=== PATIENT | female | born 1970 | race Two or more races ===

== ENCOUNTER → 2020-06-22 08:11 | Outpatient (BNVA) | payer MEDICAID, SELFPAY | PROVIDERS: PCP Internal Medicine; Referring Provider Internal Medicine; Visit Provider Physician Assistant | DX: K57.30 Diverticulosis of large intestine without perforation or abscess without bleeding (principal); K64.8 Other hemorrhoids; D12.6 Benign neoplasm of colon, unspecified; K29.50 Unspecified chronic gastritis without bleeding; K21.9 Gastro-esophageal reflux disease without esophagitis; F40.218 Other animal type phobia; Z79.899 Other long term (current) drug therapy; Z98.890 Other specified postprocedural states | CPT/HCPCS: 99214 ==

== ENCOUNTER 2020-08-18 12:43 | Outpatient (REF) | payer MEDICAID, SELFPAY ==
--- NOTE | 2020-08-18 | XR_ITS ---
EXAMINATION: BILATERAL HANDS CLINICAL INFORMATION: Finger pain COMPARISON: August 28, 2014 TECHNIQUE: 3 views of each hand FINDINGS: 3 views of the left hand do not demonstrate any evidence of acute fracture or dislocation. Joint spaces are maintained. No periarticular osteopenia. No erosive changes are evident. No radiopaque foreign body. 3 views of the right hand do not demonstrate any evidence of acute fracture or dislocation. No significant soft tissue swelling is seen. Joint spaces maintained. No erosive changes. No radiopaque foreign bodies. XR/XR hand RT min 3V IMPRESSION: No bony abnormality of the right or left hand identified.
--- NOTE | 2020-08-18 12:52 | XR_ITS ---
EXAMINATION: BILATERAL HANDS CLINICAL INFORMATION: Finger pain COMPARISON: August 28, 2014 TECHNIQUE: 3 views of each hand FINDINGS: 3 views of the left hand do not demonstrate any evidence of acute fracture or dislocation. Joint spaces are maintained. No periarticular osteopenia. No erosive changes are evident. No radiopaque foreign body. 3 views of the right hand do not demonstrate any evidence of acute fracture or dislocation. No significant soft tissue swelling is seen. Joint spaces maintained. No erosive changes. No radiopaque foreign bodies. XR/XR hand LT min 3V IMPRESSION: No bony abnormality of the right or left hand identified.
== END 2020-08-18 12:44 | disposition home or self-care (01) ==
LOC: HO.XRAY 12:43
PROVIDERS: PCP Internal Medicine; Visit Provider Internal Medicine
DX: M79.645 Pain in left finger(s) (principal); M79.644 Pain in right finger(s)
CPT/HCPCS: 73130

== ENCOUNTER 2020-09-11 08:44 | Outpatient (REF) | payer MEDICAID, SELFPAY ==
--- NOTE | 2020-09-11 08:47 | CT_ITS ---
EXAMINATION: CT HEAD WITHOUT CONTRAST CLINICAL INFORMATION: Headache. COMPARISON: None TECHNIQUE: Contiguous axial imaging was performed from the skull base to vertex without intravenous administration of contrast. This CT examination was performed using dose optimization techniques as appropriate, variously including the following: *Automated exposure control *Adjustment of mA and/or kV according to patient size (this includes techniques or standardized protocols for targeted exams where dose is matched to indication/reason for exam; i.e. extremities or head) *Use of iterative reconstruction technique DLP: 666 mGy-cm FINDINGS: There is no evidence of acute intracranial hemorrhage or territorial infarction. No abnormal mass effect or midline shift is seen. Aguayo to white matter differentiation is well preserved. No extra-axial fluid collections are identified. The ventricles are normal in size. There is no abnormal attenuation within the brain parenchyma. The osseous structures and soft tissues are normal. Mild mucoperiosteal thickening left posterior ethmoid, right anterior ethmoid and right maxillary sinuses. The mastoid air cells are well-aerated. CT/CT head/brain wo con IMPRESSION: No acute intracranial process seen. Right anterior and left posterior ethmoid and right maxillary sinus chronic inflammatory changes.
== END 2020-09-11 08:45 | disposition home or self-care (01) ==
LOC: HO.CT 08:44
PROVIDERS: PCP Internal Medicine; Visit Provider Internal Medicine
DX: R51.9 Headache, unspecified (principal)
CPT/HCPCS: 70450

== ENCOUNTER 2020-09-28 09:29 | Outpatient (REF) | payer MEDICAID, SELFPAY ==
[2020-09-28 11:25] LABS: Leukocytes Stool Qualitative NEGATIVE (NEGATIVE)
== END 2020-09-28 09:30 | disposition home or self-care (01) ==
LOC: HO.LNP 09:29
PROVIDERS: Visit Provider Physician Assistant
DX: R19.5 Other fecal abnormalities (principal)
CPT/HCPCS: 87177; 87209; 87329; 89055

== ENCOUNTER 2020-10-31 15:58 | Outpatient (REF) | payer MEDICAID, SELFPAY ==
--- NOTE | ~2020-10-31 | XR_ITS ---
EXAMINATION: XR RIGHT WRIST AND RIGHT KNEE CLINICAL INFORMATION: Pain. COMPARISON: Hand study of 08/18/2020. TECHNIQUE: 4 views right wrist and 4 views right knee. FINDINGS: 4 views of the right wrist do not demonstrate any evidence of acute fracture or dislocation. No significant degenerative changes seen. No erosive changes are noted. There is mild negative ulnar variation. No significant soft tissue swelling. 4 views of the right knee do not demonstrate any evidence of acute fracture or dislocation. No effusion is noted. Joint spaces are maintained. Patella spur is seen at site of insertion of the quadriceps tendon. XR/XR wrist RT min 3V IMPRESSION: No significant bony abnormality of the right wrist or right knee identified.
--- NOTE | ~2020-10-31 | XR_ITS ---
EXAMINATION: XR RIGHT WRIST AND RIGHT KNEE CLINICAL INFORMATION: Pain. COMPARISON: Hand study of 08/18/2020. TECHNIQUE: 4 views right wrist and 4 views right knee. FINDINGS: 4 views of the right wrist do not demonstrate any evidence of acute fracture or dislocation. No significant degenerative changes seen. No erosive changes are noted. There is mild negative ulnar variation. No significant soft tissue swelling. 4 views of the right knee do not demonstrate any evidence of acute fracture or dislocation. No effusion is noted. Joint spaces are maintained. Patella spur is seen at site of insertion of the quadriceps tendon. XR/XR knee RT 4V IMPRESSION: No significant bony abnormality of the right wrist or right knee identified.
== END 2020-10-31 15:59 | disposition home or self-care (01) ==
LOC: HO.XRAY 15:58
PROVIDERS: Visit Provider Registered Nurse Community Health
DX: M25.561 Pain in right knee (principal); M25.531 Pain in right wrist
CPT/HCPCS: 73110; 73564

== ENCOUNTER → 2020-11-29 07:48 | Outpatient (BNVA) | payer MEDICAID, SELFPAY | PROVIDERS: PCP Internal Medicine; Visit Provider Physician Assistant ==

== ENCOUNTER → 2021-01-17 10:59 | Outpatient (BNVA) | payer MEDICAID, SELFPAY | PROVIDERS: PCP Internal Medicine; Visit Provider Orthopaedic Surgery | DX: M65.311 Trigger thumb, right thumb (principal); R20.0 Anesthesia of skin; R20.2 Paresthesia of skin | CPT/HCPCS: 99202 ==

== ENCOUNTER 2021-01-18 07:58 | Outpatient (REF) | payer MEDICAID, SELFPAY ==
--- NOTE | ~2021-01-18 | XR_ITS ---
EXAMINATION: XR ELBOW, RIGHT CLINICAL INFORMATION: Right elbow pain COMPARISON: Left elbow 11/09/2014, TECHNIQUE: AP, lateral, and oblique views of the right elbow. FINDINGS: There is no visible acute fracture, dislocation or subluxation. There is mild posterior olecranon process and anterior coronoid process proximal ulnar enthesophytes. There are no loose bodies. No soft tissue swelling or joint effusion.. XR/XR elbow RT 2V IMPRESSION: Enthesophytes along the proximal ulna as described above. The enthesophytes are slightly enlarged since 11/09/2014 exam. No acute fracture, dislocation or joint effusion.
== END 2021-01-18 07:59 | disposition home or self-care (01) ==
LOC: HO.HOSX 07:58
PROVIDERS: Visit Provider Orthopaedic Surgery
DX: M77.01 Medial epicondylitis, right elbow (principal); M77.02 Medial epicondylitis, left elbow; M25.521 Pain in right elbow; R20.0 Anesthesia of skin; R20.2 Paresthesia of skin; Z88.2 Allergy status to sulfonamides; Z88.8 Allergy status to other drugs, medicaments and biological substances; Z87.891 Personal history of nicotine dependence
CPT/HCPCS: 20550; 20605; 73070; 99212; J1100

== ENCOUNTER 2021-02-03 16:38 | Emergency (ER) | payer MEDICAID, SELFPAY ==
[2021-02-03 16:40] VITALS: BP 149/86; PULSE 91; RESP 20; TEMP 36.6; O2SAT 100; BMI 28.1
--- NOTE | 2021-02-03 17:51 | ED.FEMALEGU ---
HPI - Female Genitourinary General Chief complaint: Urogenital-Female Stated complaint: Flank pain Time Seen by Provider: 02/03/21 16:53 Source: patient Mode of arrival: ambulatory Limitations: no limitations Related Data Home Medications Medication Instructions Recorded Confirmed albuterol sulfate 90 mcg/actuation 2 puff INHALATION Q6H PRN 06/17/20 11/29/20 aerosol inhaler fluticasone prop.50 mcg spray INTRANASAL .once daily ea 06/17/20 11/29/20 spray,suspen-sod.chloride 0.9% nasal spray kit fluticasone propionate 250 1 inh INHALATION BID 06/17/20 11/29/20 mcg/actuation blister powder for inhalation loratadine 10 mg capsule 10 mg PO DAILY 06/17/20 11/29/20 pantoprazole 20 mg tablet,delayed 20 mg PO DAILY 06/17/20 11/29/20 release cetirizine 10 mg capsule 10 mg PO DAILY 06/22/20 11/29/20 famotidine 20 mg tablet 20 mg PO BID 06/22/20 11/29/20 potassium chloride 10 mEq 10 meq PO BID 06/22/20 11/29/20 capsule,extended release gabapentin 400 mg capsule 400 mg PO DAILY 11/29/20 11/29/20 Previous Rx's Medication Instructions Recorded amlodipine 10 mg tablet 10 mg PO DAILY #30 tab 07/19/20 Allergies Allergy/AdvReac Type Severity Reaction Status Date / Time droperidol [From Inapsine] Allergy Unknown UNKNOWN, Verified 02/03/21 16:42 rash Sulfa (Sulfonamide Allergy Unknown hives Verified 02/03/21 16:42 Antibiotics) sulfamethoxazole Allergy Unknown HIVES Verified 02/03/21 16:42 [From BACTRIM] trimethoprim [From BACTRIM] Allergy Unknown HIVES Verified 02/03/21 16:42 From COPAXONE Allergy Unknown HIVES Uncoded 01/17/21 11:13 PMFSH Past Medical History Medical History (Updated 01/18/21 @ 09:09 by Sergio Almazan MD) Acid reflux Anxiety Medial epicondylitis of both elbows Pain of both elbows Surgical History H/O nasal polypectomy History of carpal tunnel release History of cholecystectomy Hx of colonoscopy Hx of endoscopy Hx of tonsillectomy S/P sinus surgery Family History Family History Father Hypertension PTSD (post-traumatic stress disorder) Mother Manic depression Hyperlipemia Heart disease Asthma Anxiety Son Asthma Daughter Asthma Paternal Grandfather Asthma Paternal Grandfather Asthma Alzheimer disease Maternal Grandmother Asthma Brother No problems noted. Sister No problems noted. Social History Social History Household Members: Children Alcohol intake: current Alcohol intake frequency: holidays/special occasions only Smoking Status: Former smoker Substance Use Type: Marijuana Advance Directives: No Advance Directives Information Provided: Yes Current occupational status: unemployed Current occupation: right handed Physical Exam Vital Signs: Vital Signs: Last Vital Signs Temp 98 F 02/03/21 16:40 Pulse 91 02/03/21 16:40 Resp 20 02/03/21 16:40 BP 149/86 H 02/03/21 16:40 Pulse Ox 100 02/03/21 16:40 Body Mass Index 28.1 Discharge Plan Discharge Prescriptions: No Action amlodipine 10 mg tablet 10 mg PO DAILY Qty: 30 RF: 3 loratadine 10 mg capsule 10 mg PO DAILY RF: 0 pantoprazole 20 mg tablet,delayed release (DR/EC) 20 mg PO DAILY RF: 0 albuterol sulfate [ProAir HFA] 90 mcg/actuation HFA aerosol inhaler 2 puff inhalation Q6H PRNRF: 0 Flovent Diskus 250 mcg/actuation blister with device 1 inh inhalation BID RF: 0 fluticasone prp-sod.chl,bicarb 50 mcg- 0.9 % kit,spray suspension and spray intranasal .once daily RF: 0 famotidine [Acid Knitting Machine Operator (famotidine)] 20 mg tablet 20 mg PO BID RF: 0 All Day Allergy (cetirizine) 10 mg capsule 10 mg PO DAILY RF: 0 potassium chloride 10 mEq capsule, extended release 10 meq PO BID RF: 0 gabapentin 400 mg capsule 400 mg PO DAILY RF: 0
== END 2021-02-03 17:54 | disposition left against medical advice (07) ==
LOC: HO.ED 17:50
PROVIDERS: Emergency Provider Emergency Medicine; PCP Internal Medicine
DX: R10.9 Unspecified abdominal pain (principal)
CPT/HCPCS: 99281; 99282

== ENCOUNTER 2021-04-04 10:04 | Outpatient (REF) | payer MEDICAID, SELFPAY ==
--- NOTE | 2021-04-04 10:07 | EMG_ITS ---
This is a 50-year-old woman with history of right carpal tunnel release many years ago, who has had some mild recurrence of symptoms in the last 3 months and is waking up with lot of pain and numbness in the left hand. She is on no medications. PHYSICAL EXAMINATION: NEUROLOGICAL EXAMINATION: Normal with no Tinel or Phalen sign. IMPRESSION: Nerve conduction EMG study: Mild carpal tunnel syndrome on the left. Normal EMG of the left C5-T1 innervated muscles. MD LIDYA Shaffer/[facility] / [id number]
== END 2021-04-04 10:05 | disposition home or self-care (01) ==
LOC: HO.NEURO 10:04
PROVIDERS: Visit Provider Orthopaedic Surgery
DX: R00.0 Tachycardia, unspecified (principal); R20.2 Paresthesia of skin
CPT/HCPCS: 95885; 95913

== ENCOUNTER → 2021-04-17 13:14 | Outpatient (BNVA) | payer MEDICAID, SELFPAY | PROVIDERS: PCP Internal Medicine; Referring Provider Internal Medicine; Visit Provider Urology | DX: N20.0 Calculus of kidney (principal) | CPT/HCPCS: 99202 ==

== ENCOUNTER 2021-04-20 14:59 | Outpatient (REF) | payer OTHER, SELFPAY ==
--- NOTE | ~2021-04-20 | US_ITS ---
EXAMINATION: US VENOUS WITH DOPPLER UPPER EXTREMITY, LEFT CLINICAL INFORMATION: Pain COMPARISON: Previous exam March 2019 TECHNIQUE: Ultrasound of the upper extremity is performed using compression sonography and color and pulse Doppler flow with assessment of augmentation of flow. There is also imaging and Doppler assessment of the jugular and subclavian veins. Spectral analysis with color-flow imaging is performed. FINDINGS: Left internal jugular, subclavian, axial, brachial and basilic veins are patent. The radial ulnar veins in the forearm are patent. The cephalic vein is not seen. US/US venous duplex UE LT IMPRESSION: No DVT demonstrated in the left upper extremity.
== END 2021-04-20 15:00 | disposition home or self-care (01) ==
LOC: HO.US 14:59
PROVIDERS: Visit Provider Emergency Medicine
DX: M79.602 Pain in left arm (principal)
CPT/HCPCS: 93971

== ENCOUNTER 2021-05-28 07:33 | Day surgery (SDC) | payer MEDICAID, SELFPAY ==
[2021-05-23 14:44] VITALS: BMI 28.1
--- NOTE | 2021-05-25 12:57 | HO.ANESPROP2 ---
HPI - Anesthesia Eval Consult details Narrative: 50yo F for Right Cystoscopy, Ureteroroscopy, Retro, Laser PMFSH Active Problems Active Problems: All Active Problems (Updated 05/23/21 @ 14:25 by Alona Marcum RN) Fear of parasites (Acute) Adenomatous colon polyp (Acute) IBS (irritable bowel syndrome) (Acute) Trigger finger of right thumb (Acute) Numbness and tingling in both hands (Acute) Nephrolithiasis (Acute) Medial epicondylitis of both elbows (Acute) Pain of both elbows (Acute) Anxiety (Acute) Acid reflux (Acute) Past Medical History Medical History (Updated 05/23/21 @ 14:25 by Alona Marcum RN) Acid reflux Anxiety HTN (hypertension) Medial epicondylitis of both elbows Pain of both elbows Family History Family History Father Hypertension PTSD (post-traumatic stress disorder) Mother Manic depression Hyperlipemia Heart disease Asthma Anxiety Son Asthma Daughter Asthma Paternal Grandfather Asthma Paternal Grandfather Asthma Alzheimer disease Maternal Grandmother Asthma Brother No problems noted. Sister No problems noted. Surgical History Surgical History (Updated 05/23/21 @ 14:23 by Alona Marcum RN) H/O nasal polypectomy History of carpal tunnel release History of cholecystectomy Hx of colonoscopy Hx of endoscopy Hx of tonsillectomy Social History Social History Household Members: Children Alcohol intake: current Alcohol intake frequency: holidays/special occasions only Patient Tobacco Use Status: Tobacco use Unknown Substance Use Type: Marijuana Current occupational status: unemployed Current occupation: right handed Meds Allergies Allergy/AdvReac Type Severity Reaction Status Date / Time tramadol Allergy Severe Seizure Verified 05/29/21 08:55 droperidol [From Inapsine] Allergy Intermediate Rash Verified 05/28/21 07:42 Sulfa (Sulfonamide Allergy Intermediate hives Verified 05/28/21 07:42 Antibiotics) sulfamethoxazole Allergy Intermediate HIVES Verified 05/28/21 07:42 [From BACTRIM] trimethoprim [From BACTRIM] Allergy Intermediate HIVES Verified 05/28/21 07:42 From COPAXONE Allergy Mild HIVES Uncoded 05/23/21 14:31 Home Medications Medication Instructions Recorded Confirmed Last Taken Type albuterol sulfate 90 mcg/actuation 2 puff INHALATION Q6H PRN 06/17/20 05/23/21 05/28/21 06:30 History aerosol inhaler (ProAir HFA) fluticasone prop.50 mcg 1 spray INTRANASAL .once daily ea 06/17/20 05/23/21 Unknown History spray,suspen-sod.chloride 0.9% nasal spray kit fluticasone propionate 250 1 inh INHALATION BID 06/17/20 05/23/21 05/28/21 06:30 History mcg/actuation blister powder for inhalation (Flovent Diskus) loratadine 10 mg capsule 10 mg PO DAILY 06/17/20 11/29/20 Unknown History pantoprazole 20 mg tablet,delayed 20 mg PO DAILY 06/17/20 05/23/21 Unknown History release cetirizine 10 mg capsule (All Day 10 mg PO DAILY 06/22/20 11/29/20 Unknown History Allergy (cetirizine)) potassium chloride 10 mEq 10 meq PO BID 06/22/20 05/23/21 Unknown History capsule,extended release gabapentin 400 mg capsule 400 mg PO DAILY 11/29/20 05/23/21 Unknown History hydrochlorothiazide 25 mg tablet 25 mg PO DAILY 05/23/21 05/23/21 Unknown History lisinopril 20 mg tablet 20 mg PO DAILY 05/23/21 05/23/21 Unknown History Exam Exam Date and Time: May 25, 2021 1257 Height,Weight and Vital Signs: Height 5 ft 2 in Weight 69.853 kg Assessment and Plan Assessment Anesthesia Assessment: Chart Reviewed
[2021-05-28] VITALS (10 sets, daily range): BP systolic 118–136; BP diastolic 69–84; PULSE 68–83; RESP 16–20; TEMP 36.1–36.8; O2SAT 92–100
[2021-05-28] MEDS: Lactated Ringers 1,000 ML 100 ML IVCONT (08:18)
--- NOTE | 2021-05-28 09:23 | MHC.SHP ---
Pre-Procedural Eval Section A Date of Service: 05/28/21 Section B Chief Complaint: kidney stone Details of Present Illness: Distal right ureteric stone had presented through emergency room and has persistent symptoms Relevant Social History: None Present Medications: see Short Stay Collaborative assessment Medical History: No relevant PMH History of Previous Operations: No relevant previous surgery Allergies: Allergies Allergy/AdvReac Type Severity Reaction Status Date / Time droperidol [From Inapsine] Allergy Intermediate Rash Verified 05/28/21 07:42 Sulfa (Sulfonamide Allergy Intermediate hives Verified 05/28/21 07:42 Antibiotics) sulfamethoxazole Allergy Intermediate HIVES Verified 05/28/21 07:42 [From BACTRIM] trimethoprim [From BACTRIM] Allergy Intermediate HIVES Verified 05/28/21 07:42 From COPAXONE Allergy Mild HIVES Uncoded 05/23/21 14:31 Review of Systems Sugical H&P ROS: Negative: Constitution, Cardiovascular, Respiratory, Neurological, Psychiatric, Hem-Onc, Allergic/Immunologic, Gastrointestinal, Genitourinary, Musculoskeletal, Integumentary, Endocrine and Eyes/Ears/Nose/Throat Exam Surgical H&P Exam: Normal: HEENT, Normal: Heart, Normal: Lungs, Normal: Extremities, Normal: Abdomen, Normal: Skin and Normal: Neurological Plan Diagnosis/Plan: Unchanged (Right retrograde, ureteroscopy, laser lithotripsy, stent placement) I have reviewed the history and physical and performed a pertinent physical examination on my patient. No changes have occurred unless specified.
[2021-05-28] MEDS: levoFLOXacin 500 MG TABLET PO (09:25)
--- NOTE | 2021-05-28 09:57 | W.PM.OPN ---
Operative Note Operative Note Date of Service: 05/28/21 Narrative: PreOperative Diagnosis: Distal right ureteric stone Post Operative Diagnosis: Distal right ureteric annular stricture Procedure: - rightcystoscopy, retrograde - right dilatation of ureteric orifice under fluoroscopy - ureteroscopy - stent placement Surgeon: Dr Dipak Farrar Anesthesia: General Indications for procedure: This is a 50-year-old female. Presented to the emergency room with a distal right ureteric stone. Persistent pain which was not resolving. Recommendation for ureteroscopy with laser lithotripsy and stent placement based on the persistent pain spasm she is having in feels as though there is something on the right side of her urethra. Procedure: After informed consent was verified patient was brought to the operating placed in supine position. Anesthesia was administered per protocol. Patient was placed in modified dorsal lithotomy position and prepped and draped in a sterile fashion. Safety pause time-out and side of surgery confirmed. Antibiotics confirmed. Twenty-two Niuean cystoscope inserted per urethra. Mild inflammation noted of right ureteric opening. Retrograde examination was performed. No definitive filling defects seen. Sensor guidewire placed to the level renal pelvis. Outlet dilated with open-ended catheter. Rigid ureteroscopy performed over the wire. There was annular narrowing at the UVJ. This was dilated with the scope. Rigid ureteroscopy was performed up to the proximal ureter no stone was seen. Decision was made to leave a stent to allow full healing. Six Niuean by 22 cm double-J stent placed without difficulty with good coil seen within the renal pelvis and the bladder. Patient tolerated procedure well was extubated in the operating room and transferred in stable condition to the recovery area Pathology: None Drains: 6 Niuean by 22 cm right double-J
[2021-05-28] MEDS: Acetaminophen 325 MG TABLET 650 MG PO ×2 (10:15→10:16)
[2021-05-28] MEDS: Phenazopyridine HCL 100 MG TABLET PO (10:17)
[2021-05-28] MEDS: oxyCODONE HCl Immed Release 5 MG TABLET PO (10:41)
[2021-05-28] MEDS: fentaNYL citrate/PF 100 MCG/2 ML VIAL 50 MCG IVPUSH (10:42)
== END 2021-05-28 11:58 | disposition home or self-care (01) ==
PROVIDERS: PCP Internal Medicine; Visit Provider Urology
PROC: (CPT 52345; principal; 2021-05-28 09:30)
DX: N13.5 Crossing vessel and stricture of ureter without hydronephrosis (principal); K21.9 Gastro-esophageal reflux disease without esophagitis; F41.9 Anxiety disorder, unspecified; Z88.2 Allergy status to sulfonamides; Z88.8 Allergy status to other drugs, medicaments and biological substances; F12.90 Cannabis use, unspecified, uncomplicated
CPT/HCPCS: 52345; 52332; C1769; C2617; J1100; J2250; J2405; J3010; Q9967

== ENCOUNTER 2021-06-01 08:18 | Outpatient (REF) | payer MEDICAID, SELFPAY ==
--- NOTE | ~2021-06-01 | XR_ITS ---
EXAMINATION: XR CLAVICLE, LEFT XR SHOULDER, LEFT XR WRIST, LEFT CLINICAL INFORMATION: Pain. COMPARISON: None. TECHNIQUE: AP, Grashey, scapular Y, and axillary views of the left shoulder. AP view the left clavicle. AP, oblique, and lateral views of the left wrist. FINDINGS: Left Clavicle: No acute fracture or dislocation. No joint space narrowing or marginal osteophytes. No abnormal soft tissue calcification. No osseous erosion. Left Shoulder: No acute fracture or dislocation. No joint space narrowing or marginal osteophytes. No osseous erosion. No abnormal soft tissue calcification. Left Wrist: No acute fracture or dislocation. Normal carpal alignment. No joint space narrowing or marginal osteophytes. No osseous erosion. No abnormal soft tissue calcification. XR/XR shoulder LT min 2V IMPRESSION: No acute osseous abnormality.
--- NOTE | ~2021-06-01 | XR_ITS ---
EXAMINATION: XR CLAVICLE, LEFT XR SHOULDER, LEFT XR WRIST, LEFT CLINICAL INFORMATION: Pain. COMPARISON: None. TECHNIQUE: AP, Grashey, scapular Y, and axillary views of the left shoulder. AP view the left clavicle. AP, oblique, and lateral views of the left wrist. FINDINGS: Left Clavicle: No acute fracture or dislocation. No joint space narrowing or marginal osteophytes. No abnormal soft tissue calcification. No osseous erosion. Left Shoulder: No acute fracture or dislocation. No joint space narrowing or marginal osteophytes. No osseous erosion. No abnormal soft tissue calcification. Left Wrist: No acute fracture or dislocation. Normal carpal alignment. No joint space narrowing or marginal osteophytes. No osseous erosion. No abnormal soft tissue calcification. XR/XR wrist LT min 3V IMPRESSION: No acute osseous abnormality.
--- NOTE | ~2021-06-01 | XR_ITS ---
EXAMINATION: XR CLAVICLE, LEFT XR SHOULDER, LEFT XR WRIST, LEFT CLINICAL INFORMATION: Pain. COMPARISON: None. TECHNIQUE: AP, Grashey, scapular Y, and axillary views of the left shoulder. AP view the left clavicle. AP, oblique, and lateral views of the left wrist. FINDINGS: Left Clavicle: No acute fracture or dislocation. No joint space narrowing or marginal osteophytes. No abnormal soft tissue calcification. No osseous erosion. Left Shoulder: No acute fracture or dislocation. No joint space narrowing or marginal osteophytes. No osseous erosion. No abnormal soft tissue calcification. Left Wrist: No acute fracture or dislocation. Normal carpal alignment. No joint space narrowing or marginal osteophytes. No osseous erosion. No abnormal soft tissue calcification. XR/XR clavicle LT IMPRESSION: No acute osseous abnormality.
== END 2021-06-01 08:19 | disposition home or self-care (01) ==
LOC: HO.XRAY 08:18
PROVIDERS: PCP Internal Medicine; Visit Provider Internal Medicine
DX: M25.512 Pain in left shoulder (principal); M25.532 Pain in left wrist; M89.8X1 Other specified disorders of bone, shoulder
CPT/HCPCS: 73000; 73030; 73110

== ENCOUNTER 2021-06-07 10:50 | Outpatient (REF) | payer OTHER, MEDICAID, SELFPAY ==
--- NOTE | ~2021-06-07 | CT_ITS ---
EXAMINATION: CT HEAD WITHOUT CONTRAST CLINICAL INFORMATION: Posttraumatic headaches COMPARISON: None TECHNIQUE: Contiguous axial imaging was performed from the skull base to vertex without intravenous administration of contrast. This CT examination was performed using dose optimization techniques as appropriate, variously including the following: *Automated exposure control *Adjustment of mA and/or kV according to patient size (this includes techniques or standardized protocols for targeted exams where dose is matched to indication/reason for exam; i.e. extremities or head) *Use of iterative reconstruction technique DLP: 671 mGy-cm FINDINGS: There is no evidence of acute intracranial hemorrhage or territorial infarction. No abnormal mass effect or midline shift is seen. Aguayo to white matter differentiation is well preserved. No extra-axial fluid collections are identified. The ventricles are normal in size. There is no abnormal attenuation within the brain parenchyma. The osseous structures and soft tissues are normal. The mastoid air cells and visualized portions of the paranasal sinuses are well aerated. CT/CT head/brain wo con IMPRESSION: No acute intracranial process seen.
== END 2021-06-07 10:51 | disposition home or self-care (01) ==
LOC: HO.CT 10:50
PROVIDERS: PCP Internal Medicine; Visit Provider Internal Medicine
DX: G44.301 Post-traumatic headache, unspecified, intractable (principal)
CPT/HCPCS: 70450

== ENCOUNTER → 2021-06-27 13:13 | Outpatient (BNVA) | payer OTHER, MEDICAID, SELFPAY | PROVIDERS: PCP Internal Medicine; Visit Provider Urology | DX: N20.0 Calculus of kidney (principal) | CPT/HCPCS: 52310 ==

== ENCOUNTER 2021-07-02 08:04 | Outpatient (REF) | payer MEDICAID, SELFPAY ==
--- NOTE | ~2021-07-02 | US_ITS ---
EXAMINATION: US RETROPERITONEAL LIMITED (RENAL ONLY) CLINICAL INFORMATION: Calculus of kidney. COMPARISON: X-ray abdomen KUB 10/24/2017. CT abdomen and pelvis 09/23/2014. Renal ultrasound 05/18/2013. TECHNIQUE: Real-time imaging of the kidneys. FINDINGS: RIGHT KIDNEY: 11.1 x 5.2 x 4.6 cm (SAG x AP x TRV). The kidney is normal in size, contour, and echogenicity. Renal cortical thickness is normal. No renal calculi or hydronephrosis. An anechoic cyst in the lower pole measures 3.9 cm. Color Doppler showed no abnormal vascular flow. LEFT KIDNEY: 12.1 x 5.3 x 4.8 cm (SAG x AP x TRV). The kidney is normal in size, contour, and echogenicity. Renal cortical thickness is normal. No calculi or focal parenchymal lesions. No hydronephrosis. The visualized liver shows diffuse increased echotexture. US/US renal BI IMPRESSION: 1. Right lower pole renal cyst demonstrates benign features. No other significant renal abnormality. 2. Hepatic steatosis.
== END 2021-07-02 08:05 | disposition home or self-care (01) ==
LOC: HO.US 08:04
PROVIDERS: PCP Internal Medicine; Visit Provider Urology
DX: N20.0 Calculus of kidney (principal)
CPT/HCPCS: 76775

== ENCOUNTER 2021-07-19 07:32 | Outpatient (REF) | payer MEDICAID, SELFPAY ==
--- NOTE | ~2021-07-19 | MR_ITS ---
EXAMINATION: MR SHOULDER WITHOUT CONTRAST, LEFT CLINICAL INFORMATION: Left shoulder pain and decreased range of motion. COMPARISON: Left shoulder and left clavicle radiographs dated 06/01/2021 TECHNIQUE: Multisequence MR imaging of the left shoulder was obtained without contrast on a high-field strength scanner. FINDINGS: ROTATOR CUFF: Supraspinatus tendinosis with focal bursal surface partial tearing measuring 1.0 x 0.6 cm (AP x ML). No muscle atrophy or fatty infiltration. BICEPS: Normal. CORACOACROMIAL ARCH: The undersurface of the acromion is curved with small lateral subacromial spurs. The acromioclavicular joint is normal. Mild fluid in the subacromial-subdeltoid bursa, consistent with mild bursitis. LABRUM/CAPSULE: Normal. GLENOHUMERAL JOINT/MARROW: Intact articular cartilage. No abnormal marrow signal. Small glenohumeral joint effusion. MR/MR shoulder LT wo con IMPRESSION: 1. Supraspinatus tendinosis with focal bursal surface partial tearing measuring 1.0 x 0.6 cm (AP x ML). No full-thickness tendon defect. 2. Small lateral subacromial spurs with mild subacromial-subdeltoid bursitis. 3. Small glenohumeral joint effusion.
== END 2021-07-19 07:33 | disposition home or self-care (01) ==
LOC: HO.MRI 07:32
PROVIDERS: Visit Provider Internal Medicine
DX: M25.512 Pain in left shoulder (principal)
CPT/HCPCS: 73221

== ENCOUNTER 2021-08-21 14:05 | Outpatient (REF) | payer MEDICAID, SELFPAY ==
[2021-08-21 14:53] LABS: COVID-19 Test Positive (Negative)
== END 2021-08-21 14:06 | disposition home or self-care (01) ==
LOC: HO.LAB 14:05
PROVIDERS: Visit Provider Internal Medicine
DX: Z20.822 Contact with and (suspected) exposure to COVID-19 (principal)
CPT/HCPCS: 36415; 87635; C9803

== ENCOUNTER 2021-08-24 10:50 | Emergency (ER) | payer MEDICAID, SELFPAY ==
--- NOTE | ~2021-08-24 | XR_ITS ---
EXAMINATION: XR CHEST CLINICAL INFORMATION: Chest pain. Covid positive. COMPARISON: Previous chest x-ray January 2018 TECHNIQUE: Frontal view of the chest was obtained. FINDINGS: No significant abnormality is noted involving the heart, lungs, mediastinum, bony thorax or soft tissues. XR/XR chest 1V IMPRESSION: Unremarkable examination.
--- NOTE | 2021-08-24 11:17 | ECG_ITS ---
Test Reason : CHEST PAIN Blood Pressure : / mmHG Vent. Rate : 078 BPM Atrial Rate : 078 BPM P-R Int : 160 ms QRS Dur : 088 ms QT Int : 380 ms P-R-T Axes : 051 042 053 degrees QTc Int : 433 ms Normal sinus rhythm Normal ECG When compared with ECG of 10-FEB-2018 14:10, Premature supraventricular complexes are no longer Present T wave inversion no longer evident in Inferior leads Nonspecific T wave abnormality no longer evident in Anterior leads Referred By: Kirti Kwok Electronically Signed By:Dudley Isaac
--- NOTE | 2021-08-24 11:48 | ED_ITS ---
HPI - URI/Sore Throat General Chief Complaint: Upper Respiratory Symptoms <LEVON Ren - Last Filed: 08/24/21 12:25> Stated Complaint: COVID + CHEST PAIN BODY ACHES <LEVON Ren - Last Filed: 08/24/21 12:25> Time Seen by Provider: 08/24/21 11:17 <LEVON Ren - Last Filed: 08/24/21 12:25> Source: patient <LEVON Ren Last Filed: 08/24/21 12:25> Mode of arrival: ambulatory <LEVON Ren Last Filed: 08/24/21 12:25> Limitations: no limitations <LEVON Ren Last Filed: 08/24/21 12:25> History of Present Illness HPI Narrative: 51-year-old female who was diagnosed with COVID-19 on August 21 presents to the ER from home c/o severe body aches and pains all over her whole body. She reports diffuse body aches and chest discomfort when she coughs. She has not vaccinated for COVID-19. She lives with her daughter who has Crohn's disease and is also not vaccinated. She states she feels like she got hit by a truck. She has elastic Motrin at 03:00 but is not helping her pains. She denies any shortness of breath or difficulty breathing. She has decreased appetite but no vomiting or abdominal pain <LEVON Ren Last Filed: 08/24/21 12:25> MD elicited complaint: cough and other (Diffuse body aches) <LEVON Ren Last Filed: 08/24/21 12:25> Onset (ago): day(s) <LEVON Ren Last Filed: 08/24/21 12:25> Consistency: constant <LEVON Ren Last Filed: 08/24/21 12:25> Severity: severe <LEVON Ren Last Filed: 08/24/21 12:25> Able to tolerate fluids by mouth: Yes <LEVON Ren Last Filed: 08/24/21 12:25> Exacerbating factors: exertion <LEVON Ren Last Filed: 12/10/21 12:25> Relieving factors: nothing <LEVON Ren Last Filed: 08/24/21 12:25> Context: sick contacts <LEVON Ren Last Filed: 08/24/21 12:25> Associated symptoms: chills, myalgias, headache and chest pain <LEVON Ren Last Filed: 08/24/21 12:25> Treatments prior to arrival: ibuprofen <LEVON Ren Last Filed: 08/24/21 12:25> Related Data Home Medications: Home Medications Medication Instructions Recorded Confirmed albuterol sulfate 90 mcg/actuation 2 puff INHALATION Q6H PRN 06/17/20 05/23/21 aerosol inhaler (ProAir HFA) fluticasone prop.50 mcg 1 spray INTRANASAL .once daily ea 06/17/20 05/23/21 spray,suspen-sod.chloride 0.9% nasal spray kit fluticasone propionate 250 1 inh INHALATION BID 06/17/20 05/23/21 mcg/actuation blister powder for inhalation (Flovent Diskus) loratadine 10 mg capsule 10 mg PO DAILY 06/17/20 11/29/20 pantoprazole 20 mg tablet,delayed 20 mg PO DAILY 06/17/20 05/23/21 release cetirizine 10 mg capsule (All Day 10 mg PO DAILY 06/22/20 11/29/20 Allergy (cetirizine)) potassium chloride 10 mEq 10 meq PO BID 06/22/20 05/23/21 capsule,extended release gabapentin 400 mg capsule 400 mg PO DAILY 11/29/20 05/23/21 hydrochlorothiazide 25 mg tablet 25 mg PO DAILY 05/23/21 05/23/21 lisinopril 20 mg tablet 20 mg PO DAILY 05/23/21 05/23/21 Previous Rx's Medication Instructions Recorded amlodipine 10 mg tablet 10 mg PO DAILY #30 tab 02/07/21 famotidine 20 mg tablet (Acid 20 mg PO BID #60 tab 05/03/21 Biofuels Production Technician (famotidine)) oxycodone 5 mg capsule 5 mg PO Q8H PRN 3 Days #20 cap 05/28/21 tamsulosin 0.4 mg capsule 0.4 mg PO BEDTIME 14 Days #14 cap 05/28/21 tramadol 50 mg tablet 50 mg PO Q6H PRN #14 tab 05/28/21 naproxen 500 mg tablet 500 mg PO BID PRN 5 Days #10 tab 06/01/21 oxybutynin chloride 5 mg tablet 5 mg PO DAILY 30 Days #30 tab 06/07/21 phenazopyridine 100 mg tablet 100 mg PO TID PRN #7 tab 06/26/21 (Pyridium) <LEVON Ren Last Filed: 08/24/21 12:25> Allergies/Adverse Reactions: Allergies Allergy/AdvReac Type Severity Reaction Status Date / Time tramadol Allergy Severe Seizure Verified 06/27/21 13:38 droperidol [From Inapsine] Allergy Intermediate Rash Verified 06/27/21 13:38 Sulfa (Sulfonamide Allergy Intermediate hives Verified 06/27/21 13:38 Antibiotics) sulfamethoxazole Allergy Intermediate HIVES Verified 06/27/21 13:38 [From BACTRIM] trimethoprim [From BACTRIM] Allergy Intermediate HIVES Verified 06/27/21 13:38 From COPAXONE Allergy Mild HIVES Uncoded 05/23/21 14:31 <LEVON Ren Last Filed: 08/24/21 12:25> Review of Systems Review of Systems: Constitutional: No Fever, No Chills ENT/Mouth: + sore throat, + Rhinorrhea, No Swallowing Difficulty Cardiovascular: No Chest Pain, No SOB, No Orthopnea, No Edema Respiratory: + Cough, No Sputum, No Wheezing, No dyspnea Gastrointestinal: No Nausea, No Vomiting, No Diarrhea, No abdominal Pain Genitourinary: No Dysuria, No Urinary Frequency, No Hematuria Musculoskeletal: + joint pain, + Myalgias Skin: No Skin Lesions, No rash Neuro: No Weakness, No Numbness, No Dizziness, + Headache Psych: + Anxiety/Panic, + Depression Heme/Lymph: No Bruising, No Lymphadenopathy Endocrine: No Polyuria, No Polydipsia <LEVON Ren Last Filed: 08/24/21 12:25> [facility] Past Medical History Attestation statement: The following information was validated with the patient. <LEVON Ren Last Filed: 08/24/21 12:25> Medical History: Medical History Acid reflux Anxiety HTN (hypertension) Medial epicondylitis of both elbows Pain of both elbows <LEVON Ren - Last Filed: 08/24/21 12:25> Surgical History: Surgical History H/O nasal polypectomy History of carpal tunnel release History of cholecystectomy Hx of colonoscopy Hx of endoscopy Hx of tonsillectomy <LEVON Ren - Last Filed: 08/24/21 12:25> Family History Family History: Family History Father Hypertension PTSD (post-traumatic stress disorder) Mother Manic depression Hyperlipemia Heart disease Asthma Anxiety Son Asthma Daughter Asthma Paternal Grandfather Asthma Paternal Grandfather Asthma Alzheimer disease Maternal Grandmother Asthma Brother No problems noted. Sister No problems noted. <LEVON Ren - Last Filed: 08/24/21 12:25> Social History Social History: Social History Household Members: Children Alcohol intake: current Alcohol intake frequency: holidays/special occasions only Patient Tobacco Use Status: Tobacco use Unknown Substance Use Type: Marijuana Advance Directives: No Advance Directives Information Provided: No Patient : No Current occupational status: unemployed Current occupation: right handed <LEVON Ren - Last Filed: 08/24/21 12:25> Physical Exam Vital Signs: Vital Signs: Last Vital Signs Temp 98.4 F 08/24/21 12:04 Pulse 78 08/24/21 12:04 Resp 16 08/24/21 12:04 BP 148/95 H 08/24/21 12:04 Pulse Ox 97 08/24/21 12:04 BMI result Body Mass Index 29.2 <LEVON Ren - Last Filed: 08/24/21 12:25> Vital Signs: Last Vital Signs Temp 98.4 F 08/24/21 12:04 Pulse 78 08/24/21 12:04 Resp 16 08/24/21 12:04 BP 148/95 H 08/24/21 12:04 Pulse Ox 97 08/24/21 12:04 BMI result Body Mass Index 29.2 <Nkiolay Soler MD - Last Filed: 08/24/21 17:29> Appearance: Alert. Oriented X3. Tearful Eyes: Pupils equal, round and reactive to light. ENT: Pharynx normal. Moist mucous membranes Neck: Normal inspection. Neck supple. CVS: Normal heart rate and rhythm. Pulses normal. Respiratory: No respiratory distress. Breath sounds normal. Anterior chest wall tenderness throughout Abdomen: Soft and nontender. +BS x4 Skin: Skin warm and dry. Normal skin color. Normal skin turgor. No rashes. Extremities: No lower extremity edema. Diffuse muscle tenderness of the anterior thighs and lower legs Neuro: Oriented X 3. Grossly normal, nonfocal <LEVON Ren - Last Filed: 08/24/21 12:25> Course Course Course Narrative: 51 y/o female with recently diagnosed COVID-19 who was unvaccinated presents to the ER with diffuse body aches and pains, reporting she ?feels like she got hit by a truck. ? her vital signs are within normal limits without tachycardia or hypoxia. She has no respiratory distress her lungs are clear. She is afebrile. Her EKG is normal and her chest x-ray is clear. She has diffuse body pains that are related to COVID-19. We discussed supportive care and management for this. At this time she has no shortness of breath or dyspnea on exertion. We discussed importance of monitoring for this at home and need to come back to the hospital this develops. Encouraged alternating doses of Motrin and Tylenol for her pain. Stable for discharge home with supportive care and outpatient follow-up. <LEVON Ren - Last Filed: 08/24/21 12:25> MDM - URI/Sore Throat Medical Records Attestation: I reviewed the patient's medical records. <LEVON Ren - Last Filed: 08/24/21 12:25> ECG Data Attestation: I personally reviewed and interpreted this ECG as follows: <LEVON Ren - Last Filed: 08/24/21 12:25> ECG interpretation date: 08/24/21 <LEVON Ren - Last Filed: 08/24/21 12:25> ECG interpretation time: 11:59 <ELVON Ren Last Filed: 08/24/21 12:25> Prior ECG tracings: available for review <LEVON Ren Last Filed: 08/24/21 12:25> Interpretation: Normal sinus rhythm, heart rate 78 beats per minute, normal AK interval, normal QRS, no ST segment elevations or depressions. <LEVON Ren Last Filed: 08/24/21 12:25> Critical Care Time Critical Care Time Critical Care Time: No <LEVON Ren Last Filed: 08/24/21 12:25> Discharge Plan Discharge Clinical Impression: COVID-19 <LEVON Ren Last Filed: 08/24/21 12:25> Patient Disposition: Home, Self-Care <LEVON Ren Last Filed: 08/24/21 12:25> Instructions: Covid-19 Viral Syndrome and Novel Coronavirus (ED) Hey/Ath <LEVON Ren Last Filed: 08/24/21 12:25> Additional Instructions: Your chest x-ray and oxygen levels were normal. Rest. Drink plenty of fluids. Do not go out in public for the next 7-10 days. Take over the counter cold/flu medications as needed for your symptoms. Take Tylenol and/or Motrin as needed for fevers and body aches. Follow up with your doctor this week. If you shortness of breath worsens, if you develop difficulty breathing or any other concerning symptom come back to the ER for further evaluation. <LEVON Ren Last Filed: 08/24/21 12:25> Prescriptions: No Action amlodipine 10 mg tablet 10 mg PO DAILY Qty: 30 RF: 3 famotidine [Acid Biofuels Production Technician (famotidine)] 20 mg tablet 20 mg PO BID Qty: 60 RF: 2 naproxen 500 mg tablet 500 mg PO BID PRN (Reason: pain) 5 Days Qty: 10 RF: 0 oxybutynin chloride 5 mg tablet 5 mg PO DAILY 30 Days Qty: 30 RF: 0 phenazopyridine [Pyridium] 100 mg tablet 100 mg PO TID PRN (Reason: pain) Qty: 7 RF: 0 lisinopril 20 mg Tablet 20 mg PO DAILY RF: 0 hydrochlorothiazide 25 mg Tablet 25 mg PO DAILY RF: 0 tramadol 50 mg tablet 50 mg PO Q6H PRN (Reason: pain (scale score 4-6)) Qty: 14 RF: 0 tamsulosin 0.4 mg capsule 0.4 mg PO BEDTIME 14 Days Qty: 14 RF: 0 oxycodone 5 mg capsule 5 mg PO Q8H PRN (Reason: pain) 3 Days Qty: 20 RF: 0 loratadine 10 mg capsule 10 mg PO DAILY RF: 0 pantoprazole 20 mg tablet,delayed release (DR/EC) 20 mg PO DAILY RF: 0 albuterol sulfate [ProAir HFA] 90 mcg/actuation HFA aerosol inhaler 2 puff inhalation Q6H PRN (Reason: Wheezing) RF: 0 Flovent Diskus 250 mcg/actuation blister with device 1 inh inhalation BID RF: 0 fluticasone prp-sod.chl,bicarb 50 mcg- 0.9 % kit,spray suspension and spray 1 spray intranasal .once daily RF: 0 All Day Allergy (cetirizine) 10 mg capsule 10 mg PO DAILY RF: 0 potassium chloride 10 mEq capsule, extended release 10 meq PO BID RF: 0 gabapentin 400 mg capsule 400 mg PO DAILY RF: 0 <LEVON Ren - Last Filed: 08/24/21 12:25> Interventions: ED Discharge Assessment Last Done: 08/24/21 12:32 <LEVON Ren - Last Filed: 08/24/21 12:25> Discharge Date/Time: 08/24/21 12:33 <LEVON Ren - Last Filed: 08/24/21 12:25>
[2021-08-24 12:04] VITALS: BP 148/95; PULSE 78; RESP 16; TEMP 36.9; O2SAT 97; BMI 29.2
== END 2021-08-24 12:33 | disposition home or self-care (01) ==
PROVIDERS: Emergency Provider Emergency Medicine; PCP Internal Medicine
DX: U07.1 COVID-19 (principal); R07.9 Chest pain, unspecified; M79.10 Myalgia, unspecified site
CPT/HCPCS: 71045; 93005; 99283; 99284

== ENCOUNTER 2021-09-04 09:36 | Outpatient (REF) | payer MEDICAID, SELFPAY | END 2021-09-04 09:37 | disposition home or self-care (01) | LOC: HO.LAB 09:36 | PROVIDERS: Visit Provider Internal Medicine | DX: Z20.822 Contact with and (suspected) exposure to COVID-19 (principal) | CPT/HCPCS: C9803; U0003; U0005 ==

== ENCOUNTER 2021-09-25 10:34 | Outpatient (REF) | payer MEDICAID, SELFPAY ==
--- NOTE | ~2021-09-25 | US_ITS ---
EXAMINATION: US RETROPERITONEAL LIMITED (RENAL ONLY) CLINICAL INFORMATION: Calculus of kidney. COMPARISON: Renal ultrasound 07/02/2021. X-ray abdomen KUB 10/24/2017. CT abdomen and pelvis 09/23/2015. Renal ultrasound 05/18/2013. TECHNIQUE: Real-time imaging of the kidneys. FINDINGS: RIGHT KIDNEY: 11.0 x 5.0 x 5.1 cm (SAG x AP x TRV). The kidney is normal in size, contour, and echogenicity. Renal cortical thickness is normal. There is a 3.7 x 4.1 x 3.5 cm cyst in the lower pole does not appear appreciably changed No renal calculi or hydronephrosis. LEFT KIDNEY: 12.0 x 5.3 x 5.6 cm (SAG x AP x TRV). The kidney is normal in size, contour, and echogenicity. Renal cortical thickness is normal. No calculi or focal parenchymal lesions. No hydronephrosis. US/US renal BI IMPRESSION: No stone seen. Right renal cyst.
== END 2021-09-25 10:35 | disposition home or self-care (01) ==
LOC: HO.US 10:34
PROVIDERS: Visit Provider Urology
DX: N20.0 Calculus of kidney (principal)
CPT/HCPCS: 76775

== ENCOUNTER → 2021-10-18 13:29 | Outpatient (BNVA) | payer MEDICAID, SELFPAY | PROVIDERS: PCP Internal Medicine; Visit Provider Orthopaedic Surgery | DX: M75.102 Unspecified rotator cuff tear or rupture of left shoulder, not specified as traumatic (principal) | CPT/HCPCS: 99202 ==

== ENCOUNTER → 2021-11-30 10:39 | Outpatient (BNVA) | payer MEDICAID, SELFPAY | PROVIDERS: PCP Internal Medicine; Visit Provider Physician Assistant | DX: M75.102 Unspecified rotator cuff tear or rupture of left shoulder, not specified as traumatic (principal) | CPT/HCPCS: 99212 ==

== ENCOUNTER 2021-12-05 08:50 | Day surgery (SDC) | payer OTHER, MEDICAID, SELFPAY ==
[2021-11-30 13:51] VITALS: BMI 29.2
--- NOTE | 2021-12-04 09:10 | P.CONAN_ITS ---
Documented by User: Love Holt NP 12/04/21 09:13 HPI - Anesthesia Eval Consult details Narrative: 51yo F for Left Shoulder Arthroscopy,poss rotator cuff repair *Multiple Allergies* PMFSH Active Problems Active Problems: All Active Problems (Updated 11/30/21 @ 13:46 by Alona Marcum RN) Fear of parasites (Acute) Adenomatous colon polyp (Acute) IBS (irritable bowel syndrome) (Acute) Trigger finger of right thumb (Acute) Numbness and tingling in both hands (Acute) Nephrolithiasis (Acute) COVID-19 (Acute) Rotator cuff tear, left (Acute) Medial epicondylitis of both elbows (Acute) Pain of both elbows (Acute) Anxiety (Acute) Acid reflux (Acute) Past Medical History Medical History (Updated 11/30/21 @ 13:46 by Alona Marcum RN) Acid reflux Anxiety History of COVID-19 HTN (hypertension) Medial epicondylitis of both elbows Pain of both elbows Family History Family History Father Hypertension PTSD (post-traumatic stress disorder) Mother Manic depression Hyperlipemia Heart disease Asthma Anxiety Son Asthma Daughter Asthma Paternal Grandfather Asthma Paternal Grandfather Asthma Alzheimer disease Maternal Grandmother Asthma Brother No problems noted. Sister No problems noted. Surgical History Surgical History (Updated 11/30/21 @ 13:41 by Alona Marcum RN) H/O nasal polypectomy History of carpal tunnel release History of cholecystectomy Hx of colonoscopy Hx of cystoscopy Hx of endoscopy Hx of tonsillectomy Social History Social History Household Members: Children Alcohol intake: current Alcohol intake frequency: holidays/special occasions only Patient Tobacco Use Status: Tobacco use Unknown Substance Use Type: Marijuana Advance Directives Date on File: 02/11/18 Current occupational status: unemployed Current occupation: right handed Meds Allergies Allergy/AdvReac Type Severity Reaction Status Date / Time tramadol Allergy Severe Seizure Verified 11/30/21 10:41 droperidol [From Inapsine] Allergy Intermediate Rash Verified 11/30/21 10:41 Sulfa (Sulfonamide Allergy Intermediate hives Verified 11/30/21 10:41 Antibiotics) sulfamethoxazole Allergy Intermediate HIVES Verified 11/30/21 10:41 [From BACTRIM] trimethoprim [From BACTRIM] Allergy Intermediate HIVES Verified 11/30/21 10:41 From COPAXONE Allergy Mild HIVES Uncoded 09/05/21 08:47 Home Medications Medication Instructions Recorded Confirmed Last Taken Type albuterol sulfate 90 mcg/actuation 2 puff INHALATION Q6H PRN 06/17/20 11/30/21 05/28/21 06:30 History aerosol inhaler (ProAir HFA) fluticasone prop.50 mcg 1 spray INTRANASAL .once daily ea 06/17/20 11/30/21 Unknown History spray,suspen-sod.chloride 0.9% nasal spray kit fluticasone propionate 250 1 inh INHALATION BID 06/17/20 12/05/21 12/05/21 History mcg/actuation blister powder for inhalation (Flovent Diskus) loratadine 10 mg capsule 10 mg PO DAILY 06/17/20 11/29/20 Unknown History pantoprazole 20 mg tablet,delayed 20 mg PO DAILY 06/17/20 12/05/21 12/05/21 History release cetirizine 10 mg capsule (All Day 10 mg PO DAILY 06/22/20 11/30/21 Unknown History Allergy (cetirizine)) potassium chloride 10 mEq 10 meq PO BID 06/22/20 05/23/21 Unknown History capsule,extended release gabapentin 400 mg capsule 400 mg PO DAILY 11/29/20 12/05/21 12/05/21 History hydrochlorothiazide 25 mg tablet 25 mg PO DAILY 05/23/21 11/30/21 Unknown History lisinopril 20 mg tablet 20 mg PO DAILY 05/23/21 05/23/21 Unknown History ergocalciferol (vitamin D2) 1,250 1,250 mcg PO QWEEK 09/05/21 11/30/21 Unknown History mcg (50,000 unit) capsule fluticasone propionate 115 2 puff INHALATION BID 09/05/21 11/30/21 Unknown History mcg-salmeterol 21 mcg/actuation HFA inhaler (Advair HFA) fluticasone propionate 50 1 spray INTRANASAL DAILY 09/05/21 11/30/21 Unknown H istory mcg/actuation nasal spray,suspension hydroxyzine HCl 25 mg tablet 25 mg PO TID PRN 09/05/21 12/05/21 12/05/21 History ibuprofen 800 mg tablet 800 mg PO TID 09/05/21 11/30/21 Unknown History lisinopril 10 mg tablet 10 mg PO QAM 09/05/21 Unknown History lisinopril 30 mg tablet 30 mg PO QAM 09/05/21 11/30/21 Unknown History loratadine 10 mg tablet 10 mg PO QAM PRN 09/05/21 11/30/21 Unknown History Exam Exam Date and Time: December 04, 2021 0910 Height,Weight and Vital Signs: Height 5 ft 2 in Weight 72.575 kg Narrative Narrative: EKG 08/2021 Vent. Rate : 078 BPM ? ? Atrial Rate : 078 BPM ?? P-R Int : 160 ms? QRS Dur : 088 ms ? ? QT Int : 380 ms ? ? ? P-R-T Axes : 051 042 053 degrees ?? QTc Int : 433 ms ? Normal sinus rhythm Normal ECG When compared with ECG of 10-FEB-2018 14:10, Premature supraventricular complexes are no longer Present T wave inversion no longer evident in Inferior leads Nonspecific T wave abnormality no longer evident in Anterior leads Assessment and Plan Assessment Anesthesia Assessment: Chart Reviewed Documented by User: Tavo Shen MD 12/05/21 16:58 HPI - Anesthesia Eval Consult details Narrative: 51yo F for Left Shoulder Arthroscopy,poss rotator cuff repair GERD DVT , PE . 10 years ago. numbness both upper extremities , pain. *Multiple Allergies* [facility] Past Medical History Medical History (Updated 11/30/21 @ 13:46 by Alona Marcum RN) Acid reflux Anxiety History of COVID-19 HTN (hypertension) Medial epicondylitis of both elbows Pain of both elbows Family History Family History Father Hypertension PTSD (post-traumatic stress disorder) Mother Manic depression Hyperlipemia Heart disease Asthma Anxiety Son Asthma Daughter Asthma Paternal Grandfather Asthma Paternal Grandfather Asthma Alzheimer disease Maternal Grandmother Asthma Brother No problems noted. Sister No problems noted. Family history of problems with anesthesia: No Surgical History Surgical History (Updated 11/30/21 @ 13:41 by Alona Marcum RN) H/O nasal polypectomy History of carpal tunnel release History of cholecystectomy Hx of colonoscopy Hx of cystoscopy Hx of endoscopy Hx of tonsillectomy History of Problems with Anesthesia: No Social History Social History Household Members: Children Alcohol intake: current Alcohol intake frequency: holidays/special occasions only Patient Tobacco Use Status: Tobacco use Unknown Substance Use Type: Marijuana Advance Directives Date on File: 02/11/18 Current occupational status: unemployed Current occupation: right handed Meds Allergies Allergy/AdvReac Type Severity Reaction Status Date / Time tramadol Allergy Severe Seizure Verified 11/30/21 10:41 droperidol [From Inapsine] Allergy Intermediate Rash Verified 11/30/21 10:41 Sulfa (Sulfonamide Allergy Intermediate hives Verified 11/30/21 10:41 Antibiotics) sulfamethoxazole Allergy Intermediate HIVES Verified 11/30/21 10:41 [From BACTRIM] trimethoprim [From BACTRIM] Allergy Intermediate HIVES Verified 11/30/21 10:41 From COPAXONE Allergy Mild HIVES Uncoded 09/05/21 08:47 Home Medications Medication Instructions Recorded Confirmed Last Taken Type albuterol sulfate 90 mcg/actuation 2 puff INHALATION Q6H PRN 06/17/20 11/30/21 05/28/21 06:30 History aerosol inhaler (ProAir HFA) fluticasone prop.50 mcg 1 spray INTRANASAL .once daily ea 06/17/20 11/30/21 Unknown History spray,suspen-sod.chloride 0.9% nasal spray kit fluticasone propionate 250 1 inh INHALATION BID 06/17/20 12/05/21 12/05/21 History mcg/actuation blister powder for inhalation (Flovent Diskus) loratadine 10 mg capsule 10 mg PO DAILY 06/17/20 11/29/20 Unknown History pantoprazole 20 mg tablet,delayed 20 mg PO DAILY 06/17/20 12/05/21 12/05/21 History release cetirizine 10 mg capsule (All Day 10 mg PO DAILY 06/22/20 11/30/21 Unknown History Allergy (cetirizine)) potassium chloride 10 mEq 10 meq PO BID 06/22/20 05/23/21 Unknown History capsule,extended release gabapentin 400 mg capsule 400 mg PO DAILY 11/29/20 12/05/21 12/05/21 History hydrochlorothiazide 25 mg tablet 25 mg PO DAILY 05/23/21 11/30/21 Unknown History lisinopril 20 mg tablet 20 mg PO DAILY 05/23/21 05/23/21 Unknown History ergocalciferol (vitamin D2) 1,250 1,250 mcg PO QWEEK 09/05/21 11/30/21 Unknown History mcg (50,000 unit) capsule fluticasone propionate 115 2 puff INHALATION BID 09/05/21 11/30/21 Unknown History mcg-salmeterol 21 mcg/actuation HFA inhaler (Advair HFA) fluticasone propionate 50 1 spray INTRANASAL DAILY 09/05/21 11/30/21 Unknown History mcg/actuation nasal spray,suspension hydroxyzine HCl 25 mg tablet 25 mg PO TID PRN 09/05/21 12/05/21 12/05/21 History ibuprofen 800 mg tablet 800 mg PO TID 09/05/21 11/30/21 Unknown History lisinopril 10 mg tablet 10 mg PO QAM 09/05/21 Unknown History lisinopril 30 mg tablet 30 mg PO QAM 09/05/21 11/30/21 Unknown History loratadine 10 mg tablet 10 mg PO QAM PRN 09/05/21 11/30/21 Unknown History Exam Airway Mallampati Class: III TM Dist: >3cm Neck ROM: Full Loose/Missing/Broken Teeth: Yes (Filling came out ) Heart: rrr Lungs: bl breath sounds Assessment and Plan Assessment Anesthesia Assessment: Anesthesia Plan Discussed Final Anesthetic Review Family History of Problems with Anesthesia: No History of Problems with Anesthesia: No NPO: Yes ASA Class: I and II Final Preanesthetic Review: Meds/Allgs Chart Reviewed, Consent Obtained/Reviewed and Anes Risks/Benef Reviewed Patient Risk: Intermediate Procedure Risk: Intermediate Anesthetic Plan Anesthetic Plan: GA and Regional Block Disposition: Standard PACU
[2021-12-05] VITALS (14 sets, daily range): BP systolic 113–131; BP diastolic 59–86; PULSE 78–99; RESP 16–20; TEMP 36.2–36.7; O2SAT 97–99
[2021-12-05] MEDS: Lactated Ringers 1,000 ML 100 ML IVCONT (09:45)
--- NOTE | 2021-12-05 10:39 | MHC.SHP ---
Pre-Procedural Eval Section A Date of Service: 12/05/21 The patient is an INPATIENT: No Changes since office visit: Yes Patient answered all questions; No Cold of Flu in the past 2 weeks, No New Medical Problems and No Changes in Medication The History & Physical has been completed within 30 days and I have reviewed it.: Yes Section B Chief Complaint: rotator cuff tear Allergies: Allergies Allergy/AdvReac Type Severity Reaction Status Date / Time tramadol Allergy Severe Seizure Verified 11/30/21 10:41 droperidol [From Inapsine] Allergy Intermediate Rash Verified 11/30/21 10:41 Sulfa (Sulfonamide Allergy Intermediate hives Verified 11/30/21 10:41 Antibiotics) sulfamethoxazole Allergy Intermediate HIVES Verified 11/30/21 10:41 [From BACTRIM] trimethoprim [From BACTRIM] Allergy Intermediate HIVES Verified 11/30/21 10:41 From COPAXONE Allergy Mild HIVES Uncoded 09/05/21 08:47 Plan I have reviewed the history and physical and performed a pertinent physical examination on my patient. No changes have occurred unless specified.
--- NOTE | 2021-12-05 11:48 | PM.OP ---
Brief Operative Note Date of Service: 12/05/21 Pre-op diagnosis: left shoulder rotator cuff tear Post-op diagnosis: other (1) partial thickness rtc tear 2) biceps tear 3) synovitis 4) sub acromial bursitis) Procedure: biceps tenotomy and synovectomy sub acromial bursectomy and SAD Implants: none Surgeon: Sergio Almazan MD Anesthesia: GETA and regional Was an Sales Support Technician used for this Procedure?: Yes Sales Support Technician: Jazlyn Torres Estimated blood loss (mL): 10 IV fluids (mL): 1,000 Pathology: none sent Condition: stable Disposition: PACU
--- NOTE | 2021-12-05 11:55 | W.PM.OPN ---
Operative Note Operative Note Date of Service: 12/05/21 Narrative: Pre-op diagnosis: left shoulder rotator cuff tear Post-op diagnosis: other (1) partial thickness rtc tear 2) biceps tear 3) synovitis 4) sub acromial bursitis) Procedure: biceps tenotomy and synovectomy sub acromial bursectomy and SAD Implants: none Surgeon: Sergio Almazan MD Anesthesia: GETA and regional Was an Consumer Loan Manager used for this Procedure?: Yes Consumer Loan Manager: Jazlyn Torres Estimated blood loss (mL): 10 IV fluids (mL): 1,000 Pathology: none sent Condition: stable Disposition: PACU Procedure in detail: Patient was brought to the operating room and placed the the beach chair position. All bony prominences were well padded and the limb was prepped and draped in standard sterile fashion. A time out was called to identify proper site, proper procedure and proper surgeon. IV antibiotics per weight were administered. I began by making a posterolateral stab incision with a 15 blade. A blunt trochar was placed into the glenohumeral joint and I insufflated the joint with saline and a 30 degree arthroscope was placed. I established an outside- in anterior portal just distal to the biceps tendon. I then began my inspection of the glenohumeral joint. There was florid synovitis of the anterior interval and capsule surrounding the labrum circumferentially. I debrided this with a cautery and mechanical debridement. Subscapularis was intact. There was anterior labral fraying and a partial thickness tear of the biceps attachment to the labrum. On this was proximally 50% thickness and was debrided and tenotomized. The cartilage surfaces were intact. There was no undersurface rotator cuff tear. I then removed the trochar and entered the subacromial space. A direct lateral portal was then established and I performed a bursectomy. The cuff was then examined. There was bursitis and bursectomy was performed. The rotator cuff was examined. There was some mild fraying of the anterior cuff but no full-thickness tears or high-grade partial tears. I performed a 5 mm subacromial decompression and then removed all instrumentation.Final images were captured Portals were closed with nylon. Patient was placed in an abduction sling, extubated and brought to the recovery room in stable condition. There were no known complications.
[2021-12-05] MEDS: Albuterol Sulfate (0.083%) 2.5 MG/3 ML VIAL.NEB INHALE (12:36)
[2021-12-05] MEDS: fentaNYL citrate/PF 100 MCG/2 ML VIAL 25 MCG IVPUSH ×3 (12:55→13:05)
== END 2021-12-05 15:18 | disposition home or self-care (01) ==
LOC: HO.SSS 08:51
PROVIDERS: Visit Provider Orthopaedic Surgery
PROC: (CPT 29805; principal; 2021-12-05 10:50)
DX: M75.102 Unspecified rotator cuff tear or rupture of left shoulder, not specified as traumatic (principal); M65.812 Other synovitis and tenosynovitis, left shoulder; M75.52 Bursitis of left shoulder; S46.212A Strain of muscle, fascia and tendon of other parts of biceps, left arm, initial encounter; X58.XXXA Exposure to other specified factors, initial encounter; Y93.9 Activity, unspecified; Y92.9 Unspecified place or not applicable; Y99.8 Other external cause status; I10 Essential (primary) hypertension; M77.02 Medial epicondylitis, left elbow; M77.01 Medial epicondylitis, right elbow; K21.9 Gastro-esophageal reflux disease without esophagitis; F41.1 Generalized anxiety disorder; Z79.899 Other long term (current) drug therapy; Z88.2 Allergy status to sulfonamides; Z88.8 Allergy status to other drugs, medicaments and biological substances; F12.90 Cannabis use, unspecified, uncomplicated; Z86.16 Personal history of COVID-19; Z98.890 Other specified postprocedural states
CPT/HCPCS: 29822; 29820; 29826; 94640; J0131; J0171; J0690; J1100; J2250; J2370; J2405; J3010

== ENCOUNTER → 2021-12-10 08:18 | Outpatient (BNVA) | payer MEDICAID, SELFPAY | PROVIDERS: PCP Internal Medicine; Visit Provider Physician Assistant | DX: M75.102 Unspecified rotator cuff tear or rupture of left shoulder, not specified as traumatic (principal) | CPT/HCPCS: 99212 ==

== ENCOUNTER → 2021-12-11 14:25 | Outpatient (BNVA) | payer MEDICAID, SELFPAY | PROVIDERS: PCP Internal Medicine | DX: N20.0 Calculus of kidney (principal) ==

== ENCOUNTER → 2022-01-08 08:02 | Outpatient (BNVA) | payer MEDICAID, SELFPAY | PROVIDERS: PCP Internal Medicine; Visit Provider Physician Assistant | DX: Z47.89 Encounter for other orthopedic aftercare (principal); Z87.39 Personal history of other diseases of the musculoskeletal system and connective tissue | CPT/HCPCS: 99212 ==

== ENCOUNTER → 2022-02-05 09:27 | Outpatient (BNVA) | payer MEDICAID, SELFPAY | PROVIDERS: PCP Internal Medicine; Visit Provider Physician Assistant | DX: M75.102 Unspecified rotator cuff tear or rupture of left shoulder, not specified as traumatic (principal) | CPT/HCPCS: 99212 ==

== ENCOUNTER → 2022-03-04 10:00 | Outpatient (BNVA) | payer MEDICAID, SELFPAY | PROVIDERS: PCP Internal Medicine; Visit Provider Orthopaedic Surgery | DX: M75.02 Adhesive capsulitis of left shoulder (principal) | CPT/HCPCS: 20610; J1100 ==

== ENCOUNTER 2022-03-29 07:55 | Outpatient (REF) | payer MEDICAID, SELFPAY ==
--- NOTE | ~2022-03-29 | XR_ITS ---
EXAMINATION: XR LUMBOSACRAL SPINE WITH OBLIQUES CLINICAL INFORMATION: Lower back pain. COMPARISON: Radiographs dated 04/01/2019. TECHNIQUE: AP, both oblique, and lateral views of the lumbar spine. Lateral view of the lumbosacral junction. FINDINGS: Vertebral body heights and alignment are normal. At L5-S1, there is moderately severe disc space narrowing, with vacuum disc phenomenon. The remaining disc spaces are relatively well-maintained. No acute fracture or spondylolisthesis is seen. There is multi-level mild lumbar spondylosis. The posterior elements are intact. No spondylolysis defect is seen on the oblique views. The paravertebral soft tissues are unremarkable. There are right upper quadrant surgical clips. XR/XR lumbar spine 4V min IMPRESSION: 1. There is moderately severe degenerative disc disease at L5-S1. 2. No acute fracture or spondylolisthesis is seen. 3. There is multi-level mild lumbar spondylosis.
== END 2022-03-29 07:56 | disposition home or self-care (01) ==
LOC: HO.XRAY 07:55
PROVIDERS: PCP Internal Medicine; Visit Provider Internal Medicine
DX: M54.50 Low back pain, unspecified (principal)
CPT/HCPCS: 72110

== ENCOUNTER 2022-04-10 09:11 | Outpatient (REF) | payer MEDICAID, SELFPAY ==
[2022-04-10 10:50] LABS: MANUAL DIFF FLAG NO
[2022-04-10 10:52] LABS: Basophils Absolute Auto 0.1 X10*3/uL (0.0-0.2); Basophils Percent Auto 0.9 % (0-2); Eosinophils Absolute Auto 0.2 X10*3/uL (0.0-0.4); Eosinophils Percent Auto 3.1 % (0-4); Hematocrit 35.9 % (37.0-47.0); Hemoglobin 11.6 g/dl (12.0-16.0); Imm Gran Abs Auto 0.03 X10*3/uL (0.00-0.03); Imm Gran Pct Auto 0.4 % (0.0-0.4); Lymphocytes Absolute Auto 3.1 X10*3/uL (1.2-4.9); Lymphocytes Percent Auto 42.3 % (20-40); Mean Corpuscular HGB Conc 32.3 g/dl (31.0-35.0); Mean Corpuscular Hemoglobin 30.5 pg (27.0-33.0); Mean Corpuscular Volume 94.5 fL (80.0-98.0); Mean Platelet Volume 11.1 fL (9.4-12.3); Monocytes Absolute Auto 0.5 X10*3/uL (0.1-1.2); Monocytes Percent Auto 6.7 % (2-11); Neutrophils Absolute Auto 3.5 x10*3/uL (2.0-8.3); Neutrophils Percent Auto 46.6 % (45-73); Platelet Count 250 X10*3/uL (160-400); Red Cell Distribution Width 14.6 % (11.0-16.0); White Blood Count 7.4 X10*3/uL (4.8-10.8)
== END 2022-04-10 09:12 | disposition home or self-care (01) ==
LOC: HO.WFDLDS 09:11
PROVIDERS: Visit Provider Physician Assistant
DX: K52.9 Noninfective gastroenteritis and colitis, unspecified (principal); K21.9 Gastro-esophageal reflux disease without esophagitis; K57.30 Diverticulosis of large intestine without perforation or abscess without bleeding; Z90.49 Acquired absence of other specified parts of digestive tract
CPT/HCPCS: 36415; 85025; 99212

== ENCOUNTER → 2022-05-10 11:17 | Outpatient (BNVA) | payer MEDICAID, SELFPAY | PROVIDERS: PCP Internal Medicine; Visit Provider Orthopaedic Surgery | DX: M75.02 Adhesive capsulitis of left shoulder (principal) | CPT/HCPCS: 99212 ==

== ENCOUNTER 2022-05-29 08:00 | Outpatient (RCR) | payer MEDICAID, SELFPAY ==
--- NOTE | 2021-12-10 13:46 | MHC.PT.EP ---
[facility] [place] Office [place] Office [place] Office [address] Frederick Nunez [address] [phone] F: [phone] F: [phone] F: [phone] F: [phone] Physical Therapy Plan of Care Date of Evaluation: Date of Surgery: 12/05/21 Diagnosis: LEFT SHOULDER (biceps tenotomy and synovectomy, sub acromial bursectomy and SAD) Assessment: 51 YO FEMALE REF TO PT S/P LEFT SH (biceps tenotomy and synovectomy, sub acromial bursectomy and SAD) ON 12/05/21. 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 SHE PRESENTS W LEFT UE IN A STANDARD SLING. OBJECTIVE FINDINGS: DECR POSTURE, LIMITED ROM Lt SH/ ELBOW, DECR CERV AROM, POST RC/ SCAP / Lt PROX UE STRENGTH, AND LEFT SH PAIN. FUNCTIONALLY, Pt IS LIMITED W ADLs DUE TO POST OP RESTRICTIONS, REQ ASSIST W ADLs/ MEALS/ LAUNDRY/ HOUSE CHORES. Pt IS A GOOD PT CANDIDATE TO ADDRESS PAIN, PROGRESS ROM AND INITIATE STRENGTH PER PROTOCOL IN HER POST-OP COURSE. Frequency and Duration: The patient will be seen 2 x WK x 10 WKS Short Term Goals: *Pt'S LEFT SH PAIN DECR TO 3-4/10 IN 2 WKS *Pt DEMON FULL PROM Lt ELBOW AND SH IN 3 WKS *Pt INDEP W SELF-CORRECT POSTURE / BODY MECHANICS TO NEUTRAL IN VARIED POSTURES IN 1 wk Shelter Goals: *Pt INDEP HEP PROGR AND SELF-SX MGMT STRATEGIES FOR Lt SH IN 8 WKS Pt RESUME REG ADLs TO ARABELLA EVIDENT IN IMPROVED SPADI BY 20-30 POINTS ( AT EVAL 129 /130 ) IN 10 WKS *Pt DEMON IMPROVED STRENGTH IN Lt SH/ SCAP BY 1/2-1 GRADE IN 10 WKS *Pt DEMON WFL AROM Lt SH IN 10 WKS Treatment Plan: Modalities to reduce pain, spasms and effusion. Manual therapy to restore motion and function. Therapeutic exercise to improve strength and flexibility. Neuromuscular re-education for posture and balance. Therapeutic activities to return to functional activities of daily living. Electronically signed by: Debra Gibbons PT Please sign and return to therapist. Thank you for your referral.
--- NOTE | 2022-05-29 09:12 | MHC.PT.DC ---
[place] Office [place] Office [place] [facility] [address] Frederick Nunez 140 [facility] [phone] F: [phone] F: [phone] F: [phone] F: [phone] Physical Therapy Discharge Report Diagnosis: LEFT SHOULDER (biceps tenotomy and synovectomy, sub acromial bursectomy and SAD) Date of Surgery: 12/05/21 Date of Evaluation: 12/10/21 Date of Discharge: 05/29/22 Treatments to Date: 32 Cancellations to Date: 2 No Shows to Date: 4 Discharge Status: Achieved Goals Improved Function Independent with HEP Discharge Summary: Pt D/C'D THIS DATE W HER PROGR HEP- SHE HAS MADE GOOD FUNCTIONAL PROGRESS, INCR STRENGTH, SCAP STAB, AROM, AND OVERALL REDUCED PAIN- SHE DOES HAVE FLUCTUATING PAIN AND THIS IS BEING ADDRESSED BY DR SEGURA- SHE HAS SX REDUCTION W KT APPLICATION- Pt MET HER PT GOALS TO MAX POTENTIAL AT THIS TIME AND IS READY TO CONT ON HER OWN Electronically signed by: Debra Gibbons,PT Please sign and return to therapist. Thank you for your referral.
== END 2022-05-29 09:12 | disposition home or self-care (01) ==
LOC: HO.PT 08:00
PROVIDERS: PCP Internal Medicine; Visit Provider Physician Assistant
DX: M75.102 Unspecified rotator cuff tear or rupture of left shoulder, not specified as traumatic (principal); M75.02 Adhesive capsulitis of left shoulder; Z98.890 Other specified postprocedural states
CPT/HCPCS: 97014; 97110; 97140; 97162

== ENCOUNTER 2022-06-11 14:52 | Outpatient (REF) | payer MEDICAID, SELFPAY ==
--- NOTE | ~2022-06-11 | US_ITS ---
EXAMINATION: US RETROPERITONEAL LIMITED (RENAL ONLY) CLINICAL INFORMATION: Calculus of kidney. COMPARISON: Ultrasound retroperitoneal limited (renal only) 09/25/2021 and 07/02/2021. X-ray abdomen KUB 10/24/2017. CT chest, abdomen and pelvis with contrast 09/23/2014. TECHNIQUE: Real-time imaging of the kidneys. FINDINGS: RIGHT KIDNEY: 11.6 x 5.0 x 5.2 cm (SAG x AP x TRV). The kidney is normal in size, contour, and echogenicity. Renal cortical thickness is normal. No renal calculi or hydronephrosis. Lower pole cyst measuring 4.3 cm. This appears simple. No follow-up imaging recommended. LEFT KIDNEY: 12.0 x 5.1 x 4.6 cm (SAG x AP x TRV). The kidney is normal in size, contour, and echogenicity. Renal cortical thickness is normal. No calculi or focal parenchymal lesions. No hydronephrosis. US/US renal BI IMPRESSION: No calculi. No hydronephrosis..
== END 2022-06-11 14:53 | disposition home or self-care (01) ==
LOC: HO.US 14:52
DX: N20.0 Calculus of kidney (principal)
CPT/HCPCS: 76775

== ENCOUNTER → 2022-06-12 09:03 | Outpatient (BNVA) | payer MEDICAID, SELFPAY | PROVIDERS: PCP Internal Medicine; Referring Provider Internal Medicine; Visit Provider Physician Assistant | DX: K58.9 Irritable bowel syndrome, unspecified (principal); K21.9 Gastro-esophageal reflux disease without esophagitis; Z79.899 Other long term (current) drug therapy | CPT/HCPCS: 99212 ==

== ENCOUNTER → 2022-07-24 14:12 | Outpatient (BNVA) | payer MEDICAID, SELFPAY | PROVIDERS: PCP Internal Medicine; Visit Provider Internal Medicine | DX: I49.3 Ventricular premature depolarization (principal); I42.9 Cardiomyopathy, unspecified | CPT/HCPCS: 93005; 99202 ==

== ENCOUNTER 2022-08-05 09:59 | Outpatient (REF) | payer MEDICAID, SELFPAY ==
--- NOTE | ~2022-08-05 | XR_ITS ---
EXAMINATION: XR SHOULDER, LEFT CLINICAL INFORMATION: Pain COMPARISON: Previous x-ray May 2021 TECHNIQUE: 3 views of of the left shoulder. FINDINGS: Bone alignment is normal. No fracture or dislocation. Normal joint spaces. New soft tissue calcification or ossification adjacent to the greater tuberosity. XR/XR shoulder LT min 2V IMPRESSION: New soft tissue calcification or ossification adjacent to the greater tuberosity.
== END 2022-08-05 10:00 | disposition home or self-care (01) ==
LOC: HO.HOSX 09:59
PROVIDERS: Visit Provider Orthopaedic Surgery
DX: M75.02 Adhesive capsulitis of left shoulder (principal)
CPT/HCPCS: 73030; 99212

== ENCOUNTER → 2022-08-21 08:34 | Outpatient (REF) | payer MEDICAID, SELFPAY ==
--- NOTE | 2022-08-21 08:37 | CA_ITS ---
Acquisition Time: 2022-08-21 09:48:13 Total Exercise Time: 00:05:15 Test Indications: PVC'S Medications: SEEC CHART Protocol: SUSI Max HR: 142 BPM 85% of Pred: 166 BPM Max BP: 148/080 mmHG Max Work Load: 7.0 METS Exercise stress test with execise 5 min 15 sec of Susi protocol, achieving 85% MPHR, with moderate sob and need to stop ( she states it is asthma), no chest discomfort, with isolated PVCs at rest and in recovery, No PVCs with exercise, with normotensive response to exercise, without EKG changes meeting criteria for ischemia. In recovery she used her own Proair inhaler with improvement in her breathing. Test reviewed with Dr Rodrigues Referred By: Irineo Qureshi Overread By: LORRAINE VALENCIA
--- NOTE | 2022-08-21 08:37 | CA_ITS ---
Transthoracic Echocardiogram Patient (Last, First, Middle): Cathryn Adan, Gender: Female Date of : 1970 Age: 52 Procedure Date: 08/21/2022 Procedure Type: Transthoracic Echocardiogram Location: OP Height: 157.48 cm Weight: 75.01 kg BSA: 1.76 m2 Heart Rate: 69 bpm BP: 115 / 80 mmHg Coal Cager: EDILBERTO Guthrie MD: Irineo Qureshi MD Beverage Sales Consultant: Eliezer Rodrigues MD Symptoms: I49.3 - Ventricular premature depolarization Study Quality: Fair ECG Rhythm: Sinus Conclusions: - 1. Mildly to moderately reduced LV systolic function with LVEF of 40-45% with impaired relaxation filling pattern 2. Cardiac valvular Dopplers within normal limits 3. No gross pericardial effusion Findings Left Ventricle Normal left ventricular cavity size. There is normal left ventricular wall thickness. The left ventricular systolic function is mild to moderately decreased. The visually estimated ejection fraction is between 40-45%. Spectral Doppler is indicative of an impaired relaxation filling pattern. E/E prime ratio is between 8 and 15 consistent with indeterminate filling pressures. Right Ventricle Normal right ventricular cavity size and systolic function. Atria The left atrium is normal in size. Interatrial shunt cannot be excluded. The right atrium is normal in size. Aortic Valve The aortic valve structure and function is likely normal. There is no aortic valve stenosis. There is no aortic valve regurgitation. Mitral Valve Normal mitral valve structure and function. There is trace mitral valve regurgitation. There is no mitral valve stenosis. Pulmonic Valve The pulmonic valve was not well visualized. Tricuspid Valve Likely normal tricuspid valve structure and function. Tricuspid regurgitation envelope is inadequate for calculation of right ventricular systolic pressure. Normal right atrial pressure. Great Vessels All visible segments of the aorta are normal in size. The pulmonary artery was not well visualized. Venous The inferior vena cava is normal in size and collapses greater than 50% with inspiration. Pericardium/Pleural There is no evidence of pericardial effusion. Prior Study Comparison Changes noted compared to prior study dated: 02/11/2018. LV systolic function is marginally further depressed Measurements 2D Linear Measurements IVSd: 0.94 0.6-0.9/0.6-1.0 cm LVIDd: 4.68 3.9-5.3/4.2-5.9 cm LVIDd Index: 2.66 2.4-3.2/2.2-3.1 cm/m2 LVIDs: 3.16 2.0-3.6 cm LVPWd: 1.02 0.7-1.1 cm LA Diam: 3.10 2.7-3.8/3.0-4.0 cm LAIDs Index: 1.76 1.5-2.3 cm/m2 LV Mass: 197.17 67-162/88-224 g LV Mass Index: 112.03 43-95/49-115 g/m2 LVOT Diam: 1.90 3.0+(-)1.3 cm 2D Systolic Function EF 4C: 37.60 >55% EF 2C: 49.20 >55% EF BiP: 42.70 >55% Mitral Valve MV Pk E: 0.75 MV PK A: 0.95 MV Decel Time: 230.00 E/A: 0.80 E'Lateral: 7.97 E'Medial: 5.52 E/E' Med: 13.60 E/E' Lat: 9.40 PHT: 67.00 MVA PHT: 3.28 Decel Juncos: 3.26 Aortic Valve AoV Pk Quirino: 1.52 AoV Mn Quirino: 1.08 AoV VTI: 0.33 AoV Pk Grad: 9.00 Aov Mn Grad: 5.00 NORMA Cont.VTI: 1.65 LVOT LVOT Pk Quirino: 0.84 LVOT Mn Quirino: 0.66 LVOT VTI: 0.19 LVOT Pk Grad: 3.00 LVOT Mn Grad: 2.00 LVOT Diam: 1.90 LVOT Area: 2.84 Diastolic Function MV Pk E: 0.75 MV Pk A: 0.95 E/A: 0.80 E'Medial: 5.52 E/E' Med: 13.60 E' Laterial: 7.97 E/E' Lat: 9.40 Right Ventricle TAPSE (mm): 25.20 TVS' Quirino: 9.37 Tricuspid Valve RA Press: 3.00 Great Vessels Aorta Sinus of Valsalva: 3.00 2.0-3.5 cm Ao Asc: 2.50 2.1-3.4 cm Pulmonary Valve PV Pk Quirino: 0.91 Peak PV Grad: 3.00 Updated in Other Vendor System with Status of Final Eliezer Rodrigues MD electronically signed on 08/23/2022 4:35:37 PM with status of Final
--- NOTE | 2022-08-21 08:37 | HM_ITS ---
Conclusion: 1. Patient was monitored for total period of 1 day and 1 hour 2. Baseline was normal sinus rhythm with average heart rate of 88 beats per minute 3. No significant pauses or bradycardia noted 4. Total of 2403 PVCs accounting for 1.8% total beats account for frequent PVCs 5. No patient reported events MTDD
== END ==
LOC: HO.CARD 08:34
PROVIDERS: PCP Internal Medicine; Visit Provider Internal Medicine
DX: I49.3 Ventricular premature depolarization (principal)
CPT/HCPCS: 93017; 93226; 93306

== ENCOUNTER 2022-09-26 08:00 | Outpatient (RCR) | payer MEDICAID, SELFPAY | END 2022-09-26 10:53 | disposition home or self-care (01) | LOC: HO.PT 08:00 | PROVIDERS: PCP Internal Medicine; Visit Provider Internal Medicine | DX: M54.50 Low back pain, unspecified (principal) | CPT/HCPCS: 97035; 97110; 97112; 97140; 97162 ==

== ENCOUNTER 2022-10-13 07:43 | Emergency (ER) | payer MEDICAID, SELFPAY ==
--- NOTE | ~2022-10-13 | CT_ITS ---
EXAMINATION: CT ABDOMEN AND PELVIS WITHOUT CONTRAST CLINICAL INFORMATION: Left posterior flank/back/rib pain. COMPARISON: Renal ultrasound June 11, [address] abdomen pelvis September 23, 2014 TECHNIQUE: Multidetector volumetric imaging was performed from the superior aspect of the liver through the pubic symphysis. Sagittal and coronal reformatted images were obtained on the technologist's workstation. This CT examination was performed using dose optimization techniques as appropriate, variously including the following: *Automated exposure control *Adjustment of mA and/or kV according to patient size (this includes techniques or standardized protocols for targeted exams where dose is matched to indication/reason for exam; i.e. extremities or head) *Use of iterative reconstruction technique DLP: 504 mGy-cm FINDINGS: Visualized lung bases are well aerated. The liver is normal in size but demonstrates diffusely decreased attenuation. The gallbladder surgically absent. The pancreas, spleen and adrenal glands are unremarkable. The kidneys are symmetric in size. No renal calculi or hydronephrosis of either kidney. There is a 4.6 cm cyst within the lower pole of the right kidney. Normal caliber loops of small and large bowel. Mild colonic diverticulosis without CT evidence to suggest active diverticulitis. Normal caliber abdominal aorta. No retroperitoneal lymphadenopathy. The bladder is normal in appearance. Unremarkable CT appearance of the uterus. No gross free pelvic fluid. No inguinal lymphadenopathy. Mild diffuse degenerative changes of the spine. CT/CT abdomen pelvis wo IV con IMPRESSION: 1. No CT evidence for acute abnormality within the abdomen or pelvis. 2. Diffusely decreased liver attenuation suggesting hepatic steatosis. Correlation with liver enzymes recommended. 3. Mild colonic diverticulosis without CT evidence to suggest active diverticulitis. 4. 4.6 cm right renal cyst. Fleischner guidelines were followed.
--- NOTE | ~2022-10-13 | XR_ITS ---
EXAMINATION: XR CHEST CLINICAL INFORMATION: Shortness of breath. Covid positive. COMPARISON: Chest x-ray August 24, 2021 TECHNIQUE: Frontal view of the chest was obtained. FINDINGS: Cardiac silhouette is normal in size. The lungs are adequately aerated. There is no lobar consolidation. No pleural effusion or pneumothorax. Similar tiny calcified granuloma the left lung apex. Surgical clips of the right upper abdomen. XR/XR chest 1V IMPRESSION: No acute pulmonary pathology.
[2022-10-13 07:57] VITALS: BP 141/81; PULSE 73; RESP 18; TEMP 36.2; O2SAT 98; BMI 29.8
--- NOTE | 2022-10-13 09:20 | MHC.EDTECH ---
Urine collected and sent to lab
[2022-10-13 09:24] LABS: UPreg QC Valid YES; Urine Pregnancy NEGATIVE (NEGATIVE)
[2022-10-13 09:25] LABS: Appearance Urine Clear; Color Urine Yellow; Glucose Urine UA Negative (Negative); Leukocyte Esterase Urine Negative (Negative); Nitrite Urine Negative (Negative); Specific Gravity - Urine >= 1.030 (1.005-1.025); UMIC TRIGGER UACC YES; Urine Blood Negative (Negative); Urine Ketones Negative (Negative); Urine Protein 30 (1+) mg/dL (Neg-Trace)
[2022-10-13 09:31] LABS: Bacteria Urine Trace (None Seen); Hyaline Casts Urine 0-2 /LPF (0-2); RBC Urine 0-2 /HPF (0-2); WBC Urine 0-5 /HPF (0-5)
[2022-10-13] MEDS: Ketorolac Tromethamine 30 MG/ML VIAL IM (09:40)
[2022-10-13] MEDS: Cyclobenzaprine HCl 10 MG TABLET PO (09:41)
--- NOTE | 2022-10-13 09:51 | MHC.EDTECH ---
Labs collected and sent to lab
[2022-10-13 09:52] LABS: MANUAL DIFF FLAG NO
[2022-10-13 10:00] LABS: Basophils Percent Auto 0.7 % (0-2); Eosinophils Absolute Auto 0.1 X10*3/uL (0.0-0.4); Eosinophils Percent Auto 2.6 % (0-4); Hematocrit 37.1 % (37.0-47.0); Hemoglobin 12.3 g/dl (12.0-16.0); Lymphocytes Absolute Auto 1.5 X10*3/uL (1.2-4.9); Lymphocytes Percent Auto 36.3 % (20-40); Mean Corpuscular HGB Conc 33.2 g/dl (31.0-35.0); Mean Corpuscular Volume 90.5 fL (80.0-98.0); Mean Platelet Volume 10.1 fL (9.4-12.3); Monocytes Absolute Auto 0.3 X10*3/uL (0.1-1.2); Monocytes Percent Auto 7.8 % (2-11); Neutrophils Absolute Auto 2.2 x10*3/uL (2.0-8.3); Neutrophils Percent Auto 52.6 % (45-73); Platelet Count 200 X10*3/uL (160-400); Red Cell Distribution Width 13.9 % (11.0-16.0); White Blood Count 4.2 X10*3/uL (4.8-10.8)
[2022-10-13 10:22] LABS: Alanine Aminotransferase 23 U/L (0-31); Albumin Level 4.3 g/dL (3.5-5.0); Alkaline Phosphatase 92 U/L (39-117); Anion Gap 15 (12-20); Aspartate Amino Transferase 23 U/L (5-31); Bilirubin Total 0.3 mg/dL (0.0-1.0); Blood Urea Nitrogen 17 mg/dL (9-16); Carbon Dioxide 24 mmol/L (22-29); Chloride 105 mmol/L (96-108); Creatinine Clr Calc Pharmacy 73.8; Estimated Glomerular Filt Rate > 60; Glucose Random 101 mg/dL (60-115); Lipase 26 U/L (8-78); Magnesium 2.1 mg/dL (1.6-2.6); Potassium 4.3 mmol/L (3.3-5.1); Sodium 140 mmol/L (135-145); Total Protein 7.1 g/dL (6.5-8.0)
[2022-10-13 10:24] LABS: Prothrombin Time 11.5 SEC (10.0-13.1)
--- NOTE | 2022-10-13 10:29 | PC.NURSE ---
pt reports pain improved and appears comfortable at rest, hasn't taken any of her meds for 4 days including her bp med, this was not directed by her pcp,
[2022-10-13 10:31] VITALS: BP 179/94; PULSE 62; RESP 18; O2SAT 97
[2022-10-13] MEDS: hydroCHLOROthiazide 25 MG TABLET PO (10:59)
[2022-10-13] MEDS: lisinopriL 10 MG TABLET 30 MG PO (10:59)
--- NOTE | 2022-10-13 11:36 | ED_ITS ---
HPI - Back Pain/Injury General Chief Complaint: General Medical Stated Complaint: Pain on L side when breathing Time Seen by Provider: 10/13/22 08:02 Source: patient Mode of arrival: ambulatory Limitations: no limitations History of Present Illness HPI Narrative: 52-year-old female with a past medical history of acid reflux, anxiety, hypertension, PVCs who was recently diagnosed with COVID 10/11/22 currently on [place] xlovid presenting to the ER with complaints of left flank / back pain worse when she takes a deep breath for the past 2-3 days worse today. Reports it is worse with movement as well and laying on that side. She reports she is still having some chills, nasal congestion / rhinorrhea and a cough with clear colored sputum since she was diagnosed with COVID. she was also noted to be hypertensive and reports that she stopped taking all her medications when she was started on antivirals because she was not sure if it was safe she is currently on lisinopril and hydrochlorothiazide that she did not take this morning. She denies any cardiac related complaints. She denies any recent measured fevers, dizziness, headaches, neck pain /stiffness, trouble swallowing or breathing, chest pain or shortness of breath, dyspnea on exertion, orthopnea, palpitations, paresthesias, nausea /vomiting / diarrhea constipation, black or bloody stools, radiation of the pain, dysuria, hematuria, abdominal pain, abnormal vaginal discharge, recent travel, recent falls or trauma, saddle anesthesias, urinary bowel incontinence or retention, rashes or any other symptoms complaints or concerns at this time. MD elicited complaint: back pain Pertinent past history: other ( Recent diagnosis with COVID on 10/11/2022 on antivirals Paxlovid) Onset (ago): day(s) (2-3 days) Timing: constant Severity: moderate Similar Symptoms Previously: No Quality: aching, spasming and throbbing Location: left flank and left upper back Radiation: none Exacerbating factors: movement, supine positioning, walking, deep breaths, coughing/sneezing and lifting Relieving factors: none Context: unknown Associated symptoms: chills and other ( see above) Treatments prior to arrival: other ( see above) Work related injury: No Related Data Home Medications Medication Instructions Recorded Confirmed albuterol sulfate 90 mcg/actuation 2 puff inhalation Q6H PRN Wheezing 06/17/20 06/12/22 aerosol inhaler (ProAir HFA) pantoprazole 20 mg tablet,delayed 20 mg PO DAILY 06/17/20 06/12/22 release cetirizine 10 mg capsule (All Day 10 mg PO DAILY 06/22/20 06/12/22 Allergy (cetirizine)) gabapentin 400 mg capsule 400 mg PO DAILY 11/29/20 06/12/22 hydrochlorothiazide 25 mg tablet 25 mg PO DAILY 05/23/21 07/24/22 ergocalciferol (vitamin D2) 1,250 1,250 mcg PO QWEEK 09/05/21 06/12/22 mcg (50,000 unit) capsule fluticasone propionate 115 2 puff inhalation BID 09/05/21 06/12/22 mcg-salmeterol 21 mcg/actuation HFA inhaler (Advair HFA) fluticasone propionate 50 1 spray intranasal DAILY 09/05/21 06/12/22 mcg/actuation nasal spray,suspension lisinopril 30 mg tablet 30 mg PO QAM 09/05/21 06/12/22 loratadine 10 mg tablet 10 mg PO QAM PRN allergies 09/05/21 06/12/22 atorvastatin 40 mg tablet 40 mg PO QAM 07/24/22 07/24/22 hydroxyzine HCl 10 mg tablet 10 mg PO BID 07/24/22 07/24/22 oxcarbazepine 300 mg tablet 0 mg PO 07/24/22 07/24/22 Previous Rx's Medication Instructions Recorded lidocaine 5 % topical patch 1 patch topical Q24H #15 ea 03/27/22 meloxicam 15 mg tablet 15 mg PO DAILY #30 tabs 04/01/22 simethicone 125 mg chewable tablet 125 mg PO TID-QID PRN abdominal 04/10/22 (Gas Relief (simethicone)) distention #90 tabs famotidine 20 mg tablet 20 mg PO BID #60 tabs 09/13/22 cyclobenzaprine 10 mg tablet 10 mg PO Q8H #14 tabs 10/13/22 naproxen 500 mg tablet 500 mg PO BID PRN pain #14 tabs 10/13/22 Allergies Allergy/AdvReac Type Severity Reaction Status Date / Time tramadol Allergy Severe Seizure Verified 07/24/22 14:21 droperidol [From Inapsine] Allergy Intermediate Rash Verified 07/24/22 14:21 Sulfa (Sulfonamide Allergy Intermediate hives Verified 07/24/22 14:21 Antibiotics) sulfamethoxazole Allergy Intermediate HIVES Verified 07/24/22 14:21 [From BACTRIM] trimethoprim [From BACTRIM] Allergy Intermediate HIVES Verified 07/24/22 14:21 From COPAXONE Allergy Mild HIVES Uncoded 07/24/22 14:21 Review of Systems Review of Systems: Constitutional : + Generalized fatigue/ malaise/chills, No trauma, No Weight loss ENT/Mouth : No Hearing loss, No Ear Pain, + Nasal Congestion, No Sinus Pain, No Hoarseness, No sore throat, + Rhinorrhea, No Swallowing Difficulty Cardiovascular : No Chest Pain, No SOB Respiratory : + Cough with clear colored sputum production, No Dyspnea Gastrointestinal : No Nausea, No Vomiting, No Diarrhea, No abdominal Pain, No Hematochezia, No Melena Genitourinary : + left flank pain, No Dysuria, No Urinary Frequency, No Hematuri a, No Urinary or Bowel Incontinence/retention Musculoskeletal : + Back pain /myalgias, No neck pain, No joint stiffness, No joint swelling Skin : No Skin Lesions, No rash or signs of infection Neuro : No Weakness, No radiation, No Numbness, No Paresthesias, No headache, no loss of bowel or bladder incontinence, no saddle anesthesia, Focal weakness, No radiation Denies history of IV drug usage. Yes all other systems are reviewed and are negative PMFSH Past Medical History Attestation statement: The following information was validated with the patient. Source: old records reviewed and nursing notes reviewed Medical History Acid reflux Anxiety History of COVID-19 HTN (hypertension) Medial epicondylitis of both elbows Pain of both elbows PVC (premature ventricular contraction) Surgical History H/O nasal polypectomy History of carpal tunnel release History of cholecystectomy Hx of colonoscopy Hx of cystoscopy Hx of endoscopy Hx of tonsillectomy Family History Family History Father Hypertension PTSD (post-traumatic stress disorder) Mother Manic depression Hyperlipemia Heart disease Asthma Anxiety Son Asthma Daughter Asthma Paternal Grandfather Asthma Paternal Grandfather Asthma Alzheimer disease Maternal Grandmother Asthma Brother No problems noted. Sister No problems noted. Social History Social History Household Members: Children Alcohol intake: current Alcohol intake frequency: holidays/special occasions only Alcohol type: wine Patient Tobacco Use Status: Current everyday Tobacco user Smoked in Last 30 Days: Yes Use of substances other than those prescribed or required for medical reasons: No Substance Use Type: Marijuana Substance Use Frequency: Daily Last Used Substance: Hours (ago) Any prior treatment program specific to substance use: No Advance Directives: No Advance Directives Information Provided: No Advance Directives Date on File: 02/11/18 Patient : No Current occupational status: unemployed Current occupation: right handed Physical Exam 2 Vital Signs: Vital Signs: Last Vital Signs Temp 97.2 F 10/13/22 07:57 Pulse 62 10/13/22 10:31 Resp 18 10/13/22 10:31 BP 179/94 H 10/13/22 10:31 Pulse Ox 97 10/13/22 10:31 O2 Del Method 10/13/22 07:57 BMI result Body Mass Index 29.8 vital signs have been reviewed as normal and appeared to be correct. Blood pressure 141/81. Heart rate normal. Respiration rate normal. Temperature normal. Oxygen saturation normal. Appearance: Alert. Oriented X3. No acute distress. Head: Normal external exam. Normocephalic. Atraumatic. No Trevino signs noted. No raccoon eyes noted Eyes: PERRLA. EOMI. Conjunctiva and sclera normal. Eyelids normal. ENT: EAC normal. TM's Normal. Pharynx normal. Uvula midline. Moist mucous m embranes. No trismus noted. No drooling noted. No muffled voice noted. Neck: Normal inspection. Neck supple. FROM. No adenopathy. Thyroid Normal. No meningeal signs. No neck mass noted. CVS: Normal heart rate and rhythm. Heart sound normal. No murmurs noted. Pulses normal throughout. Respiratory: No respiratory distress. Painless inspiration. Breath sounds normal. No wheezes/rales/rhonchi noted. Chest nontender. No accessory muscle usage noted or decreased air movement noted. Abdomen: Soft and nontender. Bowel sounds normal in all 4 quadrants. No distention noted. No organomegaly noted. No visible injury noted. Back: No CVA tenderness. Full range of motion noted. No obvious deformities, or edema. Mild para-spinal muscular tenderness from lumbar region to coccyx. Full ROM in back and lower extremities. 5/5 strength hip extension/flexion, abduction, adduction. Mild Lumbar pain with hip flexion against resistance. Straight leg raise test negative on right; Straight leg raise test negative on left; Reflexes normal ankle and knee bilaterally; EHL motor strength normal bilaterally. No rashes/lesion/induration/fluctuance or signs infection noted. Skin: Skin warm and dry. Normal skin color. Normal skin turgor. No rashes/lesions/lacerations noted. Extremities: No lower extremity edema. Extremities exhibit normal range of motion. Extremities nontender. Neuro: Oriented X 3. No motor deficit. No sensory deficit. Reflexes normal. Patient has a normal steady gait. Course Course Course Narrative: 11:45am 52-year-old female with a past medical history of acid reflux, anxiety, hypertension, PVCs who was recently diagnosed with COVID 10/11/22 currently on Paxlovid presenting to the ER with complaints of left flank / back pain worse when she takes a deep breath for the past 2-3 days worse today. Reports it is worse with movement as well and laying on that side. She reports she is still having some chills, nasal congestion / rhinorrhea and a cough with clear colored sputum since she was diagnosed with COVID. she was also noted to be hypertensive and reports that she stopped taking all her medications when she was started on antivirals because she was not sure if it was safe she is currently on lisinopril and hydrochlorothiazide that she did not take this morning. Pt c likely muscular pain, but could be herniated disc. Neuro exam shows no deficits. Not c/w AAA/epidural abscess/dissection.No high risk Hx (Incont, fever, immunosupp, recent surgery/LP, coag, signif trauma, wt loss, puls mass, hx/o Ca, TB, or IVDU) to warrant MRI. Not c/w spinal fx. Not cauda equina syndrome. Labs were obtained to evaluate the patient's kidney function /liver function due to new medication started Paxlvoid. Imaging was also obtained to rule out pneumonia or any other acute process in the chest or lungs. - patient's white blood cell count is 4000. Red blood cells 4000. BUN 17. Otherwise all other labs are within normal limits. UA revealed trace of protein otherwise no evidence of UTI. - Chest x-ray within normal limits no evidence of pneumonia. - CT scan abdomen pelvis within normal limits no acute processes are noted. Therefore patient most likely muscular skeletal pain. She was given her hydrochlorothiazide and her lisinopril while she was here in the ER. I explained to her that she cannot stop her blood pressure medication until speaking to her doctor. Will DC home with muscle relaxers and symptomatic treatment instructions to self isolate per CDC guidelines due to her COVID and to return if any new or worsening symptoms follow up with PCP. Patient understands agrees with this plan. Medications Administered Discontinued Medications Generic Name Dose Route Start Last Admin Trade Name Freq PRN Reason Stop Dose Admin Cyclobenzaprine HCl 10 mg 10/13/22 09:33 10/13/22 09:41 Cyclobenzaprine Hcl 10 Mg Tablet PO 10/13/22 09:34 10 mg ONCE ONE Administration Hydrochlorothiazide 25 mg 10/13/22 10:45 10/13/22 10:59 Hydrochlorothiazide 25 Mg Tablet PO 10/13/22 10:46 25 mg ONCE ONE Administration Protocol Ketorolac Tromethamine 30 mg 10/13/22 09:33 10/13/22 09:40 Ketorolac Tromethamine 30 Mg/Ml Vial IM 10/13/22 09:34 30 mg ONCE ONE Administration Lisinopril 30 mg 10/13/22 10:41 10/13/22 10:59 Lisinopril 10 Mg Tablet PO 10/13/22 10:42 30 mg ONCE ONE Administration Protocol Medical Decision Making Lab Data [facility] Lab Attestation statement: I reviewed the patient's lab results. 10/13/22 09:49 10/13/22 09:49 Labs: Lab Results 10/13/22 10/13/22 10/13/22 Range/Units 09:16 09:16 09:49 WBC 4.2 L (4.8-10.8) X10*3/uL RBC 4.10 L (4.20-5.50) X10*6/uL Hgb 12.3 (12.0-16.0) g/dl Hct 37.1 (37.0-47.0) % MCV 90.5 (80.0-98.0) fL MCH 30.0 (27.0-33.0) pg MCHC 33.2 (31.0-35.0) g/dl RDW 13.9 (11.0-16.0) % Plt Count 200 (160-400) X10*3/uL MPV 10.1 (9.4-12.3) fL Immature Gran % (Auto) 0.0 (0.0-0.4) % Neut % (Auto) 52.6 (45-73) % Lymph % (Auto) 36.3 (20-40) % [place] % (Auto) 7.8 (2-11) % Eos % (Auto) 2.6 (0-4) % Baso % (Auto) 0.7 (0-2) % Lymph # (Auto) 1.5 (1.2-4.9) X10*3/uL [place] # (Auto) 0.3 (0.1-1.2) X10*3/uL Eos # (Auto) 0.1 (0.0-0.4) X10*3/uL Baso # (Auto) 0.0 (0.0-0.2) X10*3/uL Abs Immat Gran (auto) 0.00 (0.00-0.03) X10*3/uL Absolute Neuts (auto) 2.2 (2.0-8.3) x10*3/uL Absolute Nucleated RBC 0.000 (0.0-0.012) X10*3/uL Nucleated RBC % (auto) 0.0 (0.0-0.2) /100WBC PT (10.0-13.1) SEC INR (0.9-1.1) Sodium (135-145) mmol/L Potassium (3.3-5.1) mmol/L Chloride (96-108) mmol/L Carbon Dioxide (22-29) mmol/L Anion Gap (12-20) BUN (9-16) mg/dL Creatinine (0.5-1.4) mg/dL Estim Creat Clear Calc Estimated GFR Random Glucose (60-115) mg/dL Calcium (8.4-10.2) mg/dL Magnesium (1.6-2.6) mg/dL Total Bilirubin (0.0-1.0) mg/dL AST (5-31) U/L ALT (0-31) U/L Alkaline Phosphatase (39-117) U/L Total Protein (6.5-8.0) g/dL Albumin (3.5-5.0) g/dL Lipase (8-78) U/L Urine Color Yellow Urine Appearance Clear Urine pH 6.0 (5.0-9.0) Ur Specific [place] >= 1.030 H (1.005-1.025) Urine Protein 30 (1+) H (Neg-Trace) mg/dL Urine Glucose (UA) Negative (Negative) mg/dL Urine Ketones Negative (Negative) mg/dL Urine Blood Negative (Negative) Urine Nitrite Negative (Negative) Ur Leukocyte Esterase Negative (Negative) Urine RBC 0-2 (0-2) /HPF Urine WBC 0-5 (0-5) /HPF Ur Squamous Epith Cells 6-10 (0-2) /HPF Urine Bacteria Trace (None Seen) Hyaline Casts 0-2 (0-2) /LPF Urine Test NEGATIVE (NEGATIVE) 10/13/22 10/13/22 Range/Units 09:49 09:49 WBC (4.8-10.8) X10*3/uL RBC (4.20-5.50) X10*6/uL Hgb (12.0-16.0) g/dl Hct (37.0-47.0) % MCV (80.0-98.0) fL MCH (27.0-33.0) pg MCHC (31.0-35.0) g/dl RDW (11.0-16.0) % Plt Count (160-400) X10*3/uL MPV (9.4-12.3) fL Immature Gran % (Auto) (0.0-0.4) % Neut % (Auto) (45-73) % Lymph % (Auto) (20-40) % [place] % (Auto) (2-11) % Eos % (Auto) (0-4) % Baso % (Auto) (0-2) % Lymph # (Auto) (1.2-4.9) X10*3/uL [place] # (Auto) (0.1-1.2) X10*3/uL Eos # (Auto) (0.0-0.4) X10*3/uL Baso # (Auto) (0.0-0.2) X10*3/uL Abs Immat Gran (auto) (0.00-0.03) X10*3/uL Absolute Neuts (auto) (2.0-8.3) x10*3/uL Absolute Nucleated RBC (0.0-0.012) X10*3/uL Nucleated RBC % (auto) (0.0-0.2) /100WBC PT 11.5 (10.0-13.1) SEC INR 1.0 (0.9-1.1) Sodium 140 (135-145) mmol/L Potassium 4.3 (3.3-5.1) mmol/L Chloride 105 (96-108) mmol/L Carbon Dioxide 24 (22-29) mmol/L Anion Gap 15 (12-20) BUN 17 H (9-16) mg/dL Creatinine 0.82 (0.5-1.4) mg/dL Estim Creat Clear Calc 73.8 Estimated GFR > 60 Random Glucose 101 (60-115) mg/dL Calcium 9.0 (8.4-10.2) mg/dL Magnesium 2.1 (1.6-2.6) mg/dL Total Bilirubin 0.3 (0.0-1.0) mg/dL AST 23 (5-31) U/L ALT 23 (0-31) U/L Alkaline Phosphatase 92 (39-117) U/L Total Protein 7.1 (6.5-8.0) g/dL Albumin 4.3 (3.5-5.0) g/dL Lipase 26 (8-78) U/L Urine Color Urine Appearance Urine pH (5.0-9.0) Ur Specific [place] (1.005-1.025) Urine Protein (Neg-Trace) mg/dL Urine Glucose (UA) (Negative) mg/dL Urine Ketones (Negative) mg/dL Urine Blood (Negative) Urine Nitrite (Negative) Ur Leukocyte Esterase (Negative) Urine RBC (0-2) /HPF Urine WBC (0-5) /HPF Ur Squamous Epith Cells (0-2) /HPF Urine Bacteria (None Seen) Hyaline Casts (0-2) /LPF Urine Test (NEGATIVE) Independent Interpretation I performed an independent interpretation of an: Plain X-Ray and CT Scan Interpretation: EXAMINATION: CT ABDOMEN AND PELVIS WITHOUT CONTRAST? CLINICAL INFORMATION: Left posterior flank/back/rib pain.? COMPARISON: Renal ultrasound June 11, [address] abdomen pelvis September 23, 2014? TECHNIQUE: Multidetector volumetric imaging was performed from the superior aspect of the liver through the pubic symphysis. Sagittal and coronal reformatted images were obtained on the technologist's workstation.? This CT examination was performed using dose optimization techniques as appropriate, variously including the following: *Automated exposure control *Adjustment of mA and/or kV according to patient size (this includes techniques or standardized protocols for targeted exams where dose is matched to indication/reason for exam; i.e. extremities or head) *Use of iterative reconstruction technique DLP: 504 mGy-cm FINDINGS: Visualized lung bases are well aerated. The liver is normal in size but demonstrates diffusely decreased attenuation. The gallbladder surgically absent. The pancreas, spleen and adrenal glands are unremarkable. The kidneys are symmetric in size. No renal calculi or hydronephrosis of either kidney. There is a 4.6 cm cyst within the lower pole of the right kidney. Normal caliber loops of small and large bowel. Mild colonic diverticulosis without CT evidence to suggest active diverticulitis. Normal caliber abdominal aorta. No retroperitoneal lymphadenopathy. The bladder is normal in appearance. Unremarkable CT appearance of the uterus. No gross free pelvic fluid. No inguinal lymphadenopathy. Mild diffuse degenerative changes of the spine. CT/CT abdomen pelvis wo IV con IMPRESSION: 1.? No CT evidence for acute abnormality within the abdomen or pelvis. 2.? Diffusely decreased liver attenuation suggesting hepatic steatosis. Correlation with liver enzymes recommended. 3.? Mild colonic diverticulosis without CT evidence to suggest active diverticulitis. 4.? 4.6 cm right renal cyst. ? Fleischner guidelines were followed. EXAMINATION: XR CHEST CLINICAL INFORMATION: Shortness of breath. Covid positive. COMPARISON: Chest x-ray August 24, 2021 TECHNIQUE: Frontal view of the chest was obtained. FINDINGS: Cardiac silhouette is normal in size. The lungs are adequately aerated. There is no lobar consolidation. No pleural effusion or pneumothorax. Similar tiny calcified granuloma the left lung apex. Surgical clips of the right upper abdomen. XR/XR chest 1V IMPRESSION: No acute pulmonary pathology. ? Radiology Impression Discussion of test interpretation with radiology: I have reviewed the radiologist's reading. External Record Review External record reviewed: Inpatient record, Office record, Outpatient record, Prior outpatient labs, Prior outpatient radiology, Primary care record and Outside ED record Prescription Management I considered prescription management with: Pain Medication Discharge Plan Discharge Clinical Impression: Pain on movement of skeletal muscle Patient Disposition: Home, Self-Care Instructions: Musculoskeletal Pain (ED) Prescriptions: New cyclobenzaprine 10 mg tablet 10 mg PO Q8H Qty: 14 0RF naproxen 500 mg tablet 500 mg PO BID PRN (Reason: pain) Qty: 14 0RF No Action lidocaine 5 % adhesive patch,medicated 1 patch topical Q24H Qty: 15 0RF Rx Instructions: leave on most painful area for up to 12 hrs meloxicam 15 mg tablet 15 mg PO DAILY Qty: 30 0RF famotidine 20 mg tablet 20 mg PO BID Qty: 60 3RF hydrochlorothiazide 25 mg Tablet 25 mg PO DAILY pantoprazole 20 mg tablet,delayed release (DR/EC) 20 mg PO DAILY albuterol sulfate [ProAir HFA] 90 mcg/actuation HFA aerosol inhaler 2 puff inhalation Q6H PRN (Reason: Wheezing) All Day Allergy (cetirizine) 10 mg capsule 10 mg PO DAILY gabapentin 400 mg capsule 400 mg PO DAILY simethicone [Gas Relief (simethicone)] 125 mg tablet,chewable 125 mg PO TID-QID PRN (Reason: abdominal distention) Qty: 90 2RF loratadine 10 mg tablet 10 mg PO QAM PRN (Reason: allergies) ergocalciferol (vitamin D2) 1,250 mcg (50,000 unit) capsule 1,250 mcg PO QWEEK lisinopril 30 mg tablet 30 mg PO QAM Advair HFA 115-21 mcg/actuation HFA aerosol inhaler 2 puff inhalation BID fluticasone propionate 50 mcg/actuation spray,suspension 1 spray intranasal DAILY atorvastatin 40 mg tablet 40 mg PO QAM oxcarbazepine 300 mg tablet 0 mg PO hydroxyzine HCl 10 mg tablet 10 mg PO BID Referrals: Evangelina eMade MD [Primary Care Provider] - 2 days
== END 2022-10-13 12:00 | disposition home or self-care (01) ==
PROVIDERS: Physician Assistant Medical; Emergency Provider Student in an Organized Health Care Education/Training Program; PCP Internal Medicine
DX: M54.50 Low back pain, unspecified (principal); R10.13 Epigastric pain; R05.9 Cough, unspecified; R07.89 Other chest pain; F17.200 Nicotine dependence, unspecified, uncomplicated; Z79.899 Other long term (current) drug therapy; Z71.6 Tobacco abuse counseling
CPT/HCPCS: 36415; 71045; 74176; 80053; 81001; 81025; 83690; 83735; 85025; 85610; 96372; 99284; J1885

== ENCOUNTER → 2022-10-22 15:04 | Outpatient (BNVA) | payer MEDICAID, SELFPAY | PROVIDERS: PCP Internal Medicine; Visit Provider Nurse Practitioner Family | DX: I49.3 Ventricular premature depolarization (principal); I42.9 Cardiomyopathy, unspecified; I10 Essential (primary) hypertension; F41.9 Anxiety disorder, unspecified; F17.200 Nicotine dependence, unspecified, uncomplicated; Z79.899 Other long term (current) drug therapy | CPT/HCPCS: 99212 ==

== ENCOUNTER → 2022-10-31 09:36 | Outpatient (BNVA) | payer MEDICAID, SELFPAY | PROVIDERS: PCP Internal Medicine; Visit Provider Orthopaedic Surgery | DX: M75.02 Adhesive capsulitis of left shoulder (principal); M75.41 Impingement syndrome of right shoulder | CPT/HCPCS: 99212 ==

== ENCOUNTER 2022-11-01 09:07 | Outpatient (REF) | payer MEDICAID, SELFPAY ==
--- NOTE | ~2022-11-01 | XR_ITS ---
EXAMINATION: XR WRIST, RIGHT CLINICAL INFORMATION: Pain COMPARISON: Previous x-ray October 2020 TECHNIQUE: Four views of the right wrist. FINDINGS: The bones and soft tissues are normal. No fracture. Alignment is anatomic with normal joint spaces. No erosions or abnormal soft tissue calcifications. XR/XR wrist RT 2V IMPRESSION: Normal right wrist.
== END 2022-11-01 09:08 | disposition home or self-care (01) ==
LOC: HO.XRAY 09:07
PROVIDERS: PCP Internal Medicine; Visit Provider Student in an Organized Health Care Education/Training Program
DX: M25.531 Pain in right wrist (principal)
CPT/HCPCS: 73100

== ENCOUNTER 2023-01-17 12:47 | Outpatient (REF) | payer MEDICAID, SELFPAY ==
--- NOTE | ~2023-01-17 | XR_ITS ---
EXAMINATION: XR WRIST, RIGHT CLINICAL INFORMATION: Pain COMPARISON: None available. TECHNIQUE: PA, lateral, and oblique views of the right wrist. FINDINGS: The bones and soft tissues are normal. No fracture. Alignment is anatomic with normal joint spaces. No erosions or abnormal soft tissue calcifications. XR/XR wrist RT min 3V IMPRESSION: Normal right wrist.
== END 2023-01-17 12:48 | disposition home or self-care (01) ==
LOC: HO.HOSX 12:47
PROVIDERS: PCP Internal Medicine; Visit Provider Orthopaedic Surgery
DX: M65.4 Radial styloid tenosynovitis [de Quervain] (principal)
CPT/HCPCS: 20550; 73110; 99212; J1100

== ENCOUNTER 2023-01-24 15:23 | Outpatient (REF) | payer MEDICAID, SELFPAY ==
--- NOTE | ~2023-01-24 | MM_ITS ---
EXAMINATION: MM SCREENING DIGITAL BREAST TOMOSYNTHESIS, BILATERAL CLINICAL INFORMATION: Screening. Asymptomatic. The lifetime risk of breast cancer based on the Tyrer-Cuzick Model is 9%. COMPARISON: Mammography: 03/27/2019, 09/22/2015; left breast ultrasound 03/17/2019. TECHNIQUE: Digital breast tomosynthesis is performed in both the craniocaudal and mediolateral oblique views along with computer-aided detection (CAD). Synthesized 2D images are generated from the tomosynthesis. FINDINGS: There are scattered areas of fibroglandular density (ACR BI-RADS breast composition Category b). There are no significant masses, abnormal calcifications, or other abnormalities. Parenchymal pattern is similar to prior studies. There is no developing density or architectural abnormality. The axilla and skin contours are unremarkable. No significant changes. MM/MM tomosynthesis screening BI IMPRESSION: No mammographic evidence of malignancy. ASSESSMENT: BI-RADS 1: Negative RECOMMENDATION: Routine annual mammography screening. This patient's information was entered into a reminder system with a target due date for their next mammogram.
== END 2023-01-24 15:24 | disposition home or self-care (01) ==
LOC: HO.MAMMO 15:23
PROVIDERS: PCP Internal Medicine; Visit Provider Internal Medicine
DX: Z12.31 Encounter for screening mammogram for malignant neoplasm of breast (principal)
CPT/HCPCS: 77063; 77067

== ENCOUNTER → 2023-01-28 12:54 | Outpatient (BNVA) | payer MEDICAID, SELFPAY | PROVIDERS: PCP Internal Medicine; Referring Provider Internal Medicine; Visit Provider Nurse Practitioner Family | DX: R00.2 Palpitations (principal); I10 Essential (primary) hypertension; I49.3 Ventricular premature depolarization; I42.9 Cardiomyopathy, unspecified; F17.200 Nicotine dependence, unspecified, uncomplicated; F41.9 Anxiety disorder, unspecified | CPT/HCPCS: 99212 ==

== ENCOUNTER 2023-02-19 13:50 | Outpatient (REF) | payer MEDICAID, SELFPAY ==
[2023-02-21 12:24] LABS: H Pylori Breath Test Negative (Negative)
== END 2023-02-19 13:51 | disposition home or self-care (01) ==
LOC: HO.LNP 13:50
PROVIDERS: PCP Internal Medicine; Visit Provider Physician Assistant
DX: K21.9 Gastro-esophageal reflux disease without esophagitis (principal); R11.0 Nausea; F17.200 Nicotine dependence, unspecified, uncomplicated; D12.6 Benign neoplasm of colon, unspecified; A04.8 Other specified bacterial intestinal infections; Z79.899 Other long term (current) drug therapy
CPT/HCPCS: 83013; 99212

== ENCOUNTER 2023-03-04 10:29 | Emergency (ER) | payer MEDICAID, SELFPAY ==
--- NOTE | ~2023-03-04 | XR_ITS ---
EXAMINATION: PA CHEST AND RIB SERIES, LEFT CLINICAL INFORMATION: Left lower posterior rib pain. COMPARISON: 10/13/2022 TECHNIQUE: PA chest 3 views of the left ribs were obtained. FINDINGS: Lungs are clear. No consolidation, pneumothorax, or pleural effusion. The cardiomediastinal silhouette and pulmonary vasculature are normal. BB is placed in the lower posterior left rib cage. No acute fractures. The 10th posterior lateral rib is relatively more diffusely widened and dense in appearance than other ribs. On frontal view, rounded density overlying the 10th posterolateral rib, likely nipple shadow. XR/XR ribs LT min 3V w CXR1V IMPRESSION: No acute cardiopulmonary disease or acute bony pathology. Diffusely widened, dense appearance left 10th posterior rib in region of pain. Consider CT.
--- NOTE | ~2023-03-04 | CT_ITS ---
EXAMINATION: CT ANGIOGRAM OF THE CHEST WITH AND WITHOUT CONTRAST (CT PULMONARY ANGIOGRAM FOR PE) CLINICAL INFORMATION: Reason for Exam elevated D-dimer COMPARISON: None available. TECHNIQUE: Prior to contrast administration, noncontrast localization images were obtained. Subsequently, multidetector volumetric imaging was performed from the thoracic inlet to below the diaphragms following the administration of 80 mL Omnipaque 350 intravenous contrast. No contrast reaction reported Sagittal, coronal, and MIP oblique sagittal reformatted images were obtained on the CT workstation, uploaded to PACS, and reviewed. This CT examination was performed using dose optimization techniques as appropriate, variously including the following: *Automated exposure control *Adjustment of mA and/or kV according to patient size (this includes techniques or standardized protocols for targeted exams where dose is matched to indication/reason for exam; i.e. extremities or head) *Use of iterative reconstruction technique Total exam dose-length product mGy-cm FINDINGS: QUALITY OF STUDY/CONTRAST BOLUS: Satisfactory. PULMONARY ARTERIES: No pulmonary emboli. THORACIC AORTA: No aneurysm. LUNG: Small 3 mm calcified left upper lobe nodule axial image 83 series 7. Small 2 mm noncalcified right upper lobe nodule axial image 68 series 7. PLEURA: No pleural effusion or pneumothorax. MEDIASTINUM: Bilateral thyroid nodules. Largest visualized nodule measures 1.2 x 1.5 x 1.8 cm and is partially calcified. Follow-up thyroid ultrasound recommended. Normal heart size. No pericardial effusion. No hilar or mediastinal lymphadenopathy. No evidence of septal bowing or right heart strain. CORONARY ARTERY CALCIFICATION: None visualized on this study. CHEST WALL/AXILLA: Small bilateral axillary lymph nodes. No enlarged lymph nodes or chest wall mass.. OSSEOUS STRUCTURES: No acute or suspicious osseous abnormality. UPPER ABDOMEN: Unremarkable. No reflux of contrast into the hepatic veins to suggest elevated right heart pressures. CT/CT angio chest PE protocol IMPRESSION: No evidence of pulmonary embolism. Thyroid nodules. Follow-up thyroid ultrasound recommended. VTE: negative
[2023-03-04 10:33] VITALS: BP 164/69; PULSE 84; RESP 18; TEMP 36.3; O2SAT 97; BMI 26.6
[2023-03-04 10:55] LABS: MANUAL DIFF FLAG NO
[2023-03-04 11:00] LABS: Basophils Absolute Auto 0.1 X10*3/uL (0.0-0.2); Basophils Percent Auto 0.9 % (0-2); Eosinophils Absolute Auto 0.2 X10*3/uL (0.0-0.4); Eosinophils Percent Auto 4.1 % (0-4); Hematocrit 40.1 % (37.0-47.0); Hemoglobin 13.2 g/dl (12.0-16.0); Imm Gran Abs Auto 0.02 X10*3/uL (0.00-0.03); Imm Gran Pct Auto 0.4 % (0.0-0.4); Lymphocytes Absolute Auto 2.2 X10*3/uL (1.2-4.9); Mean Corpuscular HGB Conc 32.9 g/dl (31.0-35.0); Mean Corpuscular Hemoglobin 30.3 pg (27.0-33.0); Mean Platelet Volume 11.1 fL (9.4-12.3); Monocytes Absolute Auto 0.3 X10*3/uL (0.1-1.2); Neutrophils Absolute Auto 2.8 x10*3/uL (2.0-8.3); Neutrophils Percent Auto 50.6 % (45-73); Platelet Count 261 X10*3/uL (160-400); Red Blood Count 4.36 X10*6/uL (4.20-5.50); Red Cell Distribution Width 13.2 % (11.0-16.0); White Blood Count 5.6 X10*3/uL (4.8-10.8)
--- NOTE | 2023-03-04 11:10 | ED_ITS ---
HPI - General Adult General Chief complaint: Abdominal Pain Stated complaint: back pain Time Seen by Provider: 03/04/23 11:03 Source: patient Mode of arrival: ambulatory Limitations: no limitations History of Present Illness HPI narrative: Patient is a 52-year-old female with history of HTN, cardiomyopathy, IBS pre senting with left lower rib pain since yesterday. Patient states pain began when she got out of bed yesterday. Today pain worsened while she was reaching for an item in her cabinet. Pain worsens with movement and palpation. Denies recent fall or other injury/trauma. Denies cough or shortness of breath but states that when the pain is severe it takes her breath away. Denies recent fevers. Denies dysuria, hematuria, or other urinary symptoms. Seen at [facility] yesterday and medicated with Toradol and lidocaine patch, states neither were helpful in relieving her pain. Also used Tylenol without relief. Was seen in this ED in September of this year for similar symptoms and was diagnosed with musculoskeletal pain. States the prescribed muscle relaxers were helpful in reducing her symptoms at that time. MD complaint: rib pain Onset (ago): day(s) Location: back Radiation: non-radiation Severity: severe Severity scale (1-10): 10 Quality: other (pressure) Pain Consistency: colicky Relieving factors: rest and other (position of comfort) Exacerbating factors: movement and other (palpation) Associated symptoms: denies other symptoms Treatments prior to arrival: other (Tylenol) Related Data Home Medications Medication Instructions Recorded Confirmed pantoprazole 20 mg tablet,delayed 20 mg PO DAILY 06/17/20 02/19/23 release cetirizine 10 mg capsule (All Day 10 mg PO DAILY 06/22/20 02/19/23 Allergy (cetirizine)) gabapentin 400 mg capsule 400 mg PO DAILY 11/29/20 02/19/23 hydrochlorothiazide 25 mg tablet 25 mg PO DAILY 05/23/21 02/19/23 ergocalciferol (vitamin D2) 1,250 1,250 mcg PO QWEEK 09/05/21 02/19/23 mcg (50,000 unit) capsule fluticasone propionate 115 2 puff inhalation BID 09/05/21 02/19/23 mcg-salmeterol 21 mcg/actuation HFA inhaler (Advair HFA) fluticasone propionate 50 1 spray intranasal DAILY 09/05/21 02/19/23 mcg/actuation nasal spray,suspension loratadine 10 mg tablet 10 mg PO QAM PRN allergies 09/05/21 02/19/23 atorvastatin 40 mg tablet 40 mg PO QAM 07/24/22 02/19/23 hydroxyzine HCl 10 mg tablet 10 mg PO BID PRN 10/22/22 02/19/23 oxcarbazepine 300 mg tablet 300 mg PO 10/22/22 02/19/23 Previous Rx's Medication Instructions Recorded lidocaine 5 % topical patch 1 patch topical Q24H #15 ea 03/27/22 simethicone 125 mg chewable tablet 125 mg PO TID-QID PRN abdominal 04/10/22 (Gas Relief (simethicone)) distention #90 tabs cyclobenzaprine 10 mg tablet 10 mg PO Q8H #14 tabs 10/13/22 famotidine 20 mg tablet 20 mg PO BID #60 tabs 12/09/22 lisinopril 20 mg tablet 20 mg PO DAILY #30 tabs 01/28/23 metoprolol succinate 25 mg 12.5 mg PO DAILY #15 tabs 01/28/23 tablet,extended release 24 hr famotidine 40 mg tablet 40 mg PO DAILY 30 days #30 tabs 02/06/23 sucralfate 1 gram tablet 1 g PO QIDACHS 21 days #90 tabs 02/06/23 cyclobenzaprine 5 mg tablet 5 mg PO TID PRN muscle spasm #14 03/04/23 tabs Allergies Allergy/AdvReac Type Severity Reaction Status Date / Time tramadol Allergy Severe Seizure Verified 03/04/23 10:37 trazodone Allergy Severe manic Verified 03/04/23 10:37 episodes droperidol [From Inapsine] Allergy Intermediate Rash Verified 03/04/23 10:37 Sulfa (Sulfonamide Allergy Intermediate hives Verified 03/04/23 10:37 Antibiotics) sulfamethoxazole Allergy Intermediate HIVES Verified 03/04/23 10:37 [From BACTRIM] trimethoprim [From BACTRIM] Allergy Intermediate HIVES Verified 03/04/23 10:37 From COPAXONE Allergy Mild HIVES Uncoded 03/04/23 10:37 Review of Systems Review of Systems: As per HPI. Yes all other systems are reviewed and are negative Constitutional: Constitutional: Reports as [place] [facility] Past Medical History Medical History Acid reflux Anxiety History of COVID-19 HTN (hypertension) Medial epicondylitis of both elbows Numbness and tingling in both hands Pain of both elbows PVC (premature ventricular contraction) Rotator cuff insufficiency of left shoulder Surgical History H/O nasal polypectomy History of carpal tunnel release History of cholecystectomy Hx of colonoscopy Hx of cystoscopy Hx of endoscopy Hx of tonsillectomy Family History Family History Father Hypertension PTSD (post-traumatic stress disorder) Mother Manic depression Hyperlipemia Heart disease Asthma Anxiety Son Asthma Daughter Asthma Paternal Grandfather Asthma Paternal Grandfather Asthma Alzheimer disease Maternal Grandmother Asthma Brother No problems noted. Sister No problems noted. 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 Blood pressure elevated. Heart rate normal. Respiratory rate normal. Temperature normal. Oxygen saturation normal. Const General: cooperative, healthy appearing, no acute distress, well developed, alert and awake Orientation/consciousness: oriented to person, oriented to place, oriented to time and patient oriented x3 Limitations: no limitations [facility] Head: Yes normocephalic and Yes atraumatic Ears: external ears normal General nose exam: Normal external nose present Face and sinus: Yes face symmetric Mouth: oropharynx normal and moist mucous membranes Throat: Yes uvula midline Eyes Pupils: Equal, round and reactive pupils present Neck Neck: Yes normal visual inspection and Yes supple Chest Chest palpation & inspection: normal inspection of the chest, normal palpation of entire chest wall, no crepitus, no masses, tenderness rib left posterior- axillary line involving the 9th rib and involving the 10th rib and No rash Resp Effort & Inspection: normal respiratory effort and able to speak in complete sentences Auscultation: clear to auscultation bilaterally Cardio Rate: regular rate Rhythm: regular rhythm Heart sounds: S1 normal heart sound present and S2 normal heart sound present GI Palpation (GI): Soft to palpation and nontender Auscultation: normoactive bowel sounds General: Yes no CVA tenderness Back/Spine/Pelvis Back: no CVA tenderness Cervical Spine: No Cervical spine tenderness Thoracic/Lumbar Spine: thoracic and lumbar spine normal to inspection, thoraco- lumbar ROM normal, pain with thoraco-lumbar ROM, paraspinal muscle tenderness on the left in the mid thoracic, No thoracic spinal tenderness and No lumbar spinal tenderness Skin General skin exam: elasticity normal and turgor normal Neuro General: oriented to person, oriented to place, oriented to time, patient oriented x3, moves all extremities, no focal motor deficits and CN's II-XI intact bilaterally Cranial nerves: Yes Equal, round and reactive pupils present Cognition (Neuro): normal cognition Extrem General: Yes full ROM, Yes no pedal edema and Yes no calf tenderness Psych Mental Status: mental status grossly normal Affect: normal affect Thought process: Normal thought process present Course Course Course Narrative: 13:59 D-dimer elevated, labs otherwise unremarkable. X-ray shows diffusely widened, dense appearance of left 10th posterior rib, will obtain CTA chest. Results discussed with patient and questions answered. 14:52 Patient complaining of anxiety prior to CTA. Did not drive herself to ED, will be picked up. Ordered 1mg lorazepam for anxiety, will also be beneficial is pain is related to musculoskeletal cause. 15:57 CTA negative for PE. Patient updated on results, all questions answered. Thyroid nodules noted, patient advised of this and instructed to follow up with PCP outpatient for ultrasound. Patient states that 10 years prior she did have a left arm DVT and PE and forgot up until this point. Pain likely musculoskeletal, will prescribe short course of cyclobenzprine, advised patient to apply warm compresses throughout the day, can use Tylenol and ibuprofen. Instructed her to follow up with PCP this week. Return precautions discussed at bedside. Medications Administered Discontinued Medications Generic Name Dose Route Start Last Admin Trade Name Freq PRN Reason Stop Dose Admin Cyclobenzaprine HCl 10 mg 03/04/23 11:30 03/04/23 12:58 Cyclobenzaprine Hcl 10 Mg Tablet PO 03/04/23 11:31 10 mg ONCE ONE Administration Iohexol 100 ml 03/04/23 15:00 03/04/23 15:00 Iohexol 350 Mg/Ml 100 Ml Infus..Btl IV 03/04/23 15:01 65 ml ONCE ONE Administration Lorazepam 1 mg 03/04/23 14:52 03/04/23 15:10 Lorazepam 1 Mg Tablet PO 03/04/23 14:53 1 mg ONCE ONE Administration Medical Decision Making Medical Decision Making [facility] Narrative: Patient is a 52-year-old female with history of HTN, cardiomyopathy, IBS presenting with left lower rib pain since yesterday. On exam patient is awake, A+Ox3, hypertensive likely secondary to pain, VS otherwise WNL, LS CTA throughout, RRR, abdomen soft and nontender, no CVA tenderness, tenderness to palpation of left 9th/10th ribs at posterior-axillary line. Labs and urine unremarkable, decreasing suspicion for infectious cause such as UTI/pyelonephritis or pneumonia. No blood in urine decreasing suspicion for renal calculi. Patient had a renal ultrasound in May which showed no renal calculi or hydronephrosis bilaterally. Cannot PERC out as patient is 52, will obtain D-dimer to rule out PE as patient was also seen at [facility] yesterday and here in September for similar complaints. Given that pain is worse with mo vement and palpation, improved previously with muscle relaxer, patient denies injury and urinary symptoms, fever, feel likely musculoskeletal. Will obtain x- ray to rule out rib fracture and order Flexeril, as patient states this has helped previously. Please refer to course for remaining clinical decision making. Differential Diagnosis Differential Diagnoses: The differential diagnosis associated with the presentation includes As above. Lab Data [facility] Lab Attestation statement: I reviewed the patient's lab results. 03/04/23 10:41 03/04/23 10:41 Labs: Lab Results 03/04/23 03/04/23 03/04/23 Range/Units 10:41 10:41 11:31 WBC 5.6 (4.8-10.8) X10*3/uL RBC 4.36 (4.20-5.50) X10*6/uL Hgb 13.2 (12.0-16.0) g/dl Hct 40.1 (37.0-47.0) % MCV 92.0 (80.0-98.0) fL MCH 30.3 (27.0-33.0) pg MCHC 32.9 (31.0-35.0) g/dl RDW 13.2 (11.0-16.0) % Plt Count 261 D (160-400) X10*3/uL MPV 11.1 (9.4-12.3) fL Immature Gran % (Auto) 0.4 (0.0-0.4) % Neut % (Auto) 50.6 (45-73) % Lymph % (Auto) 39.0 (20-40) % Sutter % (Auto) 5.0 (2-11) % Eos % (Auto) 4.1 H (0-4) % Baso % (Auto) 0.9 (0-2) % Lymph # (Auto) 2.2 (1.2-4.9) X10*3/uL Sutter # (Auto) 0.3 (0.1-1.2) X10*3/uL Eos # (Auto) 0.2 (0.0-0.4) X10*3/uL Baso # (Auto) 0.1 (0.0-0.2) X10*3/uL Abs Immat Gran (auto) 0.02 (0.00-0.03) X10*3/uL Absolute Neuts (auto) 2.8 (2.0-8.3) x10*3/uL Absolute Nucleated RBC 0.000 (0.0-0.012) X10*3/uL Nucleated RBC % (auto) 0.0 (0.0-0.2) /100WBC D-Dimer High Sensitivty NG/ML Sodium 143 (135-145) mmol/L Potassium 4.1 (3.3-5.1) mmol/L Chloride 105 (96-108) mmol/L Carbon Dioxide 26 (22-29) mmol/L Anion Gap 16 (12-20) BUN 15 (9-16) mg/dL Creatinine 0.85 (0.5-1.4) mg/dL Estim Creat Clear Calc 72.8 Estimated GFR > 60 Random Glucose 113 (60-115) mg/dL Calcium 10.0 D (8.4-10.2) mg/dL Total Bilirubin 0.6 (0.0-1.0) mg/dL AST 15 (5-31) U/L ALT 13 (0-31) U/L Alkaline Phosphatase 94 (39-117) U/L Total Protein 7.5 (6.5-8.0) g/dL Albumin 4.3 (3.5-5.0) g/dL Lipase 24 (8-78) U/L Urine Color Yellow Urine Appearance Clear Urine pH 6.0 (5.0-9.0) Ur Specific [place] 1.025 (1.005-1.025) Urine Protein Trace (Neg-Trace) mg/dL Urine Glucose (UA) Negative (Negative) mg/dL Urine Ketones Trace (Negative) mg/dL Urine Blood Negative (Negative) Urine Nitrite Negative (Negative) Ur Leukocyte Esterase Negative (Negative) Urine Test (NEGATIVE) Urine Opiates Screen (Not Detect) Urine Fentanyl Screen (Not Detect) Ur Barbiturates Screen (Not Detect) Ur Phencyclidine Scrn (Not Detect) Ur Amphetamines Screen (Not Detect) U Benzodiazepines Scrn (Not Detect) Urine Cocaine Screen (Not Detect) U Marijuana (THC) Screen (Not Detect) 03/04/23 03/04/23 03/04/23 Range/Units 11:31 12:53 13:26 WBC (4.8-10.8) X10*3/uL RBC (4.20-5.50) X10*6/uL Hgb (12.0-16.0) g/dl Hct (37.0-47.0) % MCV (80.0-98.0) fL MCH (27.0-33.0) pg MCHC (31.0-35.0) g/dl RDW (11.0-16.0) % Plt Count (160-400) X10*3/uL MPV (9.4-12.3) fL Immature Gran % (Auto) (0.0-0.4) % Neut % (Auto) (45-73) % Lymph % (Auto) (20-40) % Sutter % (Auto) (2-11) % Eos % (Auto) (0-4) % Baso % (Auto) (0-2) % Lymph # (Auto) (1.2-4.9) X10*3/uL Sutter # (Auto) (0.1-1.2) X10*3/uL Eos # (Auto) (0.0-0.4) X10*3/uL Baso # (Auto) (0.0-0.2) X10*3/uL Abs Immat Gran (auto) (0.00-0.03) X10*3/uL Absolute Neuts (auto) (2.0-8.3) x10*3/uL Absolute Nucleated RBC (0.0-0.012) X10*3/uL Nucleated RBC % (auto) (0.0-0.2) /100WBC D-Dimer High Sensitivty 684 NG/ML Sodium (135-145) mmol/L Potassium (3.3-5.1) mmol/L Chloride (96-108) mmol/L Carbon Dioxide (22-29) mmol/L Anion Gap (12-20) BUN (9-16) mg/dL Creatinine (0.5-1.4) mg/dL Estim Creat Clear Calc Estimated GFR Random Glucose (60-115) mg/dL Calcium (8.4-10.2) mg/dL Total Bilirubin (0.0-1.0) mg/dL AST (5-31) U/L ALT (0-31) U/L Alkaline Phosphatase (39-117) U/L Total Protein (6.5-8.0) g/dL Albumin (3.5-5.0) g/dL Lipase (8-78) U/L Urine Color Urine Appearance Urine pH (5.0-9.0) Ur Specific [place] (1.005-1.025) Urine Protein (Neg-Trace) mg/dL Urine Glucose (UA) (Negative) mg/dL Urine Ketones (Negative) mg/dL Urine Blood (Negative) Urine Nitrite (Negative) Ur Leukocyte Esterase (Negative) Urine Test NEGATIVE (NEGATIVE) Urine Opiates Screen Not Detected (Not Detect) Urine Fentanyl Screen Not Detected (Not Detect) Ur Barbiturates Screen Not Detected (Not Detect) Ur Phencyclidine Scrn Not Detected (Not Detect) Ur Amphetamines Screen Not Detected (Not Detect) U Benzodiazepines Scrn Not Detected (Not Detect) Urine Cocaine Screen Not Detected (Not Detect) U Marijuana (THC) Screen POSITIVE H (Not Detect) Independent Interpretation I performed an independent interpretation of an: Plain X-Ray Interpretation: I independently reviewed the x-ray and agree with the radiologist's interpretation. Radiology Impression Discussion of test interpretation with radiology: I have reviewed the radiologist's reading. Radiologist Impression: XR/XR ribs LT min 3V w CXR1V IMPRESSION: No acute cardiopulmonary disease or acute bony pathology. Diffusely widened, dense appearance left 10th posterior rib in region of pain. Consider CT. External Record Review External record reviewed: Inpatient record, Office record, Outpatient record and Prior outpatient radiology Prescription Management I considered prescription management with: Other (muscle relaxer) Chronic Conditions Patient?s care impacted by: Hypertension Discharge Plan Discharge Clinical Impression: Pain on movement of skeletal muscle Patient Disposition: Home, Self-Care Instructions: Musculoskeletal Pain (ED) Additional Instructions: You were evaluated in the emergency department today for left posterior rib pain which appears to be musculoskeletal. Your CT scan did not show evidence of a pulmonary embolism, also known as a blood clot in your lungs. Your CT did show nodules on your thyroid and you should follow up with your PCP this week regarding further evaluation of this. Return to the emergency department if you experience worsening pain, shortness of breath, or any other concerning symptoms. Prescriptions: New cyclobenzaprine 5 mg tablet 5 mg PO TID PRN (Reason: muscle spasm) Qty: 14 0RF No Action lidocaine 5 % adhesive patch,medicated 1 patch topical Q24H Qty: 15 0RF Rx Instructions: leave on most painful area for up to 12 hrs famotidine 20 mg tablet 20 mg PO BID Qty: 60 3RF sucralfate 1 gram tablet 1 g PO QIDACHS 21 Days Qty: 90 0RF famotidine 40 mg tablet 40 mg PO DAILY 30 Days Qty: 30 5RF Rx Instructions: take at HS until 02/16- january resume after h.pylori test hydrochlorothiazide 25 mg Tablet 25 mg PO DAILY cyclobenzaprine 10 mg tablet 10 mg PO Q8H Qty: 14 0RF pantoprazole 20 mg tablet,delayed release (DR/EC) 20 mg PO DAILY All Day Allergy (cetirizine) 10 mg capsule 10 mg PO DAILY gabapentin 400 mg capsule 400 mg PO DAILY simethicone [Gas Relief (simethicone)] 125 mg tablet,chewable 125 mg PO TID-QID PRN (Reason: abdominal distention) Qty: 90 2RF loratadine 10 mg tablet 10 mg PO QAM PRN (Reason: allergies) ergocalciferol (vitamin D2) 1,250 mcg (50,000 unit) capsule 1,250 mcg PO QWEEK Advair HFA 115-21 mcg/actuation HFA aerosol inhaler 2 puff inhalation BID fluticasone propionate 50 mcg/actuation spray,suspension 1 spray intranasal DAILY atorvastatin 40 mg tablet 40 mg PO QAM hydroxyzine HCl 10 mg tablet 10 mg PO BID PRN oxcarbazepine 300 mg tablet 300 mg PO lisinopril 20 mg tablet 20 mg PO DAILY Qty: 30 5RF metoprolol succinate 25 mg tablet extended release 24 hr 12.5 mg PO DAILY Qty: 15 3RF
[2023-03-04 11:15] LABS: Alanine Aminotransferase 13 U/L (0-31); Albumin Level 4.3 g/dL (3.5-5.0); Alkaline Phosphatase 94 U/L (39-117); Anion Gap 16 (12-20); Aspartate Amino Transferase 15 U/L (5-31); Bilirubin Total 0.6 mg/dL (0.0-1.0); Blood Urea Nitrogen 15 mg/dL (9-16); Carbon Dioxide 26 mmol/L (22-29); Chloride 105 mmol/L (96-108); Creatinine Clr Calc Pharmacy 72.8; Estimated Glomerular Filt Rate > 60; Glucose Random 113 mg/dL (60-115); Lipase 24 U/L (8-78); Potassium 4.1 mmol/L (3.3-5.1); Sodium 143 mmol/L (135-145); Total Protein 7.5 g/dL (6.5-8.0)
[2023-03-04 11:40] LABS: Appearance Urine Clear; Color Urine Yellow; Glucose Urine UA Negative (Negative); Leukocyte Esterase Urine Negative (Negative); Nitrite Urine Negative (Negative); Specific Gravity - Urine 1.025 (1.005-1.025); Urine Blood Negative (Negative); Urine Ketones Trace mg/dL (Negative); Urine Protein Trace mg/dL (Neg-Trace)
[2023-03-04 11:48] LABS: Amphetamine Screen Urine Not Detected (Not Detect); Barbiturates, Urine Not Detected (Not Detect); Benzodiazepines Screen Urine Not Detected (Not Detect); Cannabinoid Screen Urine POSITIVE (Not Detect); Cocaine Screen Urine Not Detected (Not Detect); Fentanyl, urine Not Detected (Not Detect); Opiate Screen Urine Not Detected (Not Detect); Phencyclidine Screen Urine Not Detected (Not Detect)
[2023-03-04] MEDS: Cyclobenzaprine HCl 10 MG TABLET PO (12:58)
[2023-03-04 13:25] LABS: D Dimer High Sensitivity 684 NG/ML
[2023-03-04 13:31] LABS: UPreg QC Valid YES; Urine Pregnancy NEGATIVE (NEGATIVE)
[2023-03-04] MEDS: iohexoL 350 MG/ML 100 ML INFUS..BTL IV (15:00)
[2023-03-04] MEDS: LORazepam 1 MG TABLET PO (15:10)
[2023-03-04 15:49] VITALS: BP 133/83; PULSE 70; RESP 18; TEMP 36.7; O2SAT 100
== END 2023-03-04 16:45 | disposition home or self-care (01) ==
PROVIDERS: Registered Nurse Emergency; Emergency Provider Emergency Medicine
DX: M79.10 Myalgia, unspecified site (principal); R07.81 Pleurodynia; E04.1 Nontoxic single thyroid nodule; Z79.899 Other long term (current) drug therapy
CPT/HCPCS: 36415; 71101; 71275; 80053; 80307; 81003; 81025; 83690; 85025; 85379; 99284; Q9967

== ENCOUNTER → 2023-03-12 12:01 | Outpatient (BNVA) | payer MEDICAID, SELFPAY | PROVIDERS: Visit Provider Orthopaedic Surgery | DX: M65.4 Radial styloid tenosynovitis [de Quervain] (principal); R20.0 Anesthesia of skin; R20.2 Paresthesia of skin | CPT/HCPCS: 99212 ==

== ENCOUNTER 2023-03-14 13:39 | Outpatient (REF) | payer MEDICAID, SELFPAY | END 2023-03-14 13:40 | disposition home or self-care (01) | LOC: HO.US 13:39 | PROVIDERS: PCP Internal Medicine; Visit Provider Registered Nurse | DX: E04.2 Nontoxic multinodular goiter (principal) | CPT/HCPCS: 76536 ==

== ENCOUNTER 2023-03-25 07:50 | Outpatient (REF) | payer MEDICAID, SELFPAY ==
--- NOTE | ~2023-03-25 | CT_ITS ---
EXAMINATION: CT HEAD WITHOUT CONTRAST CLINICAL INFORMATION: Dizziness, giddiness COMPARISON: MRI brain 06/07/2021. TECHNIQUE: Contiguous axial imaging was performed from the skull base to vertex without intravenous administration of contrast. This CT examination was performed using dose optimization techniques as appropriate, variously including the following: *Automated exposure control *Adjustment of mA and/or kV according to patient size (this includes techniques or standardized protocols for targeted exams where dose is matched to indication/reason for exam; i.e. extremities or head) *Use of iterative reconstruction technique DLP: 647 mGy-cm FINDINGS: No intrarenal hemorrhage, tumors or acute infarcts noted. The ventricles and sulci are normal in size and configuration. Mild scattered juxtacortical and periventricular white matter patchy hypodensities are noted. For example bifrontal juxtacortical hypodensities are noted on image 46 of series 4. Mild scattered calcific plaques are present in the cavernous portions of the internal carotid arteries. The orbits and globes are partially included in the image [id number] and demonstrate no abnormalities. No significant opacification of the visualized paranasal sinuses, mastoid air cells and middle ear cavities. CT/CT head/brain wo IV con IMPRESSION: Small number scattered subcortical and periventricular white matter patchy hypodensities. Findings may represent mild chronic microangiopathic changes. If clinical concern is present regarding possible demyelinating disease, consider further evaluation with MRI of the brain. Findings are unchanged compared with 06/07/2021. No definitive/specific evidence of demyelinating disease.
== END 2023-03-25 07:51 | disposition home or self-care (01) ==
LOC: HO.CT 07:50
PROVIDERS: PCP Internal Medicine; Visit Provider Emergency Medicine
DX: R42 Dizziness and giddiness (principal)
CPT/HCPCS: 70450

== ENCOUNTER 2023-03-27 09:05 | Outpatient (REF) | payer MEDICAID, SELFPAY ==
--- NOTE | ~2023-03-27 | US_ITS ---
EXAMINATION: US RETROPERITONEAL LIMITED (RENAL ONLY) CLINICAL INFORMATION: Calculus of kidney. COMPARISON: Portions of CT 10/13/22 TECHNIQUE: Real-time imaging of the kidneys. FINDINGS: RIGHT KIDNEY: 12.1 x 6.6 x 5.0 cm (SAG x AP x TRV). The right kidney is normal in size and cortical echogenicity. Renal cortical thickness is normal. No renal calculi or hydronephrosis. There is a 4.9 cm simple cyst in the lower pole which deforms the contour. No suspicious features. This does not require any further evaluation LEFT KIDNEY: 11.4 x 6.4 x 5.7 cm (SAG x AP x TRV). The kidney is normal in size, contour, and echogenicity. Renal cortical thickness is normal. No calculi or focal parenchymal lesions. No hydronephrosis. US/US renal BI IMPRESSION: No evidence of obstruction, suspicious mass or shadowing calculus
== END 2023-03-27 09:06 | disposition home or self-care (01) ==
LOC: HO.US 09:05
PROVIDERS: PCP Internal Medicine; Visit Provider Urology
DX: N20.0 Calculus of kidney (principal)
CPT/HCPCS: 76775

== ENCOUNTER 2023-03-31 07:41 | Day surgery (SDC) | payer MEDICAID, SELFPAY ==
[2023-03-27 15:56] VITALS: BMI 26.6
[2023-03-31 08:00] VITALS: BP 154/74; PULSE 84; RESP 16; TEMP 36.1; O2SAT 96
--- NOTE | 2023-03-31 08:02 | P.OP_ITS ---
Operative Note Operative Note Date of Service: 03/31/23 Narrative: Operative Note Preop diagnosis: 1. Right DeQuervain's tenosynovitis Postop diagnosis: 1. Right DeQuervain's tenosynovitis Procedure: 1. Right 1st dorsal compartment release 2. Right APL to tenosynovectomy Surgeon: Sherron Rosenberg MD Anesthesia: General Findings: Significantly Thickened 1st dorsal compartment. EPB in separate compartment Inflamed tenosynovium about the APL tendon EBL: Less than 5 mL Tourniquet time: 15 minutes Specimens: Tenosynovium sent for histopathology Complications: None Disposition: Brought to recovery room in stable condition Plan: Follow-up for 10-14 days for wound check and suture removal Indications: The patient is 52 years old, with right DeQuervain's tenosynovitis that has been unresponsive to nonoperative management. The risks and benefits of operative treatment including but not limited to risk of damage to blood vessels, nerves, tendons, infection, persistent pain, persistent symptoms, recurrence or possible need for additional surgery were discussed with the patient and the patient wishes to proceed with surgery. Procedure: The patient was brought back to the operating suite and placed on the operative table in supine position. General Anesthesia was provided by the anesthesia team. A tourniquet was applied to the proximal aspect of the right upper extremity and the limb was prepped and draped in a standard surgical f ashion. The limb was elevated exsanguinated with an Esmarch bandage the tourniquet inflated to 250 mmHg for a total tourniquet time of 15 minutes. Once assured that we had a good block, a 1.5 cm longitudinal incision was made centered over the 1st dorsal compartment as it passed over the radial styloid of the right wrist. The incision was made through the skin to the subcutaneous tissues using a #15 blade. Careful dissection was made down to the level of the 1st dorsal compartment using tenotomy scissors, with care being taken to protect the nearby branches of the superficial radial nerve. Once the 1st dorsal compartment was exposed, A longitudinal incision was made in the 1st dorsal compartment 1st using a #15 blade, then using tenotomy scissors under direct visualization. The 1st dorsal compartment was noted to be thickened. She had significant inflamed tenosynovium about the APL tendon. I then performed a tenosynovectomy, excising the inflamed tenosynovium from about the APL tendon using tenotomy scissors under direct visualization. The specimen was then placed on the back table to be sent for histopathology. The EPB tendon was also noted to be in a separate compartment. This separate compartment was then opened longitudinally using a 15. Blade and tenotomy scissors under direct visualization. I did also shorten the septum between the APL and EPB tendons using tenotomy scissors. Following our release, we saw smooth gliding abductor pollicis longus and extensor pollicis brevis tendons. Once satisfied with our 1st dorsal compartment release the wound was copiously irrigated with normal saline and hemostasis was obtained with a brief period of local pressure. The skin edges were reapproximated with some 5.0 nylon suture material. The wound was infiltrated with some 1% lidocaine with epinephrine for postop pain control. A sterile dressing was applied. The patient appears to have tolerated the procedure well and with no complications. All digits were well vascularized at the conclusion of the case.
--- NOTE | 2023-03-31 08:02 | MHC.SHP ---
Pre-Procedural Eval Section A Date of Service: 03/31/23 The patient is an INPATIENT: No Changes since office visit: No Cold of Flu in the past 2 weeks, No New Medical Problems, No Changes in Medication and No Patient answered all questions The History & Physical has been completed within 30 days and I have reviewed it.: Yes Section B Chief Complaint: Radial styloid tenosynovitis [de Quervain] Allergies: Allergies Allergy/AdvReac Type Severity Reaction Status Date / Time tramadol Allergy Severe Seizure Verified 03/12/23 12:13 trazodone Allergy Severe manic Verified 03/12/23 12:13 episodes droperidol [From Inapsine] Allergy Intermediate Rash Verified 03/12/23 12:13 Sulfa (Sulfonamide Allergy Intermediate hives Verified 03/12/23 12:13 Antibiotics) sulfamethoxazole Allergy Intermediate HIVES Verified 03/12/23 12:13 [From BACTRIM] trimethoprim [From BACTRIM] Allergy Intermediate HIVES Verified 03/12/23 12:13 raw fruit Allergy Intermediate Itchy Uncoded 03/27/23 16:03 throat From COPAXONE Allergy Mild HIVES Uncoded 03/12/23 12:13 Plan I have reviewed the history and physical and performed a pertinent physical examination on my patient. No changes have occurred unless specified. Time Spent With Patient Time: Total time managing care of this patient today ____ minutes.
[2023-03-31] MEDS: Lactated Ringers 1,000 ML 100 ML IVCONT (08:18)
--- NOTE | 2023-03-31 09:16 | HO.ANESPROP2 ---
HPI - Anesthesia Eval Consult details Narrative: for myrna cardenas [facility] Active Problems Active Problems: All Active Problems (Updated 03/05/23 @ 00:01 by Gama Reeves) Fear of parasites (Acute) Adenomatous colon polyp (Acute) IBS (irritable bowel syndrome) (Acute) Trigger finger of right thumb (Acute) Nephrolithiasis (Acute) COVID-19 (Acute) Rotator cuff tear, left (Acute) Status post right rotator cuff repair (Acute) Status post rotator cuff repair (Acute) Adhesive capsulitis of left shoulder (Acute) Diverticulosis of colon (Acute) H/O anterior cruciate ligament surgery (Acute) Cardiomyopathy (Acute) Smoking (Acute) Impingement syndrome of right shoulder (Acute) De Quervain's tenosynovitis, right (Acute) Numbness and tingling in both hands (Acute) HTN (hypertension) (Acute) PVC (premature ventricular contraction) (Acute) Medial epicondylitis of both elbows (Acute) Pain of both elbows (Acute) Anxiety (Acute) Acid reflux (Acute) Past Medical History Medical History Acid reflux Anxiety History of COVID-19 HTN (hypertension) Medial epicondylitis of both elbows Numbness and tingling in both hands Pain of both elbows PVC (premature ventricular contraction) Rotator cuff insufficiency of left shoulder Family History Family History Father Hypertension PTSD (post-traumatic stress disorder) Mother Manic depression Hyperlipemia Heart disease Asthma Anxiety Son Asthma Daughter Asthma Paternal Grandfather Asthma Paternal Grandfather Asthma Alzheimer disease Maternal Grandmother Asthma Brother No problems noted. Sister No problems noted. Family history of problems with anesthesia: No Surgical History Surgical History H/O nasal polypectomy History of carpal tunnel release History of cholecystectomy Hx of colonoscopy Hx of cystoscopy Hx of endoscopy Hx of repair of left rotator cuff Hx of tonsillectomy History of Problems with Anesthesia: No Social History Social History Household Members: Children Are you a primary career guidance counselor to a significant other at home: No Do you presently have visiting nurse or other home services: No Alcohol intake: current Alcohol intake frequency: does not drink Alcohol type: wine Patient Tobacco Use Status: Current everyday Tobacco user Tobacco use type: Cigarette Cigarettes Per Day: 10 Smoked in Last 30 Days: Yes Use of substances other than those prescribed or required for medical reasons: Yes Substance Use Type: Marijuana Substance Use Frequency: Daily Have you been hit, kicked, punched, or otherwise hurt by someone within the past year? 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 Allergies Allergy/AdvReac Type Severity Reaction Status Date / Time tramadol Allergy Severe Seizure Verified 03/12/23 12:13 trazodone Allergy Severe manic Verified 03/12/23 12:13 episodes droperidol [From Inapsine] Allergy Intermediate Rash Verified 03/12/23 12:13 Sulfa (Sulfonamide Allergy Intermediate hives Verified 03/12/23 12:13 Antibiotics) sulfamethoxazole Allergy Intermediate HIVES Verified 03/12/23 12:13 [From BACTRIM] trimethoprim [From BACTRIM] Allergy Intermediate HIVES Verified 03/12/23 12:13 raw fruit Allergy Intermediate Itchy Uncoded 03/27/23 16:03 throat From COPAXONE Allergy Mild HIVES Uncoded 03/12/23 12:13 Active Medications: Current Medications Albuterol Sulfate (Albuterol Sulfate (0.083%) 2.5 Mg/3 Ml Vial.Neb) 2.5 mg INHALE ONCE PRN PRN Reason: Shortness of Breath/Wheezing Lactated Ringer's (Lr) 1,000 mls @ 100 mls/hr IVCONT .Q10H SARA Last Admin: 03/31/23 08:18 Dose: 100 mls/hr Home Medications Medication Instructions Recorded Confirmed Last Taken Type pantoprazole 20 mg tablet,delayed 20 mg PO DAILY 06/17/20 03/27/23 03/31/23 History release gabapentin 400 mg capsule 400 mg PO TID 11/29/20 03/27/23 03/31/23 History hydrochlorothiazide 25 mg tablet 25 mg PO DAILY 05/23/21 03/27/23 Unknown History ergocalciferol (vitamin D2) 1,250 1,250 mcg PO QWEEK 09/05/21 03/27/23 Unknown History mcg (50,000 unit) capsule fluticasone propionate 115 2 puff inhalation BID 09/05/21 03/27/23 Unknown History mcg-salmeterol 21 mcg/actuation HFA inhaler (Advair HFA) fluticasone propionate 50 1 spray intranasal DAILY 09/05/21 03/27/23 Unknown History mcg/actuation nasal spray,suspension loratadine 10 mg tablet 10 mg PO QAM PRN allergies 09/05/21 03/27/23 03/31/23 History atorvastatin 40 mg tablet 40 mg PO QAM 07/24/22 03/27/23 Unknown History hydroxyzine HCl 10 mg tablet 10 mg PO BID PRN Anxiety 10/22/22 03/27/23 03/31/23 History famotidine 40 mg tablet 40 mg PO BEDTIME 03/27/23 03/27/23 Unknown History Exam Exam Date and Time: March 31, 2023 0916 Height,Weight and Vital Signs: Height 5 ft 4 in Weight 70.307 kg Last Vital Signs Temp 97.0 F 03/31/23 08:00 Pulse 84 03/31/23 08:00 Resp 16 03/31/23 08:00 BP 154/74 H 03/31/23 08:00 Pulse Ox 96 03/31/23 08:00 O2 Del Method Room Air 03/31/23 08:00 Airway Mallampati Class: II TM Dist: >3cm Neck ROM: Full Heart: rrr Lungs: cta Assessment and Plan Assessment Anesthesia Assessment: Anesthesia Plan Discussed and Chart Reviewed Final Anesthetic Review Family History of Problems with Anesthesia: No History of Problems with Anesthesia: No ASA Class: III Final Preanesthetic Review: No Changes in Pt Med Stat, Meds/Allgs Chart Reviewed, Consent Obtained/Reviewed and Anes Risks/Benef Reviewed Patient Risk: Low Procedure Risk: Low Anesthetic Plan Anesthetic Plan: MAC: Disposition: Standard PACU
[2023-03-31 10:30] VITALS: BP 151/87; PULSE 69; RESP 17; TEMP 36.4; O2SAT 100
[2023-03-31 10:45] VITALS: BP 155/79; PULSE 68; RESP 18; O2SAT 97
[2023-03-31] MEDS: oxyCODONE HCl Immed Release 5 MG TABLET PO (10:45)
[2023-03-31 10:55] VITALS: BP 144/82; PULSE 62; RESP 18; O2SAT 98
[2023-03-31] MEDS: fentaNYL citrate/PF 100 MCG/2 ML VIAL 25 MCG IVPUSH (10:55)
[2023-03-31 11:00] VITALS: BP 140/86; PULSE 68; RESP 18; TEMP 36.3; O2SAT 96
== END 2023-03-31 11:23 | disposition home or self-care (01) ==
PROVIDERS: PCP Internal Medicine; Visit Provider Orthopaedic Surgery
PROC: (CPT 25000; principal; 2023-03-31 09:00)
DX: M65.4 Radial styloid tenosynovitis [de Quervain] (principal); R20.0 Anesthesia of skin; R20.2 Paresthesia of skin; I10 Essential (primary) hypertension; I49.3 Ventricular premature depolarization; J45.909 Unspecified asthma, uncomplicated; Z79.51 Long term (current) use of inhaled steroids; Z79.899 Other long term (current) drug therapy; Z88.2 Allergy status to sulfonamides; Z88.8 Allergy status to other drugs, medicaments and biological substances; F17.210 Nicotine dependence, cigarettes, uncomplicated
CPT/HCPCS: 25000; 88112; 88304; 88305; J0131; J1100; J2250; J2405; J2795; J3010

== ENCOUNTER → 2023-03-31 07:41 | Outpatient (BNV) | payer MEDICAID, SELFPAY | PROVIDERS: PCP Internal Medicine; Visit Provider Orthopaedic Surgery | DX: M65.4 Radial styloid tenosynovitis [de Quervain] (principal) | CPT/HCPCS: 25000 ==

== ENCOUNTER 2023-04-09 09:27 | Outpatient (AMB) | payer MEDICAID, SELFPAY ==
--- NOTE | 2023-04-09 09:29 | MHC.OFFVIS ---
Intake Vital Signs 04/09/23 09:35 Height 5 ft 4 in Weight 158 lb BMI 27.1 Intake Visit Reasons: left axillary abscess Intake Note: This patient presents for an assessment for left axillary abscess. Patient c/o; left axillary abscess, hard lump, denies redness. Imaging Tech Required: No Accompanied by: Self / Same As Patient Allergies tramadol Allergy (Severe, Verified 04/09/23 09:35) Seizure trazodone Allergy (Severe, Verified 04/09/23 09:35) manic episodes droperidol [From Inapsine] Allergy (Intermediate, Verified 04/09/23 09:35) Rash Sulfa (Sulfonamide Antibiotics) Allergy (Intermediate, Verified 04/09/23 09:35) hives sulfamethoxazole [From BACTRIM] Allergy (Intermediate, Verified 04/09/23 09:35) HIVES trimethoprim [From BACTRIM] Allergy (Intermediate, Verified 04/09/23 09:35) HIVES raw fruit Allergy (Intermediate, Uncoded 04/09/23 09:35) Itchy throat From COPAXONE Allergy (Mild, Uncoded 04/09/23 09:35) HIVES Medication List - Last Reconciled 04/09/23 by Last Forrest MD atorvastatin 40 mg PO QAM ergocalciferol (vitamin D2) 1,250 mcg PO QWEEK famotidine 40 mg PO BEDTIME fluticasone propion-salmeterol 115-21 mcg/actuation (Advair HFA) 2 puffs inhalation BID fluticasone propionate 50 mcg/actuation 1 spray intranasal DAILY gabapentin 400 mg PO TID hydrochlorothiazide 25 mg PO DAILY hydroxyzine HCl 10 mg PO BID PRN lidocaine 5% 1 patch topical Q24H lisinopril 20 mg PO DAILY loratadine 10 mg PO QAM PRN pantoprazole 20 mg PO DAILY simethicone (Gas Relief (simethicone)) 125 mg PO TID-QID PRN sucralfate 1 g PO QIDACHS 21 days HPI left axillary abscess HPI Details [age] year old female referred for a left axillary cyst. She says that she has had this area on the left axilla that keeps swelling up and draining periodically for the past 6 months now. She describes pain and discomfort with this. She says that she has tried Neosporin ointment for this which had not helped. She has never had any I&D for this area. [facility], [facility] Medical History (Updated 04/09/23 @ 09:50 by Last Forrest MD) Acid reflux Anxiety History of COVID-19 HTN (hypertension) Medial epicondylitis of both elbows Numbness and tingling in both hands Pain of both elbows PVC (premature ventricular contraction) Rotator cuff insufficiency of left shoulder Sebaceous cyst of axilla Surgical History H/O nasal polypectomy History of carpal tunnel release History of cholecystectomy Hx of colonoscopy Hx of cystoscopy Hx of endoscopy Hx of repair of left rotator cuff Hx of tonsillectomy Family History Father Hypertension PTSD (post-traumatic stress disorder) Mother Manic depression Hyperlipemia Heart disease Asthma Anxiety Son Asthma Daughter Asthma Paternal Grandfather Asthma Paternal Grandfather Asthma Alzheimer disease Maternal Grandmother Asthma Brother No problems noted. Sister No problems noted. 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 Review of Systems Const Denies chills and Denies fever(s) Card Denies chest pain, Denies dyspnea and Denies dyspnea on exertion Resp Denies cough, Denies dyspnea and Denies dyspnea on exertion GI Denies hematochezia and Denies change in bowel habits Denies hematuria Musc Denies back pain and Denies limited range of motion Neuro Denies focal weakness and Denies convulsions Psych Denies depression and Denies mood swings Physical Exam Vital Signs: BMI result Body Mass Index 27.1 Const General: comfortable and no acute distress Orientation/consciousness: patient oriented x3 Neck Neck: Yes no lymphadenopathy Resp Auscultation: clear to auscultation bilaterally Cardio Rhythm: regular rhythm GI Palpation (GI): Soft to palpation, nontender and no guarding Neuro General: patient oriented x3 Extrem Other: Left axilla - cystic induration, about 1 cm, with redness, mild scanty discharge Assessment & Plan Assessment & Plan (1) Sebaceous cyst of axilla: Code(s): L72.3 - Sebaceous cyst Plan: She has what appears to be a left axillary cyst. She wants this removed. I explained the technique of excision under local anesthesia. I reviewed the risks including but not limited to bleeding and infections, as well as the benefits and alternatives. She wants to proceed. This will be done in the office under local anesthesia on her next visit. Medications: Discontinued famotidine take at HS until 02/16- may resume after h.pylori test 40 mg PO DAILY 30 days 30 tabs 5RF Coding Level of Care Code New Pt Level 3 (71754) Diagnoses Sebaceous cyst of axilla L72.3
[2023-04-09 09:35] VITALS: BMI 27.1
== END 2023-04-09 09:54 | disposition home or self-care (01) ==
PROVIDERS: PCP Internal Medicine; Visit Provider Surgery
DX: L72.3 Sebaceous cyst (principal)
CPT/HCPCS: 99203

== ENCOUNTER → 2023-04-09 09:27 | Outpatient (BNVA) | payer MEDICAID, SELFPAY | PROVIDERS: PCP Internal Medicine; Visit Provider Surgery | DX: L72.3 Sebaceous cyst (principal) | CPT/HCPCS: 99202 ==

== ENCOUNTER 2023-04-15 10:44 | Outpatient (AMB) | payer MEDICAID, SELFPAY ==
[2023-04-15 11:30] VITALS: BMI 27.1
--- NOTE | 2023-04-15 11:30 | A.OFFVIS_ITS ---
Intake Vital Signs 04/15/23 11:30 Height 5 ft 4 in Weight 158 lb BMI 27.1 Intake Visit Reasons: PO RT 1st Dequervains 03/31/23AR Intake Note: Cathryn 52 yr old female presents today for her PO RT 1st Dequervains 03/31/[address] Rosenberg. patient states she is having a lot of pain and numbness in thumb. Sutures removed and stri strips applied. Allergies tramadol Allergy (Severe, Verified 04/09/23 09:35) Seizure trazodone Allergy (Severe, Verified 04/09/23 09:35) manic episodes droperidol [From Inapsine] Allergy (Intermediate, Verified 04/09/23 09:35) Rash Sulfa (Sulfonamide Antibiotics) Allergy (Intermediate, Verified 04/09/23 09:35) hives sulfamethoxazole [From BACTRIM] Allergy (Intermediate, Verified 04/09/23 09:35) HIVES trimethoprim [From BACTRIM] Allergy (Intermediate, Verified 04/09/23 09:35) HIVES raw fruit Allergy (Intermediate, Uncoded 04/09/23 09:35) Itchy throat From COPAXONE Allergy (Mild, Uncoded 04/09/23 09:35) HIVES HPI PO RT 1st Dequervains 03/31/23AR HPI Details Cathryn is a 52 year old right hand dominant woman who presents S/P right 1st dorsal compartment & APL to tenosynovectomy, DOS: 03/31/23. I believe she is seen today with her mother. She complains of pain, sensitivity, and numbness about her incision site and in her thumb. She says she has not been touching her surgery site, but has been running it under cold water She has her NCS scheduled for 04/23/23. She is scheduled to have a left axilla cyst removed on 04/17/23, but she is unsure of this is a good idea or not. [facility] Medical History Acid reflux Anxiety History of COVID-19 HTN (hypertension) Medial epicondylitis of both elbows Numbness and tingling in both hands Pain of both elbows PVC (premature ventricular contraction) Rotator cuff insufficiency of left shoulder Sebaceous cyst of axilla Surgical History H/O nasal polypectomy History of carpal tunnel release History of cholecystectomy Hx of colonoscopy Hx of cystoscopy Hx of endoscopy Hx of repair of left rotator cuff Hx of tonsillectomy Family History Father Hypertension PTSD (post-traumatic stress disorder) Mother Manic depression Hyperlipemia Heart disease Asthma Anxiety Son Asthma Daughter Asthma Paternal Grandfather Asthma Paternal Grandfather Asthma Alzheimer disease Maternal Grandmother Asthma Brother No problems noted. Sister No problems noted. 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 Sutures removed and Steri-Strips applied Initially she was very apprehensive about moving her wrist or me touching her hand. With encouragement she could make a fist and extend all her digits. We did some exercises in clinic today where I had her actively extend her thumb and then oppose her thumb to the tips of all digits and down to the base of the thumb and repeat this multiple times. I encouraged her to work on active thumb range of motion to produce gliding of the tendons She has a narrow band of numbness over the dorsal aspect of the thumb Good sensation to the thenar mass and over the 2nd metacarpal Cap refill is brisk Surgical Findings:? 03/31/23 Significantly Thickened 1st dorsal compartment. EPB in separate compartment Inflamed tenosynovium about the APL tendon Pathology report Diagnosis Right 1st dorsal (APL), tenosynovectomy:? Portion of synovial tissue with mild chronic inflammation and focal myxoid degenerative changes in keeping with the clinical history of tenosynovitis. Psych Appearance: grossly normal Affect: normal affect Attitude: cooperative Assessment & Plan Assessment & Plan (1) De Quervain's tenosynovitis, right: Code(s): M65.4 - Radial styloid tenosynovitis [de Quervain] (2) Numbness and tingling in both hands: Code(s): R20.0 - Anesthesia of skin; R20.2 - Paresthesia of skin (3) Anxiety: Code(s): F41.9 - Anxiety disorder, unspecified Plan Assessment and plan: 1. Right de Quervain tenosynovitis, S/P release and APL tenosynovectomy DOS: 03/31/23 The patient appears to be doing well post-operatively She was a little apprehensive to begin movement and touching around the incision. I educated her about the post-operative course I discussed activity modifications, she is to lift nothing heavier than a cellphone for the next two weeks She will perform gentle thumb and hand ROM exercises at home She should avoid any underwater activities for the next 5 days She should gently massage about the incision site to reduce the risk of hypersensitivity 2. Numbness and tingling in the left hand Intermittent but daily 3. Numbness and tingling in the right hand After right carpal tunnel release with Dr. Almazan years ago with good initial improvement of symptoms Left hand worse than right She has a NCS scheduled for 04/23/23 She will follow up when completed for review Scribed for Sherron Rosenberg MD by Miller Yancey, hospital medical assistant, on 04/15/23 at 11:50 AM, EST. Medications: Discontinued famotidine take at HS until 02/16- may resume after h.pylori test 40 mg PO DAILY 30 days 30 tabs 5RF Coding Level of Care Code Global (05206) Diagnoses De Quervain's tenosynovitis, right M65.4 Numbness and tingling in both hands R20.0; R20.2 Anxiety F41.9
== END 2023-04-15 12:17 | disposition home or self-care (01) ==
PROVIDERS: PCP Internal Medicine; Visit Provider Orthopaedic Surgery
DX: M65.4 Radial styloid tenosynovitis [de Quervain] (principal); R20.0 Anesthesia of skin; R20.2 Paresthesia of skin; F41.9 Anxiety disorder, unspecified
CPT/HCPCS: 99024

== ENCOUNTER → 2023-04-15 10:44 | Outpatient (BNVA) | payer MEDICAID, SELFPAY | PROVIDERS: PCP Internal Medicine; Visit Provider Orthopaedic Surgery ==

== ENCOUNTER 2023-04-17 12:48 | Outpatient (REF) | payer MEDICAID, SELFPAY | END 2023-04-17 12:49 | disposition home or self-care (01) | LOC: HO.LNP 12:48 | PROVIDERS: PCP Internal Medicine; Visit Provider Surgery | DX: L72.3 Sebaceous cyst (principal) | CPT/HCPCS: 11401; 88304 ==

== ENCOUNTER 2023-04-17 12:48 | Outpatient (AMB) | payer MEDICAID, SELFPAY ==
[2023-04-17 12:56] VITALS: BP 135/74; PULSE 88; BMI 27.1
--- NOTE | 2023-04-17 12:56 | MHC.OFFVIS ---
Intake Vital Signs 04/17/23 12:56 Height 5 ft 4 in Weight 158 lb 0.014 oz BMI 27.1 BP 135/74 Blood Pressure Location Rt brachial Position Sitting Pulse 88 Intake Visit Reasons: Exc cyst left axilla Intake Note: This patient presents for in-office procedure excision cyst left axilla. Patient reports no changes or allergy to lidocaine/epi Fruit Pitter Required: No Accompanied by: Self / Same As Patient Allergies tramadol Allergy (Severe, Verified 04/17/23 12:58) Seizure trazodone Allergy (Severe, Verified 04/17/23 12:58) manic episodes droperidol [From Inapsine] Allergy (Intermediate, Verified 04/17/23 12:58) Rash Sulfa (Sulfonamide Antibiotics) Allergy (Intermediate, Verified 04/17/23 12:58) hives sulfamethoxazole [From BACTRIM] Allergy (Intermediate, Verified 04/17/23 12:58) HIVES trimethoprim [From BACTRIM] Allergy (Intermediate, Verified 04/17/23 12:58) HIVES raw fruit Allergy (Intermediate, Uncoded 04/17/23 12:58) Itchy throat From COPAXONE Allergy (Mild, Uncoded 04/17/23 12:58) HIVES HPI Exc cyst left axilla HPI Details She is here for excision of a cyst from the left axilla. [facility] Medical History Acid reflux Anxiety History of COVID-19 HTN (hypertension) Medial epicondylitis of both elbows Numbness and tingling in both hands Pain of both elbows PVC (premature ventricular contraction) Rotator cuff insufficiency of left shoulder Sebaceous cyst of axilla Surgical History H/O nasal polypectomy History of carpal tunnel release History of cholecystectomy History of removal of cyst (~04/17/23) Hx of colonoscopy Hx of cystoscopy Hx of endoscopy Hx of repair of left rotator cuff Hx of tonsillectomy Family History Father Hypertension PTSD (post-traumatic stress disorder) Mother Manic depression Hyperlipemia Heart disease Asthma Anxiety Son Asthma Daughter Asthma Paternal Grandfather Asthma Paternal Grandfather Asthma Alzheimer disease Maternal Grandmother Asthma Brother No problems noted. Sister No problems noted. 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 This area was prepped and draped. Lidocaine 1% was used for local anesthesia. I made an elliptical incision on the skin around this cyst using blade 15 and this was carried down through the full-thickness of the skin subcutaneous fat to excise this entire indurated area. This was sent as a specimen. I closed the incision with full-thickness nylon 3-0 interrupted sutures. Dressings were applied. The procedure was completed. She tolerated procedure well. There were no immediate complications. She was given wound care instructions. 28819-ddwot/arms/legs 0.6-1cm Procedure code (CPT) selection complete Assessment & Plan Assessment & Plan (1) Sebaceous cyst of axilla: Code(s): L72.3 - Sebaceous cyst Plan: Excision was done in the office. She tolerated procedure well. She was given wound care instructions. She can take Tylenol and ibuprofen for pain. I will see her in the office for removal sutures in about 2 weeks. Medications: Discontinued famotidine take at HS until 02/16- may resume after h.pylori test 40 mg PO DAILY 30 days 30 tabs 5RF Coding Level of Care Code Procedure Only Diagnoses Sebaceous cyst of axilla L72.3 CPT Codes Trunk/Arms/Legs - CPT: 91151-auaub/arms/legs 0.6-1cm ([id number])
== END 2023-04-17 13:35 | disposition home or self-care (01) ==
PROVIDERS: PCP Internal Medicine; Visit Provider Surgery
DX: L72.0 Epidermal cyst (principal)
CPT/HCPCS: 11401; 99213

== ENCOUNTER 2023-04-24 15:07 | Outpatient (AMB) | payer MEDICAID, SELFPAY ==
--- NOTE | 2023-04-24 15:08 | MHC.OFFVIS ---
Intake Vital Signs 04/24/23 15:08 Height 5 ft 4 in Intake Visit Reasons: Follow Up Exc left axilla cyst Intake Note: This patient presents for a post-op assessment status post exicision of left axillary cyst. Patient c/o; reports discomfort. Director Zone Required: No Accompanied by: Self / Same As Patient Allergies tramadol Allergy (Severe, Verified 04/24/23 15:09) Seizure trazodone Allergy (Severe, Verified 04/24/23 15:09) manic episodes droperidol [From Inapsine] Allergy (Intermediate, Verified 04/24/23 15:09) Rash Sulfa (Sulfonamide Antibiotics) Allergy (Intermediate, Verified 04/24/23 15:09) hives sulfamethoxazole [From BACTRIM] Allergy (Intermediate, Verified 04/24/23 15:09) HIVES trimethoprim [From BACTRIM] Allergy (Intermediate, Verified 04/24/23 15:09) HIVES raw fruit Allergy (Intermediate, Uncoded 04/24/23 15:09) Itchy throat From COPAXONE Allergy (Mild, Uncoded 04/24/23 15:09) HIVES HPI Follow Up Exc left axilla cyst HPI Details She underwent excision of an epidermal inclusion cyst from the left axilla last 04/17/2023. She tolerated procedure well. She currently denies significant complaints. [facility] Medical History Acid reflux Anxiety History of COVID-19 HTN (hypertension) Medial epicondylitis of both elbows Numbness and tingling in both hands Pain of both elbows PVC (premature ventricular contraction) Rotator cuff insufficiency of left shoulder Sebaceous cyst of axilla Surgical History H/O nasal polypectomy History of carpal tunnel release History of cholecystectomy History of removal of cyst (~04/17/23) Hx of colonoscopy Hx of cystoscopy Hx of endoscopy Hx of repair of left rotator cuff Hx of tonsillectomy Family History Father Hypertension PTSD (post-traumatic stress disorder) Mother Manic depression Hyperlipemia Heart disease Asthma Anxiety Son Asthma Daughter Asthma Paternal Grandfather Asthma Paternal Grandfather Asthma Alzheimer disease Maternal Grandmother Asthma Brother No problems noted. Sister No problems noted. 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 Review of Systems Const Denies chills and Denies fever(s) Card Denies chest pain, Denies dyspnea and Denies dyspnea on exertion Resp Denies cough, Denies dyspnea and Denies dyspnea on exertion GI Denies hematochezia and Denies change in bowel habits Denies hematuria Musc Denies back pain and Denies limited range of motion Neuro Denies focal weakness and Denies convulsions Psych Denies depression and Denies mood swings Physical Exam Const General: comfortable and no acute distress Resp Effort & Inspection: normal respiratory effort Extrem Other: Excision site on the left axilla is well healed, not infected sutures intact Assessment & Plan Assessment & Plan (1) Sebaceous cyst of axilla: Code(s): L72.3 - Sebaceous cyst Plan: Status post excision. Her incision is healing well. I removed all his skin sutures. Path report shows an epidermal inclusion cyst. She can follow up on a p.r.n. basis. Medications: Discontinued famotidine take at HS until 6/- may resume after h.pylori test 40 mg PO DAILY 30 days 30 tabs 5RF Coding Level of Care Code Global (67053) Diagnoses Sebaceous cyst of axilla L72.3
== END 2023-04-24 15:19 | disposition home or self-care (01) ==
PROVIDERS: PCP Internal Medicine; Visit Provider Surgery
DX: L72.3 Sebaceous cyst (principal)
CPT/HCPCS: 99024

== ENCOUNTER → 2023-04-24 15:07 | Outpatient (BNVA) | payer MEDICAID, SELFPAY | PROVIDERS: PCP Internal Medicine; Visit Provider Surgery ==

== ENCOUNTER 2023-04-29 13:00 | Outpatient (RCR) | payer MEDICAID, SELFPAY | END 2023-06-10 08:04 | disposition home or self-care (01) | LOC: HO.PT 13:00 | PROVIDERS: PCP Internal Medicine; Visit Provider Internal Medicine | DX: R07.81 Pleurodynia (principal) | CPT/HCPCS: 97110; 97140; 97162; 97530 ==

== ENCOUNTER 2023-05-21 14:16 | Outpatient (REF) | payer MEDICAID, SELFPAY ==
--- NOTE | ~2023-05-21 | MR_ITS ---
EXAMINATION: MR BRAIN WITH AND WITHOUT CONTRAST CLINICAL INFORMATION: White matter changes, rule out demyelinating disease COMPARISON: CT head 03/25/2023 TECHNIQUE: MRI of the brain was obtained using routine sequences before and following administration of intravenous contrast. A total of 6 mL of Gadavist was administered intravenously. FINDINGS: Mild to moderate burden of nonspecific patchy T2 FLAIR hyperintense foci throughout the subcortical and periventricular white matter. There are no lesions specific to demyelinating disease, however this is not conclusively ruled out on the basis of this examination. No pathologic intracranial enhancement. No acute infarct. The GRE sequence is without susceptibility artifact to suggest acute or chronic blood products. No extra-axial fluid collection. The ventricles and sulci are normal in size and configuration without significant volume loss or hydrocephalus. No significant mass effect or herniation pattern. The intracranial dural venous sinus and arterial flow voids are preserved. Normal appearance of the midline structures. The orbits are grossly unremarkable. 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 Trace ethmoid air cell mucosal thickening. No mastoid effusion. Normal marrow signal. MR/MR head/brain wo/w con IMPRESSION: Nonspecific mild to moderate burden of supratentorial white matter disease. No lesions specific to demyelinating disease are seen, however this is not conclusively ruled out on the basis of this examination and further evaluation with CSF fluid sampling may be pursued as clinically warranted. No pathologic intracranial enhancement.
[2023-05-21] MEDS: gadobutroL 7.5 ML VIAL IVPUSH (15:16)
== END 2023-05-21 14:17 | disposition home or self-care (01) ==
LOC: HO.MRI 14:16
PROVIDERS: PCP Internal Medicine; Visit Provider Registered Nurse
DX: R42 Dizziness and giddiness (principal)
CPT/HCPCS: 70553; A9585

== ENCOUNTER 2023-06-11 15:47 | Outpatient (AMB) | payer MEDICAID, SELFPAY ==
--- NOTE | 2023-06-11 15:48 | A.OFFVIS_ITS ---
Intake Intake Visit Reasons: follow up (hx stones) with US Intake Note: Patient presents today for a follow-up on Kidney Stones, US completed 03/27/2023: Meds- None Allergies to Antibiotic- Sulfa Blood Thinner- None PVR- 26 mL Flight Control Manager Required: No Accompanied by: Self / Same As Patient Allergies tramadol Allergy (Severe, Verified 06/11/23 15:50) Seizure trazodone Allergy (Severe, Verified 06/11/23 15:50) manic episodes droperidol [From Inapsine] Allergy (Intermediate, Verified 06/11/23 15:50) Rash Sulfa (Sulfonamide Antibiotics) Allergy (Intermediate, Verified 06/11/23 15:50) hives sulfamethoxazole [From BACTRIM] Allergy (Intermediate, Verified 06/11/23 15:50) HIVES trimethoprim [From BACTRIM] Allergy (Intermediate, Verified 06/11/23 15:50) HIVES raw fruit Allergy (Intermediate, Uncoded 06/11/23 15:50) Itchy throat From COPAXONE Allergy (Mild, Uncoded 06/11/23 15:50) HIVES HPI HPI Comments History of Present Illness Details Cathryn is a 52-year-old female who presents today to the office for a follow-up, persistent microscopic hematuria. 06/11/2023? She is followed today for persistent microscopic hematuria, history of kidney stones. I reviewed the renal US results from 03/27/2023 revealed no calculi or focal parenchymal lesions. No hydronephrosis She feels like she is not emptying her bladder completely. She denies any gross hematuria, has urgency. Patient is still smoking cigarettes. Educated the patient that nicotine usage may lead to the risk of getting urinary cancers. Evaluation today--UA--blood 25 David; Bladder scan PVR: 26 mL. Review of chart: 10/13/22--CT abd/pelvis wo IV contrast - kidneys - no urolithiasis, kidneys are symmetric in size. No renal calculi or hydronephrosis of either kidney. There is a 4.6 cm cyst within the lower pole of the right kidney. Plan: Consent form was obtained for Outpatient cystoscopy, Bilateral retrograde, and possible bladder biopsy. [facility] Medical History Acid reflux Anxiety History of COVID-19 HTN (hypertension) Medial epicondylitis of both elbows Numbness and tingling in both hands Pain of both elbows PVC (premature ventricular contraction) Rotator cuff insufficiency of left shoulder Sebaceous cyst of axilla Surgical History History of removal of cyst (~04/17/23) Hx of repair of left rotator cuff Hx of cystoscopy Hx of endoscopy Hx of colonoscopy H/O nasal polypectomy History of carpal tunnel release Hx of tonsillectomy History of cholecystectomy Family History Father Hypertension PTSD (post-traumatic stress disorder) Mother Manic depression Hyperlipemia Heart disease Asthma Anxiety Son Asthma Daughter Asthma Paternal Grandfather Asthma Paternal Grandfather Asthma Alzheimer disease Maternal Grandmother Asthma Brother No problems noted. Sister No problems noted. 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 Review of Systems Const All systems reviewed & are unremarkable except as noted in HPI and below Reports no additional complaints Eyes Reports no additional complaints ENT Reports no additional complaints Card Denies dyspnea Resp Denies cough and Denies dyspnea GI Reports no additional complaints Reports no additional complaints Musc Reports no additional complaints Skin/Breast Denies rash and Denies unusual bruising Neuro Reports no additional complaints Psych Reports no additional complaints Endo Reports no additional complaints Nick/Lymph Reports no additional complaints Aller/Immun Reports no additional complaints Physical Exam Const General: cooperative, healthy appearing and no acute distress Orientation/consciousness: patient oriented x3 HEENT Head: Yes normal to inspection, Yes normocephalic and Yes atraumatic Eyes Conjunctivae: conjunctivae normal Neck Neck: Yes normal visual inspection and Yes trachea midline Chest Chest palpation & inspection: normal inspection of the chest Resp Effort & Inspection: normal respiratory effort Cardio Rate: regular rate GI Inspection: Yes normal to inspection Skin General skin exam: no rashes or lesions noted Neuro General: patient oriented x3 Extrem General: No edema Psych Appearance: grossly normal Office Procedures Post Void Residual Post Residual Void Post Void Residual (PVR): 26 [id number] Void Residual by ultrasound Results AMB Urinalysis, Automated UA Leukoctes 0 Evonne/uL Last Edit by LATOSHA Clemens on 06/11/23 16:04 UA Nitrite Negative Last Edit by LATOSHA Clemens on 06/11/23 16:04 UA Urobilinogen 0.2 mg/dL Last Edit by LATOSHA Clemens on 06/11/23 16:0 4 UA Protein 30 mg/dL Last Edit by LATOSHA Clemens on 06/11/23 16:04 1+ Marcelino Estrada 06/11/23 16:04 UA pH 6.0 Last Edit by LATOSHA Clemens on 06/11/23 16:04 UA Blood 25 David/uL Last Edit by LATOSHA Clemens on 06/11/23 16:04 1+ Marcelino Estrada 06/11/23 16:04 UA Specific [place] 1.025 Last Edit by LATOSHA Clemens on 06/11/23 16: 04 UA Ketone Positive Last Edit by LATOSHA Clemens on 06/11/23 16:04 5 mg/dL Marcelino Estrada 06/11/23 16:04 UA Bilirubin 1 mg/dL Last Edit by LATOSHA Clemens on 06/11/23 16:04 1 mg/dL Marcelino Estrada 06/11/23 16:04 UA Glucose 0 mg/dL Last Edit by LATOSHA Clemens on 06/11/23 16:04 Results Reviewed Results Reviewed: Laboratory Last Values Urine pH (Auto) 6.0 06/11/23 16:02 Specific [place] (Auto) 1.025 06/11/23 16:02 Urine Protein (Auto) 30 mg/dL 06/11/23 16:02 Glucose (UA)(Auto) 0 mg/dL 06/11/23 16:02 Urine Ketones (Auto) Positive 06/11/23 16:02 Urine Blood (Auto) 25 David/uL 06/11/23 16:02 Urine Nitrite (Auto) Negative 06/11/23 16:02 Urine Bilirubin (Auto) 1 mg/dL 06/11/23 16:02 Urine Urobilinogen (Auto) 0.2 mg/dL 06/11/23 16:02 Leukocyte Esterase (Auto) 0 Evonne/uL 06/11/23 16:02 Date of Service: 03/27/23 EXAMINATION:? US RETROPERITONEAL LIMITED (RENAL ONLY) CLINICAL INFORMATION: Calculus of kidney. COMPARISON:? Portions of CT 10/13/22 FINDINGS: RIGHT KIDNEY: 12.1 x 6.6 x 5.0 cm (SAG x AP x TRV). The right kidney is normal in size and cortical echogenicity. Renal cortical thickness is normal. No renal calculi or hydronephrosis.? There is a 4.9 cm simple cyst in the lower pole which deforms the contour. No suspicious features. This does not require any further evaluation LEFT KIDNEY: 11.4 x 6.4 x 5.7 cm (SAG x AP x TRV). The kidney is normal in size, contour, and echogenicity. Renal cortical thickness is normal. No calculi or focal parenchymal lesions. No hydronephrosis. IMPRESSION:? No evidence of obstruction, suspicious mass or shadowing calculus Date of Service: 10/13/22 EXAMINATION: CT ABDOMEN AND PELVIS WITHOUT CONTRAST CLINICAL INFORMATION: Left posterior flank/back/rib pain. COMPARISON: Renal ultrasound June 11, [address] abdomen pelvis September 23, 2014 TECHNIQUE: Multidetector volumetric imaging was performed from the superior aspect of the liver through the pubic symphysis. Sagittal and coronal reformatted images were obtained on the technologist's workstation. This CT examination was performed using dose optimization techniques as appropriate, variously including the following: *Automated exposure control *Adjustment of mA and/or kV according to patient size (this includes techniques or standardized protocols for targeted exams where dose is matched to indication/reason for exam; i.e. extremities or head) *Use of iterative reconstruction technique DLP: 504 mGy-cm FINDINGS: Visualized lung bases are well aerated. The liver is normal in size but demonstrates diffusely decreased attenuation. The gallbladder surgically absent. The pancreas, spleen and adrenal glands are unremarkable. The kidneys are symmetric in size. No renal calculi or hydronephrosis of either kidney. There is a 4.6 cm cyst within the lower pole of the right kidney. Normal caliber loops of small and large bowel. Mild colonic diverticulosis without CT evidence to suggest active diverticulitis. Normal caliber abdominal aorta. No retroperitoneal lymphadenopathy. The bladder is normal in appearance. Unremarkable CT appearance of the uterus. No gross free pelvic fluid. No inguinal lymphadenopathy. Mild diffuse degenerative changes of the spine. IMPRESSION: 1. No CT evidence for acute abnormality within the abdomen or pelvis. 2. Diffusely decreased liver attenuation suggesting hepatic steatosis. Correlation with liver enzymes recommended. 3. Mild colonic diverticulosis without CT evidence to suggest active diverticulitis. 4. 4.6 cm right renal cyst. Assessment & Plan Assessment & Plan (1) Hematuria: Code(s): R31.9 - Hematuria, unspecified (2) History of kidney stones: Code(s): Z87.442 - Personal history of urinary calculi (3) Nicotine dependence: Code(s): F17.200 - Nicotine dependence, unspecified, uncomplicated Plan Consent form was obtained for Outpatient cystoscopy, Bilateral retrograde, and possible bladder biopsy. Order for CT scan removed. Entered in error/duplicate Orders: Orders AMB Urinalysis Automated 06/11/23 Z13.9 - Encounter for screening, unspecified AMB Post Void Residual by ultrasound 06/11/23 N39.8 - Other specified disorders of urinary system CT abdomen pelvis wo IV con 06/17/23 N20.0 - Calculus of kidney Patient Instructions: The patient had an opportunity to ask questions regarding treatment plan. All questions were answered. Imaging, Laboratory studies and physical exam results were discussed and reviewed in detail. No major barriers to understanding were identified. The patient expressed understanding and agreement with the above treatment plan.? ? ? The patient is aware they should contact our office by phone for worsening of their current condition or the appearance of new symptoms. Compliance is encouraged with any medications and followup testing that is ordered.? ? ? It is a privilege to be allowed the opportunity to participate in the urologic care of your patient. If you have any questions or concerns regarding treatment for the above conditions please do not hesitate to contact me. The office telephone contact is [phone].? ? ? This note is constructed in part using voice recognition software. While every effort has been made to ensure accuracy framing machine tender errors may have been included.? ? ? Yours sincerely,? ? ? Krishan Dave MD? Coding Level of Care Code Est Pt Level 4 (67792) Diagnoses Hematuria R31.9 History of kidney stones Z87.442 Nicotine dependence F17.200 CPT Codes Post Residual Void - PVR CPT Code: 08696-Hrfi Void Residual by ultrasound ([id number])
== END 2023-06-11 16:15 | disposition home or self-care (01) ==
PROVIDERS: PCP Internal Medicine; Visit Provider Urology
DX: R31.9 Hematuria, unspecified (principal); Z87.442 Personal history of urinary calculi; F17.200 Nicotine dependence, unspecified, uncomplicated
CPT/HCPCS: 99214

== ENCOUNTER → 2023-06-11 15:47 | Outpatient (BNVA) | payer MEDICAID, SELFPAY | PROVIDERS: Visit Provider Urology | DX: R31.9 Hematuria, unspecified (principal); F17.210 Nicotine dependence, cigarettes, uncomplicated; Z87.442 Personal history of urinary calculi | CPT/HCPCS: 51798; 81003; 99212 ==

== ENCOUNTER 2023-06-12 07:58 | Outpatient (REF) | payer MEDICAID, SELFPAY ==
--- NOTE | 2023-06-12 08:00 | EMG_ITS ---
Left median and ulnar motor and sensory studies were performed. Left radial sensory study was performed. Median and lateral antecubital sensory studies were performed and paraspinal muscles were tested with a needle. IMPRESSION: Hvbs-nn-[id number] left median neuropathy across carpal tunnel. MD BON Templeton/TRACI / [phone]
== END 2023-06-12 07:59 | disposition home or self-care (01) ==
LOC: HO.NEURO 07:58
PROVIDERS: PCP Internal Medicine; Visit Provider Orthopaedic Surgery
DX: R20.0 Anesthesia of skin (principal); R20.2 Paresthesia of skin
CPT/HCPCS: 95886; 95910

== ENCOUNTER 2023-06-12 12:13 | Outpatient (REF) | payer MEDICAID, SELFPAY | END 2023-06-12 12:14 | disposition home or self-care (01) | LOC: HO.HOSX 12:13 | PROVIDERS: Visit Provider Orthopaedic Surgery | DX: Z13.89 Encounter for screening for other disorder (principal) ==

== ENCOUNTER 2023-06-24 10:20 | Outpatient (REF) | payer MEDICAID, SELFPAY | END 2023-06-24 10:21 | disposition home or self-care (01) | LOC: HO.HHCX 10:20 | PROVIDERS: Visit Provider Internal Medicine | DX: M25.561 Pain in right knee (principal); M25.511 Pain in right shoulder | CPT/HCPCS: 73030; 73564 ==

== ENCOUNTER → 2023-07-02 09:52 | Outpatient (REF) | payer MEDICAID, SELFPAY ==
--- NOTE | 2023-07-02 09:55 | CA_ITS ---
Transthoracic Echocardiogram Patient (Last, First, Middle): Loco Michel, Cathryn, Gender: Female Date of : 1970 Age: 53 Procedure Date: 07/02/2023 Procedure Type: Transthoracic Echocardiogram Location: OP Height: 162.56 cm Weight: 70.31 kg BSA: 1.76 m2 Heart Rate: bpm BP: 135 / 78 mmHg On Site [place] Evaluator: LIBRADO Referring MD: Lolis Ramirez ELEMENTARY EDUCATORDannaC Symptoms: I42.9 - Cardiomyopathy, unspecified Study Quality: Fair ECG Rhythm: Sinus Conclusions: - The left ventricular systolic function is low normal. The calculated ejection fraction is 53% by biplane method. - No obvious valvular pathology seen on this study. Findings Left Ventricle Normal left ventricular cavity size. There is normal left ventricular wall thickness. The left ventricular systolic function is low normal. The calculated ejection fraction is 53% by biplane method. There is no evidence of regional wall motion abnormalities. Evidence suggests grade I (mild) diastolic dysfunction. Right Ventricle Normal right ventricular cavity size and systolic function. Atria Both atria are normal in size. Aortic Valve The aortic valve was not well visualized. There is no aortic valve stenosis. There is no aortic valve regurgitation. Mitral Valve The mitral valve appears normal. There is no mitral valve regurgitation. There is no mitral valve stenosis. Pulmonic Valve The pulmonic valve is likely normal. Tricuspid Valve Normal tricuspid valve structure. There is mild tricuspid valve regurgitation. There is no evidence of pulmonary hypertension. Great Vessels The asc aorta is normal in size. Venous The inferior vena cava is normal in size and collapses greater than 50% with inspiration. Pericardium/Pleural There is no evidence of pericardial effusion. Prior Study Comparison Changes noted compared to prior study dated: 08/21/2022. Improved LVEF. Recommendations, Care & Conclusions No obvious valvular pathology seen on this study. Measurements 2D Linear Measurements IVSd: 0.90 0.6-0.9/0.6-1.0 cm LVIDd: 4.30 3.9-5.3/4.2-5.9 cm LVIDd Index: 2.44 2.4-3.2/2.2-3.1 cm/m2 LVIDs: 2.70 2.0-3.6 cm LVPWd: 1.20 0.7-1.1 cm LA Diam: 3.40 2.7-3.8/3.0-4.0 cm LAIDs Index: 1.93 1.5-2.3 cm/m2 LV Mass: 189.94 67-162/88-224 g LV Mass Index: 107.92 43-95/49-115 g/m2 LVOT Diam: 1.90 3.0+(-)1.3 cm 2D Systolic Function EF 4C: 47.40 >55% EF 2C: 57.30 >55% EF BiP: 52.50 >55% Mitral Valve MV Pk E: 0.79 MV PK A: 0.92 MV Decel Time: 213.00 E/A: 0.90 E'Lateral: 5.98 E'Medial: 5.00 E/E' Med: 15.80 E/E' Lat: 13.20 PHT: 62.00 MVA PHT: 3.55 Decel Swift: 3.70 Aortic Valve AoV Pk Quirino: 1.61 AoV Mn Quirino: 1.19 AoV VTI: 0.38 AoV Pk Grad: 10.00 Aov Mn Grad: 6.00 NOMRA Cont.VTI: 1.58 LVOT LVOT Pk Quirino: 0.92 LVOT Mn Quirino: 0.60 LVOT VTI: 0.21 LVOT Pk Grad: 3.00 LVOT Mn Grad: 2.00 LVOT Diam: 1.90 LVOT Area: 2.84 Diastolic Function MV Pk E: 0.79 MV Pk A: 0.92 E/A: 0.90 E'Medial: 5.00 E/E' Med: 15.80 E' Laterial: 5.98 E/E' Lat: 13.20 Right Ventricle TAPSE (mm): 22.00 TVS' Quirino: 11.80 Tricuspid Valve TR Pk Quirino: 2.17 TR Pk Grad: 19.00 RA Press: 3.00 RVSP: 22.00 Great Vessels Aorta Sinus of Valsalva: 2.90 2.0-3.5 cm Ao Asc: 2.80 2.1-3.4 cm Updated in Other Vendor System with Status of Final Irineo Qureshi MD electronically signed on 07/04/2023 10:12:08 AM with status of Final
== END ==
LOC: HO.CARD 09:52
PROVIDERS: PCP Internal Medicine; Visit Provider Nurse Practitioner Family
DX: I42.9 Cardiomyopathy, unspecified (principal)
CPT/HCPCS: 93306

== ENCOUNTER → 2023-07-02 09:55 | Outpatient (BNV) | payer MEDICAID, SELFPAY | PROVIDERS: PCP Internal Medicine; Visit Provider Internal Medicine | DX: I36.1 Nonrheumatic tricuspid (valve) insufficiency (principal) | CPT/HCPCS: 93306 ==

== ENCOUNTER 2023-07-04 11:48 | Outpatient (REF) | payer MEDICAID, SELFPAY ==
--- NOTE | ~2023-07-04 | XR_ITS ---
EXAMINATION: XR SHOULDER, RIGHT CLINICAL INFORMATION: Right shoulder pain. COMPARISON: 06/24/2023 TECHNIQUE: AP external rotation, Grashey, scapular Y, and axillary views of the right shoulder. FINDINGS: There is mild acromioclavicular osteoarthritis. Glenohumeral joint is well preserved. No fracture. Alignment is anatomic. Soft tissues are normal with no abnormal calcifications. XR/XR shoulder RT min 2V IMPRESSION: No acute fracture or malalignment. Mild acromioclavicular osteoarthritis.
== END 2023-07-04 11:49 | disposition home or self-care (01) ==
LOC: HO.HHCX 11:48
PROVIDERS: Visit Provider Internal Medicine
DX: M25.511 Pain in right shoulder (principal)
CPT/HCPCS: 73030

== ENCOUNTER 2023-07-08 10:11 | Day surgery (SDC) | payer MEDICAID, SELFPAY ==
--- NOTE | 2023-07-07 10:21 | P.CONAN_ITS ---
Documented by User: Love Holt NP 07/07/23 10:25 HPI - Anesthesia Eval Consult details Narrative: 53yo F for Bilateral Cystoscopy with Retrograde,with poss bladder biopsy Cardiac optimized per workload [place] [facility] [place]. ECHO done d/t SOB, CP, palps shows improved EF from previous, no WMA) s/p dequervains release 03/2023 with [facility] Active Problems Active Problems: All Active Problems (Updated 04/09/23 @ 09:50 by Last Forrest MD) Sebaceous cyst of axilla (Acute) Fear of parasites (Acute) Adenomatous colon polyp (Acute) IBS (irritable bowel syndrome) (Acute) Trigger finger of right thumb (Acute) Nephrolithiasis (Acute) COVID-19 (Acute) Rotator cuff tear, left (Acute) Status post right rotator cuff repair (Acute) Status post rotator cuff repair (Acute) Adhesive capsulitis of left shoulder (Acute) Diverticulosis of colon (Acute) H/O anterior cruciate ligament surgery (Acute) Cardiomyopathy (Acute) Smoking (Acute) Impingement syndrome of right shoulder (Acute) De Quervain's tenosynovitis, right (Acute) Numbness and tingling in both hands (Acute) HTN (hypertension) (Acute) PVC (premature ventricular contraction) (Acute) Medial epicondylitis of both elbows (Acute) Pain of both elbows (Acute) Anxiety (Acute) Acid reflux (Acute) Past Medical History Medical History Sebaceous cyst of axilla Rotator cuff insufficiency of left shoulder PVC (premature ventricular contraction) History of COVID-19 HTN (hypertension) Medial epicondylitis of both elbows Pain of both elbows Numbness and tingling in both hands Anxiety Acid reflux Family History Family History Father Hypertension PTSD (post-traumatic stress disorder) Mother Manic depression Hyperlipemia Heart disease Asthma Anxiety Son Asthma Daughter Asthma Paternal Grandfather Asthma Paternal Grandfather Asthma Alzheimer disease Maternal Grandmother Asthma Brother No problems noted. Sister No problems noted. Family history of problems with anesthesia: No Surgical History Surgical History History of removal of cyst (~08/03/23) Hx of repair of left rotator cuff Hx of cystoscopy Hx of endoscopy Hx of colonoscopy H/O nasal polypectomy History of carpal tunnel release Hx of tonsillectomy History of cholecystectomy History of Problems with Anesthesia: No Social History Social History Household Members: Children Are you a primary customer care associate to a significant other at home: No Do you presently have visiting nurse or other home services: No Alcohol intake: current Alcohol intake frequency: does not drink Alcohol type: wine Patient Tobacco Use Status: Current everyday Tobacco user Tobacco use type: Cigarette Cigarettes Per Day: 10 Smoked in Last 30 Days: Yes Patient Interested in Nicotine Replacement: No Substance Use Type: Marijuana Substance Use Frequency: Daily Are you DNR?: No Advance Directives: No Advance Directives Information Provided: Yes Advance Directives Date on File: 03/31/23 Nutrition Risks: No Nutritional Risk Current occupational status: employed 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 Allergies Allergy/AdvReac Type Severity Reaction Status Date / Time tramadol Allergy Severe Seizure Verified 06/11/23 15:50 trazodone Allergy Severe manic Verified 06/11/23 15:50 episodes droperidol [From Inapsine] Allergy Intermediate Rash Verified 06/11/23 15:50 Sulfa (Sulfonamide Allergy Intermediate hives Verified 06/11/23 15:50 Antibiotics) sulfamethoxazole Allergy Intermediate HIVES Verified 06/11/23 15:50 [From BACTRIM] trimethoprim [From BACTRIM] Allergy Intermediate HIVES Verified 06/11/23 15:50 raw fruit Allergy Intermediate Itchy Uncoded 06/11/23 15:50 throat From COPAXONE Allergy Mild HIVES Uncoded 06/11/23 15:50 Home Medications Medication Instructions Recorded Confirmed Last Taken Type pantoprazole 20 mg tablet,delayed 20 mg PO DAILY 06/17/20 07/08/23 03/31/23 History release gabapentin 400 mg capsule 400 mg PO TID 11/29/20 07/08/23 03/31/23 History hydrochlorothiazide 25 mg tablet 25 mg PO DAILY 05/23/21 07/08/23 Unknown History ergocalciferol (vitamin D2) 1,250 1,250 mcg PO QWEEK 09/05/21 07/08/23 Unknown History mcg (50,000 unit) capsule fluticasone propionate 115 2 puff inhalation BID 09/05/21 07/08/23 07/08/23 History mcg-salmeterol 21 mcg/actuation HFA inhaler (Advair HFA) fluticasone propionate 50 1 spray intranasal DAILY 09/05/21 07/08/23 07/08/23 History mcg/actuation nasal spray,suspension loratadine 10 mg tablet 10 mg PO QAM PRN allergies 09/05/21 07/08/23 03/31/23 History atorvastatin 40 mg tablet 40 mg PO QAM 07/24/22 07/08/23 Unknown History hydroxyzine HCl 10 mg tablet 10 mg PO BID PRN Anxiety 10/22/22 07/08/23 03/31/23 History famotidine 20 mg tablet 20 mg PO 06/11/23 Unknown History hydroxyzine HCl 25 mg tablet 25 mg PO TID PRN Itching 06/11/23 07/08/23 Unknown History Exam Exam Date and Time: July 07, 2023 1021 Pertinent Lab Results Pertinent Lab Results: Laboratory Tests 03/04/23 10:41 WBC 5.6 Hgb 13.2 Hct 40.1 Plt Count 261 D Sodium 143 Potassium 4.1 Chloride 105 Carbon Dioxide 26 BUN 15 Creatinine 0.85 Narrative Narrative: ECHO 06/2023 Conclusions: - The left ventricular systolic function is low normal. The calculated ejection fraction is 53% by biplane method. - No obvious valvular pathology seen on this study. Exercise Stress 08/2022 Protocol: DARWIN Max HR: 142 BPM 85% of Pred: 166 BPM Max BP: 148/080 mmHG Max Work Load: 7.0 METS Exercise stress test with execise 5 min 15 sec of Darwin protocol, achieving 85% MPHR, with moderate sob and need to stop ( she states it is asthma), no chest discomfort, with isolated PVCs at rest and in recovery, No PVCs with exercise, with normotensive response to exercise, without EKG changes meeting criteria for ischemia. In recovery she used her own Proair inhaler with improvement in her breathing. Test reviewed with Dr Rodrigues Assessment and Plan Assessment Anesthesia Assessment: Chart Reviewed Final Anesthetic Review Family History of Problems with Anesthesia: No History of Problems with Anesthesia: No Documented by User: Tasia Perla MD 07/08/23 11:35 PMFSH Past Medical History Medical History Sebaceous cyst of axilla Rotator cuff insufficiency of left shoulder PVC (premature ventricular contraction) History of COVID-19 HTN (hypertension) Medial epicondylitis of both elbows Pain of both elbows Numbness and tingling in both hands Anxiety Acid reflux Family History Family History Father Hypertension PTSD (post-traumatic stress disorder) Mother Manic depression Hyperlipemia Heart disease Asthma Anxiety Son Asthma Daughter Asthma Paternal Grandfather Asthma Paternal Grandfather Asthma Alzheimer disease Maternal Grandmother Asthma Brother No problems noted. Sister No problems noted. Surgical History Surgical History History of removal of cyst (~04/17/23) Hx of repair of left rotator cuff Hx of cystoscopy Hx of endoscopy Hx of colonoscopy H/O nasal polypectomy History of carpal tunnel release Hx of tonsillectomy History of cholecystectomy Social History Social History Household Members: Children Are you a primary customer care associate to a significant other at home: No Do you presently have visiting nurse or other home services: No Alcohol intake: current Alcohol intake frequency: does not drink Alcohol type: wine Patient Tobacco Use Status: Current everyday Tobacco user Tobacco use type: Cigarette Cigarettes Per Day: 10 Smoked in Last 30 Days: Yes Patient Interested in Nicotine Replacement: No Substance Use Type: Marijuana Substance Use Frequency: Daily Are you DNR?: No Advance Directives: No Advance Directives Information Provided: Yes Advance Directives Date on File: 03/31/23 Nutrition Risks: No Nutritional Risk Current occupational status: employed 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 Allergies Allergy/AdvReac Type Severity Reaction Status Date / Time tramadol Allergy Severe Seizure Verified 06/11/23 15:50 trazodone Allergy Severe manic Verified 06/11/23 15:50 episodes droperidol [From Inapsine] Allergy Intermediate Rash Verified 06/11/23 15:50 Sulfa (Sulfonamide Allergy Intermediate hives Verified 06/11/23 15:50 Antibiotics) sulfamethoxazole Allergy Intermediate HIVES Verified 06/11/23 15:50 [From BACTRIM] trimethoprim [From BACTRIM] Allergy Intermediate HIVES Verified 06/11/23 15:50 raw fruit Allergy Intermediate Itchy Uncoded 06/11/23 15:50 throat From COPAXONE Allergy Mild HIVES Uncoded 06/11/23 15:50 Home Medications Medication Instructions Recorded Confirmed Last Taken Type pantoprazole 20 mg tablet,delayed 20 mg PO DAILY 06/17/20 07/08/23 03/31/23 History release gabapentin 400 mg capsule 400 mg PO TID 11/29/20 07/08/23 03/31/23 History hydrochlorothiazide 25 mg tablet 25 mg PO DAILY 05/23/21 07/08/23 Unknown History ergocalciferol (vitamin D2) 1,250 1,250 mcg PO QWEEK 09/05/21 07/08/23 Unknown History mcg (50,000 unit) capsule fluticasone propionate 115 2 puff inhalation BID 09/05/21 07/08/23 07/08/23 History mcg-salmeterol 21 mcg/actuation HFA inhaler (Advair HFA) fluticasone propionate 50 1 spray intranasal DAILY 09/05/21 07/08/23 07/08/23 History mcg/actuation nasal spray,suspension loratadine 10 mg tablet 10 mg PO QAM PRN allergies 09/05/21 07/08/23 03/31/23 History atorvastatin 40 mg tablet 40 mg PO QAM 07/24/22 07/08/23 Unknown History hydroxyzine HCl 10 mg tablet 10 mg PO BID PRN Anxiety 10/22/22 07/08/23 03/31/23 History famotidine 20 mg tablet 20 mg PO 06/11/23 Unknown History hydroxyzine HCl 25 mg tablet 25 mg PO TID PRN Itching 06/11/23 07/08/23 Unknown History Exam Airway Mallampati Class: II TM Dist: >3cm Neck ROM: Full Heart: rrr Lungs: cta Assessment and Plan Assessment Anesthesia Assessment: Anesthesia Plan Discussed and Smoking Cess. Discussed Final Anesthetic Review NPO: Yes ASA Class: III Final Preanesthetic Review: No Changes in Pt Med Stat, Meds/Allgs Chart Reviewed, Consent Obtained/Reviewed and Anes Risks/Benef Reviewed Patient Risk: Intermediate Procedure Risk: Low Anesthetic Plan Anesthetic Plan: GA Disposition: Standard PACU
[2023-07-08] VITALS (13 sets, daily range): BP systolic 137–179; BP diastolic 81–95; PULSE 56–76; RESP 13–20; TEMP 36.1–36.6; O2SAT 95–100; BMI 27.6
--- NOTE | ~2023-07-08 | FL_ITS ---
EXAMINATION: XR FLUOROSCOPY WITH IMAGES CLINICAL INFORMATION: Cystoscopy retrograde. COMPARISON: CT of the abdomen and pelvis September 2022 TECHNIQUE: Fluoroscopy Supervised By: Dr. Dave. Fluoroscopy Time: 0.1 minute. Cumulative Dose: 4.69 mGy. DAP: 0.0815 Gycm2. Images: 5. FINDINGS: Fluoroscopy guidance for bilateral retrograde exam. The right renal collecting system and ureter are normal. The left renal collecting system and proximal ureter are normal. No images submitted of the left mid and distal ureter. FL/FL guidance in OR IMPRESSION: Fluoroscopy guidance for retrograde exam
[2023-07-08] MEDS: Lactated Ringers 1,000 ML 100 ML IVCONT (10:55)
--- NOTE | 2023-07-08 11:17 | MHC.SHP ---
Pre-Procedural Eval Section A Date of Service: 07/08/23 The patient is an INPATIENT: No The History & Physical has been completed within 30 days and I have reviewed it.: Yes Section B Chief Complaint: Hematuria Allergies: Allergies Allergy/AdvReac Type Severity Reaction Status Date / Time tramadol Allergy Severe Seizure Verified 06/11/23 15:50 trazodone Allergy Severe manic Verified 06/11/23 15:50 episodes droperidol [From Inapsine] Allergy Intermediate Rash Verified 06/11/23 15:50 Sulfa (Sulfonamide Allergy Intermediate hives Verified 06/11/23 15:50 Antibiotics) sulfamethoxazole Allergy Intermediate HIVES Verified 06/11/23 15:50 [From BACTRIM] trimethoprim [From BACTRIM] Allergy Intermediate HIVES Verified 06/11/23 15:50 raw fruit Allergy Intermediate Itchy Uncoded 06/11/23 15:50 throat From COPAXONE Allergy Mild HIVES Uncoded 06/11/23 15:50 Plan Diagnosis/Plan: Unchanged I have reviewed the history and physical and performed a pertinent physical examination on my patient. No changes have occurred unless specified. Cystoscopy, Bilateral retrograde, and possible bladder biopsy. Time Spent With Patient Time: Total time managing care of this patient today ____ minutes.
[2023-07-08 11:36] LABS: Glucose, Whole Blood 106 mg/dL (60-115)
--- NOTE | 2023-07-08 12:26 | W.PM.OPN ---
Operative Note Operative Note Date of Service: 07/08/23 Narrative: PreOperative Diagnosis:?? Hematuria Post Operative Diagnosis:?? ? Hematuria Procedure: - cystoscopy, bilateral retrogrades Surgeon:?Dr Krishan Dave Anesthesia:? General Indications for procedure: Cathryn is a 53-year-old female with history of kidney stones, nicotine dependence and persistent microscopic hematuria and urgency. Procedure: After informed consent was verified the patient was brought to the operating placed on the OR table in supine position.? General Anesthesia was administered per protocol.? The patient was placed in lithotomy position, prepped and draped in the usual sterile fashion.? Safety pause time-out and side of surgery confirmed.? Antibiotics confirmed. 2% lidocaine Uro jet was placed transurethrally. A 22 Kinyarwanda cystoscope was inserted transurethrally, The bladder was visualized.? Both ureteric orifices were in normal position. the bladder mucosa visualized, and was within normal limits there were no suspicious bladder lesions visualized, with continued filling of the bladder under gravity, there was mild erythematous changes noted. The? right ureteric orifice was cannulated? and a retrograde examination was performed, there were no filling defects noted in the ureter or renal calyces are pelvis, the left ureteric orifice was cannulated? and a retrograde examination was performed, there were no filling defects noted in the ureter or renal calyces are pelvis. Fluoroscopy was used. The bladder was emptied.? The rigid cystoscope was removed. ? 2% lidocaine Uro jet was placed transurethrally. The patient tolerated the procedure well and was brought to the recovery room in stable condition. Complications: None Drains: None
[2023-07-08] MEDS: Phenazopyridine HCL 200 MG TABLET PO (12:57)
[2023-07-08] MEDS: oxyCODONE HCl Immed Release 5 MG TABLET PO (12:58)
[2023-07-08] MEDS: fentaNYL citrate/PF 100 MCG/2 ML VIAL 25 MCG IVPUSH ×2 (13:00→13:10)
== END 2023-07-08 14:59 | disposition home or self-care (01) ==
PROVIDERS: PCP Internal Medicine; Visit Provider Urology
PROC: 0TJB8ZZ Inspection of Bladder, Via Natural or Artificial Opening Endoscopic (ICD-10-PCS; CPT 52000; principal; 2023-07-08 12:20)
DX: R31.9 Hematuria, unspecified (principal); R39.14 Feeling of incomplete bladder emptying; Z87.442 Personal history of urinary calculi; I10 Essential (primary) hypertension; K21.9 Gastro-esophageal reflux disease without esophagitis; F41.9 Anxiety disorder, unspecified; F17.210 Nicotine dependence, cigarettes, uncomplicated; F12.90 Cannabis use, unspecified, uncomplicated
CPT/HCPCS: 52005; 82947; C1769; J0690; J1100; J2250; J2405; J3010; Q9967

== ENCOUNTER → 2023-07-08 10:11 | Outpatient (BNV) | payer MEDICAID, SELFPAY | PROVIDERS: PCP Internal Medicine; Visit Provider Urology | DX: R31.9 Hematuria, unspecified (principal) | CPT/HCPCS: 52000; 74420 ==

== ENCOUNTER 2023-07-23 09:18 | Outpatient (REF) | payer MEDICAID, SELFPAY ==
--- NOTE | ~2023-07-23 | CT_ITS ---
EXAMINATION: CT ABDOMEN AND PELVIS WITHOUT CONTRAST CLINICAL INFORMATION: Renal calculus. COMPARISON: CT abdomen and pelvis 03/13/2023. TECHNIQUE: Multidetector volumetric imaging was performed from the superior aspect of the liver through the pubic symphysis. Sagittal and coronal reformatted images were obtained on the technologist's workstation. This CT examination was performed using dose optimization techniques as appropriate, variously including the following: *Automated exposure control *Adjustment of mA and/or kV according to patient size (this includes techniques or standardized protocols for targeted exams where dose is matched to indication/reason for exam; i.e. extremities or head) *Use of iterative reconstruction technique DLP: 444 mGy-cm FINDINGS: LUNG BASES: The visualized lung bases are unremarkable. LIVER, GALLBLADDER, AND BILIARY TREE: The liver is normal in size, shape, and attenuation. No focal hepatic lesion or biliary ductal dilatation is present. Cholecystectomy. PANCREAS: No discrete mass or ductal dilatation. SPLEEN: Unremarkable. ADRENAL GLANDS: No adrenal mass. KIDNEYS AND URETERS: No nephrolithiasis. No hydronephrosis. Simple cyst in the lower pole right kidney. No follow-up imaging is recommended. BLADDER: No bladder calculus. GASTROINTESTINAL TRACT: The small bowel is normal in caliber. Normal appendix. Mild colonic diverticulosis. ABDOMINAL WALL: No significant hernia is appreciated. LYMPH NODES: No adenopathy. VASCULAR: Mild aortoiliac atherosclerosis. PELVIC VISCERA: Unremarkable. OSSEOUS STRUCTURES: Moderate degenerative disc disease at L5-S1. CT/CT abdomen pelvis wo IV con IMPRESSION: No nephrolithiasis or hydronephrosis demonstrated. Fleischner guidelines were followed.
== END 2023-07-23 09:19 | disposition home or self-care (01) ==
LOC: HO.CT 09:18
PROVIDERS: PCP Internal Medicine; Visit Provider Urology
DX: N20.0 Calculus of kidney (principal)
CPT/HCPCS: 74176

== ENCOUNTER 2023-11-19 11:32 | Outpatient (REF) | payer MEDICAID, SELFPAY ==
--- NOTE | ~2023-11-19 | XR_ITS ---
EXAMINATION: XR CHEST CLINICAL INFORMATION: Cough. COMPARISON: Most recent CTA chest dated 03/04/2023. TECHNIQUE: 2 views of the chest were obtained. FINDINGS: The lungs are clear. The cardiomediastinal silhouette is normal in size. There is no pleural effusion or pneumothorax. No acute osseous abnormality. XR/XR chest 2V IMPRESSION: No acute cardiopulmonary findings.
== END 2023-11-19 11:33 | disposition home or self-care (01) ==
LOC: HO.HHCX 11:32
PROVIDERS: Visit Provider Registered Nurse
DX: R05.9 Cough, unspecified (principal)
CPT/HCPCS: 71046

== ENCOUNTER 2024-02-05 13:00 | Outpatient (REF) | payer MEDICAID, SELFPAY ==
[2024-02-05 16:13] LABS: MANUAL DIFF FLAG NO
[2024-02-05 16:19] LABS: Basophils Absolute Auto 0.1 X10*3/uL (0.0-0.2); Basophils Percent Auto 1.4 % (0-2); Eosinophils Absolute Auto 0.3 X10*3/uL (0.0-0.4); Eosinophils Percent Auto 4.2 % (0-4); Hematocrit 40.3 % (37.0-47.0); Hemoglobin 13.5 g/dl (12.0-16.0); Imm Gran Abs Auto 0.02 X10*3/uL (0.00-0.03); Imm Gran Pct Auto 0.3 % (0.0-0.4); Lymphocytes Absolute Auto 1.8 X10*3/uL (1.2-4.9); Lymphocytes Percent Auto 29.2 % (20-40); Mean Corpuscular HGB Conc 33.5 g/dl (31.0-35.0); Mean Corpuscular Hemoglobin 30.7 pg (27.0-33.0); Mean Corpuscular Volume 91.6 fL (80.0-98.0); Mean Platelet Volume 11.1 fL (9.4-12.3); Monocytes Absolute Auto 0.3 X10*3/uL (0.1-1.2); Monocytes Percent Auto 5.3 % (2-11); Neutrophils Absolute Auto 3.7 x10*3/uL (2.0-8.3); Neutrophils Percent Auto 59.6 % (45-73); Platelet Count 232 X10*3/uL (160-400); Red Cell Distribution Width 13.8 % (11.0-16.0); White Blood Count 6.2 X10*3/uL (4.8-10.8)
[2024-02-05 16:24] LABS: Estimated Average Glucose 114 mg/dL; Hemoglobin A1c % 5.6 % (<6.0)
[2024-02-05 17:01] LABS: Alanine Aminotransferase 13 U/L (0-31); Albumin Level 4.5 g/dL (3.5-5.0); Alkaline Phosphatase 78 U/L (39-117); Anion Gap 13 (12-20); Aspartate Amino Transferase 14 U/L (5-31); Bilirubin Total 0.6 mg/dL (0.0-1.0); Blood Urea Nitrogen 17 mg/dL (9-16); Calcium 9.8 mg/dL (8.4-10.2); Carbon Dioxide 29 mmol/L (22-29); Chloride 105 mmol/L (96-108); Estimated Glomerular Filt Rate > 60; Glucose Random 97 mg/dL (60-115); Potassium 3.8 mmol/L (3.3-5.1); Sodium 143 mmol/L (135-145); Total Protein 7.5 g/dL (6.5-8.0)
[2024-02-05 17:18] LABS: TSH reflex Free T4 1.14 uIU/mL (0.32-4.0); Vitamin D 25-OH Total 48.1 ng/mL (>30)
[2024-02-06 04:44] LABS: HBS Num1 0.75 mIU/mL (0-7.99); HBc Num1 0.26 S/CO (0.00-0.79); HIV AB/AG Nonreactive (Nonreactive); HIV Num 1 0.04 S/CO (0.00-0.99); Hepatitis B Core Antibody Nonreactive (Nonreactive); Hepatitis B Surface Antigen Negative (Negative); ~HepC Num1 0.11 S/CO (0.00-0.79); ~Hepatitis B Surface Antibody NONREACTIVE (Nonreactive); ~Hepatitis C Antibody Nonreactive (Nonreactive)
== END 2024-02-05 13:01 | disposition home or self-care (01) ==
LOC: HO.HHCL 13:00
PROVIDERS: Visit Provider Emergency Medicine
DX: R53.1 Weakness (principal)
CPT/HCPCS: 36415; 80053; 82306; 83036; 84443; 85025; 86704; 86706; 86803; 87340; 87389

== ENCOUNTER 2024-02-17 12:09 | Outpatient (REF) | payer MEDICAID, SELFPAY ==
--- NOTE | ~2024-02-17 | XR_ITS ---
EXAMINATION: XR PELVIS CLINICAL INFORMATION: Same-day right buttocks 3 days ago, pain and bruising COMPARISON: None available. TECHNIQUE: 3 view of the pelvis: AP, inlet and outlet views of the pelvis. FINDINGS: No fracture. Hip joint spaces are maintained. Alignment is anatomic. Sacroiliac joints are within normal limits. There is a bridging osteophyte along the superior aspect of the pubic symphysis. No abnormal soft tissue calcifications. There are degenerative changes in the lower lumbar spine. XR/XR pelvis min 3V IMPRESSION: No acute bony abnormality.
--- NOTE | ~2024-02-17 | XR_ITS ---
EXAMINATION: XR SHOULDER, RIGHT CLINICAL INFORMATION: Acute pain right shoulder COMPARISON: None available. TECHNIQUE: AP external rotation, Grashey, scapular Y, and axillary views of the right shoulder. FINDINGS: The bones are intact. No fracture. Glenohumeral and acromioclavicular alignment is anatomic with normal joint space. No abnormal soft tissue calcifications. XR/XR shoulder RT min 2V IMPRESSION: No bony abnormality.
[2024-02-17 12:52] LABS: D Dimer High Sensitivity < 150 NG/ML
== END 2024-02-17 12:10 | disposition home or self-care (01) ==
LOC: HO.XRAY 12:09
PROVIDERS: PCP Internal Medicine; Visit Provider Emergency Medicine
DX: M79.18 Myalgia, other site (principal); S39.92XA Unspecified injury of lower back, initial encounter; M25.511 Pain in right shoulder; S49.91XA Unspecified injury of right shoulder and upper arm, initial encounter; W19.XXXA Unspecified fall, initial encounter; Y93.9 Activity, unspecified; Y92.9 Unspecified place or not applicable; Y99.9 Unspecified external cause status
CPT/HCPCS: 36415; 72190; 73030; 85379

== ENCOUNTER 2024-03-16 08:24 | Outpatient (REF) | payer MEDICAID, SELFPAY ==
--- NOTE | ~2024-03-16 | MM_ITS ---
EXAMINATION: MM SCREENING DIGITAL BREAST TOMOSYNTHESIS, BILATERAL CLINICAL INFORMATION: Screening. Asymptomatic. COMPARISON: Mammography: This study is compared with prior exams dating back to 2016. TECHNIQUE: Digital breast tomosynthesis is performed in both the craniocaudal and mediolateral oblique views along with computer-aided detection (CAD). Synthesized 2D images are generated from the tomosynthesis. FINDINGS: There are scattered areas of fibroglandular density (ACR BI-RADS breast composition Category b). There are no significant masses, abnormal calcifications, or other abnormalities. MM/MM tomosynthesis screening BI IMPRESSION: No mammographic evidence of malignancy. ASSESSMENT: BI-RADS BI-RADS 1 - Negative RECOMMENDATION: Routine annual mammography screening. 1 year F/U This examination should not preclude the clinical evaluation of a suspicious palpable abnormality. This patient's information was entered into a reminder system with a target due date for their next mammogram.
== END 2024-03-16 08:25 | disposition home or self-care (01) ==
LOC: HO.MAMMO 08:24
PROVIDERS: PCP Internal Medicine; Visit Provider Internal Medicine
DX: Z12.31 Encounter for screening mammogram for malignant neoplasm of breast (principal)
CPT/HCPCS: 77063; 77067

== ENCOUNTER → 2024-03-16 08:30 | Outpatient (BNV) | payer MEDICAID, SELFPAY | PROVIDERS: PCP Internal Medicine; Visit Provider Radiology Diagnostic Radiology | DX: Z12.31 Encounter for screening mammogram for malignant neoplasm of breast (principal) | CPT/HCPCS: 77063; 77067 ==

== ENCOUNTER 2024-03-25 09:38 | Outpatient (AMB) | payer MEDICAID, SELFPAY ==
--- NOTE | 2024-03-25 10:11 | A.OFFVIS_ITS ---
Intake Visit Reasons: New prob right shoulder pain, DOI 02/14/24 Intake Note: Cathryn is a 53 year old right hand dominant female who presents today with complaints of right shoulder pain. S/P Left shoulder /Poss RTC 12/05/21. Patient reports that she took a fall about 3 months ago, She fell over the edge of the tub with her underarm landing on the silll of the tub. Her pain is felt in the anterior aspect of the shoulder with ROM particularly above the head and behind the back . She does have some numbness in her hand but thinks that this is due to carpal tunnel Allergies tramadol Allergy (Severe, Verified 03/25/24 10:21) Seizure trazodone Allergy (Severe, Verified 03/25/24 10:21) manic episodes droperidol [From Inapsine] Allergy (Intermediate, Verified 03/25/24 10:21) Rash Sulfa (Sulfonamide Antibiotics) Allergy (Intermediate, Verified 03/25/24 10:21) hives sulfamethoxazole [From BACTRIM] Allergy (Intermediate, Verified 03/25/24 10:21) HIVES trimethoprim [From BACTRIM] Allergy (Intermediate, Verified 03/25/24 10:21) HIVES raw fruit Allergy (Intermediate, Uncoded 03/25/24 10:21) Itchy throat From COPAXONE Allergy (Mild, Uncoded 03/25/24 10:21) HIVES HPI HPI New prob right shoulder pain, DOI 02/14/24: Details: Cathryn is a 53 year old right hand dominant female who presents today with complaints of right shoulder pain. S/P Left shoulder /Poss RTC 12/05/21. Patient reports that she took a fall about 3 months ago, She fell over the edge of the tub with her underarm landing on the sill of the tub. Her pain is felt in the anterior aspect of the shoulder with ROM particularly above the head and behind the back . She does have some numbness in her hand but thinks that this is due to carpal tunnel [facility] Medical History (Updated 04/09/24 @ 10:23 by Sergio Almazan MD) Sebaceous cyst of axilla Rotator cuff insufficiency of left shoulder PVC (premature ventricular contraction) History of COVID-19 HTN (hypertension) Medial epicondylitis of both elbows Pain of both elbows Numbness and tingling in both hands Anxiety Acid reflux Surgical History (Updated 07/23/23 @ 11:09 by LATOSHA Clemens) History of removal of cyst (~04/17/23) Hx of repair of left rotator cuff Hx of cystoscopy Hx of endoscopy Hx of colonoscopy H/O nasal polypectomy History of carpal tunnel release Hx of tonsillectomy History of cholecystectomy Family History Father Hypertension PTSD (post-traumatic stress disorder) Mother Manic depression Hyperlipemia Heart disease Asthma Anxiety Son Asthma Daughter Asthma Paternal Grandfather Asthma Paternal Grandfather Asthma Alzheimer disease Maternal Grandmother Asthma Brother No problems noted. Sister No problems noted. 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 This reproduces her pain. She also has positive Burrows and Neer but I think this is likely secondary to her AC joint pain. Office Procedures Joint Inj/Aspir; Non-Pain Clin Coding Procedure code (CPT) selection complete Joint Injection/Aspiration Joint Injection/Aspiration Details: Injected 1 mL of Decadron and 1 mL 1% lidocaine and 1mL of 0.25% Marcaine. Site was prepped using aseptic technique. Patient tolerated the procedure well. Primary Site: other (right ACJ) Approach Used: other (superior) Coding 12421 - Acromioclavicular Procedure code (CPT) selection complete Assessment & Plan Assessment & Plan (1) AC joint arthropathy: Code(s): M19.019 - Primary osteoarthritis, unspecified shoulder Category: Medical Plan: I injected her AC joint today. We will see how long this is helpful. If it is not sufficiently helpful she can return for either additional injections and/for discussion regarding surgical options. I discussed this with her. She expressed understanding. Coding Level of Care Code New Pt Level 4 (24750) Diagnoses AC joint arthropathy M19.019 CPT Codes Coding - Joint 5: 64856 - Acromioclavicular ([id number])
== END 2024-03-25 10:46 | disposition home or self-care (01) ==
PROVIDERS: PCP Internal Medicine; Referring Provider Internal Medicine; Visit Provider Orthopaedic Surgery
DX: M19.011 Primary osteoarthritis, right shoulder (principal)
CPT/HCPCS: 20610; 99214

== ENCOUNTER → 2024-03-25 09:38 | Outpatient (BNVA) | payer MEDICAID, SELFPAY | PROVIDERS: PCP Internal Medicine; Visit Provider Orthopaedic Surgery | DX: M19.019 Primary osteoarthritis, unspecified shoulder (principal) | CPT/HCPCS: 20610; 99212; J0665; J1100 ==

== ENCOUNTER 2024-08-25 12:42 | Outpatient (REF) | payer OTHER, MEDICAID, SELFPAY ==
[2024-08-27 09:30] LABS: HPV 16,18/45 See PAP report
== END 2024-08-25 12:43 | disposition home or self-care (01) ==
LOC: HO.HHCLNP 12:42
PROVIDERS: Visit Provider Advanced Practice Midwife
DX: Z12.4 Encounter for screening for malignant neoplasm of cervix (principal); Z11.51 Encounter for screening for human papillomavirus (HPV)
CPT/HCPCS: 87624; 88175

== ENCOUNTER 2024-08-30 13:26 | Outpatient (AMB) | payer MEDICAID, SELFPAY ==
--- NOTE | 2024-08-30 13:28 | A.OFFVIS_ITS ---
Vital Signs 08/30/24 13:29 Height 5 ft 4 in Weight 151 lb 3.794 oz BMI 26.0 BP 124/72 Blood Pressure Location Lt brachial Position Sitting Pulse 70 Pulse Source Monitor Intake Visit Reasons: f/u Director Of Education Required: No Jewel Cupping Machine Operator: Jewel Cupping Machine Operator Present Allergies tramadol Allergy (Severe, Verified 08/30/24 13:31) Seizure trazodone Allergy (Severe, Verified 08/30/24 13:31) manic episodes droperidol [From Inapsine] Allergy (Intermediate, Verified 08/30/24 13:31) Rash Sulfa (Sulfonamide Antibiotics) Allergy (Intermediate, Verified 08/30/24 13:31) hives sulfamethoxazole [From BACTRIM] Allergy (Intermediate, Verified 08/30/24 13:31) HIVES trimethoprim [From BACTRIM] Allergy (Intermediate, Verified 08/30/24 13:31) HIVES raw fruit Allergy (Intermediate, Uncoded 08/30/24 13:31) Itchy throat From COPAXONE Allergy (Mild, Uncoded 08/30/24 13:31) HIVES Medication List - Last Reconciled 08/30/24 by Lolis Ramirez NP-C atorvastatin 40 mg PO QAM ergocalciferol (vitamin D2) 1,250 mcg PO QWEEK famotidine 20 mg PO QAM fluticasone propion-salmeterol 115-21 mcg/actuation (Advair HFA) 2 puffs inhalation BID fluticasone propionate 50 mcg/actuation 1 spray intranasal DAILY gabapentin 400 mg PO TID hydrochlorothiazide 25 mg PO DAILY hydroxyzine HCl 10 mg PO BID PRN hydroxyzine HCl 25 mg PO TID PRN lidocaine 5% 1 patch topical Q24H lisinopril 20 mg PO QPM loratadine 10 mg PO QAM PRN mirabegron ER (Myrbetriq) 25 mg PO BEDTIME naproxen (Naprosyn) 500 mg PO BID PRN 10 days oxycodone-acetaminophen 5-325 mg (Percocet) 1 tab PO Q6H PRN 2 days pantoprazole 20 mg PO DAILY phenazopyridine (Pyridium) 200 mg PO TID simethicone (Gas Relief (simethicone)) 125 mg PO TID-QID PRN sucralfate 1 g PO QIDACHS 21 days HPI HPI f/u: Details: Cathryn is a 54-year-old female with past medical history of smoking, hypertension, palpitations/PVCs, mild cardiomyopathy who presents for follow-up. Her last prior visit to our office was 01/28/2023. Today she reports that she has been experiencing grief, anxiety since the suicide of her daughter last April. She will feel intermittent heart palpitations that are brief but recurrent. She was not able to tolerate the metoprolol again due to lightheadedness. If she is extremely upset she will notice some tightness in her chest. No chest discomfort with exertional activities. She has history of asthma but states it is stable. No shortness of breath, PND, orthopnea or edema. No dizziness since stopping metoprolol, no presyncope, syncope, falls. Takes all meds as directed. Her mother is present. [facility] Medical History Sebaceous cyst of axilla Rotator cuff insufficiency of left shoulder PVC (premature ventricular contraction) History of COVID-19 HTN (hypertension) Medial epicondylitis of both elbows Pain of both elbows Numbness and tingling in both hands Anxiety Acid reflux Surgical History History of removal of cyst (~04/17/23) Hx of repair of left rotator cuff Hx of cystoscopy Hx of endoscopy Hx of colonoscopy H/O nasal polypectomy History of carpal tunnel release Hx of tonsillectomy History of cholecystectomy Family History Father Hypertension PTSD (post-traumatic stress disorder) Mother Manic depression Hyperlipemia Heart disease Asthma Anxiety Son Asthma Daughter Asthma Paternal Grandfather Asthma Paternal Grandfather Asthma Alzheimer disease Maternal Grandmother Asthma Brother No problems noted. Sister No problems noted. 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 Review of Systems Const Details: grief, stress, anxiety, restless legs All systems reviewed & are unremarkable except as noted in HPI and below ENT Denies dizziness Card Details: heart palpitations Denies chest pain, Denies chest pain at rest, Denies chest pain with activity, Denies rapid heart rate, Denies pedal edema, Denies edema, Denies leg edema, Denies lightheadedness, Denies palpitations, Denies dyspnea, Denies dyspnea on exertion and Denies orthopnea Resp Denies cough, Denies dyspnea and Denies dyspnea on exertion GI Denies hematochezia and Denies change in stool character Musc Denies abnormal gait, Denies limited range of motion, Denies muscle cramps, Denies muscle weakness, Denies numbness, Denies radiating pain into limb, Denies stiffness and Denies tingling Neuro Denies abnormal gait, Denies dizziness, Denies numbness and Denies tingling Endo Denies palpitations Physical Exam Vital Signs: BMI result Body Mass Index 26.0 Const General: cooperative, healthy appearing, comfortable and no acute distress Orientation/consciousness: patient oriented x3 Neck Neck: Yes normal visual inspection and Yes no JVD Resp Effort & Inspection: normal respiratory effort Auscultation: clear to auscultation bilaterally, no rales, no rhonchi and no wheezes Cardio Jugular venous distension: no JVD Rate: regular rate Rhythm: regular rhythm Heart sounds: S1 normal heart sound present, S2 normal heart sound present, no murmurs and no rubs Neuro General: patient oriented x3 Extrem General: Yes normal to inspection, No no pedal edema and No calf tenderness Psych Appearance: grossly normal Mental Status: mental status grossly normal Speech and movement: Normal speech and movement present Office Procedures EKG Details: Today, read by me, normal sinus rhythm, can not exclude prior anterior infarct, rate 70, QTC 419 milliseconds [id number], Complete Assessment & Plan Assessment & Plan (1) PVC (premature ventricular contraction): Code(s): I49.3 - Ventricular premature depolarization Category: Medical Plan: History of PVCs, mild cardiomyopathy in 2018 with EF 45-50%. She was lost to follow-up then seen again in 2021. An echocardiogram was done on 08/21/2022 showing EF 45-50%, normal valves and no reported wall motion abnormality. An exercise stress test was done on 08/21/2022 showing exercise 5 minutes 15 seconds with moderate shortness of breath with isolated PVCs and no EKG changes of ischemia. A Holter monitor was done 08/21/2022 for 1 day showing sinus rhythm with average heart rate 88, PVCs, 1.8% of the time. In the past she was intolerant to metoprolol which made her feel like she was walking in the clouds. On follow-up visit low-dose metoprolol was re-tried. A repeat echocardiogram was done 07/02/2023 showing EF 53%. Today she is here for follow-up, last prior visit 01/2023. She tells me again she did not tolerate metoprolol. She has been experiencing significant grief, anxiety recently. She still reports heart palpitations but denies sustained rapid or irregular rates. EKG done today showing normal sinus rhythm, can not exclude prior anterior infarct, rate 70. Discussed the reduction in caffeinated beverages, chocolate. Physical activity as tolerated. Continue to follow with her counselor. No med changes made. Instructed to call us if her heart is palpitations increase or become sustained. Emergency care if needed. (2) Cardiomyopathy: Code(s): I42.9 - Cardiomyopathy, unspecified Category: Medical Plan: As above, last EF 53%. Mild cardiomyopathy was thought to be related to her frequent PVCs. Intolerant to beta tracy as above. (3) Smoking: Comment: Acid reflux reviewed culprits Code(s): F17.200 - Nicotine dependence, unspecified, uncomplicated Category: Social Hx Plan: She reports smoking addiction and has tried several mechanisms. Very concerned that this is a strong addiction for her. Discussed options for smoking cessation. Will start on nicotine patch to see if this can help her reduce smoking quantity and eventually quit. If not effective then will consider use of Chantix. (4) HTN (hypertension): Code(s): I10 - Essential (primary) hypertension Category: Medical Plan: Well controlled at present. No med changes made. Continue hydrochlorothiazide and lisinopril. (5) Anxiety: Code(s): F41.9 - Anxiety disorder, unspecified Category: Medical Plan: Grief and anxiety present over the loss of her daughter to suicide 04/2024. She reports having good family support and a counselor. Offered my condolences. Plan Time spent on chart review, documentation, interview and assessment Coding Level of Care Code Est Pt Level 4 (51571) Complex EM visit Add On G2211 Diagnoses PVC (premature ventricular contraction) I49.3 Cardiomyopathy I42.9 Smoking F17.200 HTN (hypertension) I10 Anxiety F41.9 CPT Codes EKG - CPT: 03553-[id number], Complete ([id number]) Time Spent (min) 32
[2024-08-30 13:29] VITALS: BP 124/72; PULSE 70; BMI 26.0
== END 2024-08-30 14:04 | disposition home or self-care (01) ==
PROVIDERS: PCP Internal Medicine; Visit Provider Nurse Practitioner Family
DX: I49.3 Ventricular premature depolarization (principal); I42.9 Cardiomyopathy, unspecified; F17.200 Nicotine dependence, unspecified, uncomplicated; I10 Essential (primary) hypertension; F41.9 Anxiety disorder, unspecified
CPT/HCPCS: 93010; 99214

== ENCOUNTER → 2024-08-30 13:26 | Outpatient (BNVA) | payer MEDICAID, SELFPAY | PROVIDERS: PCP Internal Medicine; Visit Provider Nurse Practitioner Family | DX: I42.9 Cardiomyopathy, unspecified (principal); I10 Essential (primary) hypertension; I49.3 Ventricular premature depolarization; R00.2 Palpitations; F41.9 Anxiety disorder, unspecified; F17.210 Nicotine dependence, cigarettes, uncomplicated | CPT/HCPCS: 93005; 99212 ==

== ENCOUNTER 2024-12-28 07:28 | Outpatient (AMB) | payer OTHER, SELFPAY ==
--- NOTE | 2024-12-28 07:41 | MHC.OFFVIS ---
Vital Signs 12/28/24 07:44 Height 5 ft 4 in Weight 152 lb BMI 26.1 BP 137/75 Blood Pressure Location Lt brachial Position Sitting Pulse 82 Pulse Oximetry (%) 97 Oxygen Delivery Method Room Air Intake Visit Reasons: GERD/Georgiana michael 02/19/2023 Intake Note: Patient complex follow up for GERD/Georgiana fernanda 02/19/2023 Patient cc: between diarrhea and constipation on and off. Insole Tape Stitcher Uco Required: No Accompanied by: Self / Same As Patient Allergies tramadol Allergy (Severe, Verified 12/28/24 07:35) Seizure trazodone Allergy (Severe, Verified 12/28/24 07:35) manic episodes droperidol [From Inapsine] Allergy (Intermediate, Verified 12/28/24 07:35) Rash Sulfa (Sulfonamide Antibiotics) Allergy (Intermediate, Verified 12/28/24 07:35) hives sulfamethoxazole [From BACTRIM] Allergy (Intermediate, Verified 12/28/24 07:35) HIVES trimethoprim [From BACTRIM] Allergy (Intermediate, Verified 12/28/24 07:35) HIVES raw fruit Allergy (Intermediate, Uncoded 08/30/24 13:31) Itchy throat From COPAXONE Allergy (Mild, Uncoded 08/30/24 13:31) HIVES Medication List - Last Reconciled 12/28/24 by Aure Fam CNP albuterol sulfate 90 mcg/actuation 2 puffs inhalation Q6H PRN atorvastatin 40 mg PO QAM ergocalciferol (vitamin D2) 1,250 mcg PO QWEEK famotidine 20 mg PO QAM fluticasone propion-salmeterol 115-21 mcg/actuation (Advair HFA) 2 puffs inhalation BID fluticasone propionate 50 mcg/actuation 1 spray intranasal DAILY gabapentin 400 mg PO TID hydrochlorothiazide 25 mg PO DAILY hydroxyzine HCl 10 mg PO BID PRN hydroxyzine HCl 25 mg PO TID PRN lidocaine 5% 1 patch topical Q24H lisinopril 20 mg PO QPM loratadine 10 mg PO QAM mirabegron ER (Myrbetriq) 25 mg PO BEDTIME naproxen (Naprosyn) 500 mg PO BID PRN 10 days oxycodone-acetaminophen 5-325 mg (Percocet) 1 tab PO Q6H PRN 2 days pantoprazole 20 mg PO DAILY phenazopyridine (Pyridium) 200 mg PO TID simethicone (Gas Relief (simethicone)) 125 mg PO TID-QID PRN sucralfate 1 g PO QIDACHS 21 days HPI HPI GERD/Georgiana lov 02/19/2023: Details: Patient is a 54-year-old female with PMH of hypertension, anxiety, IBS and GERD. Last visit with LEVON Flores 02/16/2023 for follow up acid reflux Pt is here today for follow up on GERD, IBS and pre colonoscopy screening. She reports GERD symptoms are well managed with pantoprazole 20 mg and famotidine 20 mg. Although not entirely sure if the famotidine is in her daily pill pack. Endorses intermittent regurgitation that is triggered by red sauce. Otherwise asymptomatic Reports BMs daily with type 4 on most days and type 1 approx once/week. She attributes this change to consuming bread. She also experiences occasional diarrhea-can last up to a week, can go 3 months without an episode. Unable to identify diarrhea triggers, resolves after sylwia ad and Imodium. Endorses ab pain when constipated. Shares she has been following an intermittently fasting lifestyle X 6 months with intentional wt loss. Patient denies: systemic symptoms, n/v, appetite changes, r, unintentional wt loss, dysphasia, new cardiopulmonary symptoms or melena/hematochezia. She was due for polyp surveillance colonoscopy 2022. She is agreeable today to review prep and to have completed this year. Social hx: 1-2 Tonya approx every 3 months marijuana nightly, denies other recreational drug use current smoker up to 1pdd denies personal hx of CA Family hx: Denies [facility], [facility] Medical History (Updated 12/28/24 @ 17:52 by Aure Fam CNP) Adenomatous polyps Sebaceous cyst of axilla Rotator cuff insufficiency of left shoulder PVC (premature ventricular contraction) History of COVID-19 HTN (hypertension) Medial epicondylitis of both elbows Pain of both elbows Numbness and tingling in both hands Anxiety Acid reflux Surgical History History of removal of cyst (~04/17/23) Hx of repair of left rotator cuff Hx of cystoscopy Hx of endoscopy Hx of colonoscopy H/O nasal polypectomy History of carpal tunnel release Hx of tonsillectomy History of cholecystectomy Family History Father Hypertension PTSD (post-traumatic stress disorder) Mother Manic depression Hyperlipemia Heart disease Asthma Anxiety Son Asthma Daughter Asthma Paternal Grandfather Asthma Paternal Grandfather Asthma Alzheimer disease Maternal Grandmother Asthma Brother No problems noted. Sister No problems noted. 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 Review of Systems Const Reports as per HPI ENT Reports as per HPI Card Reports as per HPI Resp Reports as per HPI GI Reports as per HPI Reports as per HPI Neuro Reports no additional complaints Psych Reports no additional complaints Physical Exam Vital Signs: Last Vital Signs Pulse 82 12/28/24 07:44 BP 137/75 12/28/24 07:44 Pulse Ox 97 12/28/24 07:44 Oxygen Delivery Method Room Air 12/28/24 07:44 BMI result Body Mass Index 26.1 Const General: healthy appearing, no acute distress and well developed Nutritional Appearance: well nourished Orientation/consciousness: patient oriented x3 HEENT Head: Yes normal to inspection, Yes normocephalic and Yes atraumatic Face and sinus: Yes normal facial exam Eyes General: appearance normal, both eyes and all related structures Neck Neck: Yes normal visual inspection Resp Effort & Inspection: normal respiratory effort, able to speak in complete sentences, no tracheal deviation and symmetric chest movement Auscultation: clear to auscultation bilaterally Cardio Jugular venous distension: no JVD Rate: regular rate Rhythm: regular rhythm Heart sounds: S1 normal heart sound present, S2 normal heart sound present, no gallops and no murmurs GI Inspection: No distended and Yes obesity Palpation (GI): Soft to palpation, not firm, nontender and No hepatosplenomegaly present Auscultation: normal bowel sounds Neuro General: patient oriented x3 Gait exam (Neuro): Normal gait present Psych Appearance: grossly normal Mental Status: mental status grossly normal Speech and movement: Normal speech and movement present Affect: normal affect Attitude: cooperative Thought process: Normal thought process present Thought content: Normal thought content present Insight: Good insight present (Psych) Judgement: Good judgement present (Psych) Results Reviewed Results Reviewed: 05/26/2020 Upper endoscopy: Esophagus: hiatal hernia 34-36 cm. Focal esophagitis with two 1cm chronic appearing erosions. Stomach: Mild gastritis erythema. Biopsies were obtained. Grade 3 flap valve on retroflex examination of the cardia. Duodenum: Normal bulb and descending duodenum. Biopsies were obtained from 3rd part of duodenum to check for celiac spruce. 05/26/2020 Colonoscopy: Complete, with excellent prep. Moderate diverticulosis seen in the sigmoid colon Moderate hemorrhoids on retroflex exam pantoprazole increase to b.i.d. Repeat in 3 years if adenomatous or 10 years if polyps are hyperplastic Pathology: polypectomy: from cecum and ascending colon Tubular adenoma; negative for high-grade dysplasia. negative for H pylori hiatal hernia, esophagitis, gastritis, colon polyps, diverticulosis, hemorrhoids, ruled out celiac, H pylori, Crohn's and microscopic colitis Assessment & Plan Assessment & Plan (1) IBS (irritable bowel syndrome): Code(s): K58.9 - Irritable bowel syndrome, unspecified Category: Medical Qualifiers: Irritable bowel syndrome type: with both diarrhea and constipation Qualified Code(s): K58.2 - Mixed irritable bowel syndrome Plan: Consistent with IBS-M. Reinforced lifestyle modifications to promote regularity: -higher fiber diet -adequate hydration with water -150 minutes of moderate intensity exercise per week For diarrhea prevention/management: -avoid sugary drinks -okay to continue Imodium as needed (2) Acid reflux: Code(s): K21.9 - Gastro-esophageal reflux disease without esophagitis Category: Medical Qualifiers: Esophagitis bleeding: without hemorrhage Esophagitis presence: with esophagitis Qualified Code(s): K21.00 - Gastro-esophageal reflux disease with esophagitis, without bleeding Plan: Risk factors include abdominal obesity, smoking and hiatal hernia. However, managed well on current treatment of pantoprazole 20 mg daily. Patient to confirm if famotidine is a part of her current regimen. Education on GERD prevention-Advised against heavy meals. Encouraged small frequent meals VS large meals, remaining upright after meals x 2-3 hours, avoid spicy foods/caffeine/alcohol/known triggers and tight fitting clothes. Also advised against use of NSAIDs. (3) Adenomatous colon polyp: Comment: 05/2020 polypectomy- one from cecum and one from ascending colon Tubular adenoma Code(s): D12.6 - Benign neoplasm of colon, unspecified Category: Medical Qualifiers: Colon location: ascending Qualified Code(s): D12.2 - Benign neoplasm of ascending colon Plan: Overdue for polyp surveillance colonoscopy. Reviewed prep and procedure expectations. She understands to avoid any NSAIDs for at least a week prior to procedure. Prep Rx'd to preferred pharmacy. Plan Follow-up after colonoscopy or sooner as needed Time: I spent a total of 45 minutes on the date of encounter which includes: Preparing to see the patient (reviewed previous documentation, test results and medical history) Performing a medically appropriate exam and/or evaluation Ordering medications, tests, and procedures Documenting clinical information in the health record Medications: New bisacodyl per colonoscopy instructions 5 mg PO ONCE 3 tabs 0RF 1 day polyethylene glycol 3350 (Miralax) per colonoscopy prep instructions 238 grams PO ONCE 238 grams 0RF Coding Level of Care Code Established Pt Est Pt Level 3 (48103) Patient Type Established Diagnoses Irritable bowel syndrome with both constipation and diarrhea K58.2 Irritable bowel syndrome type: with both diarrhea and constipation Gastroesophageal reflux disease with esophagitis without hemorrhage K21.00 Esophagitis bleeding: without hemorrhage Esophagitis presence: with esophagitis Adenomatous polyp of ascending colon D12.2 Colon location: ascending
[2024-12-28 07:44] VITALS: BP 137/75; PULSE 82; O2SAT 97; BMI 26.1
== END 2024-12-28 08:49 | disposition home or self-care (01) ==
LOC: HO.HGI 07:29
PROVIDERS: PCP Internal Medicine; Visit Provider Nurse Practitioner Family
DX: K58.2 Mixed irritable bowel syndrome (principal); K21.00 Gastro-esophageal reflux disease with esophagitis, without bleeding; D12.2 Benign neoplasm of ascending colon
CPT/HCPCS: 99215

== ENCOUNTER → 2024-12-28 07:28 | Outpatient (BNVA) | payer OTHER, SELFPAY | PROVIDERS: PCP Internal Medicine; Visit Provider Nurse Practitioner Family | DX: K58.2 Mixed irritable bowel syndrome (principal); K21.00 Gastro-esophageal reflux disease with esophagitis, without bleeding; D12.2 Benign neoplasm of ascending colon | CPT/HCPCS: 99212 ==

== ENCOUNTER 2025-01-04 09:23 | Outpatient (REF) | payer OTHER, SELFPAY ==
--- NOTE | ~2025-01-04 | XR_ITS ---
EXAMINATION: XR CHEST CLINICAL INFORMATION: 1 week h/o productive cough COMPARISON: None available. TECHNIQUE: 2 views of the chest were obtained. FINDINGS: The lungs are well-expanded and clear. Heart size and pulmonary vascularity is normal. There is mild dextroscoliosis of dorsal spine. No aggressive lytic or sclerotic process seen. XR/XR chest 2V IMPRESSION: Unremarkable chest exam. Electronically signed by: Shaheen Leach MD 01/04/2025 09:33 AM EDT
--- OUTSIDE RECORDS SUMMARY | 2025-01-04 10:09 | XMS_ITS | Encounter Summary ---
Author Organization [employer] Address [address] [place] [address] Care Team Providers Care Applied Mathematician Name Role Phone Evangelina Meade MD Primary Care Provide r Reason for Visit * Reason Comments Med Refill Encounter Details Date Type Department Care Team ([facility] st Contact Info) Description 09/01/[address] [facility] [address] [place], [place] [phone] Kit Barton FNP Bipolar affective disorder, remission status unspecified ([facility]) Social History Tobacco Use Types Packs/Day Years Used Date Smoking Tobacco: Every Day Cigarettes Passive Smoke Exposure: Current Smokeless Tobacco: Never Alcohol Use Standard Drinks/Week Comments Yes 0 (1 standard drink = 0.6 oz pur e alcohol) Occasionally Depression Answer Date Recorded Patient Health Questionnaire-9 Score 20 06/17/2023 Housing Stability Answer Date Recorded What is your housing situation today? I have weston simpson 07/02/[address] you li ve. Do you have problems with any of the following? None of the above 07/02/2023 Food Insecurity Answer Date Recorded Within the past 12 months, y ou worried that your food would run out before you got money to buy more: Never True 07/02/2023 Within the past 12 months,th e food you bought just didn't last and you didn't have enough money to get more: Never True Transportation Answer Date Recorded In the past 12 months, has l ack of transportation kept you from medical appts, meetings, work or from getting things needed for daily living? No 07/02/2023 Utilities Answer Date Recorded In the past 12 months, has t he electric, gas, oil or water company threatened to shut off services in your home? No 07/02/2023 Depression Answer Date Recorded Patient Health Questionnaire-2 Score 6 06/17/2023 Comments Unknown Sex and Gender Information Value Date Recorded Sex Assigned at Female 07/15/2022 10:21 AM EDT Legal Sex Female 10:21 AM EDT Gender Identity Female 07/15/2022 10:21 AM EDT Sexual Orientation Straight 07/15/2022 10 :21 AM EDT documented as of this encounter Plan of Treatment Upcoming Encounters Date Type Department Care Team (Late st Contact Info) Description 01/14/2025 11:[address] [facility] [address] [place], [place] [phone] Evangelina Meade MD [address] [place] [phone] documented as of this encounter Goals Goal Patient Goal Type Associated Problems Recent Progress Patient-Stated? Author Smoking cessation General No Jaena Stone documented as of this encounter Visit Diagnoses Diagnosis Bipolar affective disorder, remission status unspecified ([facility]) documented in this encounter Additional Health Concerns Assessment Noted Time PHQ-9 Depression Total Score: 20 023 1:13 PM EDT documented as of this encounter Care Teams Applied Mathematician Relationship Specialty Start Date End Date Evangelina Meade MD [address] [place] [address] [phone] PCP - General Family Medicine 04/20/20 documented as of this encounter
--- OUTSIDE RECORDS SUMMARY | 2025-01-04 10:09 | XMS_ITS | Encounter Summary ---
Author Organization [employer] Address [address] [facility] 7t [place] [address] Care Team Providers Care Charge Entry Clerk Name Role Phone Evangelina Meade MD Primary Care Provide r Encounter Details Date Type Department Care Team (Late st Contact Info) Description 04/18/2023 Orders Only [facility] MED & PEDS [address] [place], [place] [phone] Qi Navarrete LPN Social History Tobacco Use Types Packs/Day Years Used Date Smoking Tobacco: Every Day Cigarettes Passive Smoke Exposure: Current Smokeless Tobacco: Never Alcohol Use Standard Drinks/Week Comments Yes 0 (1 standard drink = 0.6 oz pur e alcohol) Occasionally Comments Unknown Sex and Gender Information Value Date Recorded Sex Assigned at Female 07/15/2022 10:21 AM EDT Legal Sex Female 10:21 AM EDT Gender Identity Female 07/15/2022 10:21 AM EDT Sexual Orientation Straight 07/15/2022 10 :21 AM EDT documented as of this encounter Plan of Treatment Upcoming Encounters Date Type Department Care Team (Late Contact Info) Description 01/14/2025 11:15 AM EDT Telemedicine [facility] MEDICINE [address] [place], [place] [phone] Evangelina Meade MD [address] [place], [place] [phone] documented as of this encounter Visit Diagnoses Not on filedocumented in this encounter Additional Health Concerns Assessment Noted Time PHQ-9 Depression Total Score: 20 023 11:14 AM EDT documented as of this encounter Care Teams Charge Entry Clerk Relationship Specialty Start Date End Date Evangelina Meade MD [address] [place] [address] PCP - General Family Medicine 04/20/20 documented as of this encounter
--- OUTSIDE RECORDS SUMMARY | 2025-01-04 10:09 | XMS_ITS | Encounter Summary ---
Author Organization [employer] Address [address] [facility] 7t [place] [address] Care Team Providers Care Long Haul Truck Driver Name Role Phone Evangelina Meade MD Primary Care Provide r Reason for Visit * Reason Comments Med Refill Encounter Details Date Type Department Care Team ([facility] Contact Info) Description 04/02/2023 Refill [facility] CHC MED & PEDS [address] [place] [address] Kit Barton FNP Social History Tobacco Use Types Packs/Day Years [...] Orientation Straight 07/15/2022 10 :21 AM EDT COVID-19 Exposure Response Date Recorded In the last 10 days, have yo u been in contact with someone who was confirmed or suspected to have Coronavirus/COVID-19? No / Unsure 03/14/2023 9:05 AM EDT documented as of this encounter Plan of Treatment Upcoming Encounters Date Type Department Care Team ([facility] Contact Info) Description 01/14/2025 11:15 AM EDT Telemedicine [facility] MEDICINE [address] [place], [place] [phone] Evangelina Meade MD [address] [place], [place] [phone] documented as of this encounter Visit Diagnoses Not on filedocumented in this encounter Additional Health Concerns Assessment Noted Time PHQ-9 Depression Total Score: 20 023 11:14 AM EDT documented as of this encounter Care Teams Long Haul Truck Driver Relationship Specialty Start Date End Date Evangelina Meade MD [address] [place] [address] PCP - General Family Medicine 04/20/20 documented as of this encounter
--- OUTSIDE RECORDS SUMMARY | 2025-01-04 10:09 | XMS_ITS | Encounter Summary ---
Author Organization [employer] Address [address] [facility] 7t [place] [address] Care Team Providers Care Director Sales And Trade Marketing Name Role Phone Evangelina Meade MD Primary Care Provide r Encounter Details Date Type Department Care Team (Late st Contact Info) Description 12/04/2022 Orders Only [facility] CHC MED & PEDS [address] [place], [place] [phone] Jessica Farias LPN Social History Tobacco Use Types Packs/Day Years Used Date Smoking Tobacco: Never Assessed Comments Unknown Sex and Gender Information Value Date Recorded Sex Assigned at Female 07/15/2022 10:21 AM EDT Legal Sex Female 10:21 AM EDT Gender Identity Female 07/15/2022 10:21 AM EDT Sexual Orientation Straight 07/15/2022 10 :21 AM EDT documented as of this encounter Plan of Treatment Upcoming Encounters Date Type Department Care Team (Late st Contact Info) Description 01/14/2025 11:15 AM EDT Telemedicine [facility] MEDICINE [address] [place] [address] Evangelina Meade MD [address] [place] [address] documented as of this encounter Visit Diagnoses Not on filedocumented in this encounter Additional Health Concerns Assessment Noted Time PHQ-9 Depression Total Score: 11 10/29/ 023 1:25 PM EST documented as of this encounter Care Teams Director Sales And Trade Marketing Relationship Specialty Start Date End Date Evangelina Meade MD [address] [place] [address] PCP - General Family Medicine 04/20/20 documented as of this encounter
--- OUTSIDE RECORDS SUMMARY | 2025-01-04 10:09 | XMS_ITS | Encounter Summary ---
Author Organization [employer] Address 75 [facility] 7t [place] [address] Care Team Providers Care Db2 Developer Name Role Phone Evangelina Meade MD Primary Care Provide r Reason for Visit * Reason Comments Med Refill Encounter Details Date Type Department Care Team (Late st Contact Info) Description 01/26/2023 Refill [facility] [address] [place] [phone] Jessica Jay MD [address] [place] [phone] COVID Social History Tobacco Use Types Packs/Day Years Used Date Smoking Tobacco: Every Day Cigarettes Passive Smoke Exposure: Current Smokeless Tobacco: Never Comments Unknown Sex and Gender Information Value Date Recorded Sex Assigned at Female 07/15/2022 10:21 AM EDT Legal Sex Female 10:21 AM EDT Gender Identity Female 07/15/2022 10:21 AM EDT Sexual Orientation Straight 07/15/2022 10 :21 AM EDT documented as of this encounter Plan of Treatment Upcoming Encounters Date Type Department Care Team (Late st Contact Info) Description 01/14/2025 11:15 AM EDT Telemedicine [facility] MEDICINE [address] [place] [address] Evangelina Meade MD [address] [place] [address] documented as of this encounter Visit Diagnoses Diagnosis COVID documented in this encounter Additional Health Concerns Assessment Noted Time PHQ-9 Depression Total Score: 4 12/11/19 23 1:14 PM EDT documented as of this encounter Care Teams Db2 Developer Relationship Specialty Start Date End Date Evangelina Meade MD [address] [place] [address] PCP - General Family Medicine 04/20/20 documented as of this encounter
--- OUTSIDE RECORDS SUMMARY | 2025-01-04 10:09 | XMS_ITS | Encounter Summary ---
Author Organization [employer] Address [address] [facility] 7t [place] [address] Care Team Providers Care Control Center Operator Name Role Phone Evangelina Meade MD Primary Care Provide r Reason for Visit * Reason Onset Date Comments Referral 08/01/2023 Encounter Details Date Type Department Care Team ([facility] Contact Info) Description 08/01/2023 Telephone [facility] [address] [place] [address] Evangelina Meade MD [address] [place] [address] Referral Social History Tobacco Use Types Packs/Day Years [...] AM EDT documented as of this encounter Miscellaneous Notes * Telephone Encounter - Rebecca Sarah - 08/15/2023 10:58 AM EST Tc from [facility] requesting status on message below. * Telephone Encounter - John Goetz - 08/01/2023 3:07 PM EST Tc from pt assisted living care manager ([facility]) requesting a referral for meals on wheels. If any questions contact [facility] at [phone] documented in this encounter Plan of Treatment Upcoming Encounters Date Type Department Care Team ([facility] st Contact Info) Description 01/14/2025 11:15 AM EDT Telemedicine [facility] [address] [place] [address] Evangelina Meade MD [address] [place] [address] documented as of this encounter Goals Goal Patient Goal Type Associated Problems Recent Progress Patient-Stated? Author Smoking cessation General No Jeana Stone documented as of this encounter Visit Diagnoses Not on filedocumented in this encounter Additional Health Concerns Assessment Noted Time PHQ-9 Depression Total Score: 20 023 1:13 PM EDT documented as of this encounter Care Teams Control Center Operator Relationship Specialty Start Date End Date Evangelina Meade MD [address] [place] [address] PCP - General Family Medicine 04/20/20 documented as of this encounter
--- OUTSIDE RECORDS SUMMARY | 2025-01-04 10:09 | XMS_ITS | Encounter Summary ---
Author Organization [employer] Address [address] [facility] 7t [place] [address] Care Team Providers Care Pasta Press Operator Name Role Phone Evangelina Meade MD Primary Care Provide r Reason for Visit * Reason Onset Date Comments Appointment Request 08/15/2023 Encounter Details Date Type Department Care Team ([facility] st Contact Info) Description 08/15/2023 Telephone [facility] [address] [place] [address] Evangelina Meade MD [address] [place] [address] Appointment Request Social History Tobacco Use Types Packs/Day Years [...] Telephone Encounter - Rebecca Sarah - 08/15/2023 11:00 AM EST Tc from [facility] Cable Tester requesting PE appt, health science writer attempted to schedule no availability for August. documented in this encounter Plan of Treatment Upcoming Encounters Date Type Department Care Team (Late st Contact Info) Description 01/14/2025 11:15 AM EDT Telemedicine [facility] [address] [place] [address] Evangelina Meade MD [address] [place] [address] documented as of this encounter Goals Goal Patient Goal Type Associated Problems Recent Progress Patient-Stated? Author Smoking cessation General No Jeana Stone documented as of this encounter Visit Diagnoses Not on filedocumented in this encounter Additional Health Concerns Assessment Noted Time PHQ-9 Depression Total Score: 20 023 1:13 PM EDT documented as of this encounter Care Teams Pasta Press Operator Relationship Specialty Start Date End Date Evangelina Meade MD [address] [place] [address] PCP - General Family Medicine 04/20/20 documented as of this encounter
--- OUTSIDE RECORDS SUMMARY | 2025-01-04 10:09 | XMS_ITS | Encounter Summary ---
Author Organization [employer] Address [address] [facility] [address] 7t [place] [address] Care Team Providers Care Paperback Machine Operator Name Role Phone Evangelina Meade MD Primary Care Provide r Reason for Visit * Reason Comments Asthma Cough Nasal Congestion Chest Pain Encounter Details Date Type Department Care Team (Late st Contact Info) Description 01/04/2025 9:00 AM EDT Office Visit [facility] [address] [place] [address] Moderate asthma with acute exacerbation, unspecified whether persistent (Primary Dx); Tobacco dependence; Asthma with status asthmaticus, unspecified asthma severity, unspecified whether persistent; Viral URI Social History Tobacco Use Types Packs/Day Years Used Date Smoking Tobacco: Every Day Cigarettes Passive Smoke Exposure: Current Smokeless Tobacco: Never Alcohol Use Standard Drinks/Week Comments Yes 0 (1 standard drink = 0.6 oz pur e alcohol) Occasionally Alcohol Answer Date Recorded Frequency of Alcohol Consumption Not on file 09/18/2023 Average Number of Drinks Not on file 024 Frequency of Binge Drinking Not on file 12/2023 Score 0 09/18/2023 Depression Answer Date Recorded Patient Health Questionnaire-9 Score 11 02/26/2024 Patient Health Questionnaire-9 Score 11 02/26/2024 Last PHQ-9: Questionnaire Data Not on file 0 02/26/2024 Housing Stability Answer Date Recorded What is your housing situation today? I have weston simpson 11/12/[address] you li ve. Do you have problems with any of the following? None of the above 11/12/2024 Food Insecurity Answer Date Recorded Within the past 12 months, y ou worried that your food would run out before you got money to buy more: Never True 11/12/2024 Within the past 12 months,th e food you bought just didn't last and you didn't have enough money to get more: Never True Transportation Answer Date Recorded In the past 12 months, has l ack of transportation kept you from medical appts, meetings, work or from getting things needed for daily living? No 11/12/2024 Utilities Answer Date Recorded In the past 12 months, has t he electric, gas, oil or water company threatened to shut off services in your home? No 11/12/2024 Depression Answer Date Recorded Patient Health Questionnaire-2 Score 6 11/12/2024 Internet Access Answer Date Recorded Internet Access Q1 No 11/12/2024 Internet Access Q2 I do not want or need it 10/17 Comments No Sex and Gender Information Value Date Recorded Sex Assigned at Female 07/15/2022 10:21 AM EDT Legal Sex Female 10:21 AM EDT Gender Identity Female 07/15/2022 10:21 AM EDT Sexual Orientation Straight 07/15/2022 10 :21 AM EDT documented as of this encounter Last Filed Vital Signs Vital Sign Reading Time Taken Comments Blood Pressure 133/83 01/04/2025 8:51 AM EDT Pulse 85 01/04/2025 8:51 AM EDT Temperature 36.6 ??C (97.9 ??F) 01/04/2025 8:51 AM ED T Respiratory Rate 19 01/04/2025 8:51 AM EDT Oxygen Saturation 97% 01/04/2025 8:51 AM EDT Inhaled Oxygen Concentration - - Weight 70 kg (154 lb 6.4 oz) 01/04/2025 8:51 AM EDT Height - - Body Mass Index 26.5 11/12/2024 9:12 AM EST documented in this encounter Plan of Treatment Upcoming Encounters Date Type Department Care Team (Late st Contact Info) Description 01/14/2025 11:15 AM EDT Telemedicine [facility] [address] [place] [address] Evangelina Meade MD [address] [place] [address] documented as of this encounter Goals Goal Patient Goal Type Associated Problems Recent Progress Patient-Stated? Author Smoking cessation General No Jeana Stone documented as of this encounter Procedures Procedure Name Priority Date/Time Associated Diagnosis Comments XR CHEST 2 VIEWS Routine 01/04/2025 9:23 AM EDT Moderate asthma with acute exacerbation, unspecified whether persistent POCT INFLUENZA B (ID NOW RAPID MOLECULAR) Routine 01/04/2025 9:07 AM EDT Viral URI POCT INFLUENZA A (ID NOW RAPID MOLECULAR) Routine 01/04/2025 9:07 AM EDT Viral URI POCT RAPID COVID ANTIGEN Routine 01/04/2025 9:07 AM EDT Viral URI documented in this encounter Results * XR Chest 2 Views (01/04/2025 9:23 AM EDT) Anatomical Region Laterality Modality Chest Radiographic Lara ging 01/04/2025 9:23 AM EDT Narrative 01/04/2025 9:36 AM EDT ?[facility] ?[address] ?[place] [address] ?XRay Report ? Signed ? Patient: Loco Michel,Cathryn ? MR#: [id number] ? : 1970 ?Acct:[id number] ? Age/Sex: 54 / F ?ADM Date: 01/04/25 ? Loc: HO.HHCX ? Attending Dr: Jose Tabor MD ? Ordering Physician: JOSE TABOR MD ?? Date of Service: 01/04/25 ?? Procedure(s): XR chest 2V ?? Accession Number(s): [id number] ? cc: JOSE TABOR MD ? EXAMINATION: ?? XR CHEST ? CLINICAL INFORMATION: ?? 1 week h/o productive cough ? COMPARISON: ?? None available. ? TECHNIQUE: ?? 2 views of the chest were obtained. ? FINDINGS: ?? The lungs are well-expanded and clear. Heart size and pulmonary ?? vascularity is normal. There is mild dextroscoliosis of dorsal spine. ?? No aggressive lytic or sclerotic process seen. ? XR/XR chest 2V ?? IMPRESSION: ?? Unremarkable chest exam. ? Electronically signed by: ??Shaheen Leach MD ??01/04/2025 09:33 AM EDT RP ? Dictated By: ?Shaheen Leach MD ? Signed By: ?<Electronically signed by Shaheen Leach MD in OV> ?01/04/25 0933 ? DD/ 2 ? TD/TT: 01/04/25 09 ? Telephone Answerer: MSM ? Procedure Note Donyordanter, Image - 01/04/[address] [address] XRay Report Signed Patient: Cathryn Cruz MR#: [id number] : 1970Acct:[id number] Age/Sex: 54 / FADM Date: 01/04/25 [facility]: Jose Tabor MD Ordering Physician: JOSE TABOR MD Date of Service: 01/04/25 Procedure(s): XR chest 2V Accession Number(s): [id number] cc: JOSE TABOR MD EXAMINATION: XR CHEST CLINICAL INFORMATION: 1 week h/o productive cough COMPARISON: None available. TECHNIQUE: 2 views of the chest were obtained. FINDINGS: The lungs are well-expanded and clear. Heart size and pulmonary vascularity is normal. There is mild dextroscoliosis of dorsal spine. No aggressive lytic or sclerotic process seen. XR/XR chest 2V IMPRESSION: Unremarkable chest exam. Electronically signed by: Shaheen Leach MD 01/04/2025 09:33 AM EDT Dictated By: Shaheen Leach MD Signed By: <Electronically signed by Shaheen Leach MD in OV> 01/04/25932 DD/ 2 TD/TT: 01/04/25930 Telephone Answerer: MSM Jose Tabor MD IMG XR PROCEDURES Final Result * Influenza B (ID NOW Rapid Molecular) (01/04/2025 9:07 AM EDT) Influenza B Negative Negative, Indeterminate [facility] Swab 01/04/2025 9:07 AM EDT us Jose Tabor MD POINT OF CARE TEST ENTER/EDIT OR DERABLES Final Result Performing Organization Address [facility] Co de Phone Number [facility] [address] [place] [phone] * Influenza A (ID NOW Rapid Molecular) (01/04/2025 9:07 AM EDT) Influenza A Negative Negative, Indeterminate [facility] Swab 01/04/2025 9:07 AM EDT us Jose Tabor MD POINT OF CARE TEST ENTER/EDIT OR DERABLES Final Result Performing Organization Address [facility] Co de Phone Number [facility] [address] [place] [phone] * POCT Rapid COVID Ag (01/04/2025 9:07 AM EDT) Rapid COVID Ag Negative [facility] Swab 01/04/2025 9:07 AM EDT us Jose Tabor MD POINT OF CARE TEST ENTER/EDIT OR DERABLES Final Result Performing Organization Address [facility] de Phone Number [facility] [address] [place] [phone] documented in this encounter Visit Diagnoses Diagnosis Moderate asthma with acute exacerbation, unspecified whether persistent- Primary Tobacco dependence Tobacco use disorder Asthma with status asthmaticus, unspecified asthma severity, unspecified whether persistent Viral URI Acute upper respiratory infections of unspecified site documented in this encounter Additional Health Concerns Assessment Noted Time PHQ-9 Depression Total Score: 11 06/2 024 3:00 PM EDT documented as of this encounter Care Teams Paperback Machine Operator Relationship Specialty Start Date End Date Evangelina Meade MD [address] [place] [address] PCP - General Family Medicine 04/20/20 documented as of this encounter
--- OUTSIDE RECORDS SUMMARY | 2025-01-04 10:09 | XMS_ITS | Encounter Summary ---
Author Organization [facility] Address [address] [place] [address] 7t [place] [address] Care Team Providers Care Dough Cutting Machine Operator Name Role Phone Evangelina Meade MD Primary Care Provide r Encounter Details Date Type Department Care Team ([facility] Contact Info) Description 06/04/2023 Orders Only [facility] MEDICINE [address] [place] [address] [phone] Provider, MD Marla Social History Tobacco Use Types Packs/Day Years [...] Info) Description 01/14/2025 11:15 AM EDT Telemedicine [facility] MEDICINE [address] [place] [phone] Evangelina Meade MD [address] [place] [address] [phone] documented as of this encounter Procedures Procedure Name Priority Date/Time Associated Diagnosis Comments HM COLONOSCOPY Routine 05/26/2020 documented in this encounter Results * Hm Colonoscopy (05/26/2020) Historical Provider HEALTH MAINTENANCE Final Result documented in this encounter Visit Diagnoses Not on filedocumented in this encounter Additional Health Concerns Assessment Noted Time PHQ-9 Depression Total Score: 3 04/21/20 23 1:04 PM EDT documented as of this encounter Care Teams Dough Cutting Machine Operator Relationship Specialty Start Date End Date Evangelina Meade MD [address] [place] [address] PCP - General Family Medicine 04/20/20 documented as of this encounter
--- OUTSIDE RECORDS SUMMARY | 2025-01-04 10:10 | XMS_ITS | Encounter Summary ---
Author Organization [employer] Address [address] [facility] 7t [place] [address] Care Team Providers Care Newspaper Carriers Supervisor Name Role Phone Evangelina Meade MD Primary Care Provide r Reason for Visit * Reason Comments Med Refill Encounter Details Date Type Department Care Team ([facility] Contact Info) Description 04/01/2024 Refill [facility] [address] [place] [address] Evangelina Meade MD [address] [place] [address] Social History Tobacco Use Types Packs/Day Years [...] Answer Date Recorded Patient Health Questionnaire-2 Score 3 02/26/2024 Comments Unknown Sex and Gender Information Value Date Recorded Sex Assigned at Female 07/15/2022 10:21 AM EDT Legal Sex Female 10:21 AM EDT Gender Identity Female 07/15/2022 10:21 AM EDT Sexual Orientation Straight 07/15/2022 10 :21 AM EDT documented as of this encounter Plan of Treatment Upcoming Encounters Date Type Department Care Team (Late st Contact Info) Description 01/14/2025 11:15 AM EDT Telemedicine [facility] MED[facility]INE [address] [place] [address] Evangelina Meade MD [address] [place] [address] documented as of this encounter Goals Goal Patient Goal Type Associated Problems Recent Progress Patient-Stated? Author Smoking cessation General No Jeana Stone documented as of this encounter Visit Diagnoses Not on filedocumented in this encounter Additional Health Concerns Assessment Noted Time PHQ-9 Depression Total Score: 11 024 3:00 PM EDT documented as of this encounter Care Teams Newspaper Carriers Supervisor Relationship Specialty Start Date End Date Evangelina Meade MD [address] [place] [address] PCP - General Family Medicine 04/20/20 documented as of this encounter
--- OUTSIDE RECORDS SUMMARY | 2025-01-04 10:10 | XMS_ITS | Clinical Summary ---
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 [place] [address] [phone] Evangelina Meade MD Nurse Triage 12/05/2024 Refill [facility] [address] [place] [address] [phone] Evangelina Meade MD Bipolar affective disorder, remission status unspecified (CMS/HCC) 11/28/2024 Refill [facility] [address] [place] [phone] Evangelina Meade MD 11/25/2024 Refill [facility] [address] [place] [address] [phone] Evangelina Meade MD Gastroesophageal reflux disease, unspecified whether esophagitis present 11/12/2024 9:00 AM EST Office Visit [facility] [address] [place] [address] [phone] Evangelina Meade MD Bipolar affective disorder, remission status unspecified ([facility]/HCC) (Primary Dx); Colon cancer screening; Encounter for preventive care 11/12/2024 Travel 11/11/2024 Telephone [facility] [address] [place] [address] Evangelina Meade MD Chart Prep 11/04/2024 Refill [facility] [address] [place] [address] Evangelina Meade MD 10/29/2024 Patient Outreach [facility] [address], [place] [phone] Evangelina Meade MD Pre-visit Planning ((Unable to reach for PVP screening, LVM)) 10/22/2024 Refill [facility] [address], [place] [phone] Evangelina Meade MD from Last 3 Months Immunizations Name Administration Dates Next Due Influenza Injectable Quadriv alant Preservative Free IIV4 MDCK 10/10/2021 Influenza injectable quadriv alent IIV4 with preservative 07/19/2015 Influenza injectable quadrivalent preservative f ree 08/26/2023 Influenza, IIV3, injectable 05/17/2011 Influenza, Split (incl. purified surface antigen ) 07/27/2012 Influenza, seasonal, injectable, preservative fr ee 08/29/2014 Pneumococcal Polysaccharide PPSV23 03/04/2011 TD (adult), 2 Lf tetanus tox oid, preservative free, adsorbed 09/15/2009 Tdap 09/18/2023,11/06/2012 Zoster, Recombinant 10/10/2021,07/03/2021 Social History Tobacco Use Types Packs/Day Years Used Date Smoking Tobacco: Every Day Cigarettes Passive Smoke Exposure: Current Smokeless Tobacco: Never Tobacco Cessation:Ready to Q uit: Not Asked; Counseling Given: Not Answered Alcohol Use Standard Drinks/Week Comments Yes 0 [...] Orientation Straight 07/15/2022 10 :21 AM EDT Last Filed Vital Signs Vital Sign Reading [...] 6.4 oz) 01/04/2025 8:51 AM EDT Height 162.6 cm (5' 4 ) 11/12/2024 9:12 AM EST Body Mass Index 26.5 11/12/2024 9:12 AM EST Plan of Treatment Upcoming Encounters Date Type Department Care Team (Late st Contact Info) Description 01/14/2025 11:15 AM EDT Telemedicine [facility] [address] [place] [address] Evangelina Meade MD [address] [place] [address] Health Maintenance Due Date Last Done Comments CT Colonography 1968 FIT DNA/Cologuard 1968 FIT 1968 FOBT 1968 Sigmoidoscopy 1968 Alcohol/Substance Use Screening 1980 Hepatitis B Vaccines (1 of 3 - 19+ 3-dose series) 1987 Pneumococcal Vaccine: 50+ Years (2 of 2 - PCV) 03/04/2012 03/04/2011 Dental Oral Exam 11/29/2015 05/30/2015, 09/28/2013 Dental Prophylaxis 05/01/2016 10/31/2015, 0 04/27/2015, 05/25/2014, Additional history exists Dental X-Ray: Bitewings 05/02/2017 05/01/20 16, 04/27/2015, 09/28/2013, Additional history exists COVID-19 Vaccine ( season) 2024 Influenza Vaccine (#1) 2024 , 10/10/2021, 07/19/2015, Additional history exists Mammogram 03/16/2025 03/16/2024, 01/13, 01/24/2023, Additional history exists Colonoscopy 05/26/2025 05/26/2020 Colorectal Cancer Screening 05/26/2025 Depression Screening 11/12/2025 11/12/2024, 02/26/20 24 SDOH Screening 11/12/2025 11/12/2024 Tobacco Screening 01/04/2026 01/04/2025 Lipid Panel 05/21/2027 05/21/2022, 12/15, 11/16/2020, Additional history exists Dental X-Ray: Full Mouth 08/17/2027 024, 06/25/2024, 09/24/2018, Additional history exists Cervical Cancer Screening 08/25/2029 HPV/Cotest 08/25/2029 03/10/2019 Pap Smear 08/25/2029 08/25/2024 DTaP/Tdap/Td Vaccines (3 - Td or Tdap) 09/18/2033 09/18/2023, 11/06/2012, 09/15/2009 RSV Patients and Patients Aged 60 years or older (1 - 1-dose 75+ series) 2043 Zoster Vaccines Completed 10/10/2021, 07/03/2021 HIV Screening Completed 02/05/2024, 12/15, 11/16/2020, Additional history exists Hepatitis C Screening Completed 02/05/2024, 020 HIB Vaccines Aged Out No longer eligi ble based on patient's age to complete this topic HPV Vaccines Aged Out No longer eligi ble based on patient's age to complete this topic Hepatitis A Vaccines Aged Out No long er eligible based on patient's age to complete this topic IPV Vaccines Aged Out No longer eligi ble based on patient's age to complete this topic Meningococcal Vaccine Aged Out No audra mikel eligible based on patient's age to complete this topic RSV under 20 months Aged Out No longe r eligible based on patient's age to complete this topic Rotavirus Vaccines Aged Out No longer eligible based on patient's age to complete this topic Goals Goal Patient Goal Type Associated Problems Recent Progress Patient-Stated? Author Smoking cessation General No Jeana Stone Procedures Procedure Name Priority Date/Time Associated Diagnosis [...] Routine 01/04/2025 9:07 AM EDT Viral URI PAP SMEAR Routine 08/25/2024 10:05 AM EST Routine cervical smear PANORAMIC RADIOGRAPHIC IMAGE Routine 08/16/2024 1:30 PM EST BI MAMMOGRAM SCREENING TOMOSYNTHESIS BILATERAL Routine 03/16/2024 8:44 AM EDT HEPATITIS C AB W/REFL TO HCV RNA, QN, PCR Routine 02/05/2024 1:01 PM EDT Weakness HIV 1/2 ANTIGEN/ANTIBODY, FOURTH GENERATION W/RFL Routine 02/05/2024 1:01 PM EDT Weakness LIPID PANEL, STANDARD Routine 05/21/2022 8:18 AM EDT HM COLONOSCOPY Routine 05/26/2020 ZZZ HISTORICAL HPV MRNA E6/E7 Routine 03/10/2019 12:00 AM EDT BITEWINGS - 4 RADIOGRAPHIC IMAGES Routine 05/01/2016 12:00 AM EDT PROPHYLAXIS - ADULT Routine 10/31/2015 1 2:00 AM EST PERIODIC ORAL EVALUATION - ESTABLISHED PATIENT Routine 05/30/2015 12:00 AM EDT from Last 3 Months or Most Recently Relevant to Health Maintenance Results * XR Chest 2 Views (01/04/2025 9:23 AM EDT) Anatomical Region Laterality Modality Chest Radiographic Lara ging 01/04/2025 9:23 AM EDT Narrative 01/04/2025 9:36 AM EDT ?[facility] ?[address] ?[place] [address] ?XRay Report ? Signed ? Patient: Loco Michel,Cathryn ? MR#: [id number] ? : 1970 ?Acct:[id number] ? Age/Sex: 54 / F ?ADM Date: 04/22/25 ? Loc: HO.HHCX ? Attending Dr: Jose Tabor MD ? Ordering Physician: JOSE TABOR MD ?? Date of Service: 01/04/25 ?? Procedure(s): XR chest 2V ?? Accession Number(s): [id number] ? cc: JOSE TABOR MD ? EXAMINATION: [...] MD in OV> ?01/04/25 0933 ? DD/ 0923 ? TD/TT: 01/04/25 0931 ? Torpedoman'S Mate: MSM ? Procedure Note Donotljter, Image - 01/04/2025 [place] [address] XRay Report Signed Patient: Cathryn Cruz MR#: [id number] : 1970Acct:[id number] Age/Sex: 54 / FADM Date: 01/04/25 Loc: HO.HHCX Attending Dr: Jose Tabor MD Ordering Physician: JOSE TABOR MD Date of Service: 01/04/25 Procedure(s): XR chest 2V Accession Number(s): [id number] cc: JOSE TABOR MD EXAMINATION: XR CHEST [...] signed by Shaheen Leach MD in OV> 01/04/2533 DD/ 2 TD/TT: 01/04/25930 Torpedoman'S Mate: MARSHALL us Jose Tabor MD IMG XR PROCEDURES Final Result * Influenza B (ID NOW Rapid Molecular) (01/04/2025 9:07 AM EDT) Influenza B Negative Negative, Indeterminate [facility] Swab 01/04/2025 9:07 AM EDT Jose Tabor MD POINT OF CARE TEST ENTER/EDIT OR DERABLES Final Result Performing Organization Address [facility]/ZIP Co de Phone Number [facility] [address] [place] [address] [phone] * Influenza A (ID NOW Rapid Molecular) (01/04/2025 9:07 AM EDT) Influenza A Negative Negative, Indeterminate [facility] Swab 01/04/2025 9:07 AM EDT Jose Tabor MD POINT OF CARE TEST ENTER/EDIT OR DERABLES Final Result Performing Organization Address [facility]/ZIP Co de Phone Number [facility] [address] [place] [address] [phone] * POCT Rapid COVID Ag (01/04/2025 9:07 AM EDT) Rapid COVID Ag Negative [facility] Swab 01/04/2025 9:07 AM EDT us Jose Tabor MD POINT OF CARE TEST ENTER/EDIT OR DERABLES Final Result Performing Organization Address [facility]/ZIP Co de Phone Number [facility] [address] [place] [address] [phone] * Pap Smear (08/25/2024 10:05 AM EST) Swab Cervix uteri structure / Unknown 08/25/2024 10:05 AM EST 08/26/2024 2:10 PM EST [facility] - 09/01/2024 10:53 AM EST ----- ------- Name: Cathryn Cruz ? Age/Sex: 54/F ? : 1970 Unit#: [id number] ?? Attend Dr: GAMAL CRANE CNM ?Re08/25/24 ?Status: DEP REF ? Location: HO.HHCLNP ? Disch: ? ----- ------- SPEC : [id number] ?RECD: 08/26/24-1410 ? STATUS: ??SOUT ? REQ NUM: [id number] ? ENRIQUE: 08/25/24-1005 ? SUBM DR: GAMAL CRANE CNM ? ENTERED: ??08/26/24-142 ?SP TYPE: Pap Smr ?OTHR : ? ORDERED: ??Pap Smear ? Interpretation ?? Satisfactory for evaluation. ?? Negative for intraepithelial lesion or malignancy. ?? No endocervical cells seen. ?? Fungal organisms consistent with Kylie species. ? HPV High Risk: ??Negative ? HPV Genotyping 16: ??Negative ?? HPV Genotyping 18: ??Negative ?Clinical Information LMP: Postmenopausal Previous PAP test: 2019, WNL ? Material Received ?? ThinPrep-Cervical ----- ------- Signed (signature on file) PAM Souza (ASCP) 09/01/24 1053 ? ----- ------- ? END OF REPORT ? us Gamal Nima CNM LAB CYTOLOGY ORDERABLES F inal Result [facility] [address] [place] [phone] * BI Mammogram Screening Tomosynthesis Bilateral (03/16/2024 8:44 AM EDT) Anatomical Region Laterality Modality Breast Bilateral Mammography 03/16/2024 8:44 AM EDT Narrative 04/14/2024 7:17 AM EDT ? [facility] ? [address] ?[place] [address] ? Mammography Report ? Signed ? Patient: Loco Anand,Cathryn ? MR#: [id number] ? : 1970 ?Acct:[id number] ? Age/Sex: 53 / F ?ADM Date: 03/16/24 ? Loc: HO.MAMMO ? Attending Dr: Evangelina Combs MD ? Ordering Physician: Evangelina Meade MD ?Results: ?? 1Negative ? Date of Service: 03/16/24 ?Follow Up: 1 Year From Orig ?? inal Mammogram ? Procedure(s): MM tomosynthesis screening BI ?? Accession Number(s): [id number] ? cc: Evangelina Meade MD ? EXAMINATION: ?? MM SCREENING DIGITAL BREAST TOMOSYNTHESIS, BILATERAL ? CLINICAL INFORMATION: ? Screening. Asymptomatic. ? COMPARISON: ?? Mammography: This study is compared with prior exams dating back to ?? 2015. ? TECHNIQUE: ?? Digital breast tomosynthesis is performed in both the craniocaudal and ?? mediolateral oblique views along with computer-aided detection (CAD). ?? Synthesized 2D images are generated from the tomosynthesis. ? FINDINGS: ?? There are scattered areas of fibroglandular density (ACR BI-RADS breast ?? composition Category b). ? There are no significant masses, abnormal calcifications, or other ?? abnormalities. ? MM/MM tomosynthesis screening BI ?? IMPRESSION: ?? No mammographic evidence of malignancy. ? ASSESSMENT: ? BI-RADS BI-RADS 1 - Negative ? RECOMMENDATION: ?? Routine annual mammography screening. ? 1 year F/U ? This examination should not preclude the clinical evaluation of a ?? suspicious palpable abnormality. ? This patient's information was entered into a reminder system with a ?? target due date for their next mammogram. ? Dictated By: ?Ban Guzman MD ? Signed By: ?<Electronically signed by Ban Guzman MD in OV> ? 04/14/2414 ? DD/ 08 ? TD/TT: ? Torpedoman'S Mate: ? Procedure Note Ele, Chepe - 04/14/2024 [facility] [address] [place] [address] [place] [address] Mammography Report Signed Patient: Cathryn Cruz MR#: [id number] : 1970Acct:[id number] Age/Sex: 53 / FADM Date: 03/16/24 Loc: [facility] Attending Dr: Evangelina Combs MD Ordering Physician: Evangelina Meadeesults: 1Negative Date of Service: 03/16/24Follow Up: 1 Year From Orig inal Mammogram Procedure(s): MM tomosynthesis screening BI Accession Number(s): [id number] cc: Evangelina Meade MD EXAMINATION: MM SCREENING DIGITAL BREAST TOMOSYNTHESIS, BILATERAL CLINICAL INFORMATION: Screening. Asymptomatic. COMPARISON: Mammography: This study is compared with prior exams dating back to 2016. TECHNIQUE: Digital breast tomosynthesis is performed in both the craniocaudal and mediolateral oblique views along with computer-aided detection (CAD). Synthesized 2D images are generated from the tomosynthesis. FINDINGS: There are scattered areas of fibroglandular density (ACR BI-RADS breast composition Category b). There are no significant masses, abnormal calcifications, or other abnormalities. MM/MM tomosynthesis screening BI IMPRESSION: No mammographic evidence of malignancy. ASSESSMENT: BI-RADS BI-RADS 1 - Negative RECOMMENDATION: Routine annual mammography screening. 1 year F/U This examination should not preclude the clinical evaluation of a suspicious palpable abnormality. This patient's information was entered into a reminder system with a target due date for their next mammogram. Dictated By: Ban Guzman MD Signed By: <Electronically signed by Ban Guzman MD in OV> 04/14/24 0714 DD/ 0844 TD/TT: Torpedoman'S Mate: us Evangelina Combs MD IMG BI PROCEDURES Fin al Result * Hepatitis C Antibody with Reflex to HCV, RNA, Quantitative, Real-Time PCR (02/05/2024 1:01 PM EDT) Hepatitis C Antibody Nonreactive Nonreactive [facility] Comment:Antibodies to HCV no t detected; does not exclude early acuteHCV infection. Blood Venous blood specimen / Unknown 02/05/2024 1:01 PM EDT 02/05/2024 4:07 PM EDT us Jose Tabor MD LAB BLOOD ORDERABLES Final Resul t [facility] [address] [place] [phone] * HIV-1/2 Antigen and Antibodies, Fourth Generation, with Reflexes (02/05/2024 1:01 PM EDT) [facility] HIV AB/AG Nonreactive Nonreactive [facility] Comment:HIV-1 p24 Ag and/or HIV-1/HIV-2 Ab not detected.A test result that is nonreactive does not exclude thepossibility of exposure to or infection with HIV-1 and/orHIV-2. Nonreactive results in this assay for individualswith prior exposure to HIV-1 and/or HIV-2 may be due toantigen and antibody levels that are below the limit ofdetection of this assay.The SAFCell HIV Ag/Ab Combo assay result andsupplemental assay results should be interpreted inconjunction with the patient's clinical presentation,history and other laboratory results. If the results areinconsistent with clinical evidence, additional testing issuggested to confirm the result. Blood Venous blood specimen / Unknown 02/05/2024 1:01 PM EDT 02/05/2024 4:07 PM EDT us Jose Tabor MD LAB BLOOD ORDERABLES Final Resul t [facility] [address] [place] [phone] * (ABNORMAL) LIPID PANEL, STANDARD (05/21/2022 8:18 AM EDT) [facility] Chol/HDLC Ratio 4.0 <5.0 (calc) [facility] Cholesterol, Total 147 <200 mg/dL [facility] HDL Cholesterol 37(L) > OR = 50 mg/dL [facility] LDL Cholesterol 81 mg/dL (calc) [facility] Comment: Reference range: <100 ?? Desirable range <100 mg/dL for primary prevention; ?? <70 mg/dL for patients with CHD or diabetic patients ?? with > or = 2 CHD risk factors. ?? LDL-C is now calculated using the Delvin ?? calculation, which is a validated novel method providing ?? better accuracy than the Friedewald equation in the ?? estimation of LDL-C. ?? Pérez BADILLO et al. KENDRICK. 2013;310(19): 0218-7005 ?? (http://education.FanTrail/faq/AJZ412) Non-HDL Cholesterol 110 <130 mg/dL (calc) [facility] Comment: For patients with diabetes plus 1 major ASCVD risk ?? factor, treating to a non-HDL-C goal of <100 mg/dL ?? (LDL-C of <70 mg/dL) is considered a therapeutic ?? option. Triglycerides 202(H) <150 mg/dL [facility] Comment: ?? If a non-fasting specimen was collected, consider repeat triglyceride testing on a fasting specimen if clinically indicated. ?? Moris et al. J. of Clin. Lipidol. 2015;9:129-169. ?? 05/21/2022 8:18 AM EDT Viji Sanchez SENIOR ORACLE APPLICATIONS DEVELOPER LAB BLOOD ORDERABLES Final Res ult [facility] [address] * Hm Colonoscopy (05/26/2020) Historical Provider HEALTH MAINTENANCE Final Result * HPV mRNA E6/E7 (03/10/2019 12:00 AM EDT) HPV mRNA E6/E7 Not Detected NOT DETECTED [facility] Comment: This test was performed using the APTIMA(R) HPV Assay ([employer] This assay detects E6/E7 viral messenger RNA (mRNA) from 14 high-risk HPV types (16,18,31,33,35,39,45,51, 52,56,58,59,66,68). For additional information please refer to: http://education.RazorGator/faq/CNS702s4 (This link is being provided for informational/ educational purposes only.) The analytical performance characteristics of this assay have been determined by [employer] [place], [place]. The modifications have not been cleared or approved by the FDA. This assay has been validated pursuant to the CLIA regulations and is used for clinical purposes. Test Performed by [facility], [facility], [address] [place] [address] Guy Francisco M.D., Ph.D., Director of Laboratories , HARINDER [id number] Please note: ??Effective 05/27/2016, HPV testing will be performed using [employer]'s APTIMA test which targets mRNA. Detecting mRNA instead of DNA, as in older methods, offers significant improvements in specificity. 03/10/2019 Gamal Crane CNM HISTORICAL/NON ORDERABLE LABS Final Result [facility] [address] from Last 3 Months or Most Recently Relevant to Health Maintenance Insurance [facility] D[facility] - HSN PARTIAL (MEDICAID) Care Teams Principal Mechanical Engineer Relationship Specialty Start Date End Date Evangelina Meade MD [address] [place] [phone] PCP - General Family Medicine 04/20/20
--- OUTSIDE RECORDS SUMMARY | 2025-01-04 10:10 | XMS_ITS | Encounter Summary ---
Author Organization [employer] Address [address] [facility] [address] [place] [address] Care Team Providers Care Commercial Painter Name Role Phone Evangelina Meade MD Primary Care Provide r Reason for Visit * Reason Comments Med Refill Encounter Details Date Type Department Care Team ([facility] Contact Info) Description 10/03/2023 Refill [facility] [address] [place] [phone] Evangelina Meade MD [address] [place] [address] Social History Tobacco Use Types Packs/Day Years [...] Answer Date Recorded Patient Health Questionnaire-9 Score 2 09/18/2023 Patient Health Questionnaire-9 Score 2 09/18/2023 Last PHQ-9: Questionnaire Data Not on file 0 09/18/2023 Housing Stability Answer Date Recorded What is [...] Answer Date Recorded Patient Health Questionnaire-2 Score 2 09/18/2023 Comments Unknown Sex and Gender Information Value Date Recorded Sex Assigned at Female 07/15/2022 10:21 AM EDT Legal Sex Female 10:21 AM EDT Gender Identity Female 07/15/2022 10:21 AM EDT Sexual Orientation Straight 07/15/2022 10 :21 AM EDT documented as of this encounter Plan of Treatment Upcoming Encounters Date Type Department Care Team (Late st Contact Info) Description 01/14/2025 11:15 AM EDT Telemedicine [facility] [address] [place] [address] Evangelina Meade MD [address] [place] [address] documented as of this encounter Goals Goal Patient Goal Type Associated Problems Recent Progress Patient-Stated? Author Smoking cessation General No Jeana Stone documented as of this encounter Visit Diagnoses Not on filedocumented in this encounter Additional Health Concerns Assessment Noted Time PHQ-9 Depression Total Score: 2 09/18/19 24 3:05 PM EST documented as of this encounter Care Teams Commercial Painter Relationship Specialty Start Date End Date Evangelina Meade MD [address] [place] [address] PCP - General Family Medicine 04/20/20 documented as of this encounter
--- OUTSIDE RECORDS SUMMARY | 2025-01-04 10:10 | XMS_ITS | Encounter Summary ---
Author Organization [employer] Address [address] [facility] [address] [place] [address] Care Team Providers Care Abrasive Grinder Name Role Phone Evangelina Meade MD Primary Care Provide r Reason for Visit * Reason Comments Med Refill Encounter Details Date Type Department Care Team ([facility] Contact Info) Description 09/24/2023 Refill [facility] [address] [place] [address] Evangelina Meade MD [address] [place] [address] Social History Tobacco Use Types Packs/Day Years [...] Info) Description 01/14/2025 11:15 AM EDT Telemedicine [facility] [address] [place] [address] Evangelina Meade MD [address] [place] [address] documented as of this encounter Goals Goal Patient Goal Type Associated Problems Recent Progress Patient-Stated? Author Smoking cessation General No Jeana Stone documented as of this encounter Visit Diagnoses Not on filedocumented in this encounter Additional Health Concerns Assessment Noted Time PHQ-9 Depression Total Score: 2 09/18/19 24 3:05 PM EST documented as of this encounter Care Teams Abrasive Grinder Relationship Specialty Start Date End Date Evangelina Meade MD [address] [place] [phone] PCP - General Family Medicine 04/20/20 documented as of this encounter
== END 2025-01-04 09:24 | disposition home or self-care (01) ==
LOC: HO.HHCX 09:23
PROVIDERS: Visit Provider Emergency Medicine
DX: J45.21 Mild intermittent asthma with (acute) exacerbation (principal)
CPT/HCPCS: 71046

== ENCOUNTER → 2025-01-04 09:23 | Outpatient (BNV) | payer OTHER, SELFPAY | PROVIDERS: Visit Provider Radiology Diagnostic Radiology | DX: R05.9 Cough, unspecified (principal) | CPT/HCPCS: 71046 ==

== ENCOUNTER 2025-03-09 11:00 | Outpatient (REF) | payer OTHER, SELFPAY ==
--- NOTE | ~2025-03-09 | XR_ITS ---
EXAMINATION: XR KNEE, RIGHT CLINICAL INFORMATION: pain since falling a year ago COMPARISON: None available. TECHNIQUE: Four views of the right knee. FINDINGS: Fluid is visible in the super patellar pouch. Joint spaces are preserved. There are no osteophytes. There is no sign of a fracture or deformity. XR/XR knee RT 4V IMPRESSION: Joint effusion. Electronically signed by: Oj Burris MD 03/09/2025 12:14 PM EDT
--- NOTE | ~2025-03-09 | XR_ITS ---
EXAMINATION: XR KNEE, LEFT CLINICAL INFORMATION: Bilateral knee pain. Remote history of fall. COMPARISON: 09/22/2015. TECHNIQUE: Four views of the left knee. FINDINGS: No fracture, dislocation, or suspicious bone lesion. Normal bone mineralization. Normal alignment. Joint spaces are preserved. No significant arthropathy. There is mild superior patellar enthesopathy. No significant joint effusion. Soft tissues appear normal. XR/XR knee LT 4V IMPRESSION: 1. No acute bony abnormalities. Electronically signed by: Alec Booker MD 03/09/2025 12:14 PM EDT
--- OUTSIDE RECORDS SUMMARY | 2025-03-09 13:04 | XMS_ITS | Encounter Summary ---
Author Organization [employer] Address [address] [facility] [address] [place] [address] Care Team Providers Care Car Tester Name Role Phone Evangelina Meade MD Primary Care Provide r Encounter Details Date Type Department Care Team (Late st Contact Info) Description 04/18/2023 Orders Only [facility] [address] [place], [place] [id number] Qi Navarrete LPN Social History Tobacco Use [...] AM EDT documented as of this encounter Functional Status * Over the past 2 weeks, how often have you been bothered by any of the following problems? Question Answer Date of Assessment Author Patient Health Questionnaire -2 Score 1 04/21/2023 1:04 PM EDT Blanca Nascimento MA * If you checked off any problems on this questionnaire so far, Question Answer Date of Assessment Author How difficult have these problems made it for you to do your work, take care of things at home, or get along with other people? Somewhat difficult 04/21/2023 1:04 PM EDT Blanca Nascimento MA * Over the past 2 weeks, how often have you been bothered by any of the following problems? Question Answer Date of Assessment Author Little interest or pleasure in doing things Several days 04/21/2023 1:04 PM EDT Blanca Nascimento MA Feeling down, depressed, or hopeless Not at all 04/21/2023 1:04 PM EDT Blanca Nascimento MA Trouble falling or staying asleep, or sleeping too much Several days 04/21/2023 1:04 PM EDT Michelle Nascimento MA Feeling tired or having little energy Not at all 04/21/2023 1:04 PM DIAT Blanca Nascimento MA Poor appetite or overeating Not at all 04/21/2023 1: 04 PM EDT Michelle Nascimento MA Feeling bad about yourself - or that you are a failure or have let yourself or your family down Not at all 04/21/2023 1:04 PM DIAT Blanca Nascimento MA Trouble concentrating on things, such as reading the newspaper or watching television Several days 04/21/2023 1:04 PM DIAT Blanca Nascimento MA Moving or speaking so slowly that other people could have noticed? Or the opposite - being so fidgety or restless that you have been moving around a lot more than usual. Not at all 04/21/2023 1:04 PM DIAT Blanca Nascimento MA Thoughts that you would be better off or hurting yourself in some way Not at all 04/21/2023 1:04 PM EDT Himanshu Nascimento MA Patient Health Questionnaire-9 Score 3 04/21/2023 1:04 PM EDT Juanpablo Nascimento MA documented as of this encounter Plan of Treatment Not on file documented as of this encounter Visit Diagnoses Not on filedocumented in this encounter Additional Health Concerns Assessment Noted Time PHQ-9 Depression Total Score: 20 023 11:14 AM EDT documented as of this encounter Care Teams Car Tester Relationship Specialty Start Date End Date Evangelina Meade MD [address] [place] [address] PCP - General Family Medicine 04/20/20 documented as of this encounter
[2025-03-09 13:21] LABS: MANUAL DIFF FLAG NO
[2025-03-09 13:30] LABS: Basophils Absolute Auto 0.1 X10*3/uL (0.0-0.2); Basophils Percent Auto 1.3 % (0-2); Eosinophils Absolute Auto 0.3 X10*3/uL (0.0-0.4); Eosinophils Percent Auto 5.1 % (0-4); Hemoglobin 13.3 g/dl (12.0-16.0); Imm Gran Abs Auto 0.01 X10*3/uL (0.00-0.03); Imm Gran Pct Auto 0.2 % (0.0-0.4); Lymphocytes Absolute Auto 1.8 X10*3/uL (1.2-4.9); Lymphocytes Percent Auto 32.5 % (20-40); Mean Corpuscular HGB Conc 34.1 g/dl (31.0-35.0); Mean Corpuscular Hemoglobin 30.9 pg (27.0-33.0); Mean Corpuscular Volume 90.5 fL (80.0-98.0); Mean Platelet Volume 10.9 fL (9.4-12.3); Monocytes Absolute Auto 0.4 X10*3/uL (0.1-1.2); Monocytes Percent Auto 6.5 % (2-11); Neutrophils Percent Auto 54.4 % (45-73); Platelet Count 214 X10*3/uL (160-400); Red Blood Count 4.31 X10*6/uL (4.20-5.50); Red Cell Distribution Width 13.6 % (11.0-16.0); White Blood Count 5.5 X10*3/uL (4.8-10.8)
[2025-03-09 13:38] LABS: Amphetamine Screen Urine Not Detected (Not Detect); Barbiturates, Urine Not Detected (Not Detect); Benzodiazepines Screen Urine Not Detected (Not Detect); Buprenorphine Scr Not Detected (Not Detect); Cannabinoid Screen Urine POSITIVE (Not Detect); Cocaine Screen Urine Not Detected (Not Detect); Fentanyl, urine Not Detected (Not Detect); Methadone Screen, Urine Not Detected (Not Detect); Opiate Screen Urine Not Detected (Not Detect); Oxycodone Screen Urine Not Detected (Not Detect); Phencyclidine Screen Urine Not Detected (Not Detect)
[2025-03-09 13:43] LABS: Estimated Average Glucose 117 mg/dL; Hemoglobin A1c % 5.7 % (<6.0)
[2025-03-09 14:11] LABS: Alanine Aminotransferase 21 U/L (0-31); Albumin Level 4.8 g/dL (3.5-5.0); Alkaline Phosphatase 70 U/L (39-117); Anion Gap 10 (12-20); Aspartate Amino Transferase 24 U/L (5-31); Bilirubin Total 0.5 mg/dL (0.0-1.0); Blood Urea Nitrogen 18 mg/dL (9-16); Calcium 9.5 mg/dL (8.4-10.2); Carbon Dioxide 29 mmol/L (22-29); Chloride 107 mmol/L (96-108); Cholesterol 154 mg/dL (<200); Estimated Glomerular Filt Rate > 60; Glucose Random 92 mg/dL (60-115); HDL Cholesterol 53 mg/dL (>40); LDL Cholesterol Calculated 86 mg/dL (<100); Potassium 3.4 mmol/L (3.3-5.1); Sodium 143 mmol/L (135-145); TSH reflex Free T4 0.71 uIU/mL (0.32-4.0); Total Protein 7.5 g/dL (6.5-8.0); Triglycerides 78 mg/dL (<150); Vitamin D 25-OH Total 74.6 ng/mL (>30)
[2025-03-10 08:00] LABS: HIV AB/AG Nonreactive (Nonreactive); HIV Num 1 0.05 S/CO (0.00-0.99); ~HepC Num1 0.12 S/CO (0.00-0.79); ~Hepatitis C Antibody Nonreactive (Nonreactive)
== END 2025-03-09 11:01 | disposition home or self-care (01) ==
LOC: HO.HHCX 11:00
PROVIDERS: Registered Nurse; PCP Internal Medicine; Visit Provider Internal Medicine
DX: Z00.00 Encounter for general adult medical examination without abnormal findings (principal); F41.9 Anxiety disorder, unspecified; M25.561 Pain in right knee; M25.562 Pain in left knee; G89.29 Other chronic pain; Z13.9 Encounter for screening, unspecified
CPT/HCPCS: 36415; 73564; 80053; 80061; 80307; 82306; 83036; 84443; 85025; 86803; 87389

== ENCOUNTER → 2025-03-09 11:18 | Outpatient (BNV) | payer OTHER, SELFPAY | PROVIDERS: PCP Internal Medicine; Visit Provider Radiology Diagnostic Radiology | DX: M25.461 Effusion, right knee (principal); M25.562 Pain in left knee | CPT/HCPCS: 73564 ==

== ENCOUNTER → 2025-03-22 07:45 | Outpatient (BNV) | payer OTHER, SELFPAY | PROVIDERS: PCP Internal Medicine; Visit Provider Internal Medicine | DX: Z12.31 Encounter for screening mammogram for malignant neoplasm of breast (principal) | CPT/HCPCS: 77063; 77067 ==

== ENCOUNTER 2025-03-22 07:51 | Outpatient (REF) | payer OTHER, SELFPAY ==
--- OUTSIDE RECORDS SUMMARY | 2025-03-22 07:53 | XMS_ITS | Encounter Summary ---
Author Organization [employer] Address [address] [facility] [address] [place] [address] Care Team Providers Care Shake Out Worker Name Role Phone Evangelina Meade MD Primary Care Provide r Encounter Details Date Type Department Care Team (Late st Contact Info) Description 04/18/2023 Orders Only [facility] [address] [place] [address] Qi Navarrete LPN Social History Tobacco Use [...] Several days 04/21/2023 1:04 PM EDT Blanca Nascimneto MA Feeling down, depressed, or hopeless Not [...] documented as of this encounter Care Teams Shake Out Worker Relationship Specialty Start Date End Date Evangelina Meade MD [address] [place] [address] PCP - General Family Medicine 04/20/20 documented as of this encounter
== END 2025-03-22 07:52 | disposition home or self-care (01) ==
LOC: HO.MAMMO 07:51
PROVIDERS: PCP Internal Medicine; Visit Provider Internal Medicine
DX: Z12.31 Encounter for screening mammogram for malignant neoplasm of breast (principal)
CPT/HCPCS: 77063; 77067

== ENCOUNTER 2025-05-04 14:27 | Outpatient (RCR) | payer OTHER, SELFPAY | END 2025-05-13 08:24 | disposition home or self-care (01) | LOC: HO.PT 14:27 | PROVIDERS: PCP Internal Medicine; Visit Provider Internal Medicine | DX: M25.561 Pain in right knee (principal); M25.562 Pain in left knee; G89.29 Other chronic pain | CPT/HCPCS: 97110; 97162 ==

== ENCOUNTER 2025-08-17 08:29 | Day surgery (SDC) | payer OTHER, SELFPAY ==
--- NOTE | 2025-08-15 10:57 | HO.ANESPROP2 ---
Documented by User: Stacy Hilario NP 08/15/25 10:59 HPI - Anesthesia Eval Consult details Narrative: 55 yr old female for colonoscopy PVCs, mild cardiomyopathy: last saw [facility] cardiology 08/2024, echo from 2022 below Smoker, mild asthma PMFSH Active Problems Active Problems: All Active Problems (Updated 12/28/24 @ 17:52 by Aure Fam CNP) AC joint arthropathy (Acute) Nicotine dependence (Acute) History of kidney stones (Acute) Hematuria (Acute) Sebaceous cyst of axilla (Acute) Fear of parasites (Acute) Adenomatous colon polyp (Acute) IBS (irritable bowel syndrome) (Acute) Trigger finger of right thumb (Acute) Nephrolithiasis (Acute) COVID-19 (Acute) Rotator cuff tear, left (Acute) Status post right rotator cuff repair (Acute) Status post rotator cuff repair (Acute) Adhesive capsulitis of left shoulder (Acute) Diverticulosis of colon (Acute) H/O anterior cruciate ligament surgery (Acute) Cardiomyopathy (Acute) Smoking (Acute) Impingement syndrome of right shoulder (Acute) De Quervain's tenosynovitis, right (Acute) Numbness and tingling in both hands (Acute) HTN (hypertension) (Acute) PVC (premature ventricular contraction) (Acute) Medial epicondylitis of both elbows (Acute) Pain of both elbows (Acute) Anxiety (Acute) Acid reflux (Acute) Past Medical History Medical History (Updated 08/17/25 @ 08:56 by Nory Hart RN) Bipolar disorder Elevated cholesterol Restless leg syndrome Fibromyalgia Adenomatous polyps Sebaceous cyst of axilla Rotator cuff insufficiency of left shoulder PVC (premature ventricular contraction) History of COVID-19 HTN (hypertension) Medial epicondylitis of both elbows Pain of both elbows Numbness and tingling in both hands Anxiety Acid reflux Family History Family History Father Hypertension PTSD (post-traumatic stress disorder) Mother Manic depression Hyperlipemia Heart disease Asthma Anxiety Son Asthma Daughter Asthma Paternal Grandfather Asthma Paternal Grandfather Asthma Alzheimer disease Maternal Grandmother Asthma Brother No problems noted. Sister No problems noted. Family history of problems with anesthesia: No Surgical History Surgical History History of removal of cyst (~04/17/23) Hx of repair of left rotator cuff Hx of cystoscopy Hx of endoscopy Hx of colonoscopy H/O nasal polypectomy History of carpal tunnel release Hx of tonsillectomy History of cholecystectomy History of Problems with Anesthesia: No Social History Social History Household Members: Children Are you a primary home care liaison to a significant other at home: No Do you presently have visiting nurse or other home services: No Alcohol intake: current Alcohol intake frequency: does not drink Alcohol type: wine Patient Tobacco Use Status: Current everyday Tobacco user Tobacco use type: Cigarette Cigarettes Per Day: 7 Use of substances other than those prescribed or required for medical reasons: Yes Substance Use Type: Marijuana Substance Use Type Other:: smoked for sleep--LD 08/16 Substance Use Frequency: Daily Are you DNR?: No Advance Directives: No Advance Directives Information Provided: Yes Advance Directives Date on File: 03/31/23 Current occupational status: employed 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 Meds Allergies Allergy/AdvReac Type Severity Reaction Status Date / Time tramadol Allergy Severe Seizure Verified 12/28/24 07:35 trazodone Allergy Severe manic Verified 12/28/24 07:35 episodes droperidol (From Inapsine) Allergy Intermediate Rash Verified 12/28/24 07:35 Sulfa (Sulfonamide Allergy Intermediate hives Verified 12/28/24 07:35 Antibiotics) sulfamethoxazole (From Allergy Intermediate HIVES Verified 12/28/24 07:35 BACTRIM) trimethoprim (From BACTRIM) Allergy Intermediate HIVES Verified 12/28/24 07:35 raw fruit Allergy Intermediate Itchy Uncoded 08/30/24 13:31 throat From COPAXONE Allergy Mild HIVES Uncoded 08/30/24 13:31 Home Medications ?Medication ?Instructions ?Recorded ?Confirmed ?Last Taken ?Type gabapentin 400 mg capsule 400 mg PO TID 11/29/20 08/15/25 03/31/23 History hydrochlorothiazide 25 mg tablet 25 mg PO DAILY 05/23/21 08/15/25 Unknown History ergocalciferol (vitamin D2) 1,250 1,250 mcg PO QWEEK 09/05/21 08/15/25 Unknown History mcg (50,000 unit) capsule fluticasone propionate 115 2 puff inhalation BID 09/05/21 08/15/25 07/08/23 History mcg-salmeterol 21 mcg/actuation HFA inhaler (Advair HFA) fluticasone propionate 50 1 spray intranasal DAILY 09/05/21 08/15/25 07/08/23 History mcg/actuation nasal spray,suspension atorvastatin 40 mg tablet 40 mg PO QAM 07/24/22 08/15/25 Unknown History hydroxyzine HCl 10 mg tablet 10 mg PO BID PRN Anxiety 10/22/22 12/28/24 03/31/23 History hydroxyzine HCl 25 mg tablet 25 mg PO TID PRN Itching 06/11/23 08/15/25 Unknown History albuterol sulfate 90 mcg/actuation 2 puff inhalation Q6H PRN 12/28/24 08/15/25 Unknown History aerosol inhaler Shortness Of Breath loratadine 10 mg tablet 10 mg PO QAM allergies 12/28/24 08/15/25 Unknown History aripiprazole 10 mg tablet PO 08/17/25 08/17/25 Unknown History Exam Narrative Narrative: ECHO 2022 Conclusions: - The left ventricular systolic function is low normal. The calculated ejection fraction is 53% by biplane method. - No obvious valvular pathology seen on this study. EKG 08/2024 NSR, rate 70 Assessment and Plan Final Anesthetic Review Family History of Problems with Anesthesia: No History of Problems with Anesthesia: No Documented by User: Laina Subramanian MD 08/17/25 09:17 [facility] Past Medical History Medical History (Updated 08/17/25 @ 08:56 by Nory Hart RN) Bipolar disorder Elevated cholesterol Restless leg syndrome Fibromyalgia Adenomatous polyps Sebaceous cyst of axilla Rotator cuff insufficiency of left shoulder PVC (premature ventricular contraction) History of COVID-19 HTN (hypertension) Medial epicondylitis of both elbows Pain of both elbows Numbness and tingling in both hands Anxiety Acid reflux Family History Family History Father Hypertension PTSD (post-traumatic stress disorder) Mother Manic depression Hyperlipemia Heart disease Asthma Anxiety Son Asthma Daughter Asthma Paternal Grandfather Asthma Paternal Grandfather Asthma Alzheimer disease Maternal Grandmother Asthma Brother No problems noted. Sister No problems noted. Surgical History Surgical History History of removal of cyst (~04/17/23) Hx of repair of left rotator cuff Hx of cystoscopy Hx of endoscopy Hx of colonoscopy H/O nasal polypectomy History of carpal tunnel release Hx of tonsillectomy History of cholecystectomy Social History Social History Household Members: Children Are you a primary home care liaison to a significant other at home: No Do you presently have visiting nurse or other home services: No Alcohol intake: current Alcohol intake frequency: does not drink Alcohol type: wine Patient Tobacco Use Status: Current everyday Tobacco user Tobacco use type: Cigarette Cigarettes Per Day: 7 Use of substances other than those prescribed or required for medical reasons: Yes Substance Use Type: Marijuana Substance Use Type Other:: smoked for sleep--LD 08/16 Substance Use Frequency: Daily Are you DNR?: No Advance Directives: No Advance Directives Information Provided: Yes Advance Directives Date on File: 03/31/23 Current occupational status: employed 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 Meds Allergies Allergy/AdvReac Type Severity Reaction Status Date / Time tramadol Allergy Severe Seizure Verified 12/28/24 07:35 trazodone Allergy Severe manic Verified 12/28/24 07:35 episodes droperidol (From Inapsine) Allergy Intermediate Rash Verified 12/28/24 07:35 Sulfa (Sulfonamide Allergy Intermediate hives Verified 12/28/24 07:35 Antibiotics) sulfamethoxazole (From Allergy Intermediate HIVES Verified 12/28/24 07:35 BACTRIM) trimethoprim (From BACTRIM) Allergy Intermediate HIVES Verified 12/28/24 07:35 raw fruit Allergy Intermediate Itchy Uncoded 08/30/24 13:31 throat From COPAXONE Allergy Mild HIVES Uncoded 08/30/24 13:31 Home Medications ?Medication ?Instructions ?Recorded ?Confirmed ?Last Taken ?Type gabapentin 400 mg capsule 400 mg PO TID 11/29/20 08/15/25 03/31/23 History hydrochlorothiazide 25 mg tablet 25 mg PO DAILY 05/23/21 08/15/25 Unknown History ergocalciferol (vitamin D2) 1,250 1,250 mcg PO QWEEK 09/05/21 08/15/25 Unknown History mcg (50,000 unit) capsule fluticasone propionate 115 2 puff inhalation BID 09/05/21 08/15/25 07/08/23 History mcg-salmeterol 21 mcg/actuation HFA inhaler (Advair HFA) fluticasone propionate 50 1 spray intranasal DAILY 09/05/21 08/15/25 07/08/23 History mcg/actuation nasal spray,suspension atorvastatin 40 mg tablet 40 mg PO QAM 07/24/22 08/15/25 Unknown History hydroxyzine HCl 10 mg tablet 10 mg PO BID PRN Anxiety 10/22/22 12/28/24 03/31/23 History hydroxyzine HCl 25 mg tablet 25 mg PO TID PRN Itching 06/11/23 08/15/25 Unknown History albuterol sulfate 90 mcg/actuation 2 puff inhalation Q6H PRN 12/28/24 08/15/25 Unknown History aerosol inhaler Shortness Of Breath loratadine 10 mg tablet 10 mg PO QAM allergies 12/28/24 08/15/25 Unknown History aripiprazole 10 mg tablet PO 08/17/25 08/17/25 Unknown History Exam Airway Mallampati Class: II TM Dist: >3cm Neck ROM: Full Heart: rrr Lungs: cta Assessment and Plan Assessment Anesthesia Assessment: Anesthesia Plan Discussed and Chart Reviewed Final Anesthetic Review NPO: Yes ASA Class: II Final Preanesthetic Review: No Changes in Pt Med Stat, Meds/Allgs Chart Reviewed and Consent Obtained/Reviewed Patient Risk: Low Procedure Risk: Low Anesthetic Plan Anesthetic Plan: MAC: Disposition: Standard PACU
[2025-08-15 14:56] VITALS: BMI 26.1
[2025-08-17 08:58] VITALS: BMI 28.3
[2025-08-17 09:03] VITALS: BP 131/80; PULSE 80; RESP 14; TEMP 36.5; O2SAT 97
--- NOTE | 2025-08-17 09:14 | MHC.SHP ---
Pre-Procedural Eval Section A - 24 Hr Update-Section A only Date of Service: 08/17/25 Section B - Complete if H&P > 30 days Chief Complaint: screening Relevant Family History (Specify if Yes): No Relevant Social History: Tobacco Use Present Medications: see Short Stay Collaborative assessment Medical History: Significant History ( Adenomatous polyps Sebaceous cyst of axilla Rotator cuff insufficiency of left shoulder PVC (premature ventricular contraction) History of COVID-19 HTN (hypertension) Medial epicondylitis of both elbows Pain of both elbows Numbness and tingling in both hands Anxiety Acid reflux) History of Previous Operations: Relevant previous surgery/procedure and date(s) (History of removal of cyst (~04/17/23) Hx of repair of left rotator cuff Hx of cystoscopy Hx of endoscopy Hx of colonoscopy H/O nasal polypectomy History of carpal tunnel release Hx of tonsillectomy History of cholecystectomy) Allergies: Allergies Allergy/AdvReac Type Severity Reaction Status Date / Time tramadol Allergy Severe Seizure Verified 12/28/24 07:35 trazodone Allergy Severe manic Verified 12/28/24 07:35 episodes droperidol (From Inapsine) Allergy Intermediate Rash Verified 12/28/24 07:35 Sulfa (Sulfonamide Allergy Intermediate hives Verified 12/28/24 07:35 Antibiotics) sulfamethoxazole (From Allergy Intermediate HIVES Verified 12/28/24 07:35 BACTRIM) trimethoprim (From BACTRIM) Allergy Intermediate HIVES Verified 12/28/24 07:35 raw fruit Allergy Intermediate Itchy Uncoded 08/30/24 13:31 throat From COPAXONE Allergy Mild HIVES Uncoded 08/30/24 13:31 Review of Systems Sugical H&P ROS: Negative: Constitution, Cardiovascular, Respiratory, Neurological, Psychiatric, Hem-Onc, Allergic/Immunologic, Gastrointestinal, Genitourinary, Musculoskeletal, Integumentary, Endocrine and Eyes/Ears/Nose/Throat Exam Surgical H&P Exam: Normal: HEENT, Normal: Heart, Normal: Lungs, Normal: Extremities, Normal: Abdomen, Normal: Skin and Normal: Neurological Plan Diagnosis/Plan: Unchanged I have reviewed the history and physical and performed a pertinent physical examination on my patient. No changes have occurred unless specified. Time Spent With Patient Time: Total time managing care of this patient today ____ minutes.
[2025-08-17] MEDS: Lactated Ringers 1,000 ML 100 ML IVCONT (09:16)
--- NOTE | 2025-08-17 10:19 | P.OPN-COLO_ITS ---
Colonoscopy Operative Note Operative Note Date of Service: 08/17/25 Narrative: Operative Information Procedure Description: Colonoscopy Indication: screening Anesthesia: MAC COLONOSCOPY Instrument: Olympus variable stiffness pediatric scope 190L Colonoscopy Monitoring: Vital signs and clinical assessment, continuous EKG monitoring, Pulse oximetry, Carbon Dioxide monitoring and blood pressure monitoring were done throughout the procedure. Colon withdrawal time was 10 minutes. Procedure: The patient was placed in the left lateral decubitis position and pre-procedure medications were administered. After a digital rectal examination of the ano-rectum, the video colonoscope was inserted into the rectum and advanced through the colon to the cecum/TI. The colonoscope was slowly withdrawn in a retrograde panoramic fashion and the colon mucosa was carefully examined including a retroflexed view of the rectum. Findings and interventions are described below. Procedure Difficulty: moderate Findings: Terminal Ileum-normal Cecum:normal Ascending Colon: 6-8 mm flat polyp lifted with eleview and then removed with cold snare Transverse Colon -normal Descending Colon:normal Sigmoid Colon: mild diverticulosis Rectum: Retroflexion with small internal hemorrhoids seen, grade I, 6-7 mm sessile polyp removed with cold forceps Anorectum - normal Intervention: cold forceps, cold snare and eleview Colon preparation: [place] Bowel Preparation Scale Right colon; 2 Transverse colon: 2 Left colon; 2 (0 = Unprepared colon segment with mucosa not seen due to solid stool that cannot be cleared. 1 = Portion of mucosa of the colon segment seen, but other areas of the colon segment not well seen due to staining, residual stool and/or opaque liquid. 2 = Minor amount of residual staining, small fragments of stool and/or opaque liquid, but mucosa of colon segment seen well. 3 = Entire mucosa of colon segment seen well with no residual staining, small fragments of stool or opaque liquid) Impression and Post Procedure Diagnosis: diverticulosis colon polyps x 2 internal hemorrhoids Plan: High fiber diet leaflet Avoid straining at stool, epsom salts and sitz bath, anusol supps or cream Repeat Colonoscopy in 5 years due to polyps or earlier if clinically indicated Above findings were reviewed with the patient and relevant handouts were provided if indicated.
[2025-08-17 10:22] VITALS: BP 158/93; PULSE 72; RESP 16; TEMP 36.2; O2SAT 97
[2025-08-17 10:37] VITALS: BP 155/91; PULSE 77; RESP 16; TEMP 36.2; O2SAT 95
== END 2025-08-17 11:23 | disposition home or self-care (01) ==
PROVIDERS: PCP Internal Medicine; Visit Provider Internal Medicine Gastroenterology
PROC: 0DJD8ZZ Inspection of Lower Intestinal Tract, Via Natural or Artificial Opening Endoscopic (ICD-10-PCS; CPT 45378; principal; 2025-08-17 10:20)
DX: Z12.11 Encounter for screening for malignant neoplasm of colon (principal); Z86.0101 Personal history of adenomatous and serrated colon polyps; K58.2 Mixed irritable bowel syndrome; K57.30 Diverticulosis of large intestine without perforation or abscess without bleeding; D12.2 Benign neoplasm of ascending colon; K63.5 Polyp of colon
CPT/HCPCS: 45380; 45385; 45381; 88305; J2003; J2704

== ENCOUNTER → 2025-08-17 08:29 | Outpatient (BNV) | payer OTHER, SELFPAY | PROVIDERS: PCP Internal Medicine; Visit Provider Internal Medicine Gastroenterology | DX: Z12.11 Encounter for screening for malignant neoplasm of colon (principal); D12.2 Benign neoplasm of ascending colon; D12.8 Benign neoplasm of rectum; K57.30 Diverticulosis of large intestine without perforation or abscess without bleeding; K64.0 First degree hemorrhoids | CPT/HCPCS: 45380; 45385 ==

== ENCOUNTER 2025-08-25 09:53 | Outpatient (REF) | payer OTHER, SELFPAY ==
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
== END 2025-08-25 09:54 | disposition home or self-care (01) ==
LOC: HO.HHCX 09:53
PROVIDERS: Visit Provider Family Medicine
DX: R07.89 Other chest pain (principal); M54.2 Cervicalgia; M25.512 Pain in left shoulder
CPT/HCPCS: 71101; 72040; 73030

== ENCOUNTER → 2025-08-25 09:56 | Outpatient (BNV) | payer OTHER, SELFPAY | PROVIDERS: Visit Provider Radiology Diagnostic Radiology | DX: J84.10 Pulmonary fibrosis, unspecified (principal); M41.84 Other forms of scoliosis, thoracic region; Z90.49 Acquired absence of other specified parts of digestive tract; M47.812 Spondylosis without myelopathy or radiculopathy, cervical region; M75.32 Calcific tendinitis of left shoulder | CPT/HCPCS: 71101; 72040; 73030 ==

== ENCOUNTER 2025-08-30 14:01 | Outpatient (AMB) | payer OTHER, SELFPAY ==
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
[2025-08-30 14:06] VITALS: BP 134/80; PULSE 82; O2SAT 99; BMI 28.8
--- NOTE | 2025-08-30 14:06 | MHC.OFFVIS ---
Vital Signs 08/30/25 14:06 Height 5 ft 4 in Weight 167 lb 15.876 oz BMI 28.8 BP 134/80 Blood Pressure Location Lt brachial Position Sitting Pulse 82 Pulse Source Pulse Oximeter Pulse Oximetry (%) 99 Oxygen Delivery Method Room Air Intake Visit Reasons: s/p colo Farah Intake Note: Patient follow up for Acid reflux and Colonoscopy results Patient cc: None/ Denies N/V/D. Allergies tramadol Allergy (Severe, Verified 08/30/25 14:06) Seizure trazodone Allergy (Severe, Verified 08/30/25 14:06) manic episodes droperidol (From Inapsine) Allergy (Intermediate, Verified 08/30/25 14:06) Rash Sulfa (Sulfonamide Antibiotics) Allergy (Intermediate, Verified 08/30/25 14:06) hives sulfamethoxazole (From BACTRIM) Allergy (Intermediate, Verified 08/30/25 14:06) HIVES trimethoprim (From BACTRIM) Allergy (Intermediate, Verified 08/30/25 14:06) HIVES raw fruit Allergy (Intermediate, Uncoded 08/30/25 14:06) Itchy throat From COPAXONE Allergy (Mild, Uncoded 08/30/25 14:06) HIVES Medication List - Last Reconciled 08/30/25 by Aure Fam CNP albuterol sulfate 90 mcg/actuation 2 puffs inhalation Q6H PRN aripiprazole PO atorvastatin 40 mg PO QAM ergocalciferol (vitamin D2) 1,250 mcg PO QWEEK famotidine 20 mg PO QAM fluticasone propion-salmeterol 115-21 mcg/actuation (Advair HFA) 2 puffs inhalation BID fluticasone propionate 50 mcg/actuation 1 spray intranasal DAILY gabapentin 400 mg PO TID hydrochlorothiazide 25 mg PO DAILY hydroxyzine HCl 10 mg PO BID PRN hydroxyzine HCl 25 mg PO TID PRN lidocaine 5% 1 patch topical Q24H lisinopril 20 mg PO QPM loratadine 10 mg PO QAM pantoprazole 20 mg PO DAILY HPI HPI s/p colo Farah: Details: Patient is a 54-year-old female with PMH of hypertension, anxiety, IBS and GERD. Follow-up visit to review her colonoscopy results from August 17, 2025. The procedure was a complete colonoscopy to the cecum with adequate bowel preparation. Findings included one removed precancerous tubular adenoma less than 2 mm in the ascending colon, a removed benign hyperplastic polyp in the rectum, mild sigmoid diverticulosis, and grade 1 small internal hemorrhoids. The patient has a history of upper GI symptoms and her upper endoscopy from 2019 revealed focal esophagitis with a 1-centimeter chronic-appearing erosion and inflammation in her stomach. She currently takes pantoprazole daily and has a prescription for famotidine, but is unsure if she is taking the latter. She reports recent episodes of having white, bubbly saliva come up, which gives her a choking sensation. The patient reports some constipation following her recent colonoscopy. She reports being a smoker. She does intermittent fasting and is trying to consume more yogurt. She has exercise limitations due to a heart condition, which prevents her from using a treadmill, although she can use a bike. She recently completed a 5-day course of prednisone. FOR[facility]LY [facility] Medical History Bipolar disorder Elevated cholesterol Restless leg syndrome Fibromyalgia Adenomatous polyps Sebaceous cyst of axilla Rotator cuff insufficiency of left shoulder PVC (premature ventricular contraction) History of COVID-19 HTN (hypertension) Medial epicondylitis of both elbows Pain of both elbows Numbness and tingling in both hands Anxiety Acid reflux Surgical History History of removal of cyst (~04/17/23) Hx of repair of left rotator cuff Hx of cystoscopy Hx of endoscopy Hx of colonoscopy H/O nasal polypectomy History of carpal tunnel release Hx of tonsillectomy History of cholecystectomy Family History Father Hypertension PTSD (post-traumatic stress disorder) Mother Manic depression Hyperlipemia Heart disease Asthma Anxiety Son Asthma Daughter Asthma Paternal Grandfather Asthma Paternal Grandfather Asthma Alzheimer disease Maternal Grandmother Asthma Brother No problems noted. Sister No problems noted. 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 Review of Systems Const Reports as per HPI ENT Reports as per HPI Card Reports as per HPI Resp Reports as per HPI GI Reports as per HPI Reports as per HPI Physical Exam Vital Signs: Last Vital Signs Pulse 82 08/30/25 14:06 BP 134/80 08/30/25 14:06 Pulse Ox 99 08/30/25 14:06 Oxygen Delivery Method Room Air 08/30/25 14:06 BMI result Body Mass Index 28.8 Const General: healthy appearing, no acute distress and well developed Nutritional Appearance: average body habitus Orientation/consciousness: patient oriented x3 HEENT Head: Yes normal to inspection, Yes normocephalic and Yes atraumatic Face and sinus: Yes normal facial exam Eyes General: appearance normal, both eyes and all related structures Neck Neck: Yes normal visual inspection Resp Effort & Inspection: normal respiratory effort, able to speak in complete sentences, no tracheal deviation and symmetric chest movement Cardio Jugular venous distension: no JVD GI Inspection: Yes normal to inspection and No distended Palpation (GI): Soft to palpation, not firm, nontender and No hepatosplenomegaly present Neuro General: patient oriented x3 Gait exam (Neuro): Normal gait present Psych Appearance: grossly normal Mental Status: mental status grossly normal Speech and movement: Normal speech and movement present Affect: normal affect Attitude: cooperative Thought process: Normal thought process present Thought content: Normal thought content present Insight: Good insight present (Psych) Judgement: Good judgement present (Psych) Results Reviewed Results Reviewed: Operative Note Date of Service: 08/17/25 Narrative: Operative Information Procedure Description: Colonoscopy Indication: screening Anesthesia: MAC COLONOSCOPY Instrument: Olympus variable stiffness pediatric scope 190L Colonoscopy Monitoring: Vital signs and clinical assessment, continuous EKG monitoring, Pulse oximetry, Carbon Dioxide monitoring and blood pressure monitoring were done throughout the procedure. Colon withdrawal time was 10 minutes. Procedure: The patient was placed in the left lateral decubitis position and pre-procedure medications were administered. After a digital rectal examination of the ano-rectum, the video colonoscope was inserted into the rectum and advanced through the colon to the cecum/TI. The colonoscope was slowly withdrawn in a retrograde panoramic fashion and the colon mucosa was carefully examined including a retroflexed view of the rectum. Findings and interventions are described below. Procedure Difficulty: moderate Findings: Terminal Ileum-normal Cecum:normal Ascending Colon: 6-8 mm flat polyp lifted with eleview and then removed with cold snare Transverse Colon -normal Descending Colon:normal Sigmoid Colon: mild diverticulosis Rectum: Retroflexion with small internal hemorrhoids seen, grade I, 6-7 mm sessile polyp removed with cold forceps Anorectum - normal Intervention: cold forceps, cold snare and eleview Colon preparation: Gilbert Bowel Preparation Scale Right colon; 2 Transverse colon: 2 Left colon; 2 (0 = Unprepared colon segment with mucosa not seen due to solid stool that cannot be cleared. 1 = Portion of mucosa of the colon segment seen, but other areas of the colon segment not well seen due to staining, residual stool and/or opaque liquid. 2 = Minor amount of residual staining, small fragments of stool and/or opaque liquid, but mucosa of colon segment seen well. 3 = Entire mucosa of colon segment seen well with no residual staining, small fragments of stool or opaque liquid) Impression and Post Procedure Diagnosis: diverticulosis colon polyps x 2 internal hemorrhoids Plan: High fiber diet leaflet Avoid straining at stool, epsom salts and sitz bath, anusol supps or cream Repeat Colonoscopy in 5 years due to polyps or earlier if clinically indicated Above findings were reviewed with the patient and relevant handouts were provided if indicated. PATHOLOGY: Collected: 08/17/25 Location: [facility] Received: 08/17/25 Diagnosis A. Colon, ascending, polypectomy: Fragments of tubular adenoma; negative for high-grade dysplasia or carcinoma. B. Rectum, polypectomy: Hyperplastic mucosal polyp. Clinical History Pre-Op Dx: Screening Post-Op Dx: Polyps, diverticulosis, hemorrhoids Assessment & Plan Assessment & Plan (1) Acid reflux: Comment: 05/26/2020 Upper endoscopy- hiatal hernia 34-36 cm, Focal esophagitis with two 1cm chronic appearing erosions, Mild gastritis erythema, Normal bulb and descending duodenum Code(s): K21.9 - Gastro-esophageal reflux disease without esophagitis Category: Medical Qualifiers: Esophagitis presence: with esophagitis Esophagitis bleeding: without hemorrhage Qualified Code(s): K21.00 - Gastro-esophageal reflux disease with esophagitis, without bleeding Plan: Controlled. The patient will continue her daily pantoprazole. Unclear why upper endoscopy was not ordered at time colonoscopy.We discussed UGI series VS repeat EGD. pt would like to proceed with EGD due to required oral contrast for imaging. - An order will be placed for an upper endoscopy to reevaluate the findings from her 2019 procedure. - The patient was advised to confirm with her pharmacy if she is taking famotidine. - General reflux education was provided, including avoiding triggers, not overeating, and not lying down immediately after meals. (2) Adenomatous colon polyp: Comment: -08/17/25 COLONOSCOPY complete with adequate prep - 6-8 mm TA ( ascending), mild diverticulosis ( sigmoid), HP ( rectum), grade 1 small internal hemorrhoids. recommendations for repeat in 5-7 years -05/26/2020 Colonoscopy complete with excellent prep- TA (cecum, ascending), Moderate diverticulosis ( sigmoid), Moderate hemorrhoids on retroflex exam, Recommendations for repeat 3 years (2022) Code(s): D12.6 - Benign neoplasm of colon, unspecified Category: Medical Qualifiers: Colon location: ascending Qualified Code(s): D12.2 - Benign neoplasm of ascending colon Plan: The patient's colonoscopy findings were reviewed, noting the removal of a precancerous tubular adenoma and a benign hyperplastic polyp. Discussed the findings of mild diverticulosis and reviewed recommendations for prevention of diverticulitis, including a high-fiber diet, hydration, exercise, and probiotics (diet and/or supplement). - A repeat colonoscopy is recommended in 5 to 7 years. Plan Follow-up after endoscopy or sooner as needed Time: I spent a total of 22 minutes on the date of encounter which includes: Preparing to see the patient (reviewed previous documentation, test results and medical history) Performing a medically appropriate exam and/or evaluation Ordering medications, tests, and procedures Documenting clinical information in the health record Orders: Referrals GI Procedure Notification K21.00 - Gastro-esophageal reflux disease with esophagitis, without bleeding Patient Instructions: Educated on how to access the [facility] patient portal for easier communication. Coding Level of Care Code Established Pt Est Pt Level 3 (21243) Patient Type Established Diagnoses Gastroesophageal reflux disease with esophagitis without hemorrhage K21.00 Esophagitis presence: with esophagitis Esophagitis bleeding: without hemorrhage Adenomatous polyp of ascending colon D12.2 Colon location: ascending
--- OUTSIDE RECORDS SUMMARY | 2025-08-30 18:15 | XMS_ITS | Encounter Summary ---
Author Organization [employer] Address [address] [place] [address] [address] [place] [address] Care Team Providers Care [employer] Dispatcher Name Role Phone Evangelina Meade MD Primary Care Provide r Reason for Visit * Reason Comments Med Refill Encounter Details Date Type Department Care Team (Late Contact Info) Description 04/02/2023 Refill [facility] [address] [place] [address] Kit Barton FNP Social History Tobacco Use [...] Upcoming Encounters Date Type Department Care Team ([facility] Contact Info) Description 09/02/2025 10:00 AM EST Office Visit [facility] [address] [place], [place] [phone] Evangelina Meade MD [address] [place], [place] [phone] 12/02/2025 9:30 AM EDT Office Visit [facility] [address] [place] [address] Alexa Willson documented as of this encounter Visit Diagnoses Not on filedocumented in this encounter Additional Health Concerns Assessment Noted Time PHQ-9 Depression Total Score: 20 023 11:14 AM EDT documented as of this encounter Care Teams [employer] Dispatcher Relationship Specialty Start Date End Date Evangelina Meade MD [address] [place] [address] PCP - General Family Medicine 04/20/20 documented as of this encounter
--- OUTSIDE RECORDS SUMMARY | 2025-08-30 18:15 | XMS_ITS | Encounter Summary ---
Author Organization [employer] Address [address] [facility] [address] [place] [address] Care Team Providers Care [employer] Name Role Phone Evangelina Meade MD Primary Care Provide r Encounter Details Date Type Department Care Team (Late st Contact Info) Description 04/18/2023 Orders Only [facility] [address] [place] [address] Qi Navarrete LPN Social History Tobacco Use [...] 1:04 PM EDT Blanca Nascimento MA * How difficult have these problems made it for you to do your work, take care of things at home, or get along with other people? Answer Date of Assessment Author Somewhat difficult 04/21/2023 1:04 PM EDT Michelle Serna MA * Over the past 2 weeks, how often have you been bothered by any of the following problems? Question Answer Date of Assessment Author Little interest or pleasure in doing things Several days 04/21/2023 1:04 PM EDT Blanca Nascimento MA Feeling down, depressed, or hopeless Not at all 04/21/2023 1:04 PM DIAT Blanca Nascimento MA Trouble falling or staying asleep, or sleeping too much Several days 04/21/2023 1:04 PM EDT Michelle Nascimento MA Feeling tired or having little energy Not at all 04/21/2023 1:04 PM EDT Blanca Nascimento MA Poor appetite or overeating Not at all 04/21/2023 1: 04 PM DIAT Michelle Nascimento MA Feeling bad about yourself [...] usual. Not at all 04/21/2023 1:04 PM Blanca Carrillo MA Thoughts that you would be better off or hurting yourself in some way Not at all 04/21/2023 1:04 PM DIAT Himanshu Nascimento MA Patient Health Questionnaire-9 Score 3 04/21/2023 1:04 PM DIAT Juanpablo Nascimento MA documented as of this encounter Plan of Treatment Upcoming Encounters Date Type Department Care Team (Late st Contact Info) Description 09/02/2025 10:00 AM EST Office Visit [facility] [address] [place] [address] Evangelina Meade MD [address] [place] [address] 12/02/2025 9:30 AM EDT Office Visit [facility] [address] [place] [address] Alexa Willson documented as of this encounter Visit Diagnoses Not on filedocumented in this encounter Additional Health Concerns Assessment Noted Time PHQ-9 Depression Total Score: 20 023 11:14 AM EDT documented as of this encounter Care Teams President [employer] Relationship Specialty Start Date End Date Evangelina Meade MD [address] [place] [address] PCP - General Family Medicine 04/20/20 documented as of this encounter
--- OUTSIDE RECORDS SUMMARY | 2025-08-30 18:16 | XMS_ITS | Encounter Summary ---
Author Organization [employer] Address [address] [facility] [address] [place] [address] Care Team Providers Care Chicken Fancier Name Role Phone Evangelina Meade MD Primary Care Provide r Reason for Visit * Reason Onset Date Comments Appointment Request 08/15/2023 Encounter Details Date Type Department Care Team ([facility] Contact Info) Description 08/15/2023 Telephone [facility] MEDICINE [address] [place] [address] Evangelina Meade MD [address] [place] [address] Appointment Request Social History Tobacco Use Types [...] - 08/15/2023 11:00 AM EST [facility] technical document writer attempted to schedule no availability for August. documented in this encounter Plan of Treatment Upcoming Encounters Date Type Department Care Team (Late st Contact Info) Description 09/02/2025 10:00 AM EST Office Visit [facility] MEDICINE [address] [place] [address] Evangelina Meade MD [address] [place] [address] 12/02/2025 9:30 AM EDT Office Visit [facility] ADULT DENTAL [address] [place] [address] Alexa Willson documented as of this encounter Goals Goal Patient Goal Type Associated Problems Recent Progress Patient-Stated? Author Smoking cessation General No Jeana Stone documented as of this encounter Visit Diagnoses Not on filedocumented in this encounter Additional Health Concerns Assessment Noted Time PHQ-9 Depression Total Score: 20 023 1:13 PM EDT documented as of this encounter Care Teams Chicken Fancier Relationship Specialty Start Date End Date Eavngelina Meade MD [address] [place] [phone] PCP - General Family Medicine 04/20/20 documented as of this encounter
--- OUTSIDE RECORDS SUMMARY | 2025-08-30 18:16 | XMS_ITS | Encounter Summary ---
Author Organization [employer] Address [address] [facility] [address]t [place] [address] Care Team Providers Care Permit Agent Name Role Phone Evangelina Meade MD Primary Care Provide r Encounter Details Date Type Department Care Team ([facility] st Contact Info) Description 01/11/2025 Orders Only [facility] MED & PEDS [address] [place], [place] [phone] Patricia Santos Social History Tobacco Use Types Packs/Day Years [...] Description 09/02/2025 10:00 AM EST Office Visit [facility] MEDICINE [address] [place] [address] Evangelina Meade MD [address] [place], [place] [phone] 12/02/2025 9:30 AM EDT Office Visit [facility] ADULT DENTAL [address] [place], [place] [phone] Alexa Willson documented as of this encounter Goals Goal Patient Goal Type Associated Problems Recent Progress Patient-Stated? Author Smoking cessation General No Jeana Stone documented as of this encounter Procedures Procedure Name Priority Date/Time Associated Diagnosis Comments DRUG MONITOR, PANEL 1, SCREEN, URINE Routine 03/09/2025 11:08 AM EDT HPV MRNA E6/E7 REFLEX TO HPV 16, 18/45 Routine 08/25/2024 12:00 AM EST documented in this encounter Results * (ABNORMAL) Drug Monitoring, Panel 1, Screen, Urine (03/09/2025 11:08 AM EDT) Opiate Screen Urine Not Detected Not Detect [facility] Comment:Opiate cut-off is 30 0 ng/mL.Positive results are unconfirmed and should not be used fornon-medical purposes. Barbiturates, Urine Not Detected Not Detect [facility] Comment:Barbiturate cut-off is 200 ng/mL.Positive results are unconfirmed and should not be used fornon-medical purposes. Phencyclidine Screen Urine Not Detected Not Detect [facility] Comment:Phencyclidine cut-of f is 25 ng/mL.Positive results are unconfirmed and should not be used fornon-medical purposes. Amphetamine Screen Urine Not Detected Not Detect [facility] Comment:Amphetamine cut-off is 1000 ng/mL.Positive results are unconfirmed and should not be used fornon-medical purposes. Benzodiazepines Screen Urine Not Detected Not Detect [facility] Comment:Benzodiazepine cut-o ff is 200 ng/mL.Positive results are unconfirmed and should not be used fornon-medical purposes. Cocaine Screen Urine Not Detected Not Detect [facility] Comment:Cocaine cut-off is 3 00 ng/mL.Positive results are unconfirmed and should not be used fornon-medical purposes. Cannabinoid Screen Urine POSITIVE(A) Not Detect [facility] Comment:Cannabinoid cut-off is 50 ng/mL.Positive results are unconfirmed and should not be used fornon-medical purposes. Methadone Screen, Urine Not Detected Not Detect ng/mL [facility] Comment:Methadone cut-off is 300 ng/mL.Positive results are unconfirmed and should not be used fornon-medical purposes. FENTANYL URINE Not Detected Not Detect [facility] Comment:Fentanyl cut-off is 1 ng/mL.Positive results are unconfirmed and should not be used fornon-medical purposes. Oxycodone Urine Screen Not Detected Not Detect ng/mL [facility] Comment:Oxycodone cut-off is 100 ng/mL.Positive results are unconfirmed and should not be used fornon-medical purposes. Buprenorphine Screen Not Detected Not Detect ng/mL [facility] Comment:Buprenorphine cut-of f is 5 ng/mL.Positive results are unconfirmed and should not be used fornon-medical purposes. 03/09/2025 11:0 8 AM EDT 03/09/2025 1:00 PM EDT us Generic External Data Provider LAB URINE ORDERAB LES Final Result [facility] [address] [place] [address] [phone] * HPV mRNA E6/E7 w/Reflex to HPV Genotypes 16, 18/45 (08/25/2024 12:00 AM EST) us Historical Provider LAB CYTOLOGY ORDERABLES F inal Result documented in this encounter Visit Diagnoses Not on filedocumented in this encounter Additional Health Concerns Assessment Noted Time PHQ-9 Depression Total Score: 11 02/25/ 024 3:00 PM EDT documented as of this encounter Care Teams Permit Agent Relationship Specialty Start Date End Date Evangelina Meade MD [address] [place] [phone] PCP - General Family Medicine 04/20/20 documented as of this encounter
--- OUTSIDE RECORDS SUMMARY | 2025-08-30 18:16 | XMS_ITS | Clinical Summary ---
Author Organization [address] [facility] Address [address] [place] [address] Phone Care Team Providers Care Circuit Court Judge Name Role Phone Evangelina Meade MD Primary Care Provide r Surgical History Surgery Date Site/Laterality Comments OTHER SURGICAL HISTORY PROCEDURE: ---- OTHER ----; COMMENT: nasal polyp Family History Medical History Relation Name Comments Allergies Father Allergies Mother Relation Name Status Comments Father Mother Social History Tobacco Use Types Packs/Day Years Used Date Smoking Tobacco: Never Assessed Comments Unknown Sex and Gender Information Value Date Recorded Sex Assigned at Not on file Legal Sex Female 5:29 PM EST Gender Identity Not on file Sexual Orientation Not on file Plan of Treatment Upcoming Encounters Date Type Department Care Team ([facility] Contact Info) Description 11/02/2025 9:00 AM EST Office Visit Orthopedic Surgery - [place] [phone] [phone] Yusuf Infante, DPM [address] [phone] Health Maintenance Due Date Last Done Comments Breast Cancer Screening 1968 Colorectal Cancer Screening: Colonoscopy 1968 DTaP,Tdap,and Td Vaccines (1 - Tdap) 1987 Hepatitis B Vaccines (1 of 3 - 19+ 3-dose series) 1987 Pneumococcal Vaccine: 50+ Ye ars (1 of 2 - PCV) 1987 Cervical Cancer Screening: P ap Smear 1989 RSV Immunization Adult Patie nts (1 - Risk 50-74 years 1-dose series) 2018 Zoster Vaccines (1 of 2) 2018 Depression Screening 09/15/2024 COVID-19 Vaccine (1 - 2024-2 6 season) 2025 Influenza Vaccine (#1) 2025 Cholesterol Screening (Lipid Panel) 06/30/2025 HIV Screening 06/30/2025 Hepatitis C Screening 06/30/2025 Hypertension/CHF/CAD Annual BMP Blood Test 06/30/2025 Social Influencers of Health Screening 06/30/2025 HIB Vaccines Aged Out No longer eligi [...] on patient's age to complete this topic MMR Vaccines Aged Out No longer eligi ble based on patient's age to complete this topic Meningococcal ACWY Vaccine Aged Out N o longer eligible based on patient's age to complete this topic Meningococcal B Vaccine Aged Out No l onger eligible based on patient's age to complete this topic RSV Immunization Patients Un kathie 20 months Aged Out No longer eligible b ased on patient's age to complete this topic Varicella Vaccines Aged Out No longer eligible based on patient's age to complete this topic Insurance [facility] Care Teams Circuit Court Judge Relationship Specialty Start Date End Date Evangelina Meade MD [address] [place] [phone] PCP - General Internal Medicine 06/30/25
--- OUTSIDE RECORDS SUMMARY | 2025-08-30 18:16 | XMS_ITS | Encounter Summary ---
Author Organization [employer] Address [address] [facility] [address] [place] [address] Care Team Providers Care Youth Worker Name Role Phone Evangelina Meade MD Primary Care Provide r Encounter Details Date Type Department Care Team (Latest Contact Info) Description 08/26/2025 Travel Social History Tobacco Use Types Packs/Day Years [...] Description 09/02/2025 10:00 AM EST Office Visit [facility] MEDICINE [address] [place], [place] [phone] Evangelina Meade MD [address] [place] [phone] 12/02/2025 9:30 AM EDT Office Visit [facility] ADULT DENTAL [address] [place] [phone] Alexa Willson documented as of this encounter Goals Goal Patient Goal Type Associated Problems Recent Progress Patient-Stated? Author Smoking cessation General No Jeana Stone documented as of this encounter Visit Diagnoses Not on filedocumented in this encounter Additional Health Concerns Assessment Noted Time PHQ-9 Depression Total Score: 11 02/25/ 024 3:00 PM EDT documented as of this encounter Care Teams Youth Worker Relationship Specialty Start Date End Date Evangelina Meade MD [address] [place] [phone] PCP - General Family Medicine 04/20/20 documented as of this encounter
--- OUTSIDE RECORDS SUMMARY | 2025-08-30 18:16 | XMS_ITS | Encounter Summary ---
Author Organization [employer] Address [address] [facility] [address] [place] [address] Care Team Providers Care Steel Fixer Name Role Phone Evangelina Meade MD Primary Care Provide r Reason for Visit * Reason Comments Med Refill Encounter Details Date Type Department Care Team ([facility] st Contact Info) Description 10/03/2023 Refill [facility] MEDICINE [address] [place], [place] [phone] Evangelina Meade MD [address] [place] [address] Social History Tobacco Use Types Packs/Day Years [...] Description 09/02/2025 10:00 AM EST Office Visit [facility] MEDICINE [address] [place], [place] [phone] Evangelina Meade MD [address] [place] [address] 12/02/2025 9:30 AM EDT Office Visit [facility] ADULT DENTAL [address] [place] [address] Alexa Willson documented as of this encounter Goals Goal Patient Goal Type Associated Problems Recent Progress Patient-Stated? Author Smoking cessation General No Jeana Stone documented as of this encounter Visit Diagnoses Not on filedocumented in this encounter Additional Health Concerns Assessment Noted Time PHQ-9 Depression Total Score: 2 09/18/19 24 3:05 PM EST documented as of this encounter Care Teams Steel Fixer Relationship Specialty Start Date End Date Evangelina Meade MD [address] [place] [phone] PCP - General Family Medicine 04/20/20 documented as of this encounter
--- OUTSIDE RECORDS SUMMARY | 2025-08-30 18:16 | XMS_ITS | Clinical Summary ---
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 Reflexes (03/09/2025 11:08 AM EDT) HIV AB/AG Nonreactive Nonreactive [facility] Comment:HIV-1 p24 Ag and/or HIV-1/HIV-2 Ab not detected.A test result that is nonreactive does not exclude thepossibility of exposure to or infection with HIV-1 and/orHIV-2. Nonreactive results in this assay for individualswith prior exposure to HIV-1 and/or HIV-2 may be due toantigen and antibody levels that are below the limit ofdetection of this assay.The [employer] HIV Ag/Ab Combo assay result andsupplemental assay results should be interpreted inconjunction with the patient's clinical presentation,history and other laboratory results. If the results areinconsistent with clinical evidence, additional testing issuggested to confirm the result. Blood Venous blood specimen / Unknown 03/09/2025 11:08 AM EDT 03/09/2025 1:20 PM EDT Evangelina Combs MD LAB BLOOD ORDERABLES Final Result Performing Organization Address [facility] Co de Phone Number [facility] [address] [place] [phone] [phone] * Hemoglobin A1c (03/09/2025 11:08 AM EDT) Hemoglobin A1c 5.7 <6.0 % [facility] Comment:Hemoglobin A1C Refer ence Range Adults: 4.8 - 6.0 % Non diabetic: < 6.0 % Goal: < 7.0 %Additional Action Suggested: > 8.0 %Note: Hemoglobin A1c results are invalid for patients with abnormal amounts of HbF. Blood transfusions may impact the HbA1c concentration in the patient sample. Estimated Average Glucose 117 mg/dL [facility] Comment:eAG = Estimated ave rage glucose which is %A1C expressed asaverage glucose, using the formula of the R9G-CudphcfMqxaule Glucose study (ADAG), Diabetes Care, Vol.31,#8,Apr. 2007 Blood Venous blood specimen / Unknown 03/09/2025 11:08 AM EDT 03/09/2025 1:19 PM EDT us Evangelina Combs MD LAB BLOOD ORDERABLES Final Result Performing Organization Address [facility] Co de Phone Number [facility] [address] [place] [phone] * Lipid Panel, Standard (03/09/2025 11:08 AM EDT) Triglycerides 78 <150 mg/dL [facility] Comment:Desirable Triglyceri de: less than 150 mg/dLBorderline High Triglyceride 150-199 mg/dLHigh Triglyceride: 200-499 mg/dLVery High Triglyceride: greater than or equal to 5OO mg/dL Cholesterol 154 <200 mg/dL [facility] Comment:Desirable Cholestero l: less than 200 mg/dLBorderline High Cholesterol: 200-239 mg/dLHigh Cholesterol: greater than 239 mg/dL LDL Cholesterol Calculated 86 <100 mg/dL [facility] Comment:Desirable LDL: less than 100 mg/dLNear Optimal/Above Optimal LDL: 110- 129 mg/dLBorderline High LDL: 130-159 mg/dLHigh LDL: 160-189 mg/dLVery High LDL: greater than or equal to 190 mg/dL HDL Cholesterol 53 >40 mg/dL [facility] Comment:Desirable HDL: great er than 40 mg/dL Note: This HDL assay may give artificially low results in patients with liver disease. Blood Venous blood specimen / Unknown 03/09/2025 11:08 AM EDT 03/09/2025 1:20 PM EDT Evangelina Combs MD LAB BLOOD ORDERABLES Final Result [facility] [address] [place] [phone] * Pap Smear (08/25/2024 10:05 AM EST) Swab Cervix uteri structure / Unknown 08/25/2024 10:05 AM EST 08/26/2024 2:10 PM EST Narrative [facility] - 09/01/2024 10:53 AM EST ----- ------- Name: Loco NiCathryn craven Age/Sex: 54/F : 1970 Unit#: [id number] Attend Dr: GAMAL CRANE CNM Re08/25/24 Status: DEP REF Location: [facility] Disch: ----- ------- SPEC : [id number] RECD: 08/26/24 STATUS: SULMA LOMAS NUM: [id number] ENRIQUE: 08/25/24-[address] [facility] [address]: GAMAL CRANE CNM ENTERED: 08/26/24 SP TYPE: Pap Smr OTHR DR: ORDERED: Pap Smear Interpretation Satisfactory for evaluation. Negative for intraepithelial lesion or malignancy. No endocervical cells seen. Fungal organisms consistent with Kylie species. HPV High Risk: Negative HPV Genotyping 16: Negative HPV Genotyping 18: Negative Clinical Information LMP: Postmenopausal Previous PAP test: 2019, WNL Material Received ThinPrep-Cervical ----- ------- Signed (signature on file) PAM Souza (ASCP) 09/01/24 1053 ----- ------- END OF REPORT us Gamal Crane CNM LAB CYTOLOGY ORDERABLES F inal Result [facility] [address] [place] [phone] * HPV mRNA E6/E7 w/Reflex to HPV Genotypes 16, 18/45 (08/25/2024 12:00 AM EST) Historical Provider LAB CYTOLOGY ORDERABLES F inal Result * Colonoscopy (05/26/2020) Historical Provider HEALTH MAINTENANCE Final Result from Last 3 Months or Most Recently Relevant to Health Maintenance Insurance [facility] - HSN PARTIAL (MEDICAID) Care Teams Surgical Assistant Certified Relationship Specialty Start Date End Date Evangelina Meade MD [address] [place] [address] PCP - General Family Medicine 04/20/20
--- OUTSIDE RECORDS SUMMARY | 2025-08-30 18:16 | XMS_ITS | Encounter Summary ---
Author Organization [employer] Address [address] [facility] 7t [place] [address] Care Team Providers Care Title I Teacher Name Role Phone Evangelina Meade MD Primary Care Provide r Reason for Visit * Reason Comments Med Refill Encounter Details Date Type Department Care Team ([facility] Contact Info) Description 08/27/2025 Refill [facility] [address] [place] [address] Evangelina Meade MD [address] [place] [address] Bipolar affective disorder, remission status unspecified (CMS/HCC) ([facility]) Social History Tobacco Use Types Packs/Day Years [...] Description 09/02/2025 10:00 AM EST Office Visit [facility] [address] [place] [phone] Evangelina Meade MD [address] [place] [address] 12/02/2025 9:30 AM EDT Office Visit [facility] [address] [place] [address] Alexa Willson documented as of this encounter Goals Goal Patient Goal Type Associated Problems Recent Progress Patient-Stated? Author Smoking cessation General No Jeana Stone documented as of this encounter Visit Diagnoses Diagnosis Bipolar affective disorder, remission status unspecified (CMS/HCC) (HCC) documented in this encounter Additional Health Concerns Assessment Noted Time PHQ-9 Depression Total Score: 11 06/13/2 024 3:00 PM EDT documented as of this encounter Care Teams Title I Teacher Relationship Specialty Start Date End Date Evangelina eMade MD [address] [place] [address] PCP - General Family Medicine 04/20/20 documented as of this encounter
--- OUTSIDE RECORDS SUMMARY | 2025-08-30 18:16 | XMS_ITS | Encounter Summary ---
Author Organization [employer] Address [address] [facility] 7 [place] [address] Care Team Providers Care Trim And Burr Operator Name Role Phone Evangelina Meade MD Primary Care Provide r Reason for Visit * Reason Onset Date Comments Referral 08/01/2023 Encounter Details Date Type Department Care Team ([facility] Contact Info) Description 08/01/2023 Telephone [facility] [address] [place], [place] [phone] Evangelina Meade MD [address] [place] [address] Referral Social History Tobacco Use Types Packs/Day [...] 08/01/2023 3:07 PM EST Tc from pt vehicle care specialist (Krys) requesting a referral for meals on wheels. If any questions contact Krys at [phone] documented in this encounter Plan of Treatment Upcoming Encounters Date Type Department Care Team (Late st Contact Info) Description 09/02/2025 10:00 AM EST Office Visit [facility] [address] [place] [address] Evangelina Meade MD [address] [place] [address] 12/02/2025 9:30 AM EDT Office Visit [facility] ADULT DENT[facility] [address] [place] [address] Alexa Willson documented as of this encounter Goals Goal Patient Goal Type Associated Problems Recent Progress Patient-Stated? Author Smoking cessation General No Jeana Stone documented as of this encounter Visit Diagnoses Not on filedocumented in this encounter Additional Health Concerns Assessment Noted Time PHQ-9 Depression Total Score: 20 023 1:13 PM EDT documented as of this encounter Care Teams Trim And Burr Operator Relationship Specialty Start Date End Date Evangelina Meade MD [address] [place] [phone] PCP - General Family Medicine 04/20/20 documented as of this encounter
--- OUTSIDE RECORDS SUMMARY | 2025-08-30 18:16 | XMS_ITS | Encounter Summary ---
Author Organization [employer] Address [address] [facility] 7t [place] [address] Care Team Providers Care Early Head Start Teacher Name Role Phone Evangelina Meade MD Primary Care Provide r Reason for Visit * Reason Comments Med Refill Encounter Details Date Type Department Care Team ([facility] st Contact Info) Description 04/01/2024 Refill [facility] [address] [place] [phone] Evangelina Meade MD [address] [place] [address] Social History Tobacco Use Types Packs/Day Years [...] Description 09/02/2025 10:00 AM EST Office Visit [facility] [address] [place] [address] Evangelina Medae MD [address] [place] [address] [phone] 12/02/2025 9:30 AM EDT Office Visit [facility] [address] [place] [address] Alexa Willson documented as of this encounter Goals Goal Patient Goal Type Associated Problems Recent Progress Patient-Stated? Author Smoking cessation General No Jeana Stone documented as of this encounter Visit Diagnoses Not on filedocumented in this encounter Additional Health Concerns Assessment Noted Time PHQ-9 Depression Total Score: 11 024 3:00 PM EDT documented as of this encounter Care Teams Early Head Start Teacher Relationship Specialty Start Date End Date Evangelina Meade MD [address] [place] [phone] PCP - General Family Medicine 04/20/20 documented as of this encounter
--- OUTSIDE RECORDS SUMMARY | 2025-08-30 18:16 | XMS_ITS | Encounter Summary ---
Author Organization [employer] Address [address] [facility] 7t [place] [address] Care Team Providers Care Nail Polish Brush Machine Feeder Name Role Phone Evangelina Meade MD Primary Care Provide r Reason for Visit * Reason Comments Med Refill Encounter Details Date Type Department Care Team ([facility] st Contact Info) Description 09/01/2023 Refill [facility] [address] [place], [place] [phone] Kit Barton FNP Bipolar affective disorder, remission status unspecified (CMS/HCC) Social History Tobacco Use Types Packs/Day Years [...] t he electric, gas, oil or water [employer] threatened to shut off services in your [...] Description 09/02/2025 10:00 AM EST Office Visit [facility] [address] [place], [place] [phone] Evangelina Meade MD [address] [place] [address] 12/02/2025 9:30 AM EDT Office Visit [facility] ADULT D[facility] [address] [place] [address] Alexa Willson documented as of this encounter Goals Goal Patient Goal Type Associated Problems Recent Progress Patient-Stated? Author Smoking cessation General No Jeana Stone documented as of this encounter Visit Diagnoses Diagnosis Bipolar affective disorder, remission status unspecified (CMS/HCC) ([facility]) documented in this encounter Additional Health Concerns Assessment Noted Time PHQ-9 Depression Total Score: 20 023 1:13 PM EDT documented as of this encounter Care Teams Nail Polish Brush Machine Feeder Relationship Specialty Start Date End Date Evangelina Meade MD [address] [place] [phone] PCP - General Family Medicine 04/20/20 documented as of this encounter
--- OUTSIDE RECORDS SUMMARY | 2025-08-30 18:16 | XMS_ITS | Encounter Summary ---
Author Organization [employer] Address [address] [facility] 7t [place] [address] Care Team Providers Care Law Firm Receptionist Name Role Phone Evangelina Meade MD Primary Care Provide r Encounter Details Date Type Department Care Team (Latest Contact Info) Description 08/25/2025 Travel Social History Tobacco Use Types Packs/Day [...] 10:00 AM EST Office Visit [facility] [address] [place], [place] [phone] Evangelina Meade MD [address] [place] [phone] 12/02/2025 9:30 AM EDT Office Visit [facility] ADULT D[facility]AL [address] [place] [phone] Alexa Willson documented as of this encounter Goals Goal Patient Goal Type Associated Problems Recent Progress Patient-Stated? Author Smoking cessation General No Jeana Stone documented as of this encounter Visit Diagnoses Not on filedocumented in this encounter Additional Health Concerns Assessment Noted Time PHQ-9 Depression Total Score: 11 02/25/ 024 3:00 PM EDT documented as of this encounter Care Teams Law Firm Receptionist Relationship Specialty Start Date End Date Evangelina Meade MD [address] [place] [phone] PCP - General Family Medicine 04/20/20 documented as of this encounter
--- OUTSIDE RECORDS SUMMARY | 2025-08-30 18:16 | XMS_ITS | Encounter Summary ---
Author Organization [employer] Address [address] [facility] 7t [place] [address] Care Team Providers Care And Drying Supervisor Cooking Casing Name Role Phone Evangelina Meade MD Primary Care Provide r Reason for Visit * Reason Comments Med Refill Encounter Details Date Type Department Care Team ([facility] st Contact Info) Description 09/24/2023 Refill [facility] [address] [place] [address] Evangelina Meade MD [address] [place] [address] Social History Tobacco Use Types Packs/Day Years [...] 10:00 AM EST Office Visit [facility] [address] [place], [place] [phone] Evangelina Meade MD [address] [place] [address] 12/02/2025 9:30 AM EDT Office Visit [facility] ADULT [facility] [address] [place] [address] Alexa Willson documented as of this encounter Goals Goal Patient Goal Type Associated Problems Recent Progress Patient-Stated? Author Smoking cessation General No Jeana Stone documented as of this encounter Visit Diagnoses Not on filedocumented in this encounter Additional Health Concerns Assessment Noted Time PHQ-9 Depression Total Score: 2 09/18/19 24 3:05 PM EST documented as of this encounter Care Teams And Drying Supervisor Cooking Casing Relationship Specialty Start Date End Date Evangelina Meade MD [address] [place] [phone] PCP - General Family Medicine 04/20/20 documented as of this encounter
--- OUTSIDE RECORDS SUMMARY | 2025-08-30 18:16 | XMS_ITS | Encounter Summary ---
Author Organization [employer] [facility] Address [address] [place] [address] 7 [place] [address] Care Team Providers Care Engineered Wood Designer Name Role Phone Evangelina Meade MD Primary Care Provide r Encounter Details Date Type Department Care Team (Late st Contact Info) Description 06/04/2023 Orders Only [facility] MED[facility]INE [address] [place] [address] [phone] ProviderMarla MD Social History Tobacco Use Types Packs/Day Years [...] Description 09/02/2025 10:00 AM EST Office Visit [facility] [address] [place] [address] [phone] Evangelina Meade MD [address] [place] [address] [phone] 12/02/2025 9:30 AM EDT Office Visit [facility] ADULT DENTAL [address] [place] [address] [phone] Alexa Willson documented as of this encounter Procedures Procedure Name Priority Date/Time Associated Diagnosis Comments HM COLONOSCOPY Routine 05/26/2020 documented in this encounter Results * Hm Colonoscopy (05/26/2020) us Historical Provider HEALTH MAINTENANCE Final Result documented in this encounter Visit Diagnoses Not on filedocumented in this encounter Additional Health Concerns Assessment Noted Time PHQ-9 Depression Total Score: 3 04/21/20 23 1:04 PM EDT documented as of this encounter Care Teams Engineered Wood Designer Relationship Specialty Start Date End Date Evangelina Meade MD [address] [place] [phone] PCP - General Family Medicine 04/20/20 documented as of this encounter
--- OUTSIDE RECORDS SUMMARY | 2025-08-30 18:16 | XMS_ITS | Encounter Summary ---
Author Organization [employer] Address [address] [facility] 7 [place] [address] Care Team Providers Care Books Salesperson Name Role Phone Evangelina Meade MD Primary Care Provide r Reason for Visit * Reason Onset Date Comments Results 08/30/2025 Encounter Details Date Type Department Care Team ([facility] Contact Info) Description 08/30/2025 Telephone [facility] [address] [place] [address] Evangelina Meade MD [address] [place] [phone] Results Social History Tobacco Use Types Packs/Day Years [...] encounter Miscellaneous Notes * Telephone Encounter - Regina Saba RN - 08/30/2025 9:32 AM EST RN reviewed recent Xray results from 08/25/25 with ordering provider. L shoulder Xray results returned showing: IMPRESSION: Calcific tendinosis/tendinopathy, supraspinatus. 2.5 mm granuloma, left upper lung lobe. Xray results of ribs were also negative for any rib fractures and cervical spine Xrays returned showing multilevel cervical spondylosis. Ordering provider would like patient to have an MRI, continue PT and will also refer patient to ortho. TC placed to patient [phone] to inform of Xray results and POC. Patient verbalized understanding and is aware she will receive a TC for MRI scheduling, a letter in the mail for PT & ortho appointment date and time or a call from their offices. Patient verbalized understanding and did not have any further questions/concerns. Patient to f/u PRN. documented in this encounter Plan of Treatment Upcoming Encounters Date Type Department Care Team (Late st Contact Info) Description 09/02/2025 10:00 AM EST Office Visit [facility] [address] [place] [address] Evangelina Meade MD [address] [place] [address] 12/02/2025 9:30 AM EDT Office Visit [facility] [address] [place], [place] [phone] Alexa Willson documented as of this encounter Goals Goal Patient Goal Type Associated Problems Recent Progress Patient-Stated? Author Smoking cessation General No Jeana Stone documented as of this encounter Visit Diagnoses Not on filedocumented in this encounter Additional Health Concerns Assessment Noted Time PHQ-9 Depression Total Score: 11 06/2 024 3:00 PM EDT documented as of this encounter Care Teams Books Salesperson Relationship Specialty Start Date End Date Evangelina Meade MD [address] [place] [phone] PCP - General Family Medicine 04/20/20 documented as of this encounter
--- OUTSIDE RECORDS SUMMARY | 2025-08-30 18:16 | XMS_ITS | Encounter Summary ---
Author Organization [employer] Address [address] [facility] 7t [place] [address] Care Team Providers Care Bolter Helper Name Role Phone Evangelina Meade MD Primary Care Provide r Reason for Visit * Reason Comments Med Refill Encounter Details Date Type Department Care Team ([facility] st Contact Info) Description 01/26/2023 Refill [facility] [address] [place] [address] Jessica Jay MD [address] [place] [address] COVID Social History Tobacco Use Types Packs/Day [...] Assessment Author Patient Health Questionnaire -2 Score 6 01/28/2023 1:42 PM EDT Blanca Nascimento MA * How difficult have these problems made it for you to do your work, take care of things at home, or get along with other people? Answer Date of Assessment Author Somewhat difficult 01/28/2023 1:42 PM EDT Michelle Serna MA * Over the past 2 weeks, how often have you been bothered by any of the following problems? Question Answer Date of Assessment Author Little interest or pleasure in doing things Nearly every day 01/28/2023 1:42 PM Michelle Carrillo MA Feeling down, depressed, or hopeless Nearly every day 01/28/2023 1:42 PM DIAT Blanca Nascimento MA Trouble falling or staying asleep, or sleeping too much Nearly every day 01/28/2023 1:42 PM EDT Blanca Nascimento MA Feeling tired or having little energy Nearly every day 01/28/2023 1:42 PM Blanca Carrillo MA Poor appetite or overeating Not at all 01/28/2023 1:42 PM Blanca Carrillo MA Feeling bad about yourself - or that you are a failure or have let yourself or your family down Not at all 01/28/2023 1:42 PM Blanca Carrillo MA Trouble concentrating on things, such as reading the newspaper or watching television Nearly every day 01/28/2023 1:42 PM DIAT Blanca Nascimento MA Moving or speaking so slowly that other people could have noticed? Or the opposite - being so fidgety or restless that you have been moving around a lot more than usual. Several days 01/28/2023 1:42 PM Blanca Carrillo MA Thoughts that you would be better off or hurting yourself in some way Not at all 01/28/2023 1:42 PM DIAT Himanshu Nascimento MA Patient Health Questionnaire-9 Score 16 01/28/2023 1:42 PM Juanpablo Carrillo MA documented as of this encounter Plan of Treatment Upcoming Encounters Date Type Department Care Team (Late st Contact Info) Description 09/02/2025 10:00 AM EST Office Visit [facility] [address] [place] [address] Evangelina Meade MD [address] [place] [address] 12/02/2025 9:30 AM EDT Office Visit [facility] AD[facility] [address] [place] [address] Alexa Willson documented as of this encounter Visit Diagnoses Diagnosis COVID documented in this encounter Additional Health Concerns Assessment Noted Time PHQ-9 Depression Total Score: 4 12/11/19 23 1:14 PM EDT documented as of this encounter Care Teams Bolter Helper Relationship Specialty Start Date End Date Evangelina Meade MD [address] [place] [address] PCP - General Family Medicine 04/20/20 documented as of this encounter
--- OUTSIDE RECORDS SUMMARY | 2025-08-30 18:16 | XMS_ITS | Encounter Summary ---
Author Organization [employer] Address [address] [place] [address] 7t [place] [address] Care Team Providers Care Garment Patternmaker Name Role Phone Evangelina Meade MD Primary Care Provide r Encounter Details Date Type Department Care Team (Late st Contact Info) Description 12/04/2022 Orders Only [facility] MED & PEDS [address] [place], [place] [phone] Jessica Farias LPN Social History Tobacco Use [...] Description 09/02/2025 10:00 AM EST Office Visit [facility] MEDICINE [address] [place], [place] [phone] Evangelina Meade MD [address] [place], [place] [phone] 12/02/2025 9:30 AM EDT Office Visit [facility] ADULT DENTAL [address] [place], [place] [phone] Alexa Willson documented as of this encounter Visit Diagnoses Not on filedocumented in this encounter Additional Health Concerns Assessment Noted Time PHQ-9 Depression Total Score: 11 10/29/ 023 1:25 PM EST documented as of this encounter Care Teams Garment Patternmaker Relationship Specialty Start Date End Date Evangelina Meade MD [address] [place] [address] PCP - General Family Medicine 04/20/20 documented as of this encounter
--- OUTSIDE RECORDS SUMMARY | 2025-08-30 18:16 | XMS_ITS | Encounter Summary ---
Author Organization [email or web address] Address [address] [facility] 7t [place] [address] Care Team Providers Care Make Up Man Name Role Phone Evangelina Meade MD Primary Care Provide r Encounter Details Date Type Department Care Team ([facility] st Contact Info) Description 08/25/2025 Orders Only [facility] MEDICINE [address] [place] [address] Jessica Farias DO [address] [place] [address] Social History Tobacco Use Types Packs/Day Years [...] Description 09/02/2025 10:00 AM EST Office Visit [facility] MEDICINE [address] [place] [address] Evangelina Meade MD 230 [place] [address] 12/02/2025 9:30 AM EDT Office Visit [facility] ADULT DENTAL [address] [place] [address] Alexa Willson documented as of this encounter Goals Goal Patient Goal Type Associated Problems Recent Progress Patient-Stated? Author Smoking cessation General No Jeana Stone documented as of this encounter Procedures Procedure Name Priority Date/Time Associated Diagnosis Comments XR CERVICAL SPINE 3V Routine 08/25/2025 10:40 AM EST documented in this encounter Results * XR CERVICAL SPINE 3V (08/25/2025 10:40 AM EST) Anatomical Region Laterality Modality Abdomen Radiographic Lara ging 08/25/2025 10:4 0 AM EST Narrative 08/25/2025 1:39 PM EST [facility] [address] [place] [address] XRay Report Signed Patient: Cathryn Cruz MR#: [id number] : 1970 Acct:[id number] Age/Sex: 55 / F ADM Date: 08/25/25 Loc: .HHCX Attending Dr: Jessica Farias DO Ordering Physician: Jessica Farias DO Date of Service: 08/25/25 Procedure(s): XR cervical spine 3V Accession Number(s): [id number] cc: Jessica Farias DO Reason for Exam: [...] 08/25/25 1336 DD/ 1040 TD/TT: 08/25/25 1040 Appian Developer: Procedure Note Donotuseinterpreter, Image - 08/25/2025 [place] [address] XRay Report Signed Patient: Loco MichelCathryn MR#: [id number] : 1970Acct:[id number] Age/Sex: 55 / FADM Date: 08/25/25 Loc: HO.HHCX Attending Dr: Jessica Farias DO Ordering Physician: Jessica Farias DO Date of Service: 08/25/25 Procedure(s): XR cervical spine 3V Accession Number(s): [id number] cc: Jessica Farias DO Reason for Exam: [...] 08/25/25 1336 DD/ 1040 TD/TT: 08/25/25 1040 Appian Developer: us Jessica Farias DO IMG XR PROCEDURES Edited Res ult - Final documented in this encounter Visit Diagnoses Not on filedocumented in this encounter Additional Health Concerns Assessment Noted Time PHQ-9 Depression Total Score: 11 02/25/2 024 3:00 PM EDT documented as of this encounter Care Teams Make Up Man Relationship Specialty Start Date End Date Evangelina Meade MD [address] [place] [address] PCP - General Family Medicine 04/20/20 documented as of this encounter
--- OUTSIDE RECORDS SUMMARY | 2025-08-30 18:16 | XMS_ITS | Encounter Summary ---
Author Organization [employer] Address 75 [facility] 7t [place] [address] Care Team Providers Care Pickle Water Pump Operator Name Role Phone Evangelina Meade MD Primary Care Provide r Reason for Visit * Reason Comments Med Refill Encounter Details Date Type Department Care Team ([facility] st Contact Info) Description 01/23/2025 Refill [facility] MEDICINE [address] [place] [address] Evangelina Meade MD 230 [place] [address] Social History Tobacco Use Types Packs/Day Years [...] your housing situation today? I have weston simposn 11/12/[address] you li [...] Description 09/02/2025 10:00 AM EST Office Visit [facility] MEDICINE [address] [place] [address] Evangelina Meade MD [address] [place] [address] 12/02/2025 9:30 AM EDT Office Visit [facility] ADULT DENTAL [address] [place] [address] Alexa Willson documented as of this encounter Goals Goal Patient Goal Type Associated Problems Recent Progress Patient-Stated? Author Smoking cessation General No Jeana Stone documented as of this encounter Visit Diagnoses Not on filedocumented in this encounter Additional Health Concerns Assessment Noted Time PHQ-9 Depression Total Score: 11 024 3:00 PM EDT documented as of this encounter Care Teams Pickle Water Pump Operator Relationship Specialty Start Date End Date Evangelina Meade MD [address] [place] [phone] PCP - General Family Medicine 04/20/20 documented as of this encounter
== END 2025-08-30 14:30 | disposition home or self-care (01) ==
LOC: HO.HGI 14:02
PROVIDERS: PCP Internal Medicine; Visit Provider Nurse Practitioner Family
DX: K21.00 Gastro-esophageal reflux disease with esophagitis, without bleeding (principal); D12.2 Benign neoplasm of ascending colon
CPT/HCPCS: 99213

== ENCOUNTER → 2025-08-30 14:01 | Outpatient (BNVA) | payer OTHER, SELFPAY | PROVIDERS: PCP Internal Medicine; Visit Provider Nurse Practitioner Family | DX: K21.00 Gastro-esophageal reflux disease with esophagitis, without bleeding (principal); D12.2 Benign neoplasm of ascending colon; Z79.899 Other long term (current) drug therapy | CPT/HCPCS: 99212 ==

== ENCOUNTER 2025-09-01 13:24 | Outpatient (AMB) | payer MEDICAID, SELFPAY ==
--- NOTE | 2025-09-01 13:32 | MHC.OFFVIS ---
Vital Signs 09/01/25 13:34 Height 5 ft 4 in Weight 168 lb 13.985 oz BMI 29.0 BP 110/70 Blood Pressure Location Lt brachial Position Sitting Pulse 67 Pulse Source Monitor Intake Visit Reasons: 1 yr f/up Intake Note: 1 yr f/up Administrative Specialist Required: No Accompanied by: Self / Same As Patient Allergies tramadol Allergy (Severe, Verified 08/30/25 14:06) Seizure trazodone Allergy (Severe, Verified 08/30/25 14:06) manic episodes droperidol (From Inapsine) Allergy (Intermediate, Verified 08/30/25 14:06) Rash Sulfa (Sulfonamide Antibiotics) Allergy (Intermediate, Verified 08/30/25 14:06) hives sulfamethoxazole (From BACTRIM) Allergy (Intermediate, Verified 08/30/25 14:06) HIVES trimethoprim (From BACTRIM) Allergy (Intermediate, Verified 08/30/25 14:06) HIVES raw fruit Allergy (Intermediate, Uncoded 08/30/25 14:06) Itchy throat From COPAXONE Allergy (Mild, Uncoded 08/30/25 14:06) HIVES Medication List - Last Reconciled 09/01/25 by RAMSES Joseph acetaminophen ER 650 mg PO Q8H PRN albuterol sulfate 90 mcg/actuation 2 puffs inhalation Q6H PRN aripiprazole PO atorvastatin 40 mg PO QAM ergocalciferol (vitamin D2) 1,250 mcg PO QWEEK famotidine 20 mg PO QAM fluticasone propion-salmeterol 115-21 mcg/actuation (Advair HFA) 2 puffs inhalation BID fluticasone propionate 50 mcg/actuation 1 spray intranasal DAILY gabapentin 400 mg PO TID hydrochlorothiazide 25 mg PO DAILY hydroxyzine HCl 10 mg PO BID PRN hydroxyzine HCl 25 mg PO TID PRN lidocaine 5% 1 patch topical Q24H lisinopril 20 mg PO QPM loratadine 10 mg PO QAM pantoprazole 20 mg PO DAILY HPI HPI 1 yr f/up: Details: Cathryn is a 55-year-old female with past medical history of smoking, hypertension, palpitations/PVCs, mild cardiomyopathy who presents for follow-up. Her last prior visit to our office was 08/30/2024. Today she reports that she has been feeling better with her anxiety with the use of Abilify. She has gained weight and is asking if she can resume exercise. She does get occasional brief heart palpitations, overall less than what she previously reported. No chest discomfort with exertional activities. She has history of asthma but states it is stable. No shortness of breath, PND, orthopnea or edema. She previously had dizziness when taking metoprolol. Takes all meds as directed. [facility] Medical History Bipolar disorder Elevated cholesterol Restless leg syndrome Fibromyalgia Adenomatous polyps Sebaceous cyst of axilla Rotator cuff insufficiency of left shoulder PVC (premature ventricular contraction) History of COVID-19 HTN (hypertension) Medial epicondylitis of both elbows Pain of both elbows Numbness and tingling in both hands Anxiety Acid reflux Surgical History History of removal of cyst (~04/17/23) Hx of repair of left rotator cuff Hx of cystoscopy Hx of endoscopy Hx of colonoscopy H/O nasal polypectomy History of carpal tunnel release Hx of tonsillectomy History of cholecystectomy Family History Father Hypertension PTSD (post-traumatic stress disorder) Mother Manic depression Hyperlipemia Heart disease Asthma Anxiety Son Asthma Daughter Asthma Paternal Grandfather Asthma Paternal Grandfather Asthma Alzheimer disease Maternal Grandmother Asthma Brother No problems noted. Sister No problems noted. Social History Household Members: Children Are you a primary veterinarian laboratory animal care to a significant other at home: No Do you presently have visiting nurse or other home services: No Alcohol intake: current Alcohol intake frequency: does not drink Alcohol type: wine Patient Tobacco Use Status: Current everyday Tobacco user Tobacco use type: Cigarette Cigarettes Per Day: 7 Substance Use Type: Marijuana Advance Directives Date on File: 03/31/23 Current occupational status: employed Current occupation: right handed/[employer] Review of Systems Const All systems reviewed & are unremarkable except as noted in HPI and below Denies chills, Denies fatigue, Denies fever(s), Denies frequent falls, Denies weakness, Denies weight gain and Denies weight loss ENT Denies dizziness Card Denies chest pain, Denies leg edema, Denies lightheadedness, Denies palpitations, Denies dyspnea and Denies dyspnea on exertion Resp Denies cough, Denies dyspnea and Denies dyspnea on exertion GI Denies hematochezia Musc Denies abnormal gait, Denies muscle weakness, Denies numbness, Denies radiating pain into limb and Denies tingling Neuro Denies abnormal gait, Denies dizziness, Denies frequent falls, Denies numbness, Denies tingling and Denies weakness Endo Denies fatigue and Denies palpitations Physical Exam Vital Signs: Last Vital Signs Pulse 67 09/01/25 13:34 BP 110/70 09/01/25 13:34 BMI result Body Mass Index 29.0 Const General: cooperative, healthy appearing, comfortable and no acute distress Orientation/consciousness: patient oriented x3 Neck Neck: Yes normal visual inspection Resp Effort & Inspection: normal respiratory effort Auscultation: clear to auscultation bilaterally, no crackles, no rales, no rhonchi and no wheezes Cardio Rate: regular rate Rhythm: regular rhythm Heart sounds: S1 normal heart sound present, S2 normal heart sound present, no gallops, no murmurs and no rubs Neuro General: patient oriented x3 Extrem General: Yes normal to inspection, No no pedal edema and No calf tenderness Psych Appearance: grossly normal Mental Status: mental status grossly normal Speech and movement: Normal speech and movement present Office Procedures EKG Details: Today, read by me, normal sinus rhythm, right axis deviation, rate 67, QTC 407 milliseconds [id number], Complete Assessment & Plan Assessment & Plan (1) PVC (premature ventricular contraction): Code(s): I49.3 - Ventricular premature depolarization Category: Medical Plan: History of PVCs, mild cardiomyopathy in 2018 with EF 45-50%. She was lost to follow-up then seen again in 2021. An echocardiogram was done on 08/21/2022 showing EF 45-50%, normal valves and no reported wall motion abnormality. An exercise stress test was done on 08/21/2022 showing exercise 5 minutes 15 seconds with moderate shortness of breath with isolated PVCs and no EKG changes of ischemia. A Holter monitor was done 08/21/2022 for 1 day showing sinus rhythm with average heart rate 88, PVCs, 1.8% of the time. In the past she was intolerant to metoprolol which made her feel like she was walking in the clouds. On follow-up visit low-dose metoprolol was re-tried with recurrent symptoms. Last echocardiogram was done 07/02/2023 showing EF 53%. Here for a 1 year follow-up and reports doing well overall. She does get occasional brief heart palpitations, nothing concerning. Will have her resume exercise as tolerated. Will update echocardiogram. Reviewed the avoidance of caffeinated beverages. Continue lisinopril for neurohormonal modulation. Cardiology follow-up 1 year, sooner if needed. (2) Cardiomyopathy: Code(s): I42.9 - Cardiomyopathy, unspecified Category: Medical Plan: As above, last EF 53%. Mild cardiomyopathy was thought to be related to her frequent PVCs. Intolerant to beta tracy as above. Continue lisinopril. (3) HTN (hypertension): Code(s): I10 - Essential (primary) hypertension Category: Medical Plan: Well controlled at present. No med changes made. Continue hydrochlorothiazide and lisinopril. (4) Anxiety: Code(s): F41.9 - Anxiety disorder, unspecified Category: Medical Plan: Grief and anxiety present over the loss of her daughter to suicide 04/2024. She reports having good family support and a counselor. She is on Abilify which she says helps her greatly. Again offered my condolences. Plan I discussed with the patient that her heart condition is stable. I reassured her that based on her last echocardiogram from June 2023 with an EF of 53% and a low PVC burden on her 2021 Holter monitor, it is safe for her to resume treadmill exercise. I advised her to exercise as tolerated, starting slowly and gradually increasing intensity and duration, and emphasized that exercise is beneficial for both her physical and mental health. We also discussed her use of Abilify for depression. Although she has concerns about weight gain, I strongly recommended she continue the medication because it has been highly effective in managing her severe depression and anxious thoughts. The plan is to manage the weight gain with increased physical activity. I have placed an order for a new echocardiogram to be completed in September for an updated assessment. I will communicate the results to her by phone. I advised her to schedule a follow-up appointment in one year. Orders: Orders CA echo transthoracic complete Today I42.9 - Cardiomyopathy, unspecified Patient Instructions: - Continue taking all your current medications as prescribed, including lisinopril, hydrochlorothiazide, and Abilify. - It is safe for you to exercise, including using the treadmill. - When you start exercising again, begin slowly, for example with 10 minutes, and gradually increase the time as you feel able. - Listen to your body during exercise. If you feel you can't continue, it is okay to stop or slow down. - We have ordered a new heart ultrasound (echocardiogram) for you. Our scheduling office will call you to set up an appointment for this test in September. - Please make a follow-up appointment to be seen in this office in one year. Patient was informed and verbally consented to the use of an ambient scribe for clinic note documentation during this visit. Visit time spent on chart review, interview, assessment, orders, documentation. Coding Level of Care Code Est Pt Level 4 (94712) Add On Problem Visit Only Diagnoses PVC (premature ventricular contraction) I49.3 Cardiomyopathy I42.9 HTN (hypertension) I10 Anxiety F41.9 CPT Codes EKG - CPT: 52815-[id number], Complete ([id number]) Time Spent (min) 28
[2025-09-01 13:34] VITALS: BP 110/70; PULSE 67; BMI 29.0
--- OUTSIDE RECORDS SUMMARY | 2025-09-01 17:30 | XMS_ITS | Encounter Summary ---
Author Organization [email or web address] Address 75 [facility] 7t [place] [address] Care Team Providers Care Assistant Director Of Security Name Role Phone Evangelina Meade MD Primary Care Provide r Reason for Visit * Reason Comments Med Refill Encounter Details Date Type Department Care Team ([facility] st Contact Info) Description 01/23/2025 Refill [facility] MEDICINE [address] [place] [address] Evangelina Meade MD [address] [place] [address] Social History Tobacco Use Types Packs/Day Years [...] 10:00 AM EST Office Visit [facility] MEDICINE [address] [place] [phone] Evangelina Meade MD [address] [place] [address] 12/02/2025 9:30 AM EDT Office Visit [facility] ADULT DENTAL [address] [place] [phone] Alexa Willson documented as of this encounter Goals Goal Patient Goal Type Associated Problems Recent Progress Patient-Stated? Author Smoking cessation General No Jeana Stone documented as of this encounter Visit Diagnoses Not on filedocumented in this encounter Additional Health Concerns Assessment Noted Time PHQ-9 Depression Total Score: 11 024 3:00 PM EDT documented as of this encounter Care Teams Assistant Director Of Security Relationship Specialty Start Date End Date Evangelina Meade MD [address] [place] [address] PCP - General Family Medicine 04/20/20 documented as of this encounter
--- OUTSIDE RECORDS SUMMARY | 2025-09-01 17:30 | XMS_ITS | Encounter Summary ---
Author Organization [employer] Address 75 [facility] 7t [place] [address] Care Team Providers Care Tribunal Member Name Role Phone Evangelina Meade MD Primary Care Provide r Reason for Visit * Reason Comments Med Refill Encounter Details Date Type Department Care Team ([facility] Contact Info) Description 08/27/2025 Refill [facility] [address] [place] [address] Evangelina Meade MD [address] [place] [address] Bipolar affective disorder, remission status unspecified (CMS/HCC) ([facility]) Social History Tobacco Use Types [...] Description 09/02/2025 10:00 AM EST Office Visit [facility] MEDICINE [address] [place] [address] Evangelina Meade MD [address] [place] [address] 12/02/2025 9:30 AM EDT Office Visit [facility] ADULT DENTAL [address] [place] [address] Alexa Willson documented as of this encounter [...] documented as of this encounter Care Teams Tribunal Member Relationship Specialty Start Date End Date Evangelina Meade MD [address] [place] [address] PCP - General Family Medicine 04/20/20 documented as of this encounter
--- OUTSIDE RECORDS SUMMARY | 2025-09-01 17:30 | XMS_ITS | Encounter Summary ---
Author Organization [employer] Address 75 [facility] 7t [place] [address] Care Team Providers Care Stage Settings Painter Name Role Phone Evangelina Meade MD Primary Care Provide r Reason for Visit * Reason Comments Med Refill Encounter Details Date Type Department Care Team ([facility] st Contact Info) Description 10/03/[address] [facility] MEDICINE [address] [place], [place] [phone] Evangelina Meade MD [address] [place] [address] Social History Tobacco Use Types Packs/Day Years [...] 10:00 AM EST Office Visit [facility] MEDICINE [address] [place], [place] [phone] Evangelina Meade MD [address] [place] [address] 12/02/2025 9:30 AM EDT Office Visit [facility] ADULT DENTAL [address] [place] [address] Alexa Willson documented as of this encounter Goals Goal Patient Goal Type Associated Problems Recent Progress Patient-Stated? Author Smoking cessation General No Jeana Stone documented as of this encounter Visit Diagnoses Not on filedocumented in this encounter Additional Health Concerns Assessment Noted Time PHQ-9 Depression Total Score: 2 09/18/19 24 3:05 PM EST documented as of this encounter Care Teams Stage Settings Painter Relationship Specialty Start Date End Date Evangelina Meade MD [address] [place] [address] PCP - General Family Medicine 04/20/20 documented as of this encounter
--- OUTSIDE RECORDS SUMMARY | 2025-09-01 17:30 | XMS_ITS | Encounter Summary ---
Author Organization [employer] Address [address] [facility] 7t [place] [address] Care Team Providers Care Teaching Young Name Role Phone Evangelina Meade MD Primary Care Provide r Reason for Visit * Reason Comments Med Refill Encounter Details Date Type Department Care Team ([facility] st Contact Info) Description 09/01/2023 Refill [facility] MEDICINE [address] [place], [place] [phone] Kit Bartno FNP Bipolar affective disorder, remission status unspecified [...] t he electric, gas, oil or water [employer] threatened to shut off services in your [...] EST Office Visit [facility] MEDICINE [address] [place], [place] [phone] Evangelina Meade MD [address] [place] [address] 12/02/2025 9:30 AM EDT Office Visit [facility] ADULT DENTAL [address] [place] [address] Alexa Willson documented as of this encounter Goals Goal Patient Goal Type Associated Problems Recent Progress Patient-Stated? Author Smoking cessation General No Jeana Stone documented as of this encounter Visit Diagnoses Diagnosis Bipolar affective disorder, remission status unspecified (CMS/HCC) ([facility]) documented in this encounter Additional Health Concerns Assessment Noted Time PHQ-9 Depression Total Score: 20 023 1:13 PM EDT documented as of this encounter Care Teams Teaching Young Relationship Specialty Start Date End Date Evangelina Meade MD [address] [place] [address] PCP - General Family Medicine 04/20/20 documented as of this encounter
--- OUTSIDE RECORDS SUMMARY | 2025-09-01 17:30 | XMS_ITS | Encounter Summary ---
Author Organization [employer] Address 75 [facility] 7t [place] [address] Care Team Providers Care Director Of Employer Services Name Role Phone Evangelina Meade MD Primary Care Provide r Encounter Details Date Type Department Care Team (Late st Contact Info) Description 04/18/2023 Orders Only [facility] CHC MED & PEDS [address] [place] [address] Qi Navarrete LPN Social History Tobacco Use [...] all 04/21/2023 1: 04 PM DIAT Michelle Nasciemnto [place] Feeling bad about yourself - or [...] Description 09/02/2025 10:00 AM EST Office Visit [facility] MEDICINE [address] [place] [address] Evangelina Meade MD [address] [place] [address] 12/02/2025 9:30 AM EDT Office Visit [facility] ADULT DENTAL [address] [place] [address] Alexa Willson documented as of this encounter Visit Diagnoses Not on filedocumented in this encounter Additional Health Concerns Assessment Noted Time PHQ-9 Depression Total Score: 20 023 11:14 AM EDT documented as of this encounter Care Teams Director Of Employer Services Relationship Specialty Start Date End Date Evangelina Meade MD [address] [place] [address] PCP - General Family Medicine 04/20/20 documented as of this encounter
--- OUTSIDE RECORDS SUMMARY | 2025-09-01 17:30 | XMS_ITS | Encounter Summary ---
Author Organization [employer] Address 75 [facility] 7 [place] [address] Care Team Providers Care Public Speaking Instructor Name Role Phone Evangelina Meade MD Primary Care Provide r Reason for Visit * Reason Onset Date Comments Results 08/30/2025 Encounter Details Date Type Department Care Team ([facility] Contact Info) Description 08/30/2025 Telephone [facility] [address] [place] [address] Evangelina Meade MD 230 [place] [address] Results Social History Tobacco Use Types Packs/Day [...] patient to ortho. TC placed to patient [phone] to inform of Xray results and POC. [...] Description 09/02/2025 10:00 AM EST Office Visit [facility] [address] [place] [address] Evangelina Meade MD [address] [place] [address] 12/02/2025 9:30 AM EDT Office Visit [facility] ADULT DENTAL [address] [place], [place] [phone] Alexa Willson documented as of this encounter Goals Goal Patient Goal Type Associated Problems Recent Progress Patient-Stated? Author Smoking cessation General No Jeana Stone documented as of this encounter Visit Diagnoses Not on filedocumented in this encounter Additional Health Concerns Assessment Noted Time PHQ-9 Depression Total Score: 11 06/2 024 3:00 PM EDT documented as of this encounter Care Teams Public Speaking Instructor Relationship Specialty Start Date End Date Evangelina Meade MD [address] [place] [phone] PCP - General Family Medicine 04/20/20 documented as of this encounter
--- OUTSIDE RECORDS SUMMARY | 2025-09-01 17:30 | XMS_ITS | Encounter Summary ---
Author Organization [employer] Address 75 [facility] 7t [place] [address] Care Team Providers Care Network Account Manager Name Role Phone Evangelina Meade MD Primary Care Provide r Reason for Visit * Reason Comments Med Refill Encounter Details Date Type Department Care Team ([facility] st Contact Info) Description 09/24/2023 Refill [facility] [address] [place] [address] Evangelina Meade MD 230 [place] [address] Social History Tobacco Use Types Packs/Day Years [...] Description 09/02/2025 10:00 AM EST Office Visit [facility] [address] [place], [place] [phone] Evangelina Meade MD 230 [place] [address] 12/02/2025 9:30 AM EDT Office Visit [facility] ADULT DENTAL [address] [place] [address] Aleax Willson documented as of this encounter Goals Goal Patient Goal Type Associated Problems Recent Progress Patient-Stated? Author Smoking cessation General No Jeana Stone documented as of this encounter Visit Diagnoses Not on filedocumented in this encounter Additional Health Concerns Assessment Noted Time PHQ-9 Depression Total Score: 2 09/18/19 24 3:05 PM EST documented as of this encounter Care Teams Network Account Manager Relationship Specialty Start Date End Date Evangelina Meade MD [address] [place] [phone] PCP - General Family Medicine 04/20/20 documented as of this encounter
--- OUTSIDE RECORDS SUMMARY | 2025-09-01 17:30 | XMS_ITS | Encounter Summary ---
Author Organization [employer] [facility] Address [address] [place] [address] 7 [place] [address] Care Team Providers Care Access Manager Name Role Phone Evangelina Meade MD Primary Care Provide r Encounter Details Date Type Department Care Team (Late st Contact Info) Description 06/04/2023 Orders Only [facility] [address] [place] [address] [phone] ProviderMarla MD Social History Tobacco Use Types [...] 10:00 AM EST Office Visit [facility] [address] [place] [address] [phone] Evangelina Meade MD [address] [place] [address] [phone] 12/02/2025 9:30 AM EDT Office Visit [facility] [address] [place] [address] [phone] Alexa Willson documented as of this encounter [...] documented as of this encounter Care Teams Access Manager Relationship Specialty Start Date End Date Evangelina Meade MD [address] [place] [phone] PCP - General Family Medicine 04/20/20 documented as of this encounter
--- OUTSIDE RECORDS SUMMARY | 2025-09-01 17:30 | XMS_ITS | Encounter Summary ---
Author Organization [employer] Address 75 [facility] 7t [place] [address] Care Team Providers Care Elastic Yarn Twister Name Role Phone Evangelina Meade MD Primary Care Provide r Reason for Visit * Reason Onset Date Comments Appointment Request 08/15/2023 Encounter Details Date Type Department Care Team ([facility] Contact Info) Description 08/15/2023 Telephone [facility] 230 [place] [address] Evangelina Meade MD [address] [place] [address] Appointment Request Social History Tobacco Use Types [...] - 08/15/2023 11:00 AM EST [facility], 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 documented in this encounter Plan of Treatment Upcoming Encounters Date Type Department Care Team (Late st Contact Info) Description 09/02/2025 10:00 AM EST Office Visit [facility] [address] [place] [address] Evangelina Meade MD [address] [place] [address] 12/02/2025 9:30 AM EDT Office Visit [facility] ADULT DENTAL [address] [place] [address] Alexa Willson documented as of this encounter Goals Goal Patient Goal Type Associated Problems Recent Progress Patient-Stated? Author Smoking cessation General No Jeana Stone documented as of this encounter Visit Diagnoses Not on filedocumented in this encounter Additional Health Concerns Assessment Noted Time PHQ-9 Depression Total Score: 20 023 1:13 PM EDT documented as of this encounter Care Teams Elastic Yarn Twister Relationship Specialty Start Date End Date Evangelina Meade MD [address] [place] [phone] PCP - General Family Medicine 04/20/20 documented as of this encounter
--- OUTSIDE RECORDS SUMMARY | 2025-09-01 17:30 | XMS_ITS | Encounter Summary ---
Author Organization [employer] Address 75 [facility] 7t [place] [address] Care Team Providers Care Vertical Lathe Operator Name Role Phone Evangelina Meade MD Primary Care Provide r Reason for Visit * Reason Comments Med Refill Encounter Details Date Type Department Care Team ([facility] st Contact Info) Description 04/01/2024 Refill [facility] [address] [place] [phone] Evangelina Meade MD 230 [place] [address] Social History Tobacco Use Types Packs/Day Years [...] Description 09/02/2025 10:00 AM EST Office Visit [facility] 230 [place] [address] Evangelina Meade MD [address] [place] [address] [phone] 12/02/2025 9:30 AM EDT Office Visit [facility] ADULT DENTAL [address] [place] [address] Alexa Willson documented as of this encounter Goals Goal Patient Goal Type Associated Problems Recent Progress Patient-Stated? Author Smoking cessation General No Jeana Stone documented as of this encounter Visit Diagnoses Not on filedocumented in this encounter Additional Health Concerns Assessment Noted Time PHQ-9 Depression Total Score: 11 024 3:00 PM EDT documented as of this encounter Care Teams Vertical Lathe Operator Relationship Specialty Start Date End Date Evangleina Meade MD [address] [place] [phone] PCP - General Family Medicine 04/20/20 documented as of this encounter
--- OUTSIDE RECORDS SUMMARY | 2025-09-01 17:30 | XMS_ITS | Encounter Summary ---
Author Organization [employer] Address 75 [facility] 7 [place] [address] Care Team Providers Care Oil Pipe Inspector Helper Name Role Phone Evangelina Meade MD Primary Care Provide r Reason for Visit * Reason Onset Date Comments Referral 08/01/2023 Encounter Details Date Type Department Care Team (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 If any questions contact [employer] at [phone] documented in this encounter Plan of Treatment Upcoming Encounters Date Type Department Care Team (Late st Contact Info) Description 09/02/2025 10:00 AM EST Office Visit [facility] [address] [place] [address] Evangelina Meade MD [address] [place] [address] 12/02/2025 9:30 AM EDT Office Visit [facility] ADULT DENTAL [address] [place] [address] Alexa Willson documented as of this encounter Goals Goal Patient Goal Type Associated Problems Recent Progress Patient-Stated? Author Smoking cessation General No Jeana Stone documented as of this encounter Visit Diagnoses Not on filedocumented in this encounter Additional Health Concerns Assessment Noted Time PHQ-9 Depression Total Score: 20 023 1:13 PM EDT documented as of this encounter Care Teams Oil Pipe Inspector Helper Relationship Specialty Start Date End Date Evangelina Meade MD [address] [place] [phone] PCP - General Family Medicine 04/20/20 documented as of this encounter
--- OUTSIDE RECORDS SUMMARY | 2025-09-01 17:30 | XMS_ITS | Encounter Summary ---
Author Organization [employer] Address [address] [place] [address] 7t [place] [address] Care Team Providers Care Band Bias Machine Operator Name Role Phone Evangelina Meade MD Primary Care Provide r Encounter Details Date Type Department Care Team (Late st Contact Info) Description 12/04/2022 Orders Only [facility] MED & PEDS [address] [place], [place] [phone] Jessica Farias LPN Social History Tobacco Use [...] Description 09/02/2025 10:00 AM EST Office Visit [facility] MEDICINE 230 [place], [place] [phone] Evangelina Meade MD 230 [place], [place] [phone] 12/02/2025 9:30 AM EDT Office Visit [facility] ADULT DENTAL 230 [place], [place] [phone] Alexa Willson documented as of this encounter Visit Diagnoses Not on filedocumented in this encounter Additional Health Concerns Assessment Noted Time PHQ-9 Depression Total Score: 11 10/29/ 023 1:25 PM EST documented as of this encounter Care Teams Band Bias Machine Operator Relationship Specialty Start Date End Date Evangelina Meade MD 230 [place] [address] PCP - General Family Medicine 04/20/20 documented as of this encounter
--- OUTSIDE RECORDS SUMMARY | 2025-09-01 17:30 | XMS_ITS | Encounter Summary ---
Author Organization [employer] Address [address] [place] [address] 7t [place] [address] Care Team Providers Care Cold Mill Supervisor Name Role Phone Evangelina Meade MD Primary Care Provide r Reason for Visit * Reason Comments Med Refill Encounter Details Date Type Department Care Team (Late Contact Info) Description 04/02/2023 Refill [facility] MED & PEDS [address] [place] [address] Kit Barton FNP Social History Tobacco Use [...] Upcoming Encounters Date Type Department Care Team ([facility] Contact Info) Description 09/02/2025 10:00 AM EST Office Visit [facility] MEDICINE [address] [place], [place] [phone] Evangelina Meade MD [address] [place], [place] [phone] 12/02/2025 9:30 AM EDT Office Visit [facility] ADULT DENTAL [address] [place] [address] Alexa Willson documented as of this encounter Visit Diagnoses Not on filedocumented in this encounter Additional Health Concerns Assessment Noted Time PHQ-9 Depression Total Score: 20 023 11:14 AM EDT documented as of this encounter Care Teams Cold Mill Supervisor Relationship Specialty Start Date End Date Evangelina Meade MD [address] [place] [address] PCP - General Family Medicine 04/20/20 documented as of this encounter
--- OUTSIDE RECORDS SUMMARY | 2025-09-01 17:30 | XMS_ITS | Clinical Summary ---
Author Organization 175 [facility] Address [address] [place] [address] Phone Care Team Providers Care Linen Controller Name Role Phone Evangelina Meade MD Primary [...] Upcoming Encounters Date Type Department Care Team ([facility] Contact Info) Description 11/02/2025 9:00 AM EST Office Visit [facility] - [place] [phone] [phone] Yusuf Infante, DPM [address] [phone] Health Maintenance Due Date Last [...] patient's age to complete this topic Insurance [facility] Care Teams Linen Controller Relationship Specialty Start Date End Date Evangelina Meade MD [address] [place] [phone] PCP - General Internal Medicine 06/30/25
--- OUTSIDE RECORDS SUMMARY | 2025-09-01 17:30 | XMS_ITS | Encounter Summary ---
Author Organization [employer] Address 75 [facility] 7t [place] [address] Care Team Providers Care Enzyme Chemist Name Role Phone Evangelina Meade MD Primary Care Provide r Reason for Visit * Reason Comments Med Refill Encounter Details Date Type Department Care Team ([facility] st Contact Info) Description 01/26/2023 Refill [facility] [address] [place] [address] Jessica Jay MD [address] [place] [address] COVID Social History Tobacco Use Types Packs/Day [...] [facility] MEDICINE [address] [place] [address] Evangelina Meade MD [address] [place] [address] 12/02/2025 9:30 AM EDT Office Visit [facility] ADULT DENTAL [address] [place] [address] Alexa Willson documented as of this encounter Visit Diagnoses Diagnosis COVID documented in this encounter Additional Health Concerns Assessment Noted Time PHQ-9 Depression Total Score: 4 12/11/19 23 1:14 PM EDT documented as of this encounter Care Teams Enzyme Chemist Relationship Specialty Start Date End Date Evangelina Meade MD [address] [place] [address] PCP - General Family Medicine 04/20/20 documented as of this encounter
--- OUTSIDE RECORDS SUMMARY | 2025-09-01 17:30 | XMS_ITS | Encounter Summary ---
Author Organization [employer] Address 75 [facility] 7t [place] [address] Care Team Providers Care Casino Attendant Name Role Phone Evangelina Meade MD Primary Care Provide r Encounter Details Date Type Department Care Team ([facility] st Contact Info) Description 01/11/2025 Orders Only [facility] CHC MED & PEDS [address] [place], [place] [phone] Patricia Santos Social History Tobacco Use Types [...] 10:00 AM EST Office Visit [facility] MEDICINE 230 [place] [address] Evangelina Meade MD 230 [place], [place] [phone] 12/02/2025 9:30 AM EDT Office Visit [facility] ADULT DENTAL 230 [place], [place] [phone] Alexa Willson documented as of this encounter [...] Screen Urine Not Detected Not Detect [facility] Comment:Opiate cut-off is 30 0 ng/mL.Positive results are unconfirmed and should not be used fornon-medical purposes. Barbiturates, Urine Not Detected Not Detect [facility] Comment:Barbiturate cut-off is 200 ng/mL.Positive results are unconfirmed and should not be used fornon-medical purposes. Phencyclidine Screen Urine Not Detected Not Detect [facility] Comment:Phencyclidine cut-of f is 25 ng/mL.Positive results are unconfirmed and should not be used fornon-medical purposes. Amphetamine Screen Urine Not Detected Not Detect [facility] Comment:Amphetamine cut-off is 1000 ng/mL.Positive results are unconfirmed and should not be used fornon-medical purposes. Benzodiazepines Screen Urine Not Detected Not Detect [facility] Comment:Benzodiazepine cut-o ff is 200 ng/mL.Positive results are unconfirmed and should not be used fornon-medical purposes. Cocaine Screen Urine Not Detected Not Detect [facility] Comment:Cocaine cut-off is 3 00 ng/mL.Positive results are unconfirmed and should not be used fornon-medical purposes. Cannabinoid Screen Urine POSITIVE(A) Not Detect [facility] Comment:Cannabinoid cut-off is 50 ng/mL.Positive results are unconfirmed and should not be used fornon-medical purposes. Methadone Screen, Urine Not Detected Not Detect ng/mL [facility] Comment:Methadone cut-off is 300 ng/mL.Positive results are unconfirmed and should not be used fornon-medical purposes. FENTANYL URINE Not Detected Not Detect [facility] Comment:Fentanyl cut-off is 1 ng/mL.Positive results are unconfirmed and should not be used fornon-medical purposes. Oxycodone Urine Screen Not Detected Not Detect ng/mL [facility] Comment:Oxycodone cut-off is 100 ng/mL.Positive results are unconfirmed and should not be used fornon-medical purposes. Buprenorphine Screen Not Detected Not Detect ng/mL [facility] Comment:Buprenorphine cut-of f is 5 ng/mL.Positive results are unconfirmed and should not be used fornon-medical purposes. 03/09/2025 11:0 8 AM EDT 03/09/2025 1:00 PM EDT us Generic External Data Provider LAB URINE ORDERAB LES Final Result [facility] [address] [place] [address] [phone] * HPV mRNA E6/E7 w/Reflex to HPV Genotypes 16, 18/45 (08/25/2024 12:00 AM EST) us Historical Provider LAB CYTOLOGY ORDERABLES F inal Result documented in this encounter Visit Diagnoses Not on filedocumented in this encounter Additional Health Concerns Assessment Noted Time PHQ-9 Depression Total Score: 11 02/25/ 024 3:00 PM EDT documented as of this encounter Care Teams Casino Attendant Relationship Specialty Start Date End Date Evangelina Meade MD [address] [place] [phone] PCP - General Family Medicine 04/20/20 documented as of this encounter
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
== END 2025-09-01 13:58 | disposition home or self-care (01) ==
LOC: HO.HCS 13:25
PROVIDERS: PCP Internal Medicine; Visit Provider Nurse Practitioner Family
DX: I49.3 Ventricular premature depolarization (principal); I42.9 Cardiomyopathy, unspecified; I10 Essential (primary) hypertension; F41.9 Anxiety disorder, unspecified
CPT/HCPCS: 93010; 99214

== ENCOUNTER → 2025-09-01 13:24 | Outpatient (BNVA) | payer MEDICAID, SELFPAY | PROVIDERS: PCP Internal Medicine; Visit Provider Nurse Practitioner Family | DX: I49.3 Ventricular premature depolarization (principal); I42.9 Cardiomyopathy, unspecified; I10 Essential (primary) hypertension; F41.9 Anxiety disorder, unspecified | CPT/HCPCS: 93005; 99212 ==